=== PATIENT | female | born 1935 | race Caucasian/White ===

== ENCOUNTER 2023-01-15 10:58 | Outpatient (OUT) | payer MEDICARE, SELFPAY ==
[2023-01-15 11:15] VITALS: BP 162/79; PULSE 68; RESP 18; TEMP 36.4; O2SAT 94
--- NOTE | 2023-01-15 11:25 | PC.NURSE ---
Patient is here for Evenity injection, she had her bloodwork drawn. She denies any concerns or complaints at this time and states she has tolerated these in the past.
[2023-01-15 11:29] LABS: Calcium 8.8 mg/dL (8.5-10.1); Estimated GFR (African America 50 (>=60); Estimated GFR (Non-African Ame 41 (>=60)
[2023-01-15] MEDS: ROMOSOZUMAB-AQQG 210 MG/2.34 ML SYRINGE SQ (11:46)
== END 2023-01-15 10:59 | disposition home or self-care (01) ==
LOC: LAB 11:02
PROVIDERS: PCP Family Medicine; Visit Provider Family Medicine
DX: M81.0 Age-related osteoporosis without current pathological fracture (principal)
CPT/HCPCS: 36415; 82310; 82565; 96372; J3111

== ENCOUNTER 2023-02-15 10:35 | Outpatient (OUT) | payer MEDICARE, SELFPAY ==
[2023-02-15 10:54] VITALS: BP 154/77; PULSE 62; RESP 18; TEMP 36.6; O2SAT 94
[2023-02-15 11:02] LABS: Calcium 8.7 mg/dL (8.5-10.1); Estimated GFR (African America 40 (>=60); Estimated GFR (Non-African Ame 33 (>=60)
[2023-02-15] MEDS: ROMOSOZUMAB-AQQG 210 MG/2.34 ML SYRINGE SQ (11:28)
== END 2023-02-15 10:36 | disposition home or self-care (01) ==
LOC: INF 10:48
PROVIDERS: PCP Family Medicine; Visit Provider Family Medicine
DX: M81.0 Age-related osteoporosis without current pathological fracture (principal)
CPT/HCPCS: 36415; 82310; 82565; 96372; J3111

== ENCOUNTER 2023-03-22 10:42 | Outpatient (RCR) | payer MEDICARE, SELFPAY ==
[2023-03-22 10:42] VITALS: BP 178/76; PULSE 58; RESP 20; TEMP 36.4; O2SAT 99
--- NOTE | 2023-03-22 10:42 | PC.NURSE ---
1042: Pt. to [facility] amb. for monthly Evenity injection. Seated in recliner. VSS. Denies c/o adverse reactions with past injections. Denies needs or c/o. Awaits med. from pharmacy.
[2023-03-22 11:08] LABS: Estimated GFR (African America 52 (>=60); Estimated GFR (Non-African Ame 43 (>=60)
[2023-03-22] MEDS: ROMOSOZUMAB-AQQG 210 MG/2.34 ML SYRINGE SQ (11:11)
--- NOTE | 2023-03-22 11:15 | PC.NURSE ---
1111: Pt. medicated with Evenity 210mg SQ to left arm x's 2 injection sites. No bleeding observed. Pt. tolerated without c/o. 1115: Pt d/c'd amb to home.
== END 2023-03-22 23:59 | disposition home or self-care (01) ==
LOC: INF 10:42
PROVIDERS: PCP Family Medicine; Visit Provider Family Medicine
DX: M81.0 Age-related osteoporosis without current pathological fracture (principal)
CPT/HCPCS: 36415; 82310; 82565; 96372; J3111

== ENCOUNTER 2023-03-29 08:12 | Outpatient (OUT) | payer MEDICARE, SELFPAY ==
[2023-03-29 08:34] LABS: Basophils Absolute Auto 0.1 10^3/uL (0.0-0.1); Basophils Percent Auto 0.8 % (0.2-2.0); Eosinophils Absolute Auto 0.2 10^3/uL (0.0-0.7); Eosinophils Percent Auto 3.9 % (0.9-7.0); Hematocrit 43.3 % (36.0-48.0); Hemoglobin 14.6 g/dL (12.0-16.0); Immature Granulocytes Abs Auto 0.02 10^3/uL (0.00-0.03); Immature Granulocytes Pct Auto 0.3 % (0.0-0.5); Lymphocytes Absolute Auto 1.6 10^3/uL (1.2-3.8); Lymphocytes Percent Auto 26.6 % (20.5-60.0); Mean Corpuscular HGB Conc 33.7 g/dL (29.9-35.2); Mean Corpuscular Hemoglobin 31.9 pg (26.7-34.0); Mean Corpuscular Volume 94.7 fL (81.0-99.0); Monocytes Absolute Auto 0.6 10^3/uL (0.3-0.8); Monocytes Percent Auto 9.9 % (1.7-12.0); Neutrophils Absolute Auto 3.5 10^3/uL (1.4-6.5); Neutrophils Percent Auto 58.5 % (43.0-75.0); Platelet Count 247 10^3/uL (150-450); Red Blood Count 4.57 10^6/uL (4.20-5.40); Red Cell Distribution Width 13.7 % (11.0-15.0); White Blood Count 5.9 10^3/uL (4.0-11.0)
[2023-03-29 08:58] LABS: Alanine Aminotransferase 13 U/L (14-59); Albumin Globulin Ratio 0.9; Albumin Level 3.6 g/dL (3.4-5.0); Alkaline Phosphatase 92 U/L (46-116); Anion Gap 12.3; Aspartate Amino Transferase 16 U/L (15-37); BUN Creatinine Ratio 16.1; Bilirubin Total 0.5 mg/dL (0.2-1.0); Calcium 8.7 mg/dL (8.5-10.1); Carbon Dioxide 25.2 mmol/L (21.0-32.0); Chloride 106 mmol/L (98-107); Chol HDL Ratio 3.4; Cholesterol 142 mg/dL (<=200); Estimated GFR (African America 50 (>=60); Estimated GFR (Non-African Ame 41 (>=60); Glucose 94 mg/dL (74-106); HDL Cholesterol 42 mg/dL (40-60); LDL Cholesterol Calculated 78.4 mg/dL; Potassium 4.5 mmol/L (3.5-5.1); Sodium 139 mmol/L (136-145); Thyroid Stimulating Hormone 0.427 uIU/mL (0.358-3.740); Total Protein 7.6 g/dL (6.4-8.2); Triglycerides 108 mg/dL (<=150); VLDL CHOLESTEROL 21.6 mg/dL
[2023-03-29 08:59] LABS: Estimated Average Glucose 114 mg/dL; Glycohemoglobin A1C 5.6 % (4.5-6.2)
[2023-03-29 09:07] LABS: Free T4 1.12 ng/dL (0.76-1.46)
== END 2023-03-29 08:13 | disposition home or self-care (01) ==
LOC: LAB 08:13
PROVIDERS: PCP Family Medicine; Visit Provider Family Medicine
DX: E01.0 Iodine-deficiency related diffuse (endemic) goiter (principal); I10 Essential (primary) hypertension; E78.2 Mixed hyperlipidemia; E11.9 Type 2 diabetes mellitus without complications
CPT/HCPCS: 36415; 80053; 80061; 83036; 84439; 84443; 85025

== ENCOUNTER 2023-04-19 07:16 | Outpatient (RCR) | payer MEDICARE, SELFPAY ==
[2023-04-19 11:08] LABS: Calcium 8.9 mg/dL (8.5-10.1); Estimated GFR (African America 50 (>=60); Estimated GFR (Non-African Ame 41 (>=60)
[2023-04-19] MEDS: ROMOSOZUMAB-AQQG 210 MG/2.34 ML SYRINGE SQ (11:32)
[2023-04-19 11:33] VITALS: BP 152/78; PULSE 60; RESP 18; TEMP 36; O2SAT 98
== END 2023-04-21 23:59 | disposition home or self-care (01) ==
LOC: INF 07:16
PROVIDERS: PCP Family Medicine; Visit Provider Family Medicine
DX: M81.0 Age-related osteoporosis without current pathological fracture (principal)
CPT/HCPCS: 36415; 82310; 82565; 96372; J3111

== ENCOUNTER 2023-05-17 07:32 | Outpatient (RCR) | payer MEDICARE, SELFPAY ==
[2023-05-17 10:19] VITALS: BP 178/76; PULSE 61; RESP 16; TEMP 36.4; O2SAT 95
[2023-05-17 10:25] LABS: Calcium 9.1 mg/dL (8.5-10.1); Estimated GFR (African America 47 (>=60); Estimated GFR (Non-African Ame 39 (>=60)
[2023-05-17] MEDS: ROMOSOZUMAB-AQQG 210 MG/2.34 ML SYRINGE SQ (10:36)
--- NOTE | 2023-05-17 11:09 | PC.NURSE ---
1019: Pt. to [facility] amb. for monthly injection. Seated in recliner. VSS. Denies adverse reaction after med. given in past months. Relays c/o bone ache off and on. Instructed to drink lots of fluids and take Tylenol for pain today. Pt. relays understanding. 1036: Pt. medicated with Evenity 210mg SQ to left upper arm. No bleeding to injection sites x's 2. Pt. tolerated with min. c/o discomfort. 1040: Pt. d/c'd amb to home.
== END 2023-05-22 23:59 | disposition home or self-care (01) ==
LOC: INF 07:32
PROVIDERS: PCP Family Medicine; Visit Provider Family Medicine
DX: M81.0 Age-related osteoporosis without current pathological fracture (principal)
CPT/HCPCS: 36415; 82310; 82565; 96372; J3111

== ENCOUNTER 2023-06-18 07:21 | Outpatient (RCR) | payer MEDICARE, SELFPAY ==
[2023-05-23 00:03] VITALS: BP 178/76; PULSE 61; RESP 16; TEMP 36.4; O2SAT 95
[2023-06-18 11:04] VITALS: BP 168/75; PULSE 57; RESP 16; TEMP 36.4; O2SAT 96
[2023-06-18 11:05] LABS: Estimated GFR (African America 42 (>=60); Estimated GFR (Non-African Ame 35 (>=60)
--- NOTE | 2023-06-18 11:05 | PC.NURSE ---
1055: Pt. to [facility] amb for monthly injection. Denies c/o or needs. VSS. Awaiting med from pharmacy.
[2023-06-18] MEDS: ROMOSOZUMAB-AQQG 210 MG/2.34 ML SYRINGE SQ (11:17)
--- NOTE | 2023-06-18 11:38 | PC.NURSE ---
1117: Medicated with Evenity x's 2 injections to left upper arm. No bleeding at either injection site. Pt. tolerated without c/o. 1123: D/c'd amb. to home
== END 2023-06-21 23:59 | disposition home or self-care (01) ==
LOC: INF 07:21
PROVIDERS: PCP Family Medicine; Visit Provider Family Medicine
DX: M81.0 Age-related osteoporosis without current pathological fracture (principal)
CPT/HCPCS: 36415; 82310; 82565; 96372; J3111

== ENCOUNTER 2023-07-20 07:32 | Outpatient (OUT) | payer MEDICARE, SELFPAY ==
[2023-06-22 00:03] VITALS: BP 168/75; PULSE 57; RESP 16; TEMP 36.4; O2SAT 96
--- OUTSIDE RECORDS SUMMARY | 2023-07-20 07:36 | XMS_ITS | CCD ---
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 Phone DEVONTE ., DR ESTEVEZ Attending Unavailable HOY ., DR ESTEVEZ Admitting Unavailable HOY ., DR ESTEVEZ Primary Care Unavailable HOY ., DR ESTEVEZ Consulting Unavailable HOY ., DR ESTEVEZ Attending Unavailable HOY ., DR ESTEVEZ Admitting Unavailable HOY ., DR ESTEVEZ Primary Care Unavailable HOY ., DR ESTEVEZ Consulting Unavailable WEST, DR BOOGIE Crow Consulting Unavailable HOY ., DR ESTEVEZ Consulting Unavailable HOY ., DR ESTEVEZ Attending Unavailable HOY ., DR ESTEVEZ Admitting Unavailable HOY ., DR ESTEVEZ Primary Care Unavailable HOY ., DR ESTEVEZ Attending Unavailable HOY ., DR ESTEVEZ Admitting Unavailable HOY ., DR ESTEVEZ Primary Care Unavailable HOY ., DR ESTEVEZ Consulting Unavailable Problems Active Problems Problem Classification Problem Date Documented Da te Episodic/Chronic Disorders of lipid metabolism (1 source) Hyperlipidemia, unspecified; Translations: [HYPERLIPIDEMIA UNSPECIFIED] Onset: 11-23-2021 Chronic Menopausal disorders (1 source) Other primary ovarian failure; Translations: [OTHER PRIMARY OVARIAN FAILURE] Onset: 11-23-2021 Chronic Osteoporosis (4 sources) Age-related osteoporosis without current pathological fracture; Translations: [AGE-REL OSTEOPOR W/O CURR PATH FX] Onset: 11-13-2022 Chronic Past or Other Problems Problem Classification Problem Date Documented Da te Episodic/Chronic Deficiency and other anemia (1 source) Anemia, unspecified; Translations: [ANEMIA UNSPECIFIED] Onset: 11-23-2021 Episodic Diabetes mellitus without complication (1 source) Other abnormal glucose; Translations: [OTHER ABNORMAL GLUCOSE] Onset: 11-23-2021 Episodic Results Test Name Value Interpretation Reference Range Facil ity CALCIUMon 11-13-2022 Calcium [Mass/Vol] 8.9 mg/dL Normal 8.5-10.1 [facility] Comment on above: Performed By: #### C A, CREA #### [facility] [address] [place] [address] Dr. Sheila Chang CREATININEon 11-13-2022 Creatinine [Mass/Vol] 1.24 mg/dL Critically high 0.55-1.02 [facility] Comment on above: Performed By: #### C A, CREA #### [facility] [address] [place] [address] Dr. Sheila Chang EGFR-AF TOGOLESE 50 mL/min/1.73m2 Critically low >=60 [facility] Comment on above: Performed By: #### C A, CREA #### [facility] [address] [place] [address] Dr. Sheila Chang EGFR-NON AF TOGOLESE 41 mL/min/1.73m2 Critically low >=60 [facility] Comment on above: Performed By: #### C A, CREA #### [facility] [address] [place] [address] Dr. Sheila Chang CALCIUMon 10-11-2022 Calcium [Mass/Vol] 9.7 mg/dL Normal 8.5-10.1 [facility] Comment on above: Performed By: #### C A, CREA #### [facility] [address] [place] [address] Dr. Sheila Chang CREATININEon 10-11-2022 Creatinine [Mass/Vol] 1.16 mg/dL Critically high 0.55-1.02 [facility] Comment on above: Performed By: #### C A, CREA #### [facility] [address] [place] [address] Dr. Sheila Chang EGFR-AF TOGOLESE 54 mL/min/1.73m2 Critically low >=60 [facility] Comment on above: Performed By: #### C A, CREA #### [facility] [address] [place] [address] Dr. Sheila Chang EGFR-NON AF TOGOLESE 44 mL/min/1.73m2 Critically low >=60 [facility] Comment on above: Performed By: #### C Henrique, CREA #### [facility] [address] [place] [address] Dr. Sheila Chang XR DEXA BONE DENSITYon 04-27 XR DEXA BONE DENSITY EXAMINATION: XR DEX A BONE DENSITY, 04/27/2022 10:29 AM EDT HISTORY: Osteoporosis COMPARISON: 2016, 2006, 2004 TECHNIQUE: Dual-energy X-ray absorptiometry (DEXA) bone density study performed for the axial skeleton. FINDINGS: Bone mineral density AP spine L1-L4 measures 1.24 g/sq cm. T score 0.6. WHO classification: Normal. 11.1% increase from the prior exam Lowest bone mineral density right femoral neck measures 0.659 g/sq cm. T score -2.7. WHO classification: Osteoporosis IMPRESSION: Osteoporosis. High fracture risk Electronically authenticated by: BOOGIE HAYS Date: 2022-04-27 17:32 Normal [facility] CBC AUTO DIFFon 11-21-2021 BASO # 0.0 103/ul Normal 0.0-0.1 [facility] Comment on above: Performed By: #### C Henrique, CREA #### [facility] [address] [place] [address] Dr. Sheila Chang Basophils/100 WBC (Bld) 0.6 % Normal 0.2-2.0 [facility] Comment on above: Performed By: #### C Henrique, CREA #### [facility] [address] [place] [address] Dr. Sheila Chang EO # 0.2 103/ul Normal 0.0-0.7 [facility] Comment on above: Performed By: #### C Henrique, CREA #### [facility] [address] [place] [address] Dr. Sheila Chang Eosinophils/100 WBC (Bld) 3.3 % Normal 0.9-7.0 [facility] Comment on above: Performed By: #### C Henrique, CREA #### [facility] [address] [place] [address] Dr. Sheila Chang Erythrocyte distribution width (RBC) [Ratio] 13.8 % Normal 11.0-15.0 [facility] Comment on above: Performed By: #### C A, CREA #### [facility] [address] [place] [address] Dr. Sheila Chang Hematocrit (Bld) [Volume fraction] 41.8 % Normal 36.0-48.0 [facility] Comment on above: Performed By: #### C A, CREA #### [facility] [address] [place] [address] Dr. Sheila Chang Hemoglobin (Bld) [Mass/Vol] 13.4 g/dL Normal 12.0-16.0 [facility] Comment on above: Performed By: #### C A, CREA #### [facility] [address] [place] [address] Dr. Sheila Chang IG # 0.01 10e3/ul Normal 0.00-0.03 [facility] Comment on above: Performed By: #### C A, CREA #### [facility] [address] [place] [address] Dr. Sheila Chang IG % 0.2 % Normal 0.0-0.5 [facility] Comment on above: Performed By: #### C A, CREA #### [facility] [address] [place] [address] Dr. Sheila Chang LYMPH # 1.2 103/ul Normal 1.2-3.8 [facility] Comment on above: Performed By: #### C A, CREA #### [facility] [address] [place] [address] Dr. Sheila Chang Lymphocytes/100 WBC (Bld) 23.6 % Normal 20.5-60.0 [facility] Comment on above: Performed By: #### C A, CREA #### [facility] [address] [place] [address] Dr. Sheila Chang MANUAL DIFF REQ NO Normal [facility] Comment on above: Performed By: #### C A, CREA #### [facility] [address] [place] [address] Dr. Sheila Chang MCH (RBC) [Entitic mass] 31.2 pg Normal 26.7-34.0 [facility] Comment on above: Performed By: #### C A, CREA #### [facility] [address] [place] [address] Dr. Sheila Chang MCHC (RBC) [Mass/Vol] 32.1 g/dL Normal 29.9-35.2 [facility] Comment on above: Performed By: #### C A, CREA #### [facility] [address] [place] [address] Dr. Sheila Chang MCV (RBC) [Entitic vol] 97.2 fL Normal 81.0-99.0 [facility] Comment on above: Performed By: #### C A, CREA #### [facility] [address] [place] [address] Dr. Sheila Chang MONO # 0.5 103/ul Normal 0.3-0.8 [facility] Comment on above: Performed By: #### C A, CREA #### [facility] [address] [place] [address] Dr. Sheila Chang Monocytes/100 WBC (Bld) 9.2 % Normal 1.7-12.0 [facility] Comment on above: Performed By: #### C A, CREA #### [facility] [address] [place] [address] Dr. Sheila Chang NEUT # 3.2 103/ul Normal 1.4-6.5 [facility] Comment on above: Performed By: #### C A, CREA #### [facility] [address] [place] [address] Dr. Sheila Chang Neutrophils/100 WBC (Bld) 63.1 % Normal 43.0-75.0 [facility] Comment on above: Performed By: #### C A, CREA #### [facility] [address] [place] [address] Dr. Sheila Chang Platelet mean volume (Bld) [Entitic vol] 9.0 fL Critically low 9.5-13.5 [facility] Comment on above: Performed By: #### C A, CREA #### [facility] [address] [place] [address] Dr. Sheila Chang PLT 273 103/ul Normal 150-450 [facility] Comment on above: Performed By: #### C Henrique CREA #### [facility] [address] [place] [address] Dr. Sheila Chang RBC 4.30 106/ul Normal 4.20-5.40 [facility] Comment on above: Performed By: #### C Henrique CREA #### [facility] [address] [place] [address] Dr. Sheila Chang WBC 5.1 103/ul Normal 4.0-11.0 [facility] Comment on above: Performed By: #### C Henrique CREA #### [facility] [address] [place] [address] Dr. Sheila Chang FREE THYROXINE INDEX T7on FTI 2.95 Normal [facility] Comment on above: Performed By: #### T 7, TSH, LIPID, CMP #### [facility] [address] [place] [address] Dr. Sheila Chang T3U 36.0 % Normal 23.5-40.5 [facility] Comment on above: Performed By: #### T 7, TSH, LIPID, CMP #### [facility] [address] [place] [address] Dr. Sheila Chang T4 [Mass/Vol] 8.20 ug/dL Normal 4.80-13.90 [facility] Comment on above: Performed By: #### T 7, TSH, LIPID, CMP #### [facility] [address] [place] [address] Dr. Sheila Chang GLYCOHEMOGLOBIN A1Con 2021 ADA RECOMMENDATION SEE BELOW Normal [facility] Comment on above: Result Comment: ADA RECOMMENDED LIMIT 4.0 - 6.0 ADA THERAPEUTIC TARGET < 7.0 ACTION SUGGESTED > 7.0 Performed By: #### A 1C #### [facility] [address] [place] [address] Dr. Sheila Chang Glucose [Mass/Vol] 114 mg/dL Normal [facility] Comment on above: Performed By: #### A 1C #### [facility] [address] [address] [address] Sheila Chang HbA1c (Bld) [Mass fraction] 5.6 % Normal 4.5-6.2 [facility] Comment on above: Performed By: #### A 1C #### [facility] [address] [place] [address] Dr. Sheila Chang IRONon 11-21-2021 Iron [Mass/Vol] 102.0 ug/dL Normal 50.0-170.0 [facility] Comment on above: Performed By: #### I BRIGETTE #### [facility] [address] [place] [address] Dr. Sheila Chang LIPID PROFILEon 11-21-2021 CHOL-HDL RATIO NORM SEE BELOW Normal [facility] Comment on above: Result Comment: 3.3 - 4.4 LOW RISK 4.4 - 7.1 AVERAGE RISK 7.1 - 11.0 MODERATE RISK >11.0 HIGH RISK Performed By: #### T 7, TSH, LIPID, CMP #### [facility] [address] [place] [address] Dr. Sheila Chang Cholesterol [Mass/Vol] 142 mg/dL Normal <=200 [facility] Comment on above: Performed By: #### T 7, TSH, LIPID, CMP #### [facility] [address] [place] [address] Dr. Sheila Chang Cholesterol in HDL [Mass/Vol] 47 mg/dL Normal 40-60 [facility] Comment on above: Performed By: #### T 7, TSH, LIPID, CMP #### [facility] [address] [place] [address] Dr. Sheila Chang Cholesterol in LDL [Mass/Vol] 83.8 mg/dL Normal [facility] Comment on above: Performed By: #### T 7, TSH, LIPID, CMP #### [facility] [address] [place] [address] Dr. Sheila Chang Cholesterol.total/Cho lesterol in HDL [Mass ratio] 3.0 {ratio} Normal [facility] Comment on above: Performed By: #### T 7, TSH, LIPID, CMP #### [facility] [address] [address] [address] Sheila Chang HDL NORMAL > or = 60 mg/dl - LOW CARDIOVASCULAR RISK <40 mg/dl - HIGH CARDIOVASCULAR RISK Normal [facility] Comment on above: Performed By: #### T 7, TSH, LIPID, CMP #### [facility] [address] [address] [address] Sheila Chang LDL CALC NORMAL SEE BELOW Normal [facility] Comment on above: Result Comment: <100 mg/dl OPTIMAL 100 - 129 mg/dl NEAR OR ABOVE OPTIMAL 130 - 159 mg/dl BORDERLINE HIGH 160 - 189 mg/dl HIGH >190 mg/dl VERY HIGH Performed By: #### T 7, TSH, LIPID, CMP #### [facility] [address] [address] [address] Sheila Chang Triglyceride [Mass/Vol] 56 mg/dL Normal <=150 [facility] Comment on above: Performed By: #### T 7, TSH, LIPID, CMP #### [facility] [address] [address] [address] Sheila Chang VLDL CALC 11.2 mg/dL Normal [facility] Comment on above: Performed By: #### T 7, TSH, LIPID, CMP #### [facility] [address] [address] [address] Sheila Chang PROF 14(COMP METB)on 022 Albumin [Mass/Vol] 3.5 g/dL Normal 3.4-5.0 [facility] Comment on above: Performed By: #### T 7, TSH, LIPID, CMP #### [facility] [address] [place] [address] Dr. Sheila Chang Albumin/Globulin [Mass ratio] 0.9 {ratio} Normal [facility] Comment on above: Performed By: #### T 7, TSH, LIPID, CMP #### [facility] [address] [place] [address] Dr. Sheila Chang ALP [Catalytic activity/Vol] 60 U/L Normal 46-116 [facility] Comment on above: Performed By: #### T 7, TSH, LIPID, CMP #### [facility] [address] [address] [address] Sheila Chang ALT [Catalytic activity/Vol] 14 U/L Normal 14-59 [facility] Comment on above: Performed By: #### T 7, TSH, LIPID, CMP #### [facility] [address] [address] [address] Sheila Chang Anion gap [Moles/Vol] 14.4 mmol/L Normal [facility] Comment on above: Performed By: #### T 7, TSH, LIPID, CMP #### [facility] [address] [address] [address] Sheila Chang AST [Catalytic activity/Vol] 14 U/L Critically low 15-37 [facility] Comment on above: Performed By: #### T 7, TSH, LIPID, CMP #### [facility] [address] [address] [address] Sheila Chang Bilirubin [Mass/Vol] 0.5 mg/dL Normal 0.2-1.0 [facility] Comment on above: Performed By: #### T 7, TSH, LIPID, CMP #### [facility] [address] [address] [address] Sheila Chang Calcium [Mass/Vol] 8.5 mg/dL Normal 8.5-10.1 [facility] Comment on above: Performed By: #### T 7, TSH, LIPID, CMP #### [facility] [address] [address] [address] Sheila Chang Chloride [Moles/Vol] 106 mmol/L Normal 98-107 [facility] Comment on above: Performed By: #### T 7, TSH, LIPID, CMP #### [facility] [address] [address] [address] Sheila Chang CO2 [Moles/Vol] 25.2 mmol/L Normal 21.0-32.0 [facility] Comment on above: Performed By: #### T 7, TSH, LIPID, CMP #### [facility] [address] [address] [address] Sheila Chang Creatinine [Mass/Vol] 1.15 mg/dL Critically high 0.55-1.02 [facility] Comment on above: Performed By: #### T 7, TSH, LIPID, CMP #### [facility] [address] [place] [address] Dr. Sheila Chang EGFR-AF TOGOLESE 54 mL/min/1.73m2 Critically low >=60 [facility] Comment on above: Performed By: #### T 7, TSH, LIPID, CMP #### [facility] [address] [place] [address] Dr. Sheila Chang EGFR-NON AF TOGOLESE 45 mL/min/1.73m2 Critically low >=60 [facility] Comment on above: Performed By: #### T 7, TSH, LIPID, CMP #### [facility] [address] [place] [address] Dr. Sheila Chang Globulin (S) [Mass/Vol] 3.8 g/dL Normal [facility] Comment on above: Performed By: #### T 7, TSH, LIPID, CMP #### [facility] [address] [place] [address] Dr. Sheila Chang Glucose [Mass/Vol] 96 mg/dL Normal 74-106 [facility] Comment on above: Performed By: #### T 7, TSH, LIPID, CMP #### [facility] [address] [place] [address] Dr. Sheila Chang Potassium [Moles/Vol] 5.6 mmol/L Critically high 3.5-5.1 [facility] Comment on above: Performed By: #### T 7, TSH, LIPID, CMP #### [facility] [address] [place] [address] Dr. Sheila Chang Protein [Mass/Vol] 7.3 g/dL Normal 6.1-8.2 [facility] Comment on above: Performed By: #### T 7, TSH, LIPID, CMP #### [facility] [address] [place] [address] Dr. Sheila Chang Sodium [Moles/Vol] 140 mmol/L Normal 136-145 [facility] Comment on above: Performed By: #### T 7, TSH, LIPID, CMP #### [facility] [address] [address] [address] Sheila Chang Urea nitrogen [Mass/Vol] 25.0 mg/dL Critically high 7.0-18.0 [facility] Comment on above: Performed By: #### T 7, TSH, LIPID, CMP #### [facility] [address] [address] [address] Sheila Chang Urea nitrogen/Creatinine [Mass ratio] 21.7 mg/mg Normal [facility] Comment on above: Performed By: #### T 7, TSH, LIPID, CMP #### [facility] [address] [address] [address] Sheila Chang TSHon 11-21-2021 TSH 0.162 uIU/mL Critically low 0.470-4.680 [facility] Comment on above: Performed By: #### T 7, TSH, LIPID, CMP #### [facility] [address] [address] [address] Sheila Chang TSH RANGE SEE BELOW Normal [facility] Comment on above: Result Comment: <0.3 4 UIU/ml HYPERTHYROID 0.34-5.60 UIU/ml EUTHYROID >5.60 UIU/ml HYPOTHYROID Performed By: #### T 7, TSH, LIPID, CMP #### [facility] [address] [address] [address] Sheila Chang Encounters Encounter Date Encounter Type Care Provider Facility Start: 11-13-2022 End: 11-13-[address] ZENAIDA WHITNEY . Facility:[facility] Start: 10-11-2022 End: 10-12-[address] ZENADIA WHITNEY . Facility[facility] Start: 04-27-2022 End: 04-28-[address] ZENAIDA WHITNEY . Facility[facility] Start: 11-21-2021 End: 11-22-[address] ZENAIDA WHITNEY . Facility: Payers Date Payer Category Payer Medicare [id number] 1959 Unknown [id number] 1935 Unknown [id number] 1935 Unknown [id number] 1935 Unknown [id number] [id number] 1935 Unknown [id number] Summary Purpose Family History No Family History Records Found Advance Directives No Advanced Directives Records Found Additional Source Comments INFORMATION SOURCE (unrecogn ized section and content) DATE CREATED AUTHOR 11/13/2022 [facility] FOR RECORDS PERTAINING TO PATIENTS WHO ARE OR HAVE BEEN ENROLLED IN A CHEMICAL DEPENDENCY/SUBSTANCEABUSE PROGRAM, SOME INFORMATION MAY BE OMITTED. This clinical summary was aggregated from multiple sources. Caution should be exercised in using it in the provision of clinical care. This summary normalizes information from multiple sources, and as a consequence, information in this document may materially change the coding, format and clinical context of patient data. In addition, data may be omitted in some cases. CLINICAL DECISIONS SHOULD BE BASED ON THE PRIMARY CLINICAL RECORDS. [facility] [facility] provides no warranty or guarantee of the accuracy or completeness of information in this document.
[2023-07-20 11:40] LABS: Calcium 8.8 mg/dL (8.5-10.1); Estimated GFR (African America 48 (>=60); Estimated GFR (Non-African Ame 39 (>=60)
[2023-07-20] MEDS: ROMOSOZUMAB-AQQG 210 MG/2.34 ML SYRINGE SQ (11:55)
[2023-07-20 11:57] VITALS: BP 142/85; PULSE 80; RESP 16; TEMP 36.4; O2SAT 97
--- NOTE | 2023-07-20 11:58 | PC.NURSE ---
1130: Pt. to [facility] amb. for monthly injection. VSS. Medicated with Evenity 210mg SQ x's 2 injection sites to left arm. No bleeding to site. Pt. tolerates without c/o. 1155: Pt. d/c'd amb. to home.
== END 2023-07-20 07:33 | disposition home or self-care (01) ==
PROVIDERS: PCP Family Medicine; Visit Provider Family Medicine
DX: M81.0 Age-related osteoporosis without current pathological fracture (principal)
CPT/HCPCS: 36415; 82310; 82565; 96372; J3111

== ENCOUNTER 2023-08-20 07:12 | Outpatient (OUT) | payer MEDICARE, SELFPAY ==
--- OUTSIDE RECORDS SUMMARY | 2023-08-20 07:15 | XMS_ITS | CCD ---
Author Name Unknown Address [address] [place] [address] Organization [facility] Care Team Providers Care Book Store Associate Name Role Phone DEVONTE ., DR ESTEVEZ [...] Performed By: #### C A, CREA #### [facility] [address] [place] [address] Dr. Sheila Chang CREATININEon 11-13-2022 Creatinine [Mass/Vol] 1.24 mg/dL Critically high 0.55-1.02 [facility] Comment on above: Performed By: #### C A, CREA #### [facility] [address] [place] [address] Dr. Sheila Chang EGFR-AF SUDANESE 50 mL/min/1.73m2 Critically low >=60 [facility] Comment on above: Performed By: #### C A, CREA #### [facility] [address] [place] [address] Dr. Sheila Chang EGFR-NON AF SUDANESE 41 mL/min/1.73m2 Critically low >=60 [facility] Comment on above: Performed By: #### C A, CREA #### [facility] [address] [place] [address] Dr. Sheila Chang CALCIUMon 10-11-2022 Calcium [Mass/Vol] 9.7 mg/dL Normal 8.5-10.1 [facility] Comment on above: Performed By: #### C A, CREA #### [facility] [address] [place] [address] Dr. Sheila Chang CREATININEon 10-11-2022 Creatinine [Mass/Vol] 1.16 mg/dL Critically high 0.55-1.02 [facility] Comment on above: Performed By: #### C A, CREA #### [facility] [address] [place] [address] Dr. Sheila Chang EGFR-AF SUDANESE 54 mL/min/1.73m2 Critically low >=60 [facility] Comment on above: Performed By: #### C A, CREA #### [facility] [address] [place] [address] Dr. Sheila Chang EGFR-NON AF SUDANESE 44 mL/min/1.73m2 Critically low >=60 [facility] Comment on above: Performed By: #### C Henrique, CREA #### [facility] [address] [place] [address] Dr. Sheila Chang XR DEXA BONE DENSITYon [...] [place]IE [place] Date: 2022-04-27 17:32 Normal [facility] CBC AUTO DIFFon 11-21-2021 BASO # 0.0 103/ul Normal 0.0-0.1 [facility] Comment on above: Performed By: #### C Henrique, CREA #### [facility] [address] [place] [address] Dr. Sheila Chang Basophils/100 WBC (Bld) 0.6 % Normal 0.2-2.0 [facility] Comment on above: Performed By: #### C Henrique, CREA #### [facility] [address] [place] [address] Dr. Sheila Chang EO # 0.2 103/ul Normal 0.0-0.7 [facility] Comment on above: Performed By: #### C Henrique, CREA #### [facility] [address] [place] [address] Dr. Sheila Chang Eosinophils/100 WBC (Bld) 3.3 % Normal 0.9-7.0 [facility] Comment on above: Performed By: #### C Henrique, CREA #### [facility] [address] [place] [address] Dr. Sheila Chang Erythrocyte distribution width (RBC) [Ratio] 13.8 % Normal 11.0-15.0 [facility] Comment on above: Performed By: #### C A, CREA #### [facility] [address] [place] [address] Dr. Sheila Chang Hematocrit (Bld) [Volume fraction] 41.8 % Normal 36.0-48.0 [facility] Comment on above: Performed By: #### C A, CREA #### [facility] [address] [place] [address] Dr. Sheila Chang Hemoglobin (Bld) [Mass/Vol] 13.4 g/dL Normal 12.0-16.0 [facility] Comment on above: Performed By: #### C A, CREA #### [facility] [address] [place] [address] Dr. Sheila Chang IG # 0.01 10e3/ul Normal 0.00-0.03 [facility] Comment on above: Performed By: #### C A, CREA #### [facility] [address] [place] [address] Dr. Sheila Chang IG % 0.2 % Normal 0.0-0.5 [facility] Comment on above: Performed By: #### C A, CREA #### [facility] [address] [place] [address] Dr. Sheila Chang LYMPH # 1.2 103/ul Normal 1.2-3.8 [facility] Comment on above: Performed By: #### C A, CREA #### [facility] [address] [place] [address] Dr. Sheila Chang Lymphocytes/100 WBC (Bld) 23.6 % Normal 20.5-60.0 [facility] Comment on above: Performed By: #### C A, CREA #### [facility] [address] [place] [address] Dr. Sheila Chang MANUAL DIFF REQ NO Normal [facility] Comment on above: Performed By: #### C A, CREA #### [facility] [address] [place] [address] Dr. Sheila Chang MCH (RBC) [Entitic mass] 31.2 pg Normal 26.7-34.0 [facility] Comment on above: Performed By: #### C A, CREA #### [facility] [address] [place] [address] Dr. Sheila Chang MCHC (RBC) [Mass/Vol] 32.1 g/dL Normal 29.9-35.2 [facility] Comment on above: Performed By: #### C A, CREA #### [facility] [address] [place] [address] Dr. Sheila hCang MCV (RBC) [Entitic vol] 97.2 fL Normal 81.0-99.0 [facility] Comment on above: Performed By: #### C A, CREA #### [facility] [address] [place] [address] Dr. Sheila Chang MONO # 0.5 103/ul Normal 0.3-0.8 [facility] Comment on above: Performed By: #### C A, CREA #### [facility] [address] [place] [address] Dr. Sheila Chang Monocytes/100 WBC (Bld) 9.2 % Normal 1.7-12.0 [facility] Comment on above: Performed By: #### C A, CREA #### [facility] [address] [place] [address] Dr. Sheila Chang NEUT # 3.2 103/ul Normal 1.4-6.5 [facility] Comment on above: Performed By: #### C A, CREA #### [facility] [address] [place] [address] Dr. Sheila Chang Neutrophils/100 WBC (Bld) 63.1 % Normal 43.0-75.0 [facility] Comment on above: Performed By: #### C A, CREA #### [facility] [address] [place] [address] Dr. Sheila Chang Platelet mean volume (Bld) [Entitic vol] 9.0 fL Critically low 9.5-13.5 [facility] Comment on above: Performed By: #### C A, CREA #### [facility] [address] [place] [address] Dr. Sheila Chang PLT 273 103/ul Normal 150-450 [facility] Comment on above: Performed By: #### C Henrique CREA #### [facility] [address] [place] [address] Dr. Sheila Chang RBC 4.30 106/ul Normal 4.20-5.40 [facility] Comment on above: Performed By: #### C Henrique CREA #### [facility] [address] [place] [address] Dr. Sheila Chang WBC 5.1 103/ul Normal 4.0-11.0 [facility] Comment on above: Performed By: #### C Henrique CREA #### [facility] [address] [place] [address] Dr. Sheila Chang FREE THYROXINE INDEX T7on FTI 2.95 Normal [facility] Comment on above: Performed By: #### T 7, TSH, LIPID, CMP #### [facility] [address] [place] [address] Dr. Sheila Chang T3U 36.0 % Normal 23.5-40.5 [facility] Comment on above: Performed By: #### T 7, TSH, LIPID, CMP #### [facility] [address] [place] [address] Dr. Sheila Chang T4 [Mass/Vol] 8.20 ug/dL Normal 4.80-13.90 [facility] Comment on above: Performed By: #### T 7, TSH, LIPID, CMP #### [facility] [address] [place] [address] Dr. Sheila Chang GLYCOHEMOGLOBIN A1Con 2021 ADA RECOMMENDATION SEE BELOW Normal [facility] Comment on above: Result Comment: ADA RECOMMENDED LIMIT 4.0 - 6.0 ADA THERAPEUTIC TARGET < 7.0 ACTION SUGGESTED > 7.0 Performed By: #### A 1C #### [facility] [address] [place] [address] Dr. Sheila Chang Glucose [Mass/Vol] 114 mg/dL Normal [facility] Comment on above: Performed By: #### A 1C #### [facility] [address] [address] [address] Sheila Chang HbA1c (Bld) [Mass fraction] 5.6 % Normal 4.5-6.2 [facility] Comment on above: Performed By: #### A 1C #### [facility] [address] [place] [address] Dr. Sheila Chang IRONon 11-21-2021 Iron [Mass/Vol] 102.0 ug/dL Normal 50.0-170.0 [facility] Comment on above: Performed By: #### I BRIGETTE #### [facility] [address] [place] [address] Dr. Sheila Chang LIPID PROFILEon 11-21-2021 CHOL-HDL RATIO NORM SEE BELOW Normal [facility] Comment on above: Result Comment: 3.3 - 4.4 LOW RISK 4.4 - 7.1 AVERAGE RISK 7.1 - 11.0 MODERATE RISK >11.0 HIGH RISK Performed By: #### T 7, TSH, LIPID, CMP #### [facility] [address] [place] [address] Dr. Sheila Chang Cholesterol [Mass/Vol] 142 mg/dL Normal <=200 [facility] Comment on above: Performed By: #### T 7, TSH, LIPID, CMP #### [facility] [address] [place] [address] Dr. Sheila Chang Cholesterol in HDL [Mass/Vol] 47 mg/dL Normal 40-60 [facility] Comment on above: Performed By: #### T 7, TSH, LIPID, CMP #### [facility] [address] [place] [address] Dr. Sheila Chang Cholesterol in LDL [Mass/Vol] 83.8 mg/dL Normal [facility] Comment on above: Performed By: #### T 7, TSH, LIPID, CMP #### [facility] [address] [place] [address] Dr. Sheila Chang Cholesterol.total/Cho lesterol in HDL [Mass ratio] 3.0 {ratio} Normal [facility] Comment on above: Performed By: #### T 7, TSH, LIPID, CMP #### [facility] [address] [address] [address] Sheila Chang HDL NORMAL > or = 60 mg/dl - LOW CARDIOVASCULAR RISK <40 mg/dl - HIGH CARDIOVASCULAR RISK Normal [facility] Comment on above: Performed By: #### T 7, TSH, LIPID, CMP #### [facility] [address] [address] [address] Sheila Chang LDL CALC NORMAL SEE BELOW Normal [facility] Comment on above: Result Comment: <100 mg/dl OPTIMAL 100 - 129 mg/dl NEAR OR ABOVE OPTIMAL 130 - 159 mg/dl BORDERLINE HIGH 160 - 189 mg/dl HIGH >190 mg/dl VERY HIGH Performed By: #### T 7, TSH, LIPID, CMP #### [facility] [address] [address] [address] Sheila Chang Triglyceride [Mass/Vol] 56 mg/dL Normal <=150 [facility] Comment on above: Performed By: #### T 7, TSH, LIPID, CMP #### [facility] [address] [address] [address] Sheila Chang VLDL CALC 11.2 mg/dL Normal [facility] Comment on above: Performed By: #### T 7, TSH, LIPID, CMP #### [facility] [address] [address] [address] Sheila Chang PROF 14(COMP METB)on 022 Albumin [Mass/Vol] 3.5 g/dL Normal 3.4-5.0 [facility] Comment on above: Performed By: #### T 7, TSH, LIPID, CMP #### [facility] [address] [place] [address] Dr. Sheila Chang Albumin/Globulin [Mass ratio] 0.9 {ratio} Normal [facility] Comment on above: Performed By: #### T 7, TSH, LIPID, CMP #### [facility] [address] [place] [address] Dr. Sheila Chang ALP [Catalytic activity/Vol] 60 U/L Normal 46-116 [facility] Comment on above: Performed By: #### T 7, TSH, LIPID, CMP #### [facility] [address] [address] [address] Sheila Chang ALT [Catalytic activity/Vol] 14 U/L Normal 14-59 [facility] Comment on above: Performed By: #### T 7, TSH, LIPID, CMP #### [facility] [address] [address] [address] Sheila Chang Anion gap [Moles/Vol] 14.4 mmol/L Normal [facility] Comment on above: Performed By: #### T 7, TSH, LIPID, CMP #### [facility] [address] [address] [address] Sheila Chang AST [Catalytic activity/Vol] 14 U/L Critically low 15-37 [facility] Comment on above: Performed By: #### T 7, TSH, LIPID, CMP #### [facility] [address] [address] [address] Sheila Chang Bilirubin [Mass/Vol] 0.5 mg/dL Normal 0.2-1.0 [facility] Comment on above: Performed By: #### T 7, TSH, LIPID, CMP #### [facility] [address] [address] [address] Sheila Chang Calcium [Mass/Vol] 8.5 mg/dL Normal 8.5-10.1 [facility] Comment on above: Performed By: #### T 7, TSH, LIPID, CMP #### [facility] [address] [address] [address] Sheila Chang Chloride [Moles/Vol] 106 mmol/L Normal 98-107 [facility] Comment on above: Performed By: #### T 7, TSH, LIPID, CMP #### [facility] [address] [address] [address] Sheila Chang CO2 [Moles/Vol] 25.2 mmol/L Normal 21.0-32.0 [facility] Comment on above: Performed By: #### T 7, TSH, LIPID, CMP #### [facility] [address] [address] [address] Sheila Chang Creatinine [Mass/Vol] 1.15 mg/dL Critically high 0.55-1.02 [facility] Comment on above: Performed By: #### T 7, TSH, LIPID, CMP #### [facility] [address] [place] [address] Dr. Sheila Chang EGFR-AF SUDANESE 54 mL/min/1.73m2 Critically low >=60 [facility] Comment on above: Performed By: #### T 7, TSH, LIPID, CMP #### [facility] [address] [place] [address] Dr. Sheila Chang EGFR-NON AF SUDANESE 45 mL/min/1.73m2 Critically low >=60 [facility] Comment on above: Performed By: #### T 7, TSH, LIPID, CMP #### [facility] [address] [place] [address] Dr. Sheila Chang Globulin (S) [Mass/Vol] 3.8 g/dL Normal [facility] Comment on above: Performed By: #### T 7, TSH, LIPID, CMP #### [facility] [address] [place] [address] Dr. Sheila Chang Glucose [Mass/Vol] 96 mg/dL Normal 74-106 [facility] Comment on above: Performed By: #### T 7, TSH, LIPID, CMP #### [facility] [address] [place] [address] Dr. Sheila Chang Potassium [Moles/Vol] 5.6 mmol/L Critically high 3.5-5.1 [facility] Comment on above: Performed By: #### T 7, TSH, LIPID, CMP #### [facility] [address] [place] [address] Dr. Sehila Chang Protein [Mass/Vol] 7.3 g/dL Normal 6.1-8.2 [facility] Comment on above: Performed By: #### T 7, TSH, LIPID, CMP #### [facility] [address] [place] [address] Dr. Sheila Chang Sodium [Moles/Vol] 140 mmol/L Normal 136-145 [facility] Comment on above: Performed By: #### T 7, TSH, LIPID, CMP #### [facility] [address] [address] [address] Sheila Chang Urea nitrogen [Mass/Vol] 25.0 mg/dL Critically high 7.0-18.0 [facility] Comment on above: Performed By: #### T 7, TSH, LIPID, CMP #### [facility] [address] [address] [address] Sheila Chang Urea nitrogen/Creatinine [Mass ratio] 21.7 mg/mg Normal [facility] Comment on above: Performed By: #### T 7, TSH, LIPID, CMP #### [facility] [address] [address] [address] Sheila Chang TSHon 11-21-2021 TSH 0.162 uIU/mL Critically low 0.470-4.680 [facility] Comment on above: Performed By: #### T 7, TSH, LIPID, CMP #### [facility] [address] [address] [address] Sheila Chang TSH RANGE SEE BELOW Normal [facility] Comment on above: Result Comment: <0.3 4 UIU/ml HYPERTHYROID 0.34-5.60 UIU/ml EUTHYROID >5.60 UIU/ml HYPOTHYROID Performed By: #### T 7, TSH, LIPID, CMP #### [facility] [address] [address] [address] Sheila Chang Encounters Encounter Date Encounter Type Care Provider Facility Start: 11-13-2022 End: 11-13-[address] ZENAIDA WHITNEY . Facility:[facility] Start: 10-11-2022 End: 10-12-[address] ZENAIDA WHITNEY . Facility:[facility] Start: 04-27-2022 End: 04-28-[address] ZENAIDA WHITNEY . Facility:[facility] Start: 11-21-2021 End: 11-22-[address] ZENAIDA WHITNEY . Facility: Payers Date Payer Category Payer Medicare [id number] 1959 Unknown [id number] 1935 Unknown [id number] 1935 Unknown [id number] 1935 Unknown [id number] [id number] 1935 Unknown [id number] Summary Purpose Family History No Family History Records Found Advance Directives No Advanced Directives Records Found Additional Source Comments INFORMATION SOURCE (unrecogn ized section and content) DATE CREATED AUTHOR 11/13/2022 [facility] [place] FOR RECORDS PERTAINING TO PATIENTS WHO ARE [...] BE BASED ON THE PRIMARY CLINICAL RECORDS. [facility] [employer] [facility]. provides no warranty or guarantee of the accuracy or completeness of information in this document.
[2023-08-20 10:38] VITALS: BP 130/79; PULSE 81; RESP 18; TEMP 36.8; O2SAT 96
[2023-08-20 10:48] LABS: Calcium 8.8 mg/dL (8.5-10.1); Estimated GFR (African America 45 (>=60); Estimated GFR (Non-African Ame 37 (>=60)
[2023-08-20] MEDS: ROMOSOZUMAB-AQQG 210 MG/2.34 ML SYRINGE SQ (10:51)
--- NOTE | 2023-08-20 10:55 | PC.NURSE ---
Patient is here for Evenity injection, vitals obtained and stable, she tolerated injection well and denies any issues or concerns. Pt was discharged home ambulatory.
== END 2023-08-20 07:13 | disposition home or self-care (01) ==
LOC: INF 07:12
PROVIDERS: PCP Family Medicine; Visit Provider Family Medicine
DX: M81.0 Age-related osteoporosis without current pathological fracture (principal)
CPT/HCPCS: 36415; 82310; 82565; 96372; J3111

== ENCOUNTER 2023-09-20 07:35 | Outpatient (OUT) | payer MEDICARE, SELFPAY ==
--- OUTSIDE RECORDS SUMMARY | 2023-09-20 07:37 | XMS_ITS | CCD ---
Author Name Unknown Address [address] [place] [address] Organization [facility] Care Team Providers Care Content Producer Name Role Phone DEVONTE ., DR ESTEVEZ [...] Performed By: #### C A, CREA #### [facility] [address] [place] [address] Dr. Sheila Chang CREATININEon 11-13-2022 Creatinine [Mass/Vol] 1.24 mg/dL Critically high 0.55-1.02 [facility] Comment on above: Performed By: #### C A, CREA #### [facility] [address] [place] [address] Dr. Sheila Chang EGFR-AF MICRONESIAN 50 mL/min/1.73m2 Critically low >=60 [facility] Comment on above: Performed By: #### C A, CREA #### [facility] [address] [place] [address] Dr. Sheila Chang EGFR-NON AF MICRONESIAN 41 mL/min/1.73m2 Critically low >=60 [facility] Comment on above: Performed By: #### C A, CREA #### [facility] [address] [place] [address] Dr. Sheila Chang CALCIUMon 10-11-2022 Calcium [Mass/Vol] 9.7 mg/dL Normal 8.5-10.1 [facility] Comment on above: Performed By: #### C A, CREA #### [facility] [address] [place] [address] Dr. Sheila Chang CREATININEon 10-11-2022 Creatinine [Mass/Vol] 1.16 mg/dL Critically high 0.55-1.02 [facility] Comment on above: Performed By: #### C A, CREA #### [facility] [address] [place] [address] Dr. Sheila Chang EGFR-AF MICRONESIAN 54 mL/min/1.73m2 Critically low >=60 [facility] Comment on above: Performed By: #### C A, CREA #### [facility] [address] [place] [address] Dr. Sheila Chang EGFR-NON AF MICRONESIAN 44 mL/min/1.73m2 Critically low >=60 [facility] Comment on above: Performed By: #### C Henrique, CREA #### [facility] [address] [place] [address] Dr. Sheila Chang XR DEXA BONE DENSITYon [...] [place] Date: 2022-04-27 17:32 Normal [facility] CBC AUTO DIFFon 11-21-2021 BASO # 0.0 103/ul Normal 0.0-0.1 [facility] Comment on above: Performed By: #### C Henrique, CREA #### [facility] [address] [place] [address] Dr. Sheila Chang Basophils/100 WBC (Bld) 0.6 % Normal 0.2-2.0 [facility] Comment on above: Performed By: #### C Henrique, CREA #### [facility] [address] [place] [address] Dr. Sheila Chang EO # 0.2 103/ul Normal 0.0-0.7 [facility] Comment on above: Performed By: #### C Henrique, CREA #### [facility] [address] [place] [address] Dr. Sheila Chang Eosinophils/100 WBC (Bld) 3.3 % Normal 0.9-7.0 [facility] Comment on above: Performed By: #### C Henrique, CREA #### [facility] [address] [place] [address] Dr. Sheila Chang Erythrocyte distribution width (RBC) [Ratio] 13.8 % Normal 11.0-15.0 [facility] Comment on above: Performed By: #### C A, CREA #### [facility] [address] [place] [address] Dr. Sheila Chang Hematocrit (Bld) [Volume fraction] 41.8 % Normal 36.0-48.0 [facility] Comment on above: Performed By: #### C A, CREA #### [facility] [address] [place] [address] Dr. Sheila Chang Hemoglobin (Bld) [Mass/Vol] 13.4 g/dL Normal 12.0-16.0 [facility] Comment on above: Performed By: #### C A, CREA #### [facility] [address] [place] [address] Dr. Sheila Chang IG # 0.01 10e3/ul Normal 0.00-0.03 [facility] Comment on above: Performed By: #### C A, CREA #### [facility] [address] [place] [address] Dr. Sheila Chang IG % 0.2 % Normal 0.0-0.5 [facility] Comment on above: Performed By: #### C A, CREA #### [facility] [address] [place] [address] Dr. Sheila Chang LYMPH # 1.2 103/ul Normal 1.2-3.8 [facility] Comment on above: Performed By: #### C A, CREA #### [facility] [address] [place] [address] Dr. Sheila Chang Lymphocytes/100 WBC (Bld) 23.6 % Normal 20.5-60.0 [facility] Comment on above: Performed By: #### C A, CREA #### [facility] [address] [place] [address] Dr. Sheila Chang MANUAL DIFF REQ NO Normal [facility] Comment on above: Performed By: #### C A, CREA #### [facility] [address] [place] [address] Dr. Sheila Chang MCH (RBC) [Entitic mass] 31.2 pg Normal 26.7-34.0 [facility] Comment on above: Performed By: #### C A, CREA #### [facility] [address] [place] [address] Dr. Sheila Chang MCHC (RBC) [Mass/Vol] 32.1 g/dL Normal 29.9-35.2 [facility] Comment on above: Performed By: #### C A, CREA #### [facility] [address] [place] [address] Dr. Sheila Chang MCV (RBC) [Entitic vol] 97.2 fL Normal 81.0-99.0 [facility] Comment on above: Performed By: #### C A, CREA #### [facility] [address] [place] [address] Dr. Sheila Chang MONO # 0.5 103/ul Normal 0.3-0.8 [facility] Comment on above: Performed By: #### C A, CREA #### [facility] [address] [place] [address] Dr. Sheila Chang Monocytes/100 WBC (Bld) 9.2 % Normal 1.7-12.0 [facility] Comment on above: Performed By: #### C A, CREA #### [facility] [address] [place] [address] Dr. Sheila Chang NEUT # 3.2 103/ul Normal 1.4-6.5 [facility] Comment on above: Performed By: #### C A, CREA #### [facility] [address] [place] [address] Dr. Sheila Chang Neutrophils/100 WBC (Bld) 63.1 % Normal 43.0-75.0 [facility] Comment on above: Performed By: #### C A, CREA #### [facility] [address] [place] [address] Dr. Sheila Chang Platelet mean volume (Bld) [Entitic vol] 9.0 fL Critically low 9.5-13.5 [facility] Comment on above: Performed By: #### C A, CREA #### [facility] [address] [place] [address] Dr. Sheila Chang PLT 273 103/ul Normal 150-450 [facility] Comment on above: Performed By: #### C Henrique CREA #### [facility] [address] [place] [address] Dr. Sheila Chang RBC 4.30 106/ul Normal 4.20-5.40 [facility] Comment on above: Performed By: #### C Henrique CREA #### [facility] [address] [place] [address] Dr. Sheila Chang WBC 5.1 103/ul Normal 4.0-11.0 [facility] Comment on above: Performed By: #### C Henrique CREA #### [facility] [address] [place] [address] Dr. Sheila Chang FREE THYROXINE INDEX T7on FTI 2.95 Normal [facility] Comment on above: Performed By: #### T 7, TSH, LIPID, CMP #### [facility] [address] [place] [address] Dr. Sheila Chang T3U 36.0 % Normal 23.5-40.5 [facility] Comment on above: Performed By: #### T 7, TSH, LIPID, CMP #### [facility] [address] [place] [address] Dr. Sheila Chang T4 [Mass/Vol] 8.20 ug/dL Normal 4.80-13.90 [facility] Comment on above: Performed By: #### T 7, TSH, LIPID, CMP #### [facility] [address] [place] [address] Dr. Sheila Chang GLYCOHEMOGLOBIN A1Con 2021 ADA RECOMMENDATION SEE BELOW Normal [facility] Comment on above: Result Comment: ADA RECOMMENDED LIMIT 4.0 - 6.0 ADA THERAPEUTIC TARGET < 7.0 ACTION SUGGESTED > 7.0 Performed By: #### A 1C #### [facility] [address] [place] [address] Dr. Sheila Chang Glucose [Mass/Vol] 114 mg/dL Normal [facility] Comment on above: Performed By: #### A 1C #### [facility] [address] [address] [address] Sheila Chang HbA1c (Bld) [Mass fraction] 5.6 % Normal 4.5-6.2 [facility] Comment on above: Performed By: #### A 1C #### [facility] [address] [place] [address] Dr. Sheila Chang IRONon 11-21-2021 Iron [Mass/Vol] 102.0 ug/dL Normal 50.0-170.0 [facility] Comment on above: Performed By: #### I BRIGETTE #### [facility] [address] [place] [address] Dr. Sheila Chang LIPID PROFILEon 11-21-2021 CHOL-HDL RATIO NORM SEE BELOW Normal [facility] Comment on above: Result Comment: 3.3 - 4.4 LOW RISK 4.4 - 7.1 AVERAGE RISK 7.1 - 11.0 MODERATE RISK >11.0 HIGH RISK Performed By: #### T 7, TSH, LIPID, CMP #### [facility] [address] [place] [address] Dr. Sheila Chang Cholesterol [Mass/Vol] 142 mg/dL Normal <=200 [facility] Comment on above: Performed By: #### T 7, TSH, LIPID, CMP #### [facility] [address] [place] [address] Dr. Sheila Chang Cholesterol in HDL [Mass/Vol] 47 mg/dL Normal 40-60 [facility] Comment on above: Performed By: #### T 7, TSH, LIPID, CMP #### [facility] [address] [place] [address] Dr. Sheila Chang Cholesterol in LDL [Mass/Vol] 83.8 mg/dL Normal [facility] Comment on above: Performed By: #### T 7, TSH, LIPID, CMP #### [facility] [address] [place] [address] Dr. Sheila Chang Cholesterol.total/Cho lesterol in HDL [Mass ratio] 3.0 {ratio} Normal [facility] Comment on above: Performed By: #### T 7, TSH, LIPID, CMP #### [facility] [address] [address] [address] Sheila Chang HDL NORMAL > or = 60 mg/dl - LOW CARDIOVASCULAR RISK <40 mg/dl - HIGH CARDIOVASCULAR RISK Normal [facility] Comment on above: Performed By: #### T 7, TSH, LIPID, CMP #### [facility] [address] [address] [address] Sheila Chang LDL CALC NORMAL SEE BELOW Normal [facility] Comment on above: Result Comment: <100 mg/dl OPTIMAL 100 - 129 mg/dl NEAR OR ABOVE OPTIMAL 130 - 159 mg/dl BORDERLINE HIGH 160 - 189 mg/dl HIGH >190 mg/dl VERY HIGH Performed By: #### T 7, TSH, LIPID, CMP #### [facility] [address] [address] [address] Sheila Chang Triglyceride [Mass/Vol] 56 mg/dL Normal <=150 [facility] Comment on above: Performed By: #### T 7, TSH, LIPID, CMP #### [facility] [address] [address] [address] Sheila Chang VLDL CALC 11.2 mg/dL Normal [facility] Comment on above: Performed By: #### T 7, TSH, LIPID, CMP #### [facility] [address] [address] [address] Sheila Chang PROF 14(COMP METB)on 022 Albumin [Mass/Vol] 3.5 g/dL Normal 3.4-5.0 [facility] Comment on above: Performed By: #### T 7, TSH, LIPID, CMP #### [facility] [address] [place] [address] Dr. Sheila Chang Albumin/Globulin [Mass ratio] 0.9 {ratio} Normal [facility] Comment on above: Performed By: #### T 7, TSH, LIPID, CMP #### [facility] [address] [place] [address] Dr. Sheila Chang ALP [Catalytic activity/Vol] 60 U/L Normal 46-116 [facility] Comment on above: Performed By: #### T 7, TSH, LIPID, CMP #### [facility] [address] [address] [address] Sheila Chang ALT [Catalytic activity/Vol] 14 U/L Normal 14-59 [facility] Comment on above: Performed By: #### T 7, TSH, LIPID, CMP #### [facility] [address] [address] [address] Sheila Chang Anion gap [Moles/Vol] 14.4 mmol/L Normal [facility] Comment on above: Performed By: #### T 7, TSH, LIPID, CMP #### [facility] [address] [address] [address] Sheila Chang AST [Catalytic activity/Vol] 14 U/L Critically low 15-37 [facility] Comment on above: Performed By: #### T 7, TSH, LIPID, CMP #### [facility] [address] [address] [address] Sheila Chang Bilirubin [Mass/Vol] 0.5 mg/dL Normal 0.2-1.0 [facility] Comment on above: Performed By: #### T 7, TSH, LIPID, CMP #### [facility] [address] [address] [address] Sheila Chang Calcium [Mass/Vol] 8.5 mg/dL Normal 8.5-10.1 [facility] Comment on above: Performed By: #### T 7, TSH, LIPID, CMP #### [facility] [address] [address] [address] Sheila Chang Chloride [Moles/Vol] 106 mmol/L Normal 98-107 [facility] Comment on above: Performed By: #### T 7, TSH, LIPID, CMP #### [facility] [address] [address] [address] Sheila Chang CO2 [Moles/Vol] 25.2 mmol/L Normal 21.0-32.0 [facility] Comment on above: Performed By: #### T 7, TSH, LIPID, CMP #### [facility] [address] [address] [address] Sheila Chang Creatinine [Mass/Vol] 1.15 mg/dL Critically high 0.55-1.02 [facility] Comment on above: Performed By: #### T 7, TSH, LIPID, CMP #### [facility] [address] [place] [address] Dr. Sheila Chang EGFR-AF MICRONESIAN 54 mL/min/1.73m2 Critically low >=60 [facility] Comment on above: Performed By: #### T 7, TSH, LIPID, CMP #### [facility] [address] [place] [address] Dr. Sheila Chang EGFR-NON AF MICRONESIAN 45 mL/min/1.73m2 Critically low >=60 [facility] Comment on above: Performed By: #### T 7, TSH, LIPID, CMP #### [facility] [address] [place] [address] Dr. Sheila Chang Globulin (S) [Mass/Vol] 3.8 g/dL Normal [facility] Comment on above: Performed By: #### T 7, TSH, LIPID, CMP #### [facility] [address] [place] [address] Dr. Sheila Chang Glucose [Mass/Vol] 96 mg/dL Normal 74-106 [facility] Comment on above: Performed By: #### T 7, TSH, LIPID, CMP #### [facility] [address] [place] [address] Dr. Sheila Chang Potassium [Moles/Vol] 5.6 mmol/L Critically high 3.5-5.1 [facility] Comment on above: Performed By: #### T 7, TSH, LIPID, CMP #### [facility] [address] [place] [address] Dr. Sheila Chang Protein [Mass/Vol] 7.3 g/dL Normal 6.1-8.2 [facility] Comment on above: Performed By: #### T 7, TSH, LIPID, CMP #### [facility] [address] [place] [address] Dr. Sheila Chang Sodium [Moles/Vol] 140 mmol/L Normal 136-145 [facility] Comment on above: Performed By: #### T 7, TSH, LIPID, CMP #### [facility] [address] [address] [address] Sheila Chang Urea nitrogen [Mass/Vol] 25.0 mg/dL Critically high 7.0-18.0 [facility] Comment on above: Performed By: #### T 7, TSH, LIPID, CMP #### [facility] [address] [address] [address] Sheila Chang Urea nitrogen/Creatinine [Mass ratio] 21.7 mg/mg Normal [facility] Comment on above: Performed By: #### T 7, TSH, LIPID, CMP #### [facility] [address] [address] [address] Sheila Chang TSHon 11-21-2021 TSH 0.162 uIU/mL Critically low 0.470-4.680 [facility] Comment on above: Performed By: #### T 7, TSH, LIPID, CMP #### [facility] [address] [address] [address] Sheila Chang TSH RANGE SEE BELOW Normal [facility] Comment on above: Result Comment: <0.3 4 UIU/ml HYPERTHYROID 0.34-5.60 UIU/ml EUTHYROID >5.60 UIU/ml HYPOTHYROID Performed By: #### T 7, TSH, LIPID, CMP #### [facility] [address] [address] [address] Sheila Chang Encounters Encounter Date Encounter Type Care Provider Facility Start: 11-13-2022 End: 11-13-[address] ZENAIDA WHITNEY . Facility:[facility] Start: 10-11-2022 End: 10-12-[address] ZENAIDA WHITNEY . Facility:[facility] Start: 04-27-2022 End: 04-28-[address] ZENAIDA WHITNEY . Facility:[facility] Start: 11-21-2021 End: 11-22-[address] ZENAIDA WHITNEY . Facility: Payers Date Payer Category Payer Medicare [id number] 1959 Unknown [id number] 1935 Unknown [id number] 1935 Unknown [id number] 1935 Unknown [id number] 1935 Unknown [id number] Summary Purpose Family History No Family History Records Found Advance Directives No Advanced Directives Records Found Additional Source Comments INFORMATION SOURCE (unrecogn ized section and content) DATE CREATED AUTHOR 11/13/2022 [facility] FOR RECORDS PERTAINING TO PATIENTS WHO ARE [...] BE BASED ON THE PRIMARY CLINICAL RECORDS. [facility]. provides no warranty or guarantee of the accuracy or completeness of information in this document.
[2023-09-20 11:07] VITALS: BP 173/77; PULSE 58; RESP 16; TEMP 36.9; O2SAT 98
[2023-09-20] MEDS: ROMOSOZUMAB-AQQG 210 MG/2.34 ML SYRINGE SQ (11:10)
--- NOTE | 2023-09-20 11:13 | PC.NURSE ---
Patient is here for evenity injection, she has tolerated these well in the past. She tolerated injection well and denies any issues or concerns at this time. She was discharged home ambulatory.
[2023-09-20 11:14] LABS: Calcium 8.7 mg/dL (8.5-10.1); Estimated GFR (African America 47 (>=60); Estimated GFR (Non-African Ame 39 (>=60)
== END 2023-09-20 07:36 | disposition home or self-care (01) ==
PROVIDERS: PCP Family Medicine; Visit Provider Family Medicine
DX: M81.0 Age-related osteoporosis without current pathological fracture (principal)
CPT/HCPCS: 36415; 82310; 82565; 96372; J3111

== ENCOUNTER 2024-02-19 11:17 | Outpatient (OUT) | payer MEDICARE, SELFPAY ==
--- OUTSIDE RECORDS SUMMARY | 2024-02-19 11:22 | XMS_ITS | CCD ---
Author Organization [facility] Care Team Providers Care Organic Chemistry Professor Name Role Phone DEVONTE ., DR ESTEVEZ [...] 11-13-2022 Calcium [Mass/Vol] 8.9 mg/dL Normal 8.5-10.1 [facility] Comment on above: Performed By: #### C A, CREA #### [facility] [address] [place] [address] Dr. Sheila Chang CREATININEon 11-13-2022 Creatinine [Mass/Vol] 1.24 mg/dL Critically high 0.55-1.02 [facility] Comment on above: Performed By: #### C A, CREA #### [facility] [address] [place] [address] Dr. Sheila Chang EGFR-AF SWEDISH 50 mL/min/1.73m2 Critically low >=60 [facility] Comment on above: Performed By: #### C A, CREA #### [facility] [address] [place] [address] Dr. Sheila Chang EGFR-NON AF SWEDISH 41 mL/min/1.73m2 Critically low >=60 [facility] Comment on above: Performed By: #### C A, CREA #### [facility] [address] [place] [address] Dr. Sheila Chang CALCIUMon 10-11-2022 Calcium [Mass/Vol] 9.7 mg/dL Normal 8.5-10.1 [facility] Comment on above: Performed By: #### C A, CREA #### [facility] [address] [place] [address] Dr. Sheila Chang CREATININEon 10-11-2022 Creatinine [Mass/Vol] 1.16 mg/dL Critically high 0.55-1.02 [facility] Comment on above: Performed By: #### C A, CREA #### [facility] [address] [place] [address] Dr. Sheila Chang EGFR-AF SWEDISH 54 mL/min/1.73m2 Critically low >=60 [facility] Comment on above: Performed By: #### C A, CREA #### [facility] [address] [place] [address] Dr. Sheila Chang EGFR-NON AF SWEDISH 44 mL/min/1.73m2 Critically low >=60 [facility] Comment on above: Performed By: #### C A, CREA #### [facility] [address] [place] [address] Dr. Sheila Chang XR DEXA BONE DENSITYon [...] BOOGIE HAYS Date: 2022-04-27 17:32 Normal [facility] CBC AUTO DIFFon 11-21-2021 BASO # 0.0 103/ul Normal 0.0-0.1 [facility] Comment on above: Performed By: #### C Henrique CREA #### [facility] [address] [place] [address] Dr. Sheila Chang Basophils/100 WBC (Bld) 0.6 % Normal 0.2-2.0 [facility] Comment on above: Performed By: #### C Henrique CREA #### [facility] [address] [place] [address] Dr. Sheila Chang EO # 0.2 103/ul Normal 0.0-0.7 [facility] Comment on above: Performed By: #### C Henrique CREA #### [facility] [address] [place] [address] Dr. Sheila Chang Eosinophils/100 WBC (Bld) 3.3 % Normal 0.9-7.0 [facility] Comment on above: Performed By: #### C Henrique CREA #### [facility] [address] [place] [address] Dr. Sheila Chang Erythrocyte distribution width (RBC) [Ratio] 13.8 % Normal 11.0-15.0 [facility] Comment on above: Performed By: #### C Henrique CREA #### [facility] [address] [place] [address] Dr. Shelia Chang Hematocrit (Bld) [Volume fraction] 41.8 % Normal 36.0-48.0 [facility] Comment on above: Performed By: #### C A, CREA #### [facility] [address] [place] [address] Dr. Sheila Chang Hemoglobin (Bld) [Mass/Vol] 13.4 g/dL Normal 12.0-16.0 [facility] Comment on above: Performed By: #### C A, CREA #### [facility] [address] [place] [address] Dr. Sheila Chang IG # 0.01 10e3/ul Normal 0.00-0.03 [facility] Comment on above: Performed By: #### C A, CREA #### [facility] [address] [place] [address] Dr. Sheila Chang IG % 0.2 % Normal 0.0-0.5 [facility] Comment on above: Performed By: #### C A, CREA #### [facility] [address] [place] [address] Dr. Sheila Chang LYMPH # 1.2 103/ul Normal 1.2-3.8 [facility] Comment on above: Performed By: #### C A, CREA #### [facility] [address] [place] [address] Dr. Sheila Chang Lymphocytes/100 WBC (Bld) 23.6 % Normal 20.5-60.0 [facility] Comment on above: Performed By: #### C A, CREA #### [facility] [address] [place] [address] Dr. Sheila Chang MANUAL DIFF REQ NO Normal [facility] Comment on above: Performed By: #### C A, CREA #### [facility] [address] [place] [address] Dr. Sheila Chang MCH (RBC) [Entitic mass] 31.2 pg Normal 26.7-34.0 [facility] Comment on above: Performed By: #### C A, CREA #### [facility] [address] [place] [address] Dr. Sheila Chang MCHC (RBC) [Mass/Vol] 32.1 g/dL Normal 29.9-35.2 [facility] Comment on above: Performed By: #### C A, CREA #### [facility] [address] [place] [address] Dr. Sheila Chang MCV (RBC) [Entitic vol] 97.2 fL Normal 81.0-99.0 [facility] Comment on above: Performed By: #### C A, CREA #### [facility] [address] [place] [address] Dr. Sheila Chang MONO # 0.5 103/ul Normal 0.3-0.8 [facility] Comment on above: Performed By: #### C A, CREA #### [facility] [address] [place] [address] Dr. Sheila Chang Monocytes/100 WBC (Bld) 9.2 % Normal 1.7-12.0 [facility] Comment on above: Performed By: #### C A, CREA #### [facility] [address] [place] [address] Dr. Sheila Chang NEUT # 3.2 103/ul Normal 1.4-6.5 [facility] Comment on above: Performed By: #### C A, CREA #### [facility] [address] [place] [address] Dr. Sheila Chang Neutrophils/100 WBC (Bld) 63.1 % Normal 43.0-75.0 [facility] Comment on above: Performed By: #### C A, CREA #### [facility] [address] [place] [address] Dr. Sheila Chang Platelet mean volume (Bld) [Entitic vol] 9.0 fL Critically low 9.5-13.5 [facility] Comment on above: Performed By: #### C A, CREA #### [facility] [address] [place] [address] Dr. Sheila Chang PLT 273 103/ul Normal 150-450 [facility] Comment on above: Performed By: #### C A, CREA #### [facility] [address] [address] [address] Sheila Chang RBC 4.30 106/ul Normal 4.20-5.40 [facility] Comment on above: Performed By: #### C A, CREA #### [facility] [address] [address] [address] Sheila Chang WBC 5.1 103/ul Normal 4.0-11.0 [facility] Comment on above: Performed By: #### C A, CREA #### [facility] [address] [address] [address] Sheila Chang FREE THYROXINE INDEX T7on FTI 2.95 Normal [facility] Comment on above: Performed By: #### T 7, TSH, LIPID, CMP #### [facility] [address] [place] [address] Dr. Sheila Chang T3U 36.0 % Normal 23.5-40.5 [facility] Comment on above: Performed By: #### T 7, TSH, LIPID, CMP #### [facility] [address] [address] [address] Sheila Chang T4 [Mass/Vol] 8.20 ug/dL Normal 4.80-13.90 [facility] Comment on above: Performed By: #### T 7, TSH, LIPID, CMP #### [facility] [address] [place] [address] Dr. Sheila Chang GLYCOHEMOGLOBIN A1Con 2021 ADA RECOMMENDATION SEE BELOW Normal [facility] Comment on above: Result Comment: ADA RECOMMENDED LIMIT 4.0 - 6.0 ADA THERAPEUTIC TARGET < 7.0 ACTION SUGGESTED > 7.0 Performed By: #### A 1C #### [facility] [address] [place] [address] Dr. Sheila Chang Glucose [Mass/Vol] 114 mg/dL Normal [facility] Comment on above: Performed By: #### A 1C #### [facility] [address] [place] [address] Dr. Sheila Chang HbA1c (Bld) [Mass fraction] 5.6 % Normal 4.5-6.2 [facility] Comment on above: Performed By: #### A 1C #### [facility] [address] [address] [address] Sheila Chang IRONon 11-21-2021 Iron [Mass/Vol] 102.0 ug/dL Normal 50.0-170.0 [facility] Comment on above: Performed By: #### I BRIGETTE #### [facility] [address] [place] [address] Dr. Sheila Chang LIPID PROFILEon 11-21-2021 CHOL-HDL RATIO NORM SEE BELOW Normal [facility] Comment on above: Result Comment: 3.3 - 4.4 LOW RISK 4.4 - 7.1 AVERAGE RISK 7.1 - 11.0 MODERATE RISK >11.0 HIGH RISK Performed By: #### T 7, TSH, LIPID, CMP #### [facility] [address] [address] [address] Sheila Chang Cholesterol [Mass/Vol] 142 mg/dL Normal <=200 [facility] Comment on above: Performed By: #### T 7, TSH, LIPID, CMP #### [facility] [address] [address] [address] Sheila Chang Cholesterol in HDL [Mass/Vol] 47 mg/dL Normal 40-60 [facility] Comment on above: Performed By: #### T 7, TSH, LIPID, CMP #### [facility] [address] [address] [address] Sheila Chang Cholesterol in LDL [Mass/Vol] 83.8 mg/dL Normal [facility] Comment on above: Performed By: #### T 7, TSH, LIPID, CMP #### [facility] [address] [place] [address] Dr. Sheila Chang Cholesterol.total/Cho lesterol in HDL [Mass ratio] 3.0 {ratio} Normal [facility] Comment on above: Performed By: #### T 7, TSH, LIPID, CMP #### [facility] [address] [place] [address] Dr. Sheila Chang HDL NORMAL > or = 60 mg/dl - LOW CARDIOVASCULAR RISK <40 mg/dl - HIGH CARDIOVASCULAR RISK Normal [facility] Comment on above: Performed By: #### T 7, TSH, LIPID, CMP #### [facility] [address] [address] [address] Sheila Chang LDL CALC NORMAL SEE BELOW Normal [facility] Comment on above: Result Comment: <100 mg/dl OPTIMAL 100 - 129 mg/dl NEAR OR ABOVE OPTIMAL 130 - 159 mg/dl BORDERLINE HIGH 160 - 189 mg/dl HIGH >190 mg/dl VERY HIGH Performed By: #### T 7, TSH, LIPID, CMP #### [facility] [address] [address] [address] Sheila Chang Triglyceride [Mass/Vol] 56 mg/dL Normal <=150 [facility] Comment on above: Performed By: #### T 7, TSH, LIPID, CMP #### [facility] [address] [address] [address] Sheila Chang VLDL CALC 11.2 mg/dL Normal [facility] Comment on above: Performed By: #### T 7, TSH, LIPID, CMP #### [facility] [address] [address] [address] Sheila Chang PROF 14(COMP METB)on 022 Albumin [Mass/Vol] 3.5 g/dL Normal 3.4-5.0 [facility] Comment on above: Performed By: #### T 7, TSH, LIPID, CMP #### [facility] [address] [address] [address] Sheila Chang Albumin/Globulin [Mass ratio] 0.9 {ratio} Normal [facility] Comment on above: Performed By: #### T 7, TSH, LIPID, CMP #### [facility] [address] [address] [address] Sheila Chang ALP [Catalytic activity/Vol] 60 U/L Normal 46-116 [facility] Comment on above: Performed By: #### T 7, TSH, LIPID, CMP #### [facility] [address] [place] [address] Dr. Sehila Chang ALT [Catalytic activity/Vol] 14 U/L Normal 14-59 [facility] Comment on above: Performed By: #### T 7, TSH, LIPID, CMP #### [facility] [address] [address] [address] Sheila Chang Anion gap [Moles/Vol] 14.4 mmol/L Normal Th e [facility] Comment on above: Performed By: #### T 7, TSH, LIPID, CMP #### [facility] [address] [address] [address] Sheila Chang AST [Catalytic activity/Vol] 14 U/L Critically low 15-37 [facility] Comment on above: Performed By: #### T 7, TSH, LIPID, CMP #### [facility] [address] [place] [address] Dr. Sheila Chang Bilirubin [Mass/Vol] 0.5 mg/dL Normal 0.2-1.0 [facility] Comment on above: Performed By: #### T 7, TSH, LIPID, CMP #### [facility] [address] [place] [address] Dr. Sheila Chang Calcium [Mass/Vol] 8.5 mg/dL Normal 8.5-10.1 [facility] Comment on above: Performed By: #### T 7, TSH, LIPID, CMP #### [facility] [address] [place] [address] Dr. Sheila Chang Chloride [Moles/Vol] 106 mmol/L Normal 98-107 [facility] Comment on above: Performed By: #### T 7, TSH, LIPID, CMP #### [facility] [address] [place] [address] Dr. Sheila Chang CO2 [Moles/Vol] 25.2 mmol/L Normal 21.0-32.0 [facility] Comment on above: Performed By: #### T 7, TSH, LIPID, CMP #### [facility] [address] [place] [address] Dr. Sheila Chang Creatinine [Mass/Vol] 1.15 mg/dL Critically high 0.55-1.02 [facility] Comment on above: Performed By: #### T 7, TSH, LIPID, CMP #### [facility] [address] [address] [address] Sheila Chang EGFR-AF SWEDISH 54 mL/min/1.73m2 Critically low >=60 [facility] Comment on above: Performed By: #### T 7, TSH, LIPID, CMP #### [facility] [address] [address] [address] Sheila Chang EGFR-NON AF SWEDISH 45 mL/min/1.73m2 Critically low >=60 [facility] Comment on above: Performed By: #### T 7, TSH, LIPID, CMP #### [facility] [address] [place] [address] Dr. Sheila Chang Globulin (S) [Mass/Vol] 3.8 g/dL Normal [facility] Comment on above: Performed By: #### T 7, TSH, LIPID, CMP #### [facility] [address] [place] [address] Dr. Sheila Chang Glucose [Mass/Vol] 96 mg/dL Normal 74-106 [facility] Comment on above: Performed By: #### T 7, TSH, LIPID, CMP #### [facility] [address] [place] [address] Dr. Sheila Chang Potassium [Moles/Vol] 5.6 mmol/L Critically high 3.5-5.1 [facility] Comment on above: Performed By: #### T 7, TSH, LIPID, CMP #### [facility] [address] [place] [address] Dr. Sheila Chang Protein [Mass/Vol] 7.3 g/dL Normal 6.1-8.2 [facility] Comment on above: Performed By: #### T 7, TSH, LIPID, CMP #### [facility] [address] [place] [address] Dr. Sheila Chagn Sodium [Moles/Vol] 140 mmol/L Normal 136-145 [facility] Comment on above: Performed By: #### T 7, TSH, LIPID, CMP #### [facility] [address] [address] [address] Sheila Chang Urea nitrogen [Mass/Vol] 25.0 mg/dL Critically high 7.0-18.0 [facility] Comment on above: Performed By: #### T 7, TSH, LIPID, CMP #### [facility] [address] [address] [address] Sheila Chang Urea nitrogen/Creatinine [Mass ratio] 21.7 mg/mg Normal [facility] Comment on above: Performed By: #### T 7, TSH, LIPID, CMP #### [facility] [address] [address] [address] Sheila Cahng TSHon 11-21-2021 TSH 0.162 uIU/mL Critically low 0.470-4.680 [facility] Comment on above: Performed By: #### T 7, TSH, LIPID, CMP #### [facility] [address] [address] [address] Sheila Chang TSH RANGE SEE BELOW Normal [facility] Comment on above: Result Comment: <0.3 4 UIU/ml HYPERTHYROID 0.34-5.60 UIU/ml EUTHYROID >5.60 UIU/ml HYPOTHYROID Performed By: #### T 7, TSH, LIPID, CMP #### [facility] [address] [address] [address] Sheila Chang Encounters Encounter Date Encounter Type Care Provider Facility Start: 11-13-2022 End: 11-13-[address] ZENAIDA WHITNEY . Facility[facility] Start: 10-11-2022 End: 10-12-[address] ZENAIDA WHITNEY . Facility[facility] Start: 04-27-2022 End: 04-28-[address] ZENAIDA WHITNEY . Facility[facility] Start: 11-21-2021 End: 11-22-[address] ZENAIDA WHITNEY . Facility[facility] Payers Date Payer Category Payer Medicare [id number] 1959 Unknown [id number] 1935 Unknown [id number] 1935 Unknown [id number] 1935 Unknown [id number] 1935 Unknown [id number] [id number] Summary Purpose Family History No Family History Records Found Advance Directives No Advanced Directives Records Found Additional Source Comments INFORMATION SOURCE (unrecogn ized section and content) DATE CREATED AUTHOR 11/13/2022 [facility] FOR RECORDS PERTAINING TO PATIENTS WHO [...] BE BASED ON THE PRIMARY CLINICAL RECORDS. [email or web address] [facility]. provides no warranty or guarantee of the accuracy or completeness of information in this document.
--- NOTE | 2024-02-19 11:26 | CT_ITS ---
The [address] [address] Patient Name: BUZZ BINGHAM MRN: [id number] date: 1935 Sex: F Assigned Patient Location: [facility] Current Patient Location: [facility] Accession/Order Number: [id number] Exam Date: 02/19/2024 11:39 Report Date: 02/19/2024 12:18 At the request of: ZENADIA WHITNEY Procedure: CT facial bones wo con CT head/brain wo con, CT facial bones wo con, 02/19/2024 11:39 AM EDT INDICATION: Head And Face Pain COMPARISON: There is no appropriate prior study for comparison. TECHNIQUE: Axial CT images of the brain from skull base to vertex, including portions of the face and sinuses, were obtained without contrast . Multiplanar reformatted images were generated and reviewed as needed. Dose reduction techniques were achieved by using automated exposure control and/or adjustment of mA and/or kV according to patient size and/or use of iterative reconstruction technique. FINDINGS: The cerebral sulci as well as ventricular system are appropriate for age. There is no intracranial mass, mass effect, midline shift, intra or extra-axial fluid collection or hemorrhage. Periventricular and centrum semiovale hypodensities are most likely consistent with microvascular ischemic changes. There is mucosal thickening within the right maxillary sinus. There is total opacification of the left maxillary sinus extension to the nasal cavity suggesting of inverted papilloma or polyp. No adjacent bone lysis is noted. The visualized portions of orbits, mastoid air cells as well as remainder of paranasal sinuses are unremarkable. There is no suspicious osteolytic or osteoblastic lesion. There is mildly displaced nasal fracture the adjacent soft tissue swelling. No other fractures noted. CT/CT facial bones wo con IMPRESSION: No acute intracranial process is noted. Mildly displaced fracture of the nasal bones with adjacent soft tissue swelling. Left maxillary opacification with extension to the nasal cavity the differential diagnosis are polyp versus inverted papilloma. ENT correlation is recommended. A stat note was submitted to inform the clinician at 12:18 PM. Electronically authenticated by: JIMMY BELTRE Date: 02/19/2024 12:18
--- NOTE | 2024-02-19 11:26 | CT_ITS ---
The [address] [address] Patient Name: BUZZ BINGHAM MRN: [id number] date: 1935 Sex: F Assigned Patient Location: [facility] Current Patient Location: [facility] Accession/Order Number: [id number] Exam Date: 02/19/2024 11:39 Report Date: 02/19/2024 12:18 At the request of: ZENAIDA WHITNEY Procedure: CT head/brain wo con CT head/brain wo con, CT facial bones wo con, 02/19/2024 11:39 AM EDT INDICATION: Head And Face Pain COMPARISON: There is no appropriate prior study for comparison. TECHNIQUE: Axial CT images of the brain from skull base to vertex, including portions of the face and sinuses, were obtained without contrast . Multiplanar reformatted images were generated and reviewed as needed. Dose reduction techniques were achieved by using automated exposure control and/or adjustment of mA and/or kV according to patient size and/or use of iterative reconstruction technique. FINDINGS: The cerebral sulci as well as ventricular system are appropriate for age. There is no intracranial mass, mass effect, midline shift, intra or extra-axial fluid collection or hemorrhage. Periventricular and centrum semiovale hypodensities are most likely consistent with microvascular ischemic changes. There is mucosal thickening within the right maxillary sinus. There is total opacification of the left maxillary sinus extension to the nasal cavity suggesting of inverted papilloma or polyp. No adjacent bone lysis is noted. The visualized portions of orbits, mastoid air cells as well as remainder of paranasal sinuses are unremarkable. There is no suspicious osteolytic or osteoblastic lesion. There is mildly displaced nasal fracture the adjacent soft tissue swelling. No other fractures noted. CT/CT head/brain wo con IMPRESSION: No acute intracranial process is noted. Mildly displaced fracture of the nasal bones with adjacent soft tissue swelling. Left maxillary opacification with extension to the nasal cavity the differential diagnosis are polyp versus inverted papilloma. ENT correlation is recommended. A stat note was submitted to inform the clinician at 12:18 PM. Electronically authenticated by: JIMMY BELTRE Date: 02/19/2024 12:18
--- NOTE | 2024-02-19 11:27 | XR_ITS ---
The [address] [address] Patient Name: BUZZ BINGHAM MRN: [id number] date: 1935 Sex: F Assigned Patient Location: [facility] Current Patient Location: Accession/Order Number: [id number] Exam Date: 02/19/2024 11:45 Report Date: 02/20/2024 15:41 At the request of: ZENAIDA WHITNEY Procedure: XR hand LT min 3V PROCEDURE: XR hand LT min 3V COMPARISON: None. HISTORY: Left Hand Pain FINDINGS: BONES:No acute fracture or dislocation. Moderate to severe degenerative changes with joint space narrowing marginal osteophyte formation and bony remodeling, most significant at the first carpometacarpal joint SOFT TISSUES:Negative. No visible soft tissue swelling. EFFUSION:None visible. OTHER: Negative. XR/XR hand LT min 3V IMPRESSION: Severe osteoarthritis Electronically authenticated by: BOOGIE HAYS Date: 02/20/2024 15:41
== END 2024-02-19 11:18 | disposition home or self-care (01) ==
LOC: RAD 11:18
PROVIDERS: PCP Family Medicine; Visit Provider Family Medicine
DX: R51.9 Headache, unspecified (principal); M79.642 Pain in left hand; S02.2XXA Fracture of nasal bones, initial encounter for closed fracture
CPT/HCPCS: 70450; 70486; 73130

== ENCOUNTER 2024-06-06 05:57 | Emergency (ER) | payer MEDICARE, SELFPAY ==
[2024-06-06] VITALS (16 sets, daily range): BP systolic 130–159; BP diastolic 61–75; PULSE 42–78; TEMP 36.5; O2SAT 96–100; BMI 25.4
--- OUTSIDE RECORDS SUMMARY | 2024-06-06 06:17 | XMS_ITS | CCD ---
Author Organization [facility] Care Team Providers Care Vp Cardiovascular Name Role Phone DEVONTE ., DR ESTEVEZ [...] Unavailable HOY ., DR ESTEVEZ Consulting Unavailable ADAMA ZHENG Attending Unavailable ZENAIDA WHITNEY M Referring Unavailable Problems Active Problems Problem Classification Problem [...] Performed By: #### C A, CREA #### [facility] [address] [place] [address] Dr. Sheila Chang CREATININEon 11-13-2022 Creatinine [Mass/Vol] 1.24 mg/dL Critically high 0.55-1.02 [facility] Comment on above: Performed By: #### C A, CREA #### [facility] [address] [place] [address] Dr. Sheila Chang EGFR-AF EQUATORIAL GUINEAN 50 mL/min/1.73m2 Critically low >=60 [facility] Comment on above: Performed By: #### C A, CREA #### [facility] [address] [place] [address] Dr. Sheila Chang EGFR-NON AF EQUATORIAL GUINEAN 41 mL/min/1.73m2 Critically low >=60 [facility] Comment on above: Performed By: #### C A, CREA #### [facility] [address] [place] [address] Dr. Sheila Chang CALCIUMon 10-11-2022 Calcium [Mass/Vol] 9.7 mg/dL Normal 8.5-10.1 [facility] Comment on above: Performed By: #### C A, CREA #### [facility] [address] [place] [address] Dr. Sheila Chang CREATININEon 10-11-2022 Creatinine [Mass/Vol] 1.16 mg/dL Critically high 0.55-1.02 [facility] Comment on above: Performed By: #### C A, CREA #### [facility] [address] [place] [address] Dr. Sheila Chang EGFR-AF EQUATORIAL GUINEAN 54 mL/min/1.73m2 Critically low >=[address] [facility] Comment on above: Performed By: #### C A, CREA #### [facility] [address] [place] [address] Dr. Sheila Chang EGFR-NON AF EQUATORIAL GUINEAN 44 mL/min/1.73m2 Critically low >=[address] [facility] Comment on above: Performed By: #### C A, CREA #### [facility] [address] [place] [address] Dr. Sheila Chang XR DEXA BONE DENSITYon [...] BOOGIE HAYS Date: 2022-04-27 17:[address] [facility] CBC AUTO DIFFon 11-21-2021 BASO # 0.0 103/ul Normal 0.0-0.1 [facility] Comment on above: Performed By: #### C Henrique, CREA #### [facility] [address] [place] [address] Dr. Sheila Chang Basophils/100 WBC (Bld) 0.6 % Normal 0.2-2.0 [facility] Comment on above: Performed By: #### C Henrique, CREA #### [facility] [address] [place] [address] Dr. Sheila Chang EO # 0.2 103/ul Normal 0.0-0.7 [facility] Comment on above: Performed By: #### C Henrique, CREA #### [facility] [address] [place] [address] Dr. Sheila Chang Eosinophils/100 WBC (Bld) 3.3 % Normal 0.9-7.0 [facility] Comment on above: Performed By: #### C Henrique, CREA #### [facility] [address] [place] [address] Dr. Sheila Chang Erythrocyte distribution width (RBC) [Ratio] 13.8 % Normal 11.0-15.0 [facility] Comment on above: Performed By: #### C A, CREA #### [facility] [address] [place] [address] Dr. Sheila Chnag Hematocrit (Bld) [Volume fraction] 41.8 % Normal 36.0-48.0 [facility] Comment on above: Performed By: #### C A, CREA #### [facility] [address] [place] [address] Dr. Sheila Chang Hemoglobin (Bld) [Mass/Vol] 13.4 g/dL Normal 12.0-16.0 [facility] Comment on above: Performed By: #### C A, CREA #### [facility] [address] [place] [address] Dr. Sheila Chang IG # 0.01 10e3/ul Normal 0.00-0.03 [facility] Comment on above: Performed By: #### C A, CREA #### [facility] [address] [place] [address] Dr. Sheila Chang IG % 0.2 % Normal 0.0-0.5 [facility] Comment on above: Performed By: #### C A, CREA #### [facility] [address] [place] [address] Dr. Sheila Chang LYMPH # 1.2 103/ul Normal 1.2-3.8 [facility] Comment on above: Performed By: #### C A, CREA #### [facility] [address] [place] [address] Dr. Sheila Chang Lymphocytes/100 WBC (Bld) 23.6 % Normal 20.5-60.0 [facility] Comment on above: Performed By: #### C A, CREA #### [facility] [address] [place] [address] Dr. Sheila Chang MANUAL DIFF REQ NO Normal [facility] Comment on above: Performed By: #### C A, CREA #### [facility] [address] [place] [address] Dr. Sheila Chang MCH (RBC) [Entitic mass] 31.2 pg Normal 26.7-34.0 [facility] Comment on above: Performed By: #### C A, CREA #### [facility] [address] [place] [address] Dr. Sheila Chang MCHC (RBC) [Mass/Vol] 32.1 g/dL Normal 29.9-35.[address] [facility] Comment on above: Performed By: #### C A, CREA #### [facility] [address] [place] [address] Dr. Sheila Chang MCV (RBC) [Entitic vol] 97.2 fL Normal 81.0-99.[address] [facility] Comment on above: Performed By: #### C A, CREA #### [facility] [address] [place] [address] Dr. Sheila Chang MONO # 0.5 103/ul Normal 0.3-0.[address] [facility] Comment on above: Performed By: #### C A, CREA #### [facility] [address] [place] [address] Dr. Sheila Chang Monocytes/100 WBC (Bld) 9.2 % Normal 1.7-12.[address] [facility] Comment on above: Performed By: #### C A, CREA #### [facility] [address] [place] [address] Dr. Sheila Chang NEUT # 3.2 103/ul Normal 1.4-6.[address] [facility] Comment on above: Performed By: #### C A, CREA #### [facility] [address] [place] [address] Dr. Sheila Chang Neutrophils/100 WBC (Bld) 63.1 % Normal 43.0-75.[address] [facility] Comment on above: Performed By: #### C A, CREA #### [facility] [address] [place] [address] Dr. Sheila Chang Platelet mean volume (Bld) [Entitic vol] 9.0 fL Critically low 9.5-13.[address] [facility] Comment on above: Performed By: #### C A, CREA #### [facility] [address] [place] [address] Dr. Sheila Chang PLT 273 103/ul Normal 150-[address] [facility] Comment on above: Performed By: #### C Henrique CREA #### [facility] [address] [place] [address] Dr. Sheila Chang RBC 4.30 106/ul Normal 4.20-5.40 [facility] Comment on above: Performed By: #### C Henrique CREA #### [facility] [address] [place] [address] Dr. Sheila Chang WBC 5.1 103/ul Normal 4.0-11.0 [facility] Comment on above: Performed By: #### C Henrique CREA #### [facility] [address] [place] [address] Dr. Sheila Chang FREE THYROXINE INDEX T7on FTI 2.95 Normal [facility] Comment on above: Performed By: #### T 7, TSH, LIPID, CMP #### [facility] [address] [place] [address] Dr. Sheila Chang T3U 36.0 % Normal 23.5-40.5 [facility] Comment on above: Performed By: #### T 7, TSH, LIPID, CMP #### [facility] [address] [place] [address] Dr. Sheila Chang T4 [Mass/Vol] 8.20 ug/dL Normal 4.80-13.90 [facility] Comment on above: Performed By: #### T 7, TSH, LIPID, CMP #### [facility] [address] [place] [address] Dr. Sheila Chang GLYCOHEMOGLOBIN A1Con 2021 ADA RECOMMENDATION SEE BELOW Normal [facility] Comment on above: Result Comment: ADA RECOMMENDED LIMIT 4.0 - 6.0 ADA THERAPEUTIC TARGET < 7.0 ACTION SUGGESTED > 7.0 Performed By: #### A 1C #### [facility] [address] [place] [address] Dr. Sheila Chang Glucose [Mass/Vol] 114 mg/dL Normal [facility] Comment on above: Performed By: #### A 1C #### [facility] [address] [place] [address] Dr. Sheila Chang HbA1c (Bld) [Mass fraction] 5.6 % Normal 4.5-6.2 [facility] Comment on above: Performed By: #### A 1C #### [facility] [address] [place] [address] Dr. Sheila Chang IRONon 11-21-2021 Iron [Mass/Vol] 102.0 ug/dL Normal 50.0-170.0 [facility] Comment on above: Performed By: #### I BRIGETTE #### [facility] [address] [place] [address] Dr. Sheila Chang LIPID PROFILEon 11-21-2021 CHOL-HDL RATIO NORM SEE BELOW Normal [facility] Comment on above: Result Comment: 3.3 - 4.4 LOW RISK 4.4 - 7.1 AVERAGE RISK 7.1 - 11.0 MODERATE RISK >11.0 HIGH RISK Performed By: #### T 7, TSH, LIPID, CMP #### [facility] [address] [place] [address] Dr. Sheila Chang Cholesterol [Mass/Vol] 142 mg/dL Normal <=200 [facility] Comment on above: Performed By: #### T 7, TSH, LIPID, CMP #### [facility] [address] [place] [address] Dr. Sheila Chang Cholesterol in HDL [Mass/Vol] 47 mg/dL Normal 40-60 [facility] Comment on above: Performed By: #### T 7, TSH, LIPID, CMP #### [facility] [address] [place] [address] Dr. Sheila Chang Cholesterol in LDL [Mass/Vol] 83.8 mg/dL Normal [facility] Comment on above: Performed By: #### T 7, TSH, LIPID, CMP #### [facility] [address] [place] [address] Dr. Sheila Chang Cholesterol.total/Cho lesterol in HDL [Mass ratio] 3.0 {ratio} Normal [facility] Comment on above: Performed By: #### T 7, TSH, LIPID, CMP #### [facility] [address] [address] [address] Sheila Chang HDL NORMAL > or = 60 mg/dl - LOW CARDIOVASCULAR RISK <40 mg/dl - HIGH CARDIOVASCULAR RISK Normal [facility] Comment on above: Performed By: #### T 7, TSH, LIPID, CMP #### [facility] [address] [address] [address] Sheila Chang LDL CALC NORMAL SEE BELOW Normal [facility] Comment on above: Result Comment: <100 mg/dl OPTIMAL 100 - 129 mg/dl NEAR OR ABOVE OPTIMAL 130 - 159 mg/dl BORDERLINE HIGH 160 - 189 mg/dl HIGH >190 mg/dl VERY HIGH Performed By: #### T 7, TSH, LIPID, CMP #### [facility] [address] [address] [address] Sheila Chang Triglyceride [Mass/Vol] 56 mg/dL Normal <=150 [facility] Comment on above: Performed By: #### T 7, TSH, LIPID, CMP #### [facility] [address] [address] [address] Sheila Chang VLDL CALC 11.2 mg/dL Normal [facility] Comment on above: Performed By: #### T 7, TSH, LIPID, CMP #### [facility] [address] [address] [address] Sheila Chang PROF 14(COMP METB)on 022 Albumin [Mass/Vol] 3.5 g/dL Normal 3.4-5.0 [facility] Comment on above: Performed By: #### T 7, TSH, LIPID, CMP #### [facility] [address] [address] [address] Sheila Chang Albumin/Globulin [Mass ratio] 0.9 {ratio} Normal [facility] Comment on above: Performed By: #### T 7, TSH, LIPID, CMP #### [facility] [address] [place] [address] Dr. Sheila Chang ALP [Catalytic activity/Vol] 60 U/L Normal 46-116 [facility] Comment on above: Performed By: #### T 7, TSH, LIPID, CMP #### [facility] [address] [address] [address] Sheila Chang ALT [Catalytic activity/Vol] 14 U/L Normal 14-59 [facility] Comment on above: Performed By: #### T 7, TSH, LIPID, CMP #### [facility] [address] [address] [address] Sheila Chang Anion gap [Moles/Vol] 14.4 mmol/L Normal [facility] Comment on above: Performed By: #### T 7, TSH, LIPID, CMP #### [facility] [address] [address] [address] Sheila Chang AST [Catalytic activity/Vol] 14 U/L Critically low 15-37 [facility] Comment on above: Performed By: #### T 7, TSH, LIPID, CMP #### [facility] [address] [place] [address] Dr. Sheila Chang Bilirubin [Mass/Vol] 0.5 mg/dL Normal 0.2-1.0 [facility] Comment on above: Performed By: #### T 7, TSH, LIPID, CMP #### [facility] [address] [address] [address] Sheila Chang Calcium [Mass/Vol] 8.5 mg/dL Normal 8.5-10.1 [facility] Comment on above: Performed By: #### T 7, TSH, LIPID, CMP #### [facility] [address] [address] [address] Sheila Chang Chloride [Moles/Vol] 106 mmol/L Normal 98-107 [facility] Comment on above: Performed By: #### T 7, TSH, LIPID, CMP #### [facility] [address] [address] [address] Sheila Chang CO2 [Moles/Vol] 25.2 mmol/L Normal 21.0-32.0 [facility] Comment on above: Performed By: #### T 7, TSH, LIPID, CMP #### [facility] [address] [address] [address] Sheila Chang Creatinine [Mass/Vol] 1.15 mg/dL Critically high 0.55-1.02 [facility] Comment on above: Performed By: #### T 7, TSH, LIPID, CMP #### [facility] [address] [place] [address] Dr. Sheila Chang EGFR-AF EQUATORIAL GUINEAN 54 mL/min/1.73m2 Critically low >=60 [facility] Comment on above: Performed By: #### T 7, TSH, LIPID, CMP #### [facility] [address] [place] [address] Dr. Sheila Chang EGFR-NON AF EQUATORIAL GUINEAN 45 mL/min/1.73m2 Critically low >=60 [facility] Comment on above: Performed By: #### T 7, TSH, LIPID, CMP #### [facility] [address] [place] [address] Dr. Sheila Chang Globulin (S) [Mass/Vol] 3.8 g/dL Normal [facility] Comment on above: Performed By: #### T 7, TSH, LIPID, CMP #### [facility] [address] [place] [address] Dr. Sheila Chang Glucose [Mass/Vol] 96 mg/dL Normal 74-106 [facility] Comment on above: Performed By: #### T 7, TSH, LIPID, CMP #### [facility] [address] [place] [address] Dr. Sheila Chang Potassium [Moles/Vol] 5.6 mmol/L Critically high 3.5-5.[address] [facility] Comment on above: Performed By: #### T 7, TSH, LIPID, CMP #### [facility] [address] [place] [address] Dr. Sheila Chang Protein [Mass/Vol] 7.3 g/dL Normal 6.1-8.2 [facility] Comment on above: Performed By: #### T 7, TSH, LIPID, CMP #### [facility] [address] [place] [address] Dr. Sheila Chang Sodium [Moles/Vol] 140 mmol/L Normal 136-145 [facility] Comment on above: Performed By: #### T 7, TSH, LIPID, CMP #### [facility] [address] [address] [address] Sheila Chang Urea nitrogen [Mass/Vol] 25.0 mg/dL Critically high 7.0-18.0 [facility] Comment on above: Performed By: #### T 7, TSH, LIPID, CMP #### [facility] [address] [address] [address] Sheila Chang Urea nitrogen/Creatinine [Mass ratio] 21.7 mg/mg Normal [facility] Comment on above: Performed By: #### T 7, TSH, LIPID, CMP #### [facility] [address] [address] [address] Sheila Chang TSHon 11-21-2021 TSH 0.162 uIU/mL Critically low 0.470-4.680 [facility] Comment on above: Performed By: #### T 7, TSH, LIPID, CMP #### [facility] [address] [address] [address] Sheila Chang TSH RANGE SEE BELOW Normal [facility] Comment on above: Result Comment: <0.3 4 UIU/ml HYPERTHYROID 0.34-5.60 UIU/ml EUTHYROID >5.60 UIU/ml HYPOTHYROID Performed By: #### T 7, TSH, LIPID, CMP #### [facility] [address] [address] [address] Sheila Chang Encounters Encounter Date Encounter Type Care Provider Facility Start: 02-25-2024 End: 02-25-2024 ambulatory ADAMA Alexx NORM Not Available Start: 11-13-2022 End: 11-13-[address] ZENAIDA WHITNEY . Facility[facility] Start: 10-11-2022 End: 10-12-[address] ZENAIDA WHITNEY . Facility[facility] Start: 04-27-2022 End: 04-28-[address] ZENAIDA WHITNEY . Facility[facility] Start: 11-21-2021 End: 11-22-[address] ZENAIDA WHITNEY . Facility[facility] Payers Date Payer Category Payer Medicare [id number] 1959 Unknown [id number] 1935 Unknown [id number] 2.16.84 [id number] 1935 Unknown [id number] 2.16.84 [id number] 1935 Unknown [id number] 2.16.84 [id number] 1935 Unknown [id number] 2.16.84 [id number] 1935 Unknown [id number] 2.16.84 [id number] Summary Purpose Family History No Family History Records FoundNo Family History Records Found Advance Directives No Advanced Directives Records FoundNo Advanced Directives Records Found Additional Source Comments INFORMATION SOURCE (unrecogn ized section and content) DATE CREATED AUTHOR 11/13/2022 [facility] DATE CREATED AUTHOR 'S MIGUELIZ ATON LICENSE OF [facility] 02/26/2024 [facility] FOR RECORDS PERTAINING TO PATIENTS WHO ARE [...] BE BASED ON THE PRIMARY CLINICAL RECORDS. [facility] [employer] provides no warranty or guarantee of the accuracy or completeness of information in this document.
--- NOTE | 2024-06-06 06:20 | XR_ITS ---
The [address] [address] Patient Name: BUZZ BINGHAM MRN: [id number] date: 1935 Sex: F Assigned Patient Location: ER Current Patient Location: ER Accession/Order Number: [id number] Exam Date: 06/06/2024 06:40 Report Date: 06/06/2024 07:01 At the request of: JOHNNIE NELSON Procedure: XR chest 1V EXAMINATION: XR chest 1V HISTORY: SOB COMPARISON: No relevant comparison available. FINDINGS: LUNGS: Hyperexpanded lungs. Trace amount stranding within right lung base. Mild opacity within lingula. Defibrillator paddle overlies the left hemithorax. VASCULATURE: No increased pulmonary vasculature. PLEURA: No pneumothorax, effusion, or pleural thickening. CARDIAC: Mild cardiomegaly. MEDIASTINUM: No visible mass or adenopathy. BONES: No fracture or visible bone lesion. OTHER: Negative. XR/XR chest 1V IMPRESSION: 1. Hyperexpanded lungs suggestive COPD. 2. Trace amount of bibasilar atelectasis versus infiltrates, left greater than right. Electronically authenticated by: GONZALEZ ROMANO Date: 06/06/2024 07:01
--- NOTE | 2024-06-06 06:20 | ECG_ITS ---
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
--- NOTE | 2024-06-06 06:25 | PC.NURSE ---
To ED by EMS after waking up at 0400 with dizziness. Also c/o increased SOB for a few weeks, states just not feeling well SPO2 99% on room air, she does take gasps of air every few breaths to catch her breath A/O x4 Denies any cardiac or pulmonary history
--- NOTE | 2024-06-06 06:35 | ECG_ITS ---
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
--- NOTE | 2024-06-06 06:36 | ECG_ITS ---
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
--- NOTE | 2024-06-06 06:37 | ECG_ITS ---
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
--- NOTE | 2024-06-06 06:41 | ED.GENADUL1 ---
HPI HPI - General Adult General Chief complaint: Dizziness Stated complaint: SHORTNESS OF BREATH/ DIZZINESS Time Seen by Provider: 06/06/24 06:20 Source: patient Mode of arrival: ambulance Limitations: no limitations History of Present Illness HPI narrative: Patient is a very pleasant 88-year-old female who is presenting by EMS with chief complaint of lightheaded dizziness. Patient has no vertigo. She has no chest pain or shortness of breath. No headache or neck pain. Patient states she has mild tenderness over her left scapula. She noticed that the last couple days, she feels it is more muscle skeletal. Patient stated she woke up this morning to go to the restroom, she felt lightheaded dizzy and unsteady, sat back down, and eventually called EMS. Patient has a undifferentiated rhythm of questionable sinus bradycardia versus secondary type II block. Patient also has evidence of first-degree AV block. Patient has no abdominal pain, nausea or vomiting. Patient has no evidence of ST elevation, no other acute abnormalities. Patient has no cardiac history. Patient takes thyroid medication. Patient does not recall the last time she had a stress test, echocardiogram; it has been many, many years if at all. All systems are negative except as noted/marked. All systems reviewed and otherwise negative. Nurses note and vital signs reviewed and patient is not hypoxic. General: The patient appears well and in no apparent distress. Patient is resting comfortably on cart. Patient is not toxic, lethargic, or listless Skin: Warm, dry, no pallor noted. There is no rash noted. No petechiae, purpura. Head: Normocephalic, atraumatic; no carotid bruits bilateral. Eye: Normal conjunctiva, no drainage, EOMI. PERRL Ears, Nose, Mouth, and Throat: oral mucosa is moist. Nares patent. Mouth without vesicles. Cardiovascular: Intermittent sinus bradycardia versus irregular regular Rate and Rhythm, no murmur, gallop, rub Respiratory: Patient is in no distress, no accessory muscle use, lungs are clear to auscultation, no wheezing, rales or rhonchi Back: non-tender, no CVA tenderness bilaterally to percussion. No CT LS midline pain GI: no tenderness to palpation, no masses appreciated. No rebound, guarding, or rigidity noted. No distention. No pulsatile mass. Musculoskeletal: Patient has full range of motion of all of the extremities, no motor, sensory, or focal neurological deficits Neurological: A&O x4, normal speech Psychiatric: Cooperative Related Data Home Medications ?Medication ?Instructions ?Recorded ?Confirmed gemfibrozil 600 mg tablet 600 mg PO BID 06/06/24 06/06/24 levothyroxine 75 mcg tablet 75 mcg PO DAILY 06/06/24 06/06/24 meloxicam 7.5 mg tablet 7.5 mg PO DAILY 06/06/24 06/06/24 metformin 500 mg tablet 500 mg PO BID 06/06/24 06/06/24 Allergies Allergy/AdvReac Type Severity Reaction Status Date / Time No Known Drug Allergies Allergy Verified 06/06/24 06:05 Opioid HPI Opioid Management Most Recent Opioid Data: No Data to Display PFSH PFSH Social History Little interest or pleasure in doing things: not at all Feeling down, depressed, or hopeless: not at all Exam Constitutional Vital Signs, click to edit/add: Last Vital Signs Temp 97.7 F 06/06/24 06:01 Pulse 58 L 06/06/24 08:15 Resp 18 06/06/24 08:15 BP 130/66 06/06/24 08:15 Pulse Ox 97 06/06/24 08:15 O2 Del Method Room Air 06/06/24 06:23 Course Vital Signs Vital signs: Vital Signs Pulse Rate 42 L 06/06/24 05:59 Respiratory Rate 23 H 06/06/24 05:59 Pulse Oximetry 100 06/06/24 05:59 Temperature 97.7 F 06/06/24 06:01 Pulse Rate 58 L 06/06/24 08:15 Respiratory Rate 18 06/06/24 08:15 Blood Pressure 130/66 06/06/24 08:15 Pulse Oximetry 97 06/06/24 08:15 Oxygen Delivery Method Room Air 06/06/24 06:23 Medical Decision Making MDM Narrative Medical decision making narrative: EKG #1. Questionable sinus bradycardia versus secondary to type II. Normal axis deviation. QRS wide, 142. QTc of 443. Left bundle branch block noted as well. EKG will be repeated. EKG #2. Baseline sinus bradycardia at 54 beats a minute. TX interval greater than 200, first-degree AV block. Normal axis deviation. Wide QRS of 138, left bundle branch block, QTc of 435, possible second-degree type II block. EKG #3. Sinus bradycardia at 54 beats a minute. Questionable sinus bradycardia versus first-degree AV block with TX interval greater than 200. EKG is reading TX of 296, normal axis deviation. Left bundle branch block noted. QRS 140, QTc of 431. 3 different EKGs noted. No old EKG available at this time. Cardiology has been paged [phone]. Patient's magnesium is 1.6. I have spoken to Dr. HAYS, on-call [facility] twice. He has reviewed 3 separate EKGs and the rhythm strip EKG. Dr. Hays asked for a longer rhythm strip, we are unable to obtain this with nursing help and IT help, but after looking at the EKGs and the rhythm strip, he stated that it looks like a possible 2-1 block, agrees with Holter monitor for 7 days, and return back to the ER if near-syncope, syncope, or any other acute concerns. He agreed with discharge. Dr. Ga came to see and evaluate the patient as well. With Dr. Hays recommendation, he agrees with sending patient home with a Holter monitor and will see the patient in the office next week. Patient is happy with this plan as well. Patient chest x-ray, lab work, shows no other acute findings. From 6 AM to 7 AM, I was with this patient, reviewing EKGs, speaking to physicians, one-on-one care for 60 minutes initially. Patient was initially placed on pacer pads prophylactically secondary to uncertainty of secondary type II block versus sinus bradycardia. It did not appear the patient was in a type III block. Lab Data Lab results reviewed: Yes I reviewed the patient's lab results Labs: Lab Results 06/06/24 Range/Units 06:10 WBC 4.2 (4.0-11.0) 10^3/uL RBC 4.16 L (4.20-5.40) 10^6/uL Hgb 13.5 (12.0-16.0) g/dL Hct 40.7 (36.0-48.0) % MCV 97.8 (81.0-99.0) fL MCH 32.5 (26.7-34.0) pg MCHC 33.2 (29.9-35.2) g/dL RDW 13.6 (11.0-15.0) % Plt Count 280 (150-450) 10^3/uL MPV 9.6 (9.5-13.5) fL Neut % (Auto) 54.0 (43.0-75.0) % Lymph % (Auto) 30.4 (20.5-60.0) % [place] % (Auto) 10.1 (1.7-12.0) % Eos % (Auto) 4.6 (0.9-7.0) % Baso % (Auto) 0.7 (0.2-2.0) % Neut # (Auto) 2.2 (1.4-6.5) 10^3/uL Lymph # (Auto) 1.3 (1.2-3.8) 10^3/uL [place] # (Auto) 0.4 (0.3-0.8) 10^3/uL Eos # (Auto) 0.2 (0.0-0.7) 10^3/uL Baso # (Auto) 0.0 (0.0-0.1) 10^3/uL Abs Immat Gran (auto) 0.01 (0.00-0.03) 10^3/uL Imm/Tot Granulo (auto) 0.2 (0.0-0.5) % PT 11.3 (9.0-11.6) sec INR 1.07 APTT 29.9 (22.3-36.2) sec Sodium 144 (136-145) mmol/L Potassium 4.4 (3.5-5.1) mmol/L Chloride 109 H (98-107) mmol/L Carbon Dioxide 19.8 L (21.0-32.0) mmol/L Anion Gap 19.6 BUN 22.0 H (7.0-18.0) mg/dL Creatinine 1.31 H (0.55-1.02) mg/dL Est GFR ( Amer) 46 L (>=60 mL/min/1.73m^2) Est GFR (Non-Af Amer) 38 L (>=60 mL/min/1.73m^2) BUN/Creatinine Ratio 16.8 Glucose 98 (74-106) mg/dL Calcium 9.1 (8.5-10.1) mg/dL Magnesium 1.6 L (1.8-2.4) mg/dL Total Bilirubin 0.4 (0.2-1.0) mg/dL AST 14 L (15-37) U/L ALT 8 L (14-59) U/L Alkaline Phosphatase 63 (46-116) U/L Total Creatine Kinase 24 L (26-192) U/L Troponin I High Sens 15.9 (4.0-51.3) pg/mL NT-Pro-B Natriuret Pep 142.0 (<=1800.0) pg/mL Total Protein 6.4 (6.4-8.2) g/dL Albumin 3.0 L (3.4-5.0) g/dL Globulin 3.4 g/dL Albumin/Globulin Ratio 0.9 Free T4 1.08 (0.76-1.46) ng/dL TSH & Free T4 Interp 0.192 L (0.358-3.740) uIU/mL ECG Data Attestation: I personally reviewed and interpreted this ECG as follows: Discharge Plan Discharge Chief Complaint: Dizziness Clinical Impression: Lightheadedness, Hypomagnesemia Patient Disposition: Home, Self-Care Time of Disposition Decision: 08:43 Condition: Fair Prescriptions / Home Meds: No Action metformin 500 mg tablet 500 mg PO BID levothyroxine 75 mcg tablet 75 mcg PO DAILY meloxicam 7.5 mg tablet 7.5 mg PO DAILY gemfibrozil 600 mg tablet 600 mg PO BID Print Language: Vietnamese Instructions: Hypomagnesemia (ED), Lightheadedness (ED) Additional Instructions: You have a Holter monitor for 7 days. Follow-up with Dr. Ga in the office next week as discussed. If you are having almost passing out episodes, or you do pass out, chest pain, shortness of breath, or any other acute concerns, please return back to the ER. Referrals: Morgan Ga MD [Primary Care Provider] - 1 week
[2024-06-06 06:43] LABS: Basophils Percent Auto 0.7 % (0.2-2.0); Eosinophils Absolute Auto 0.2 10^3/uL (0.0-0.7); Eosinophils Percent Auto 4.6 % (0.9-7.0); Hematocrit 40.7 % (36.0-48.0); Hemoglobin 13.5 g/dL (12.0-16.0); Immature Granulocytes Abs Auto 0.01 10^3/uL (0.00-0.03); Immature Granulocytes Pct Auto 0.2 % (0.0-0.5); Lymphocytes Absolute Auto 1.3 10^3/uL (1.2-3.8); Lymphocytes Percent Auto 30.4 % (20.5-60.0); Mean Corpuscular HGB Conc 33.2 g/dL (29.9-35.2); Mean Corpuscular Hemoglobin 32.5 pg (26.7-34.0); Mean Corpuscular Volume 97.8 fL (81.0-99.0); Mean Platelet Volume 9.6 fL (9.5-13.5); Monocytes Absolute Auto 0.4 10^3/uL (0.3-0.8); Monocytes Percent Auto 10.1 % (1.7-12.0); Neutrophils Absolute Auto 2.2 10^3/uL (1.4-6.5); Platelet Count 280 10^3/uL (150-450); Red Blood Count 4.16 10^6/uL (4.20-5.40); Red Cell Distribution Width 13.6 % (11.0-15.0); White Blood Count 4.2 10^3/uL (4.0-11.0)
[2024-06-06] MEDS: ASPIRIN 81 MG TAB.CHEW 162 MG PO (06:48)
[2024-06-06 06:50] LABS: INR 1.07; Partial Thromboplastin Time 29.9 sec (22.3-36.2); Prothrombin Time 11.3 sec (9.0-11.6)
[2024-06-06 06:53] LABS: Alanine Aminotransferase 8 U/L (14-59); Albumin Globulin Ratio 0.9; Alkaline Phosphatase 63 U/L (46-116); Anion Gap 19.6; Aspartate Amino Transferase 14 U/L (15-37); BUN Creatinine Ratio 16.8; Bilirubin Total 0.4 mg/dL (0.2-1.0); Calcium 9.1 mg/dL (8.5-10.1); Carbon Dioxide 19.8 mmol/L (21.0-32.0); Chloride 109 mmol/L (98-107); Estimated GFR (African America 46 (>=60 mL/min/1.73m^2); Estimated GFR (Non-African Ame 38 (>=60 mL/min/1.73m^2); Globulin 3.4 g/dL; Glucose 98 mg/dL (74-106); Potassium 4.4 mmol/L (3.5-5.1); Sodium 144 mmol/L (136-145); Total Protein 6.4 g/dL (6.4-8.2)
[2024-06-06 06:59] LABS: Creatine Kinase 24 U/L (26-192); Magnesium 1.6 mg/dL (1.8-2.4); Troponin I High Sensitivity 15.9 pg/mL (4.0-51.3)
[2024-06-06 07:00] LABS: TSH W/ REFLEX FT4 0.192 uIU/mL (0.358-3.740)
[2024-06-06 07:28] LABS: Free T4 1.08 ng/dL (0.76-1.46)
--- NOTE | 2024-06-06 07:47 | PC.NURSE ---
Patient reports having a history of hyptothyroid and DM 2. Reports only surgical history is hysterectomy.
--- NOTE | 2024-06-06 08:03 | PC.NURSE ---
Dr. Ga at bedside talking with patient.
[2024-06-06] MEDS: MAGNESIUM SULFATE IN WATER 2 GM/50 ML PREMIX 3.3 GM IV (08:10)
--- NOTE | 2024-06-06 08:54 | PC.NURSE ---
Ambulates to BR and back without difficulty.
== END 2024-06-06 09:15 | disposition home or self-care (01) ==
PROVIDERS: Emergency Medicine; Emergency Provider Emergency Medicine; PCP Family Medicine
DX: R42 Dizziness and giddiness (principal); E83.42 Hypomagnesemia; M25.512 Pain in left shoulder
CPT/HCPCS: 36415; 71045; 80053; 82550; 83735; 83880; 84439; 84443; 84484; 85025; 85610; 85730; 93005; 93246; 96365; 99285; J3475

== ENCOUNTER 2024-06-10 00:51 | Inpatient (IN) | payer MEDICARE, SELFPAY ==
[2024-06-10] VITALS (19 sets, daily range): BP systolic 116–149; BP diastolic 64–82; PULSE 64–83; TEMP 36.4–36.7; O2SAT 93–98; BMI 23.0; BMI 24.9
--- NOTE | 2024-06-10 01:00 | ECG_ITS ---
The [facility] Test Date: 2024-06-10 Pat Name: BUZZ BINGHAM Department: Room: - Gender: Female [employer]: : 1935 Requested By: ZENAIDA WHITNEY Order Number: [id number] Reading MD: ZENAIDA WHITNEY Measurements Intervals [place] Rate: 62 P: 33 KS: 248 QRS: -5 QRSD: 140 T: 182 QT: 432 QTc: 437 Interpretive Statements 1100 Sinus rhythm 1102 Sinus arrhythmia 2231 First degree AV block 2550 Left bundle branch block 0102 ARTIFACT PRESENT 9150 abnormal ECG Compared to ECG 06/06/2024 06:31:32 No significant changes Electronically Signed On 06-12-2024 7:11:33 EST by ZENAIDA WHITNEY
--- NOTE | 2024-06-10 01:22 | ED_ITS ---
HPI - Dizziness General Chief Complaint: Dizziness Stated Complaint: OTHER Time Seen by Provider: 06/10/24 01:10 Source: patient Mode of arrival: ambulance Limitations: no limitations History of Present Illness HPI Narrative: patient seen here recently for dizziness. Sent home with holter monitor. Seen by Dr Ga in the office yesterday and felt she was a little dizzy but doing ok. Tonight she laid down and the room was spinning. She was concerned about needing to go to the bathroom in the middle of the night and decided to go and get her walker. She managed to do so but states she probably looked like a drunk person while walking because she was off balance. She did manage to get to her walker and turned around to go back to her bedroom and the room started spinning and she fell onto her buttocks. Denies striking her head. No chest pain . Arrives via [facility] Related Data Home Medications ?Medication ?Instructions ?Recorded ?Confirmed gemfibrozil 600 mg tablet 600 mg PO BID 06/06/24 06/10/24 levothyroxine 75 mcg tablet 75 mcg PO DAILY 06/06/24 06/10/24 metformin 500 mg tablet 500 mg PO BID 06/06/24 06/10/24 Allergies Allergy/AdvReac Type Severity Reaction Status Date / Time No Known Drug Allergies Allergy Verified 06/10/24 00:58 Review of Systems ROS Status of ROS 10 or more systems reviewed and unremark able except as noted in history and below [facility] Medical History (Updated 06/10/24 @ 05:38 by Ping Juan) Hyperlipidemia ?E78.5 - Hyperlipidemia, unspecified (ICD-10) Bradycardia ?R00.1 - Bradycardia, unspecified (ICD-10) Dizziness ?R42 - Dizziness and giddiness (ICD-10) Hypothyroid ?E03.9 - Hypothyroidism, unspecified (ICD-10) Diabetes ?E11.9 - Type 2 diabetes mellitus without complications (ICD-10) Surgical History (Updated 06/10/24 @ 05:37 by Ping Juan) H/O: hysterectomy ?Z90.710 - Acquired absence of both cervix and uterus (ICD-10) History of knee replacement ?Z96.659 - Presence of unspecified artificial knee joint (ICD-10) Family History (Updated 06/10/24 @ 05:30 by Ping Juan) Mother Family history of diabetes mellitus Social History (Updated 06/10/24 @ 05:32 by Ping Juan) Within the past year, how often did you have a drink containing alcohol: 4 or more times a week Within the past year, how many standard drinks containing alcohol did you have on a typical day: 1 or 2 Within the past year, how often did you have six or more drinks on one occasion: never Total score: 0 Score interpretation: Questions 2 and 3 are 0. It can be assumed that the patient's drinking is below the recommended limits. However, please confirm the accuracy of the patient's alcohol intake over the last few months. Smoking status: Never smoker Non-prescribed substance use: denies use Previous occupational history: retired Highest level of school completed/degree received: high school graduate Are you now , , , , never or living with a partner: In a typical week, how many times do you talk on the telephone with family, friends, or neighbors: 3 or more times per week How often do you get together with friends or relatives: 3 or more times per week How often do you attend sabianist or moravian services: never Little interest or pleasure in doing things: not at all Feeling down, depressed, or hopeless: not at all Feel stressed/tense/nervous/anxious/difficulty sleeping: not at all Life stressors: recent of family or friend Do you think of yourself as: straight/heterosexual Gender Identity: female Exam Constitutional Vital Signs, click to edit/add: Last Vital Signs Temp 97.8 F 06/10/24 05:27 Pulse 83 06/10/24 06:03 Resp 20 06/10/24 05:27 BP 137/81 06/10/24 05:27 Pulse Ox 93 L 06/10/24 05:27 O2 Del Method Room Air 06/10/24 05:28 Common normals: no apparent distress, average body habitus, oriented x3, no limitations, healthy appearing, alert and well nourished [facility] Common normals: normocephalic and head/scalp atraumatic Eye Common normals: PERRL, EOMs intact bilaterally and conjunctivae normal Respiratory Common normals: normal respiratory effort, no retractions, no use of accessory muscles and clear to auscultation bilaterally Cardio Common normals: regular rate, regular rhythm, S1 normal heart sound and S2 normal heart sound GI Common normals: Normal to inspection, nondistended, normoactive bowel sounds present, soft to palpation and non-tender Extremity Common normals: normal to inspection Other: mild tenderness left hip. no deformity Neuro Common normals: oriented x3, CN's II-XII intact bilaterally and moves all extremities Course Vital Signs Vital signs: Vital Signs Temperature 97.6 F 06/10/24 00:53 Pulse Rate 77 06/10/24 00:53 Respiratory Rate 16 06/10/24 00:53 Blood Pressure 148/78 H 06/10/24 00:53 Pulse Oximetry 98 06/10/24 00:53 Oxygen Delivery Method Room Air 06/10/24 00:53 Temperature 97.8 F 06/10/24 05:27 Pulse Rate 83 06/10/24 06:03 Respiratory Rate 20 06/10/24 05:27 Blood Pressure 137/81 06/10/24 05:27 Pulse Oximetry 93 L 06/10/24 05:27 Oxygen Delivery Method Room Air 06/10/24 05:28 MDM - Dizziness MDM Narrative Medical decision making narrative: patient was seen 06/06 for dizziness and found to have bradycardia and possible type 2 AV block. 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 Nilson experienced classic vertiginous symptoms and fell to the floor onto her buttocks. No injury. Brought to ER by [facility]. Dizziness is positional. CT brain neg for acute findings. No other neuro symptoms. left hip mildly tender. Xray left hip neg. EKG NSR with first degree AV block and LBBB. No arrhythmia during her time in the department. Given dose of Ativan and antivert and remains dizzy . Labs with decreased GFR since 06/06/24. Patient remains dizzy. Discussed with the hospitalist and patient accepted for obs admission Lab Data Labs: Lab Results 06/10/24 Range/Units 01:00 WBC 5.0 (4.0-11.0) 10^3/uL RBC 4.22 (4.20-5.40) 10^6/uL Hgb 13.9 (12.0-16.0) g/dL Hct 41.3 (36.0-48.0) % MCV 97.9 (81.0-99.0) fL MCH 32.9 (26.7-34.0) pg MCHC 33.7 (29.9-35.2) g/dL RDW 13.4 (11.0-15.0) % Plt Count 279 (150-450) 10^3/uL MPV 10.0 (9.5-13.5) fL Neut % (Auto) 66.3 (43.0-75.0) % Lymph % (Auto) 20.2 L (20.5-60.0) % [place] % (Auto) 10.1 (1.7-12.0) % Eos % (Auto) 2.8 (0.9-7.0) % Baso % (Auto) 0.4 (0.2-2.0) % Neut # (Auto) 3.3 (1.4-6.5) 10^3/uL Lymph # (Auto) 1.0 L (1.2-3.8) 10^3/uL [place] # (Auto) 0.5 (0.3-0.8) 10^3/uL Eos # (Auto) 0.1 (0.0-0.7) 10^3/uL Baso # (Auto) 0.0 (0.0-0.1) 10^3/uL Abs Immat Gran (auto) 0.01 (0.00-0.03) 10^3/uL Imm/Tot Granulo (auto) 0.2 (0.0-0.5) % Sodium 141 (136-145) mmol/L Potassium 4.5 (3.5-5.1) mmol/L Chloride 107 (98-107) mmol/L Carbon Dioxide 18.0 L (21.0-32.0) mmol/L Anion Gap 20.5 BUN 23.0 H (7.0-18.0) mg/dL Creatinine 1.72 H (0.55-1.02) mg/dL Est GFR ( Amer) 34 L (>=60 mL/min/1.73m^2) Est GFR (Non-Af Amer) 28 L (>=60 mL/min/1.73m^2) BUN/Creatinine Ratio 13.4 Glucose 153 H (74-106) mg/dL Calcium 9.4 (8.5-10.1) mg/dL Troponin I High Sens 28.0 (4.0-51.3) pg/mL Discharge Plan Discharge Chief Complaint: Dizziness Clinical Impression: Benign paroxysmal positional vertigo, Contusion of hip, left, Acute renal failure Patient Disposition: Admitted as Observation Discharge Date/Time: 06/10/24 04:55
--- NOTE | 2024-06-10 01:26 | XR_ITS ---
The [address] [address] Patient Name: BUZZ BINGHAM MRN: [id number] date: 1935 Sex: F Assigned Patient Location: ER Current Patient Location: ER Accession/Order Number: [id number] Exam Date: 06/10/2024 02:00 Report Date: 06/10/2024 04:23 At the request of: LAMINE CHAMBERS Procedure: XR hip LT 2V w/ pelvis PROCEDURE: XR hip LT 2V w/ pelvis HISTORY: fall , left hip pain COMPARISON: None. FINDINGS: BONES:Moderate degenerative changes of the hip joints, left greater than right. Degenerative changes of the lower lumbar spine. No fracture, dislocation, or bone lesion. SOFT TISSUES:No visible soft tissue swelling. EFFUSION:None visible. OTHER: Negative. XR/XR hip LT 2V w/ pelvis IMPRESSION: 1. No acute bone abnormality. 2. Degenerative changes. Electronically authenticated by: GONZALEZ ROMANO Date: 06/10/2024 04:23
--- NOTE | 2024-06-10 01:26 | CT_ITS ---
The [address] [address] Patient Name: BUZZ BINGHAM MRN: [id number] date: 1935 Sex: F Assigned Patient Location: ER Current Patient Location: Accession/Order Number: [id number] Exam Date: 06/10/2024 02:00 Report Date: 06/10/2024 03:56 At the request of: LAMINE CHAMBERS Procedure: CT head/brain wo con EXAM: CT head/brain wo con INDICATION: 88 years old; Female. Vertigo. TECHNIQUE: CT Head (ax/cor/sag reformats). Ionizing radiation dose reduced via iterative reconstruction/FBP blend and body size kV/mA adjustment. Comparison: Head CT dated 02/19/2024. FINDINGS: POSTOPERATIVE CHANGES: None. BRAIN PARENCHYMA: No intraparenchymal or extra-axial hemorrhage. No mass effect. No midline shift or herniation. Patchy low-density in the white matter without mass effect. VENTRICLES/EXTRA-AXIAL SPACES: Enlarged but within normal limits for patient's age. SINUSES/MASTOIDS: There is opacification of the visualized portion the maxillary sinus on the left. Soft tissue material projects into the nasal cavity. This would be consistent with obstruction of the ostiomeatal unit. The appearance is unchanged as compared to prior study. Remaining visualized sinuses are clear. Nasal septal deviation to the right with spur formation. Mastoids and middle ears are clear. MSK: No displaced or depressed calvarial fracture. OTHER: No hyperdense intraluminal thrombus is seen. Vascular calcifications are noted. CT/CT head/brain wo con IMPRESSION: 1. No acute intracranial abnormality. No hemorrhage or mass effect. 2. Nonspecific white matter changes. 3. Chronic appearing opacification of the visualized portion left maxillary sinus. 4. Vascular calcification. Electronically authenticated by: MILADYS SKINNER Date: 06/10/2024 03:56
[2024-06-10] MEDS: ONDANSETRON PF 4 MG/2 ML VIAL IV (01:27)
[2024-06-10 01:33] LABS: Basophils Percent Auto 0.4 % (0.2-2.0); Eosinophils Absolute Auto 0.1 10^3/uL (0.0-0.7); Eosinophils Percent Auto 2.8 % (0.9-7.0); Hematocrit 41.3 % (36.0-48.0); Hemoglobin 13.9 g/dL (12.0-16.0); Immature Granulocytes Abs Auto 0.01 10^3/uL (0.00-0.03); Immature Granulocytes Pct Auto 0.2 % (0.0-0.5); Lymphocytes Percent Auto 20.2 % (20.5-60.0); Mean Corpuscular HGB Conc 33.7 g/dL (29.9-35.2); Mean Corpuscular Hemoglobin 32.9 pg (26.7-34.0); Mean Corpuscular Volume 97.9 fL (81.0-99.0); Monocytes Absolute Auto 0.5 10^3/uL (0.3-0.8); Monocytes Percent Auto 10.1 % (1.7-12.0); Neutrophils Absolute Auto 3.3 10^3/uL (1.4-6.5); Neutrophils Percent Auto 66.3 % (43.0-75.0); Platelet Count 279 10^3/uL (150-450); Red Blood Count 4.22 10^6/uL (4.20-5.40); Red Cell Distribution Width 13.4 % (11.0-15.0)
[2024-06-10] MEDS: LORAZEPAM 2 MG/ML VIAL 0.5 MG IV (01:45)
[2024-06-10] MEDS: MECLIZINE HCL 12.5 MG TABLET 25 MG PO ×4 (01:46→21:37)
[2024-06-10 01:49] LABS: Anion Gap 20.5; BUN Creatinine Ratio 13.4; Calcium 9.4 mg/dL (8.5-10.1); Chloride 107 mmol/L (98-107); Estimated GFR (African America 34 (>=60 mL/min/1.73m^2); Estimated GFR (Non-African Ame 28 (>=60 mL/min/1.73m^2); Glucose 153 mg/dL (74-106); Potassium 4.5 mmol/L (3.5-5.1); Sodium 141 mmol/L (136-145)
--- OUTSIDE RECORDS SUMMARY | 2024-06-10 01:54 | XMS_ITS | CCD ---
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 Sheila Chang CREATININEon 11-13-2022 Creatinine [Mass/Vol] 1.24 mg/dL Critically high 0.55-1.[address] [facility] Comment on above: Performed By: #### C A, CREA #### [facility] [address] [place] [address] Dr. Sheila Chang EGFR-AF BAHAMIAN 50 mL/min/1.73m2 Critically low >=[address] [facility] Comment on above: Performed By: #### C A, CREA #### [facility] [address] [place] [address] Dr. Sheila Chang EGFR-NON AF BAHAMIAN 41 mL/min/1.73m2 Critically low >=[address] [facility] Comment on above: Performed By: #### C A, CREA #### [facility] [address] [place] [address] Dr. Sheila Chang CALCIUMon 10-11-2022 Calcium [Mass/Vol] 9.7 mg/dL Normal 8.5-10.1 [facility] Comment on above: Performed By: #### C A, CREA #### [facility] [address] [place] [address] Dr. Sheila Chang CREATININEon 10-11-2022 Creatinine [Mass/Vol] 1.16 mg/dL Critically high 0.55-1.[address] [facility] Comment on above: Performed By: #### C A, CREA #### [facility] [address] [place] [address] Dr. Sheila Chang EGFR-AF BAHAMIAN 54 mL/min/1.73m2 Critically low >=60 [facility] Comment on above: Performed By: #### C A, CREA #### [facility] [address] [place] [address] Dr. Sheila Chang EGFR-NON AF BAHAMIAN 44 mL/min/1.73m2 Critically low >=60 [facility] Comment on above: Performed By: #### C A, CREA #### [facility] [address] [place] [address] Dr. Sheila Chang XR DEXA BONE DENSITYon [...] [place] Date: 2022-04-27 17:32 Normal [facility] CBC AUTO DIFFon 11-21-2021 BASO # 0.0 103/ul Normal 0.0-0.[address] [facility] Comment on above: Performed By: #### C Henrique, CREA #### [facility] [address] [place] [address] Dr. Sheila Chang Basophils/100 WBC (Bld) 0.6 % Normal 0.2-2.[address] [facility] Comment on above: Performed By: #### C Henrique, CREA #### [facility] [address] [place] [address] Dr. Sheila Chang EO # 0.2 103/ul Normal 0.0-0.[address] [facility] Comment on above: Performed By: #### C Henrique, CREA #### [facility] [address] [place] [address] Dr. Sheila Chang Eosinophils/100 WBC (Bld) 3.3 % Normal 0.9-7.[address] [facility] Comment on above: Performed By: #### C Henrique, CREA #### [facility] [address] [place] [address] Dr. Sheila Chang Erythrocyte distribution width (RBC) [Ratio] 13.8 % Normal 11.0-15.[address] [facility] Comment on above: Performed By: #### C A, CREA #### [facility] [address] [place] [address] Dr. Sheila Chang Hematocrit (Bld) [Volume fraction] 41.8 % Normal 36.0-48.[address] [facility] Comment on above: Performed By: #### C A, CREA #### [facility] [address] [place] [address] Dr. Sheila Chang Hemoglobin (Bld) [Mass/Vol] 13.4 g/dL Normal 12.0-16.[address] [facility] Comment on above: Performed By: #### C A, CREA #### [facility] [address] [place] [address] Dr. Sheila Chang IG # 0.01 10e3/ul Normal 0.00-0.[address] [facility] Comment on above: Performed By: #### C A, CREA #### [facility] [address] [place] [address] Dr. Sheila Chang IG % 0.2 % Normal 0.0-0.[address] [facility] Comment on above: Performed By: #### C A, CREA #### [facility] [address] [place] [address] Dr. Sheila Chang LYMPH # 1.2 103/ul Normal 1.2-3.[address] [facility] Comment on above: Performed By: #### C A, CREA #### [facility] [address] [place] [address] Dr. Sheila Chang Lymphocytes/100 WBC (Bld) 23.6 % Normal 20.5-60.[address] [facility] Comment on above: Performed By: #### C A, CREA #### [facility] [address] [place] [address] Dr. Sheila Chang MANUAL DIFF REQ NO Normal [facility] Comment on above: Performed By: #### C A, CREA #### [facility] [address] [place] [address] Dr. Sheila Chang MCH (RBC) [Entitic mass] 31.2 pg Normal 26.7-34.[address] [facility] Comment on above: Performed By: #### C A, CREA #### [facility] [address] [place] [address] Dr. Sheila Chang MCHC (RBC) [Mass/Vol] 32.1 g/dL Normal 29.9-35.2 [facility] Comment on above: Performed By: #### C A, CREA #### [facility] [address] [place] [address] Dr. Sheila Chang MCV (RBC) [Entitic vol] 97.2 fL Normal 81.0-99.0 [facility] Comment on above: Performed By: #### C A, CREA #### [facility] [address] [place] [address] Dr. Sheila Chang MONO # 0.5 103/ul Normal 0.3-0.8 [facility] Comment on above: Performed By: #### C A, CREA #### [facility] [address] [place] [address] Dr. Sheila Chang Monocytes/100 WBC (Bld) 9.2 % Normal 1.7-12.0 [facility] Comment on above: Performed By: #### C A, CREA #### [facility] [address] [place] [address] Dr. Sheila Chang NEUT # 3.2 103/ul Normal 1.4-6.5 [facility] Comment on above: Performed By: #### C A, CREA #### [facility] [address] [place] [address] Dr. Sheila Chang Neutrophils/100 WBC (Bld) 63.1 % Normal 43.0-75.0 [facility] Comment on above: Performed By: #### C A, CREA #### [facility] [address] [place] [address] Dr. Sheila Chang Platelet mean volume (Bld) [Entitic vol] 9.0 fL Critically low 9.5-13.5 [facility] Comment on above: Performed By: #### C A, CREA #### [facility] [address] [place] [address] Dr. Sheila Chang PLT 273 103/ul Normal 150-450 [facility] Comment on above: Performed By: #### C Henrique CREA #### [facility] [address] [place] [address] Dr. Sheila Chang RBC 4.30 106/ul Normal 4.20-5.[address] [facility] Comment on above: Performed By: #### C Henrique CREA #### [facility] [address] [place] [address] Dr. Sheila Chang WBC 5.1 103/ul Normal 4.0-11.[address] [facility] Comment on above: Performed By: #### C Henrique CREA #### [facility] [address] [place] [address] Dr. Sheila Chang FREE THYROXINE INDEX T7on FTI 2.[address] [facility] Comment on above: Performed By: #### T 7, TSH, LIPID, CMP #### [facility] [address] [place] [address] Dr. Sheila Chang T3U 36.0 % Normal 23.5-40.[address] [facility] Comment on above: Performed By: #### T 7, TSH, LIPID, CMP #### [facility] [address] [place] [address] Dr. Sheila Chang T4 [Mass/Vol] 8.20 ug/dL Normal 4.80-13.90 [facility] Comment on above: Performed By: #### T 7, TSH, LIPID, CMP #### [facility] [address] [place] [address] Dr. Sheila Chang GLYCOHEMOGLOBIN A1Con 2021 ADA RECOMMENDATION SEE BELOW Normal [facility] Comment on above: Result Comment: ADA RECOMMENDED LIMIT 4.0 - 6.0 ADA THERAPEUTIC TARGET < 7.0 ACTION SUGGESTED > 7.0 Performed By: #### A 1C #### [facility] [address] [place] [address] Dr. Sheila Chang Glucose [Mass/Vol] 114 mg/dL Normal [facility] Comment on above: Performed By: #### A 1C #### [facility] [address] [place] [address] Dr. Sheila Chang HbA1c (Bld) [Mass fraction] 5.6 % Normal 4.5-6.[address] [facility] Comment on above: Performed By: #### A 1C #### [facility] [address] [place] [address] Dr. Sheila Chang IRONon 11-21-2021 Iron [Mass/Vol] 102.0 ug/dL Normal 50.0-170.0 [facility] Comment on above: Performed By: #### I BRIGETTE #### [facility] [address] [place] [address] Dr. Sheila Chang LIPID PROFILEon 11-21-2021 CHOL-HDL RATIO NORM SEE BELOW Normal [facility] Comment on above: Result Comment: 3.3 - 4.4 LOW RISK 4.4 - 7.1 AVERAGE RISK 7.1 - 11.0 MODERATE RISK >11.0 HIGH RISK Performed By: #### T 7, TSH, LIPID, CMP #### [facility] [address] [place] [address] Dr. Sheila Chang Cholesterol [Mass/Vol] 142 mg/dL Normal <=[address] [facility] Comment on above: Performed By: #### T 7, TSH, LIPID, CMP #### [facility] [address] [place] [address] Dr. Sheila Chang Cholesterol in HDL [Mass/Vol] 47 mg/dL Normal 40-[address] [facility] Comment on above: Performed By: #### T 7, TSH, LIPID, CMP #### [facility] [address] [place] [address] Dr. Sheila Chang Cholesterol in LDL [Mass/Vol] 83.8 mg/dL Normal [facility] Comment on above: Performed By: #### T 7, TSH, LIPID, CMP #### [facility] [address] [place] [address] Dr. Sheila Chang Cholesterol.total/Cho lesterol in HDL [Mass ratio] 3.0 {ratio} Normal [facility] Comment on above: Performed By: #### T 7, TSH, LIPID, CMP #### [facility] [address] [address] [address] Sheila Chang HDL NORMAL > or = 60 mg/dl - LOW CARDIOVASCULAR RISK <40 mg/dl - HIGH CARDIOVASCULAR RISK Normal [facility] Comment on above: Performed By: #### T 7, TSH, LIPID, CMP #### [facility] [address] [address] [address] Sheila Chang LDL CALC NORMAL SEE BELOW Normal [facility] Comment on above: Result Comment: <100 mg/dl OPTIMAL 100 - 129 mg/dl NEAR OR ABOVE OPTIMAL 130 - 159 mg/dl BORDERLINE HIGH 160 - 189 mg/dl HIGH >190 mg/dl VERY HIGH Performed By: #### T 7, TSH, LIPID, CMP #### [facility] [address] [address] [address] Sheila Chang Triglyceride [Mass/Vol] 56 mg/dL Normal <=[address] [facility] Comment on above: Performed By: #### T 7, TSH, LIPID, CMP #### [facility] [address] [address] [address] Sheila Chang VLDL CALC 11.2 mg/dL Normal [facility] Comment on above: Performed By: #### T 7, TSH, LIPID, CMP #### [facility] [address] [address] [address] Sheila Chang PROF 14(COMP METB)on 022 Albumin [Mass/Vol] 3.5 g/dL Normal 3.4-5.0 [facility] Comment on above: Performed By: #### T 7, TSH, LIPID, CMP #### [facility] [address] [address] [address] Sheila Chang Albumin/Globulin [Mass ratio] 0.9 {ratio} Normal [facility] Comment on above: Performed By: #### T 7, TSH, LIPID, CMP #### [facility] [address] [place] [address] Dr. Sheila Chang ALP [Catalytic activity/Vol] 60 U/L Normal 46-[address] [facility] Comment on above: Performed By: #### T 7, TSH, LIPID, CMP #### [facility] [address] [address] [address] Sheila Chang ALT [Catalytic activity/Vol] 14 U/L Normal 14-[address] [facility] Comment on above: Performed By: #### T 7, TSH, LIPID, CMP #### [facility] [address] [address] [address] Sheila Chang Anion gap [Moles/Vol] 14.4 mmol/L Normal [facility] Comment on above: Performed By: #### T 7, TSH, LIPID, CMP #### [facility] [address] [address] [address] Sheila Chang AST [Catalytic activity/Vol] 14 U/L Critically low 15-[address] [facility] Comment on above: Performed By: #### T 7, TSH, LIPID, CMP #### [facility] [address] [place] [address] Dr. Sheila Chang Bilirubin [Mass/Vol] 0.5 mg/dL Normal 0.2-1.[address] [facility] Comment on above: Performed By: #### T 7, TSH, LIPID, CMP #### [facility] [address] [address] [address] Sheila Chang Calcium [Mass/Vol] 8.5 mg/dL Normal 8.5-10.1 [facility] Comment on above: Performed By: #### T 7, TSH, LIPID, CMP #### [facility] [address] [address] [address] Sheila Chang Chloride [Moles/Vol] 106 mmol/L Normal 98-[address] [facility] Comment on above: Performed By: #### T 7, TSH, LIPID, CMP #### [facility] [address] [address] [address] Sheila Chang CO2 [Moles/Vol] 25.2 mmol/L Normal 21.0-32.0 [facility] Comment on above: Performed By: #### T 7, TSH, LIPID, CMP #### [facility] [address] [address] [address] Sheila Chang Creatinine [Mass/Vol] 1.15 mg/dL Critically high 0.55-1.[address] [facility] Comment on above: Performed By: #### T 7, TSH, LIPID, CMP #### [facility] [address] [place] [address] Dr. Sheila Chang EGFR-AF BAHAMIAN 54 mL/min/1.73m2 Critically low >=[address] [facility] Comment on above: Performed By: #### T 7, TSH, LIPID, CMP #### [facility] [address] [place] [address] Dr. Sheila Chang EGFR-NON AF BAHAMIAN 45 mL/min/1.73m2 Critically low >=[address] [facility] Comment on above: Performed By: #### T 7, TSH, LIPID, CMP #### [facility] [address] [place] [address] Dr. Sheila Chang Globulin (S) [Mass/Vol] 3.8 g/dL Normal [facility] Comment on above: Performed By: #### T 7, TSH, LIPID, CMP #### [facility] [address] [place] [address] Dr. Sheila Chang Glucose [Mass/Vol] 96 mg/dL Normal 74-106 [facility] Comment on above: Performed By: #### T 7, TSH, LIPID, CMP #### [facility] [address] [place] [address] Dr. Sheila Chang Potassium [Moles/Vol] 5.6 mmol/L Critically high 3.5-5.1 [facility] Comment on above: Performed By: #### T 7, TSH, LIPID, CMP #### [facility] [address] [place] [address] Dr. Sheila Chang Protein [Mass/Vol] 7.3 g/dL Normal 6.1-8.2 [facility] Comment on above: Performed By: #### T 7, TSH, LIPID, CMP #### [facility] [address] [place] [address] Dr. Sheila Chang Sodium [Moles/Vol] 140 mmol/L Normal 136-145 [facility] Comment on above: Performed By: #### T 7, TSH, LIPID, CMP #### [facility] [address] [address] [address] Sheila Chang Urea nitrogen [Mass/Vol] 25.0 mg/dL Critically high 7.0-18.[address] [facility] Comment on above: Performed By: #### T 7, TSH, LIPID, CMP #### [facility] [address] [address] [address] Sheila Chang Urea nitrogen/Creatinine [Mass ratio] 21.7 mg/mg Normal [facility] Comment on above: Performed By: #### T 7, TSH, LIPID, CMP #### [facility] [address] [address] [address] Sheila Chang TSHon 11-21-2021 TSH 0.162 uIU/mL Critically low 0.470-4.680 [facility] Comment on above: Performed By: #### T 7, TSH, LIPID, CMP #### [facility] [address] [address] [address] Sheila Chang TSH RANGE SEE BELOW Normal [facility] Comment on above: Result Comment: <0.3 4 UIU/ml HYPERTHYROID 0.34-5.60 UIU/ml EUTHYROID >5.60 UIU/ml HYPOTHYROID Performed By: #### T 7, TSH, LIPID, CMP #### [facility] [address] [address] [address] Sheila Chang Encounters Encounter Date Encounter [...] Facility:[facility] Payers Date Payer Category Payer Medicare [id number] 1959 Unknown [id number] 1935 Unknown [id number] 2.16.84 [id number] 1935 Unknown [id number] 2.16.84 [id number] 1935 Unknown [id number] 2.16.84 [id number] 1935 Unknown [id number] 2.16.84 [id number] 1935 Unknown [id number] 2.16.84 [id number] Summary Purpose Family History No Family History Records FoundNo Family History Records Found Advance Directives No Advanced Directives Records FoundNo Advanced Directives Records Found Additional Source Comments INFORMATION SOURCE (unrecogn ized section and content) DATE CREATED AUTHOR 11/13/2022 [facility] DATE [facility] [employer] [facility] FOR RECORDS PERTAINING TO PATIENTS WHO [...] BE BASED ON THE PRIMARY CLINICAL RECORDS. [facility] [employer] provides no warranty or guarantee of the accuracy or completeness of information in this document.
--- OUTSIDE RECORDS SUMMARY | 2024-06-10 04:58 | XMS_ITS | CCD ---
Author Organization [facility] Care Team Providers Care Recovery Auditor Name Role Phone DEVONTE ., DR ESTEVEZ [...] Performed By: #### C A, CREA #### [facility] [address] [place] [address] Dr. Sheila Chang CREATININEon 11-13-2022 Creatinine [Mass/Vol] 1.24 mg/dL Critically high 0.55-1.02 [facility] Comment on above: Performed By: #### C A, CREA #### [facility] [address] [place] [address] Dr. Sheila Chang EGFR-AF [place] 50 mL/min/1.73m2 Critically low >=60 [facility] Comment on above: Performed By: #### C A, CREA #### [facility] [address] [place] [address] Dr. Sheila Chang EGFR-NON AF [place] 41 mL/min/1.73m2 Critically low >=60 [facility] Comment on above: Performed By: #### C A, CREA #### [facility] [address] [place] [address] Dr. Sheila Chang CALCIUMon 10-11-2022 Calcium [Mass/Vol] 9.7 mg/dL Normal 8.5-10.1 [facility] Comment on above: Performed By: #### C A, CREA #### [facility] [address] [place] [address] Dr. Sheila Chang CREATININEon 10-11-2022 Creatinine [Mass/Vol] 1.16 mg/dL Critically high 0.55-1.02 [facility] Comment on above: Performed By: #### C A, CREA #### [facility] [address] [place] [address] Dr. Sheila Chang EGFR-AF [place] 54 mL/min/1.73m2 Critically low >=60 [facility] Comment on above: Performed By: #### C A, CREA #### [facility] [address] [place] [address] Dr. Sheila Chang EGFR-NON AF [place] 44 mL/min/1.73m2 Critically low >=60 [facility] Comment on above: Performed By: #### C A, CREA #### [facility] [address] [place] [address] Dr. Sheila Chang XR DEXA BONE DENSITYon [...] [place] Date: 2022-04-27 17:32 Normal [facility] CBC AUTO DIFFon 11-21-2021 BASO # 0.0 103/ul Normal 0.0-0.1 [facility] Comment on above: Performed By: #### C Henrique, CREA #### [facility] [address] [place] [address] Dr. Sheila Chang Basophils/100 WBC (Bld) 0.6 % Normal 0.2-2.0 [facility] Comment on above: Performed By: #### C Henrique, CREA #### [facility] [address] [place] [address] Dr. Sheila Chang EO # 0.2 103/ul Normal 0.0-0.7 [facility] Comment on above: Performed By: #### C Henrique, CREA #### [facility] [address] [place] [address] Dr. Sheila Chang Eosinophils/100 WBC (Bld) 3.3 % Normal 0.9-7.0 [facility] Comment on above: Performed By: #### C Henrique, CREA #### [facility] [address] [place] [address] Dr. Sheila Chang Erythrocyte distribution width (RBC) [Ratio] 13.8 % Normal 11.0-15.0 [facility] Comment on above: Performed By: #### C A, CREA #### [facility] [address] [place] [address] Dr. Sheila Chang Hematocrit (Bld) [Volume fraction] 41.8 % Normal 36.0-48.0 [facility] Comment on above: Performed By: #### C A, CREA #### [facility] [address] [place] [address] Dr. Sheila Chang Hemoglobin (Bld) [Mass/Vol] 13.4 g/dL Normal 12.0-16.0 [facility] Comment on above: Performed By: #### C A, CREA #### [facility] [address] [place] [address] Dr. Sheila Chang IG # 0.01 10e3/ul Normal 0.00-0.03 [facility] Comment on above: Performed By: #### C A, CREA #### [facility] [address] [place] [address] Dr. Sheila Chang IG % 0.2 % Normal 0.0-0.5 [facility] Comment on above: Performed By: #### C A, CREA #### [facility] [address] [place] [address] Dr. Sheila Chang LYMPH # 1.2 103/ul Normal 1.2-3.8 [facility] Comment on above: Performed By: #### C A, CREA #### [facility] [address] [place] [address] Dr. Sheila Chang Lymphocytes/100 WBC (Bld) 23.6 % Normal 20.5-60.0 [facility] Comment on above: Performed By: #### C A, CREA #### [facility] [address] [place] [address] Dr. Sheila Chang MANUAL DIFF REQ NO Normal [facility] Comment on above: Performed By: #### C A, CREA #### [facility] [address] [place] [address] Dr. Sheila Chang MCH (RBC) [Entitic mass] 31.2 pg Normal 26.7-34.0 [facility] Comment on above: Performed By: #### C A, CREA #### [facility] [address] [place] [address] Dr. Sheila Chang MCHC (RBC) [Mass/Vol] 32.1 g/dL Normal 29.9-35.2 [facility] Comment on above: Performed By: #### C A, CREA #### [facility] [address] [place] [address] Dr. Sheila Chang MCV (RBC) [Entitic vol] 97.2 fL Normal 81.0-99.0 [facility] Comment on above: Performed By: #### C A, CREA #### [facility] [address] [place] [address] Dr. Sheila Chang MONO # 0.5 103/ul Normal 0.3-0.8 [facility] Comment on above: Performed By: #### C A, CREA #### [facility] [address] [place] [address] Dr. Sheila Chang Monocytes/100 WBC (Bld) 9.2 % Normal 1.7-12.0 [facility] Comment on above: Performed By: #### C A, CREA #### [facility] [address] [place] [address] Dr. Sheila Chang NEUT # 3.2 103/ul Normal 1.4-6.5 [facility] Comment on above: Performed By: #### C A, CREA #### [facility] [address] [place] [address] Dr. Sheila Chang Neutrophils/100 WBC (Bld) 63.1 % Normal 43.0-75.0 [facility] Comment on above: Performed By: #### C A, CREA #### [facility] [address] [place] [address] Dr. Sheila Chang Platelet mean volume (Bld) [Entitic vol] 9.0 fL Critically low 9.5-13.5 [facility] Comment on above: Performed By: #### C A, CREA #### [facility] [address] [place] [address] Dr. Sheila Chang PLT 273 103/ul Normal 150-450 [facility] Comment on above: Performed By: #### C Henrique CREA #### [facility] [address] [place] [address] Dr. Sheila Chang RBC 4.30 106/ul Normal 4.20-5.40 [facility] Comment on above: Performed By: #### C Henrique CREA #### [facility] [address] [place] [address] Dr. Sheila Chang WBC 5.1 103/ul Normal 4.0-11.0 [facility] Comment on above: Performed By: #### C Henrique CREA #### [facility] [address] [place] [address] Dr. Sheila Chang FREE THYROXINE INDEX T7on FTI 2.95 Normal [facility] Comment on above: Performed By: #### T 7, TSH, LIPID, CMP #### [facility] [address] [place] [address] Dr. Sheila Chang T3U 36.0 % Normal 23.5-40.5 [facility] Comment on above: Performed By: #### T 7, TSH, LIPID, CMP #### [facility] [address] [place] [address] Dr. Sheila Chang T4 [Mass/Vol] 8.20 ug/dL Normal 4.80-13.90 [facility] Comment on above: Performed By: #### T 7, TSH, LIPID, CMP #### [facility] [address] [place] [address] Dr. Sheila Chang GLYCOHEMOGLOBIN A1Con 2021 ADA RECOMMENDATION SEE BELOW Normal [facility] Comment on above: Result Comment: ADA RECOMMENDED LIMIT 4.0 - 6.0 ADA THERAPEUTIC TARGET < 7.0 ACTION SUGGESTED > 7.0 Performed By: #### A 1C #### [facility] [address] [place] [address] Dr. Sheila Chang Glucose [Mass/Vol] 114 mg/dL Normal [facility] Comment on above: Performed By: #### A 1C #### [facility] [address] [place] [address] Dr. Sheila Chang HbA1c (Bld) [Mass fraction] 5.6 % Normal 4.5-6.2 [facility] Comment on above: Performed By: #### A 1C #### [facility] [address] [place] [address] Dr. Sheila Chang IRONon 11-21-2021 Iron [Mass/Vol] 102.0 ug/dL Normal 50.0-170.0 [facility] Comment on above: Performed By: #### I BRIGETTE #### [facility] [address] [place] [address] Dr. Sheila Chang LIPID PROFILEon 11-21-2021 CHOL-HDL RATIO NORM SEE BELOW Normal [facility] Comment on above: Result Comment: 3.3 - 4.4 LOW RISK 4.4 - 7.1 AVERAGE RISK 7.1 - 11.0 MODERATE RISK >11.0 HIGH RISK Performed By: #### T 7, TSH, LIPID, CMP #### [facility] [address] [place] [address] Dr. Sheila Chang Cholesterol [Mass/Vol] 142 mg/dL Normal <=200 [facility] Comment on above: Performed By: #### T 7, TSH, LIPID, CMP #### [facility] [address] [place] [address] Dr. Sheila Chang Cholesterol in HDL [Mass/Vol] 47 mg/dL Normal 40-60 [facility] Comment on above: Performed By: #### T 7, TSH, LIPID, CMP #### [facility] [address] [place] [address] Dr. Sheila Chang Cholesterol in LDL [Mass/Vol] 83.8 mg/dL Normal [facility] Comment on above: Performed By: #### T 7, TSH, LIPID, CMP #### [facility] [address] [place] [address] Dr. Sheila Chang Cholesterol.total/Cho lesterol in HDL [Mass ratio] 3.0 {ratio} Normal [facility] Comment on above: Performed By: #### T 7, TSH, LIPID, CMP #### [facility] [address] [address] [address] Sheila Chang HDL NORMAL > or = 60 mg/dl - LOW CARDIOVASCULAR RISK <40 mg/dl - HIGH CARDIOVASCULAR RISK Normal [facility] Comment on above: Performed By: #### T 7, TSH, LIPID, CMP #### [facility] [address] [address] [address] Sheila Chang LDL CALC NORMAL SEE BELOW Normal [facility] Comment on above: Result Comment: <100 mg/dl OPTIMAL 100 - 129 mg/dl NEAR OR ABOVE OPTIMAL 130 - 159 mg/dl BORDERLINE HIGH 160 - 189 mg/dl HIGH >190 mg/dl VERY HIGH Performed By: #### T 7, TSH, LIPID, CMP #### [facility] [address] [address] [address] Sheila Chang Triglyceride [Mass/Vol] 56 mg/dL Normal <=150 [facility] Comment on above: Performed By: #### T 7, TSH, LIPID, CMP #### [facility] [address] [address] [address] Sheila Chang VLDL CALC 11.2 mg/dL Normal [facility] Comment on above: Performed By: #### T 7, TSH, LIPID, CMP #### [facility] [address] [address] [address] Sheila Chang PROF 14(COMP METB)on 022 Albumin [Mass/Vol] 3.5 g/dL Normal 3.4-5.0 [facility] Comment on above: Performed By: #### T 7, TSH, LIPID, CMP #### [facility] [address] [address] [address] Sheila Chang Albumin/Globulin [Mass ratio] 0.9 {ratio} Normal [facility] Comment on above: Performed By: #### T 7, TSH, LIPID, CMP #### [facility] [address] [place] [address] Dr. Sheila Chang ALP [Catalytic activity/Vol] 60 U/L Normal 46-116 [facility] Comment on above: Performed By: #### T 7, TSH, LIPID, CMP #### [facility] [address] [address] [address] Sheila Chang ALT [Catalytic activity/Vol] 14 U/L Normal 14-59 [facility] Comment on above: Performed By: #### T 7, TSH, LIPID, CMP #### [facility] [address] [address] [address] Sheila Chang Anion gap [Moles/Vol] 14.4 mmol/L Normal [facility] Comment on above: Performed By: #### T 7, TSH, LIPID, CMP #### [facility] [address] [address] [address] Sheila Chang AST [Catalytic activity/Vol] 14 U/L Critically low 15-37 [facility] Comment on above: Performed By: #### T 7, TSH, LIPID, CMP #### [facility] [address] [place] [address] Dr. Sheila Chang Bilirubin [Mass/Vol] 0.5 mg/dL Normal 0.2-1.0 [facility] Comment on above: Performed By: #### T 7, TSH, LIPID, CMP #### [facility] [address] [address] [address] Sheila Chang Calcium [Mass/Vol] 8.5 mg/dL Normal 8.5-10.1 [facility] Comment on above: Performed By: #### T 7, TSH, LIPID, CMP #### [facility] [address] [address] [address] Sheila Chang Chloride [Moles/Vol] 106 mmol/L Normal 98-107 [facility] Comment on above: Performed By: #### T 7, TSH, LIPID, CMP #### [facility] [address] [address] [address] Sheila Chang CO2 [Moles/Vol] 25.2 mmol/L Normal 21.0-32.0 [facility] Comment on above: Performed By: #### T 7, TSH, LIPID, CMP #### [facility] [address] [address] [address] Sheila Chang Creatinine [Mass/Vol] 1.15 mg/dL Critically high 0.55-1.02 [facility] Comment on above: Performed By: #### T 7, TSH, LIPID, CMP #### [facility] [address] [place] [address] Dr. Sheila Chang EGFR-AF [place] 54 mL/min/1.73m2 Critically low >=60 [facility] Comment on above: Performed By: #### T 7, TSH, LIPID, CMP #### [facility] [address] [place] [address] Dr. Sheila Chang EGFR-NON AF [place] 45 mL/min/1.73m2 Critically low >=60 [facility] Comment on above: Performed By: #### T 7, TSH, LIPID, CMP #### [facility] [address] [place] [address] Dr. Sheila Chang Globulin (S) [Mass/Vol] 3.8 g/dL Normal [facility] Comment on above: Performed By: #### T 7, TSH, LIPID, CMP #### [facility] [address] [place] [address] Dr. Sheila Chang Glucose [Mass/Vol] 96 mg/dL Normal 74-106 [facility] Comment on above: Performed By: #### T 7, TSH, LIPID, CMP #### [facility] [address] [place] [address] Dr. Sheila Chang Potassium [Moles/Vol] 5.6 mmol/L Critically high 3.5-5.1 [facility] Comment on above: Performed By: #### T 7, TSH, LIPID, CMP #### [facility] [address] [place] [address] Dr. Sheila Chang Protein [Mass/Vol] 7.3 g/dL Normal 6.1-8.2 [facility] Comment on above: Performed By: #### T 7, TSH, LIPID, CMP #### [facility] [address] [place] [address] Dr. Sheila Chang Sodium [Moles/Vol] 140 mmol/L Normal 136-145 [facility] Comment on above: Performed By: #### T 7, TSH, LIPID, CMP #### [facility] [address] [address] [address] Sheila Chang Urea nitrogen [Mass/Vol] 25.0 mg/dL Critically high 7.0-18.0 [facility] Comment on above: Performed By: #### T 7, TSH, LIPID, CMP #### [facility] [address] [address] [address] Sheila Chang Urea nitrogen/Creatinine [Mass ratio] 21.7 mg/mg Normal [facility] Comment on above: Performed By: #### T 7, TSH, LIPID, CMP #### [facility] [address] [address] [address] Sheila Chang TSHon 11-21-2021 TSH 0.162 uIU/mL Critically low 0.470-4.680 [facility] Comment on above: Performed By: #### T 7, TSH, LIPID, CMP #### [facility] [address] [address] [address] Sheila Chang TSH RANGE SEE BELOW Normal [facility] Comment on above: Result Comment: <0.3 4 UIU/ml HYPERTHYROID 0.34-5.60 UIU/ml EUTHYROID >5.60 UIU/ml HYPOTHYROID Performed By: #### T 7, TSH, LIPID, CMP #### [facility] [address] [address] [address] Sheila Chang Encounters Encounter Date Encounter [...] Facility:[facility] Payers Date Payer Category Payer Medicare [id number] 1959 Unknown [id number] 1935 Unknown [id number] 2.16.84 [id number] 1935 Unknown [id number] 2.16.84 [id number] 1935 Unknown [id number] 2.16.84 [id number] 1935 Unknown [id number] 2.16.84 [id number] 1935 Unknown [id number] 2.16.84 [id number] Summary Purpose Family History No Family History Records FoundNo Family History Records Found Advance Directives No Advanced Directives Records FoundNo Advanced Directives Records Found Additional Source Comments INFORMATION SOURCE (unrecogn ized section and content) DATE CREATED AUTHOR 11/13/2022 [facility] DATE CREATED AUTHOR [facility] FOR RECORDS PERTAINING TO PATIENTS WHO [...] BE BASED ON THE PRIMARY CLINICAL RECORDS. [facility] [employer] provides no warranty or guarantee of the accuracy or completeness of information in this document.
[2024-06-10] MEDS: LEVOTHYROXINE SODIUM 75 MCG TABLET PO (05:49)
[2024-06-10] MEDS: MAGNESIUM SULFATE IN WATER 2 GM/50 ML PREMIX IV (05:49)
[2024-06-10 07:29] LABS: Glucometer 92 mg/dL (74-106)
--- NOTE | 2024-06-10 07:51 | P.HP_ITS ---
HPI H&P: HPI History of Present Illness Chief complaint: OTHER Narrative: Patient presented to the emergency room with vertigo symptoms. Definite spinning sensation. No near syncope, no chest pain no palpitations. No focal neurological deficits. Worse with laying down worse with head movement. She has had borderline symptoms of this recently but this was a much more severe episode. In ER unable to break symptoms and patient is admitted for workup and treatment of same I saw patient up in the medical surgical floor, she was resting company in bed, still with vertigo with any head movement. No URI symptoms, again no focal neurological deficits, no trouble with her speech or swallowing. Opioid HPI Opioid Management Most Recent Pain and Opioid Data: Last Pain Assessment 06/10/24 07:42 Last ORT Total Score 3 06/10/24 05:04 06/10/24 Last ORT Risk Category Low Risk 06/10/24 05:04 06/10/24 Review of Systems ROS Status of ROS 10 or more systems reviewed and unremark able except as noted in history and below PFSH PFS Medical History (Updated 06/10/24 @ 05:38 by Ping Juan) Hyperlipidemia ?E78.5 - Hyperlipidemia, unspecified (ICD-10) Bradycardia ?R00.1 - Bradycardia, unspecified (ICD-10) Dizziness ?R42 - Dizziness and giddiness (ICD-10) Hypothyroid ?E03.9 - Hypothyroidism, unspecified (ICD-10) Diabetes ?E11.9 - Type 2 diabetes mellitus without complications (ICD-10) Surgical History (Updated 06/10/24 @ 05:37 by Ping Juan) H/O: hysterectomy ?Z90.710 - Acquired absence of both cervix and uterus (ICD-10) History of knee replacement ?Z96.659 - Presence of unspecified artificial knee joint (ICD-10) Family History (Updated 06/10/24 @ 05:30 by Ping Juan) Mother Family history of diabetes mellitus Social History (Updated 06/10/24 @ 05:32 by Ping Juan) Within the past year, how often did you have a drink containing alcohol: 4 or more times a week Within the past year, how many standard drinks containing alcohol did you have on a typical day: 1 or 2 Within the past year, how often did you have six or more drinks on one occasion: never Total score: 0 Score interpretation: Questions 2 and 3 are 0. It can be assumed that the patient's drinking is below the recommended limits. However, please confirm the accuracy of the patient's alcohol intake over the last few months. Smoking status: Never smoker Non-prescribed substance use: denies use Previous occupational history: retired Highest level of school completed/degree received: high school graduate Are you now , , , , never or living with a partner: In a typical week, how many times do you talk on the telephone with family, friends, or neighbors: 3 or more times per week How often do you get together with friends or relatives: 3 or more times per week How often do you attend sikh or temple services: never Little interest or pleasure in doing things: not at all Feeling down, depressed, or hopeless: not at all Feel stressed/tense/nervous/anxious/difficulty sleeping: not at all Life stressors: recent of family or friend Do you think of yourself as: straight/heterosexual Gender Identity: female Meds Home Medications and Allergies Home Medications ?Medication ?Instructions ?Recorded ?Confirmed ?Type gemfibrozil 600 mg tablet 600 mg PO BID 06/06/24 06/10/24 History levothyroxine 75 mcg tablet 75 mcg PO DAILY 06/06/24 06/10/24 History metformin 500 mg tablet 500 mg PO BID 06/06/24 06/10/24 History ipratropium bromide 42 mcg (0.06 2 spray intranasal BID 06/10/24 06/10/24 History %) nasal spray Allergies Allergy/AdvReac Type Severity Reaction Status Date / Time No Known Drug Allergies Allergy Verified 06/10/24 00:58 Exam Constitutional Vital Signs, click to edit/add: Last Vital Signs Temp 97.8 F 06/10/24 07:42 Pulse 77 06/10/24 07:42 Resp 16 06/10/24 07:42 BP 129/82 06/10/24 07:42 Pulse Ox 95 06/10/24 07:42 O2 Del Method Room Air 06/10/24 07:42 Documenting provider has reviewed patient's vital signs: yes Common normals: apparent distress (Distress with head movement) Chest Common normals: inspection of chest normal Respiratory Common normals: normal respiratory effort, no retractions, no use of accessory muscles and clear to auscultation bilaterally Cardio Common normals: regular rate, regular rhythm and no murmurs GI Common normals: Normal to inspection, nondistended, normoactive bowel sounds present, soft to palpation and non-tender Neuro Common normals: oriented x3, CN's II-XII intact bilaterally, moves all extremities and no focal motor deficits Other: Nystagmus on bilateral conjugate gaze Results Labs Labs: Short CBC 06/10/24 Range/Units 01:00 WBC 5.0 (4.0-11.0) 10^3/uL Hgb 13.9 (12.0-16.0) g/dL Hct 41.3 (36.0-48.0) % Plt Count 279 (150-450) 10^3/uL BMP 06/10/24 01:00 Sodium 141 Potassium 4.5 Chloride 107 Carbon Dioxide 18.0 L BUN 23.0 H Creatinine 1.72 H Glucose 153 H Calcium 9.4 Assessment and Plan Assessment and Plan (1) Benign paroxysmal positional vertigo: (2) Bradycardia: (3) Hypothyroid: (4) Diabetes: Plan Admission findings: Borderline and significantly elevated blood pressure, mild bradycardia in the upper 40s, acute kidney injury with baseline creatinine of 1.29, admission creatinine 1.72 which would be 133.3% above baseline. This is secondary to vertigo resulting in dehydration Vertigo-try patient on [id number] meclizine, 1 dose of IV Decadron and antibiotics. Also add physical therapy to evaluate and treat. If feels much improved later today could be discharged to home, with the severity of her symptoms likely needs to stay for 1 additional day and further treatment. No other neurological deficits will be concerning for vertebrobasilar stroke. Bradycardia-EKG done previous ER visits suggested possible Mobitz 2 block. Does have some bradycardia here. Holter monitor is still in place. Place patient on telemetry. Hypothyroidism-recent levels checked were normal maintain current dosing NIDDM-will add insulin sliding scale. With Decadron likely increase in sugars. Acute kidney injury-baseline creatinine of 1.29 admission creatinine of 1.72 which is 133.3% above baseline-small fluid bolus 500 cc over 2 hours. Repeat levels in a.m. Hypomagnesemia-supplement Admission status: Patient would be placed in the observational time period, institute treatment for vertigo this morning with physical therapy and medications. Medically necessary treatment likely to span 1 midnight. If fails the observational time. Will change patient to inpatient status.
[2024-06-10 08:33] LABS: Troponin I High Sensitivity 104.9 pg/mL (4.0-51.3)
[2024-06-10] MEDS: METFORMIN HCL 500 MG TABLET PO ×2 (08:41→16:54)
[2024-06-10] MEDS: ENOXAPARIN SODIUM 30 MG/0.3 ML SYRINGE SUBQ (08:41)
[2024-06-10] MEDS: DEXAMETHASONE SOD PHOS 4 MG/ML VIAL 6 MG IV (08:41)
[2024-06-10] MEDS: MAGNESIUM OXIDE 400 MG TABLET PO ×2 (08:42→21:37)
[2024-06-10] MEDS: CEFDINIR 300 MG CAPSULE PO ×2 (08:42→09:08)
[2024-06-10] MEDS: GEMFIBROZIL 600 MG TABLET PO ×2 (08:42→21:37)
[2024-06-10] MEDS: 0.9 % SODIUM CHLORIDE 500 ML 250 ML IV (08:42)
--- NOTE | 2024-06-10 09:12 | CA_ITS ---
Patient Name: BUZZ BINGHAM MR#: [id number] : 1935 Exam Date: 06/10/2024 Ordering Doctor: DR Morgan Ga . ECHOCARDIOGRAM REPORT PROCEDURE: CA ECHO DOPPLER COMPLETE INDICATIONS: elevated trop, diabetes COMPARISON: None. DESCRIPTION: COMPLETE ECHOCARDIOGRAM Real-time transthoracic echocardiography with 2D, M-mode, spectral and color flow Doppler performed. QUALITY: Technical quality was good. LEFT VENTRICLE: Normal chamber size. Proximal septal hypertrophy (sigmoid septum). Mild concentric hypertrophy. The septum is abnormal and motion likely due to bundle branch block. Low normal systolic function. LV EF: Low normal left ventricular ejection fraction, (50%). DIASTOLIC: Grade I diastolic dysfunction. ATRIAL SEPTUM: Visually appears intact. LEFT ATRIUM: Moderate dilatation. RIGHT ATRIUM: Moderate dilatation. RIGHT VENTRICLE: Normal chamber size. Normal right ventricular systolic function. TRICUSPID VALVE: Normal mobility and thickness. No stenosis with mild to moderate regurgitation. Doppler studies reveal moderately (45-60) elevated right sided pressures. RVSP 54 mmHg MITRAL VALVE: Mildly thickened with normal mobility. No evidence of mitral valve stenosis. Mild mitral annular calcification. Mild mitral regurgitation. AORTIC VALVE: Normal trileaflet appearance. Mildly calcified aortic valve. Mildly diminished mobility. No evidence of aortic valve stenosis. Mild aortic regurgitation. AORTIC ROOT: Normal diameter and appearance. PULMONIC VALVE: Normal thickness and mobility. No stenosis. No regurgitation. PERICARDIUM: No evidence of pericardial effusion. IVC: IVC is dilated (2.4 cm) with no collapse. PLEURA: CONCLUSION: 1. Left ventricle exhibits mild concentric hypertrophy with low normal systolic function. Estimated LVEF is 50%. 2. Normal right ventricular size and systolic function. 3. Moderate biatrial dilatation. 4. Mild mitral and aortic regurgitation. 5. Mild to moderate tricuspid regurgitation. 6. Moderately elevated right-sided pressures. RVSP is 54 mmHg. Adult Echocardiography Procedure Report Left Ventricle LVEDD (3.7 - 5.6 cm): 3.82 cm LVESD (2.2 - 4.0 cm): 3.10 cm LVIVS thickness (0.6 - 1.2 cm): 1.73 cm LVPW thickness (0.5 - 1.0 cm): 1.19 cm e': 0.12 m/s E - e': 5.25 LVOT Max Gradient: 6.66 mm[Hg] LVOT Area (cm2): 1.29 m/s Peak Velocity (LVOT): 1.29 m/s Mean Velocity (LVOT): 0.86 m/s LVOT Diameter 2.03 cm Left Atrium LA Volume Index (2D A2C): 34.54 ml/m2 Left Atrium Systolic Dimension: 4.04 cm Mitral Valve MV E to A Ratio: 1.60 Mitral Valve A-Wave Peak Velocity: 0.40 m/s Mitral Valve E-Wave Peak Velocity: 0.64 m/s Right Ventricle Aorta AO Root Diam: 3.43 cm Aortic Valve AoV Area (Peak Sacha): 3.38 cm2, 3.38 cm2 AoV Area (VTI): 3.13 cm2, 3.13 cm2 Peak Velocity(Antegrade Flow): 1.24 m/s Peak Gradient(Antegrade Flow): 6.12 mm[Hg] Mean Velocity(Antegrade Flow): 0.88 m/s Mean Gradient(Antegrade Flow): 3.50 mm[Hg] Velocity Time Integral: 21.39 cm Tricuspid Valve Peak Velocity (Regurgitant Flow): 2.96 m/s, 2.86 m/s, 3.12 m/s Pulmonic Valve Peak Velocity: 0.99 m/s Peak Gradient: 3.95 mm[Hg] Right Atrium Right Atrium Systolic Pressure: 30.49 ml, 30.49 ml Dictated by: Lewis Castle M.D. on 06/10/2024 at 19:38 Approved by: Lewis Castle M.D. on 06/10/2024 at 19:43
[2024-06-10] MEDS: ASPIRIN 81 MG TABLET.DR PO (10:01)
[2024-06-10 11:13] LABS: Troponin I High Sensitivity 103.1 pg/mL (4.0-51.3)
[2024-06-10 11:39] LABS: Glucometer 104 mg/dL (74-106)
--- NOTE | 2024-06-10 13:12 | SWNOTE1 ---
SW met with pt to discuss dc needs. SNF was recommended if pt does not improve. SW spoke with pt about this. Pt does live at home alone. Her 1 month ago at [facility]. Pt is independent and does not use any devices at home. Pt does not drive, but has neighbors that take her to get groceries and to appointments. Pt is agreeable to go skilled at a nursing facility. She stated she liked the [facility] as her had been there previously. Pt did talk with SW about her dizziness and had concerns about being home alone. Pt is now inpatient status. SW to send referral to [facility].
--- NOTE | 2024-06-10 13:28 | SWNOTE1 ---
SW went back in and spoke with pt. She does want the [facility] for rehab. Referral sent to [facility]. Referral included face sheet, ED note, H&P, provider notes, case management report,nursing notes, diagnostic imaging, med list, and PT/OT notes.
--- NOTE | 2024-06-10 13:30 | SWNOTE1 ---
Important Message from [employer] reviewed and discussed with patient. Pt. verbalized understanding and signed the form. Original given to patient and copy placed in patient?s chart. SW updated nurse of plans for rehab as well.
[2024-06-10 16:18] LABS: Glucometer 251 mg/dL (74-106)
[2024-06-10] MEDS: INSULIN ASPART 300 UNIT/3 ML PEN SUBQ ×2 (16:54→21:41)
[2024-06-10 20:55] LABS: Glucometer 157 mg/dL (74-106)
[2024-06-10] MEDS: IPRATROPIUM BROMIDE 0.06% 2 SPRAY NS (21:41)
[2024-06-11] VITALS (25 sets, daily range): BP systolic 123–162; BP diastolic 65–76; PULSE 52–80; TEMP 36.5–36.8; O2SAT 92–97
[2024-06-11] MEDS: MECLIZINE HCL 12.5 MG TABLET 25 MG PO ×4 (03:18→20:39)
[2024-06-11 05:47] LABS: Basophils Percent Auto 0.1 % (0.2-2.0); Eosinophils Percent Auto 0.1 % (0.9-7.0); Hematocrit 39.9 % (36.0-48.0); Hemoglobin 13.2 g/dL (12.0-16.0); Immature Granulocytes Abs Auto 0.02 10^3/uL (0.00-0.03); Immature Granulocytes Pct Auto 0.3 % (0.0-0.5); Lymphocytes Absolute Auto 1.1 10^3/uL (1.2-3.8); Lymphocytes Percent Auto 13.1 % (20.5-60.0); Mean Corpuscular HGB Conc 33.1 g/dL (29.9-35.2); Mean Corpuscular Hemoglobin 32.8 pg (26.7-34.0); Mean Platelet Volume 9.5 fL (9.5-13.5); Monocytes Absolute Auto 0.7 10^3/uL (0.3-0.8); Monocytes Percent Auto 8.9 % (1.7-12.0); Neutrophils Absolute Auto 6.2 10^3/uL (1.4-6.5); Neutrophils Percent Auto 77.5 % (43.0-75.0); Platelet Count 301 10^3/uL (150-450); Red Blood Count 4.03 10^6/uL (4.20-5.40); Red Cell Distribution Width 13.4 % (11.0-15.0)
[2024-06-11] MEDS: LEVOTHYROXINE SODIUM 75 MCG TABLET PO (05:48)
[2024-06-11 06:25] LABS: Alanine Aminotransferase 10 U/L (14-59); Albumin Globulin Ratio 0.9; Albumin Level 2.7 g/dL (3.4-5.0); Alkaline Phosphatase 56 U/L (46-116); Anion Gap 19.3; Aspartate Amino Transferase 14 U/L (15-37); BUN Creatinine Ratio 17.4; Bilirubin Total 0.4 mg/dL (0.2-1.0); Calcium 8.4 mg/dL (8.5-10.1); Carbon Dioxide 18.9 mmol/L (21.0-32.0); Chloride 109 mmol/L (98-107); Estimated GFR (African America 40 (>=60 mL/min/1.73m^2); Estimated GFR (Non-African Ame 33 (>=60 mL/min/1.73m^2); Globulin 3.1 g/dL; Glucose 115 mg/dL (74-106); Magnesium 2.1 mg/dL (1.8-2.4); Potassium 5.2 mmol/L (3.5-5.1); Sodium 142 mmol/L (136-145); Total Protein 5.8 g/dL (6.4-8.2)
--- NOTE | 2024-06-11 07:18 | P.PN_ITS ---
Progress Note: Subjective Subjective Interval history: Patient with an episode of near syncope. Describes it not as vertigo this time, was not a spinning sensation but more of getting tunnel vision, telemetry showed Mobitz type I block. She had other episodes of this but was not standing at the time. She also has noted some ventricular escape beats at times as well. Exam Constitutional Vital Signs, click to edit/add: Last Vital Signs Temp 98.1 F 06/11/24 03:00 Pulse 54 L 06/11/24 06:00 Resp 16 06/11/24 03:00 BP 129/71 06/11/24 03:00 Pulse Ox 93 L 06/11/24 03:00 O2 Del Method Room Air 06/11/24 03:00 Documenting provider has reviewed patient's vital signs: yes Common normals: no apparent distress (No further distress with movement of her head) Chest Common normals: inspection of chest normal Respiratory Common normals: normal respiratory effort, no retractions, no use of accessory muscles and clear to auscultation bilaterally Cardio Common normals: regular rate, regular rhythm and no murmurs GI Common normals: Normal to inspection, nondistended, normoactive bowel sounds present, soft to palpation and non-tender Neuro Common normals: oriented x3, CN's II-XII intact bilaterally, moves all extremities and no focal motor deficits Other: No further nystagmus on bilateral conjugate gaze Progress Note: Objective Labs Labs: Short CBC 06/11/24 Range/Units 05:31 WBC 8.0 (4.0-11.0) 10^3/uL Hgb 13.2 (12.0-16.0) g/dL Hct 39.9 (36.0-48.0) % Plt Count 301 (150-450) 10^3/uL BMP 06/11/24 05:31 Sodium 142 Potassium 5.2 H Chloride 109 H Carbon Dioxide 18.9 L BUN 26.0 H Creatinine 1.49 H Glucose 115 H Calcium 8.4 L Liver Function 06/11/24 Range/Units 05:31 Total Bilirubin 0.4 (0.2-1.0) mg/dL AST 14 L (15-37) U/L ALT 10 L (14-59) U/L Alkaline Phosphatase 56 (46-116) U/L Albumin 2.7 L (3.4-5.0) g/dL Progress Note: A&P Assessment and Plan (1) Benign paroxysmal positional vertigo: (2) Bradycardia: (3) Hypothyroid: (4) Diabetes: Plan Admission findings: Borderline and significantly elevated blood pressure, mild bradycardia in the upper 40s, acute kidney injury with baseline creatinine of 1.29, admission creatinine 1.72 which would be 133.3% above baseline. This is secondary to vertigo resulting in dehydration Vertigo-try patient on [id number] meclizine, 1 dose of IV Decadron and antibiotics. Vertiginous symptoms have resolved. She has no further nystagmus on bilateral conjugate gaze and she has no further dizziness with head movement. Near syncope-this is appears to be on telemetry related to the Mobitz type I block-consult to cardiology Bradycardia-EKG done previous ER visits suggested possible Mobitz 1 block. Does have some bradycardia here. Holter monitor is still in place. Place patient on telemetry. Hypothyroidism-recent levels checked were normal maintain current dosing NIDDM-will add insulin sliding scale. With Decadron likely increase in sugars. Acute kidney injury-baseline creatinine of 1.29 admission creatinine of 1.72 which is 133.3% above baseline-small fluid bolus 500 cc over 2 hours. Repeat levels in a.m. Hypomagnesemia-supplement Hyperkalemia-repeat lab later today Moderate protein calorie malnutrition-diet management Admission status: Patient was initially placed in observation, failing the observation time. With Mobitz type I symptomatic and possible third-degree heart block, patient was admitted to inpatient status with elevated high- sensitivity troponin consistent with a possible acute NSTEMI ?
[2024-06-11 07:41] LABS: Glucometer 95 mg/dL (74-106)
[2024-06-11 08:17] LABS: Troponin I High Sensitivity 38.8 pg/mL (4.0-51.3)
[2024-06-11] MEDS: MAGNESIUM OXIDE 400 MG TABLET PO ×2 (08:19→20:42)
[2024-06-11] MEDS: ENSURE CLEAR 237 ML LIQUID PO ×2 (08:19→20:39)
[2024-06-11] MEDS: ASPIRIN 81 MG TABLET.DR PO (08:19)
[2024-06-11] MEDS: METFORMIN HCL 500 MG TABLET PO ×2 (08:19→16:25)
[2024-06-11] MEDS: ENOXAPARIN SODIUM 30 MG/0.3 ML SYRINGE SUBQ (08:20)
[2024-06-11] MEDS: GEMFIBROZIL 600 MG TABLET PO ×2 (08:20→20:42)
[2024-06-11] MEDS: CEFDINIR 300 MG CAPSULE PO (08:20)
--- NOTE | 2024-06-11 08:41 | PC.NURSE ---
pt EKG print offs taken to Dr Castle's office at [facility] Cardiology [facility] per their request and office is aware of consult for pt per Dr Ga's order.
--- NOTE | 2024-06-11 09:30 | P.CACN_ITS ---
<Statement entered by JEY CASTLE - 06/15/24 07:59> This documentation has been reviewed and approved. History of Present Illness History of Present Illness Consult date: 06/10/24 Requesting physician: Morgan Ga Chief complaint: Dizziness, elevated troponin Narrative: Patient is a 88 y/o F with no significant past cardiac history who presented to [facility] with c/o dizziness and fall. She reports she was walking back from the bathroom and became so dizzy that she had a fall. Did not hit her head. She denies any sx's of chest pain, dypsnea, orthopnea, PND, LE edema, palpitations, syncope. Cardiology was consulted for her mildly elevated hsTroponin. Review of Systems ROS Status of ROS 10 or more systems reviewed and unremark able except as noted in history and below Neurological Reports: dizziness and vertigo [facility] Medical History (Updated 06/10/24 @ 05:38 by Ping Juan) Hyperlipidemia ?E78.5 - Hyperlipidemia, unspecified (ICD-10) Bradycardia ?R00.1 - Bradycardia, unspecified (ICD-10) Dizziness ?R42 - Dizziness and giddiness (ICD-10) Hypothyroid ?E03.9 - Hypothyroidism, unspecified (ICD-10) Diabetes ?E11.9 - Type 2 diabetes mellitus without complications (ICD-10) Surgical History (Updated 06/10/24 @ 05:37 by Ping Juan) H/O: hysterectomy ?Z90.710 - Acquired absence of both cervix and uterus (ICD-10) History of knee replacement ?Z96.659 - Presence of unspecified artificial knee joint (ICD-10) Family History (Updated 06/10/24 @ 05:30 by Ping Juan) Mother Family history of diabetes mellitus Social History (Updated 06/10/24 @ 05:32 by Ping Juan) Within the past year, how often did you have a drink containing alcohol: 4 or more times a week Within the past year, how many standard drinks containing alcohol did you have on a typical day: 1 or 2 Within the past year, how often did you have six or more drinks on one occasion: never Total score: 0 Score interpretation: Questions 2 and 3 are 0. It can be assumed that the patient's drinking is below the recommended limits. However, please confirm the accuracy of the patient's alcohol intake over the last few months. Smoking status: Never smoker Non-prescribed substance use: denies use Previous occupational history: retired Highest level of school completed/degree received: high school graduate Are you now , , , , never or living with a partner: In a typical week, how many times do you talk on the telephone with family, f riends, or neighbors: 3 or more times per week How often do you get together with friends or relatives: 3 or more times per week How often do you attend synagogue or jewish services: never Little interest or pleasure in doing things: not at all Feeling down, depressed, or hopeless: not at all Feel stressed/tense/nervous/anxious/difficulty sleeping: not at all Life stressors: recent of family or friend Do you think of yourself as: straight/heterosexual Gender Identity: female Meds Home Medications and Allergies Home Medications ?Medication ?Instructions ?Recorded ?Confirmed ?Type gemfibrozil 600 mg tablet 600 mg PO BID 06/06/24 06/10/24 History levothyroxine 75 mcg tablet 75 mcg PO DAILY 06/06/24 06/10/24 History metformin 500 mg tablet 500 mg PO BID 06/06/24 06/10/24 History ipratropium bromide 42 mcg (0.06 2 spray intranasal BID 06/10/24 06/10/24 History %) nasal spray Allergies Allergy/AdvReac Type Severity Reaction Status Date / Time No Known Drug Allergies Allergy Verified 06/10/24 00:58 Exam Constitutional Vital Signs, click to edit/add: Last Vital Signs Temp 98.1 F 06/11/24 07:00 Pulse 52 L 06/11/24 08:05 Resp 16 06/11/24 07:52 BP 143/71 H 06/11/24 07:42 Pulse Ox 92 L 06/11/24 07:00 O2 Del Method Room Air 06/11/24 07:00 Common normals: no apparent distress, average body habitus, oriented x3 and no limitations HENMT Common normals: normocephalic Eye Common normals: PERRL and EOMs intact bilaterally Neck & C-Spine Common normals: full ROM, supple and no JVD Respiratory Common normals: normal respiratory effort, no use of accessory muscles and clear to auscultation bilaterally Cardio Common normals: no JVD, regular rate, regular rhythm, S1 normal heart sound and S2 normal heart sound GI Common normals: Normal to inspection, nondistended, normoactive bowel sounds present and soft to palpation Extremity Common normals: full ROM and no clubbing, cyanosis or edema Neuro Common normals: oriented x3 and moves all extremities Psych Common normals: thought process normal and affect normal Results Labs and Meds Lab results: Cardiac Enzymes 06/11/24 Range/Units 05:31 AST 14 L (15-37) U/L CBC 06/11/24 Range/Units 05:31 WBC 8.0 (4.0-11.0) 10^3/uL RBC 4.03 L (4.20-5.40) 10^6/uL Hgb 13.2 (12.0-16.0) g/dL Hct 39.9 (36.0-48.0) % Plt Count 301 (150-450) 10^3/uL Neut # (Auto) 6.2 (1.4-6.5) 10^3/uL Lymph # (Auto) 1.1 L (1.2-3.8) 10^3/uL Hand # (Auto) 0.7 (0.3-0.8) 10^3/uL Eos # (Auto) 0.0 (0.0-0.7) 10^3/uL Baso # (Auto) 0.0 (0.0-0.1) 10^3/uL Comprehensive Metabolic Panel 06/11/24 Range/Units 05:31 Sodium 142 (136-145) mmol/L Potassium 5.2 H (3.5-5.1) mmol/L Chloride 109 H (98-107) mmol/L Carbon Dioxide 18.9 L (21.0-32.0) mmol/L BUN 26.0 H (7.0-18.0) mg/dL Creatinine 1.49 H (0.55-1.02) mg/dL Glucose 115 H (74-106) mg/dL Calcium 8.4 L (8.5-10.1) mg/dL AST 14 L (15-37) U/L ALT 10 L (14-59) U/L Alkaline Phosphatase 56 (46-116) U/L Total Protein 5.8 L (6.4-8.2) g/dL Albumin 2.7 L (3.4-5.0) g/dL Intake and Output 06/10/24 06/11/24 06/11/24 23:59 07:59 15:59 Other: # Voids 1 Assessment and Plan Assessment and Plan (1) Benign paroxysmal positional vertigo: (2) Bradycardia: (3) Hypothyroid: (4) Diabetes: Plan #Elevated troponin -Mildly elevated. Pt denies any sx's. -Likely type II secondary to fall. -Awaiting ECHO results, if ECHO unremarkable, no further cardaic testing. #Dizziness -EKG reviewed, she has first degree AV block, sinus rhythm. -She c/o dizziness when she turns her head side to side/rolling in bed. This is likely vertigo. -She has some dizziness as well when standing up but this is much better than when she came in. -Asked nursing to obtain orthostatic blood pressures qshift. Can start midodrine if positive. -Encourage activity and hydration. Mira Jolley APRN-[facility] Cardiovascular Medicine ADDENDUM 06/11/24: -Reviewed telemetry strips with Dr. Castle. She has some occasional episodes of mobitz type I, nonsignificant pauses of 1-2 seconds and occasional PVCs. No indication for pacemaker at this time. Recommend 30 day event monitor if holter monitor unremarkable. -Reviewed ECHO results with DR. Castle. EF low normal at 50%. Given low normal EF and elevated troponin, recommend proceeding with lexiscan stress test. Above plan discussed with Dr. Castle. Please let us know if any further questions or concerns. Mira Jolley APRN-[facility]
[2024-06-11 09:50] LABS: Anion Gap 18.9; BUN Creatinine Ratio 15.4; Calcium 8.5 mg/dL (8.5-10.1); Carbon Dioxide 20.8 mmol/L (21.0-32.0); Chloride 108 mmol/L (98-107); Estimated GFR (African America 38 (>=60 mL/min/1.73m^2); Estimated GFR (Non-African Ame 31 (>=60 mL/min/1.73m^2); Glucose 190 mg/dL (74-106); Potassium 4.7 mmol/L (3.5-5.1); Sodium 143 mmol/L (136-145)
--- NOTE | 2024-06-11 10:41 | REH.PTDLY ---
Physical Therapy Daily Note PT Daily Note/Assess Start: 06/11/24 10:36 Freq: Status: Active Protocol: Document 06/11/24 10:36 LAINEY (Rec: 06/11/24 10:41 LAINEY [id number]) Physical Therapy Daily Note/Assessment Time In 09:30 Time Out 09:46 Subjective Pt reports feeling nervous, was told she needs a pacemaker and is going to be transferred to [facility] at some point later today. Nursing states pt is fine to complete therapy. Therapeutic Activity Minutes (minutes) 14 Therapeutic Activity Units 1 Therapeutic Activity Comments Pt performs bed mobility SBA and all transfers CGA. Pt denies dizziness initially upon standing. Gait training with RW 20 feet into restroom SBA. SBA with toilet transfers , verbal cues to use grab bar on wall. Pt able to don and doff pants Ind. Pt able to stand at sink with no UE support for 4 mins. Gait training another 65 feet with RW SBA with fatigue noted and mild increase in dizziness per pt report. Pt sits up in chair post rx. Total Therapy Minutes 14 Total Physical Therapy Units 1 Daily Note Summary Pt only complains of mild increase in dizziness this morning after she has been up and moving. Able to progress pt today with gait and standing tolerance with no instances of LOB when using RW . Pt is to be transferred to another hospital for cardio reasons.
[2024-06-11 11:07] LABS: Glucometer 138 mg/dL (74-106)
[2024-06-11 16:10] LABS: Glucometer 77 mg/dL (74-106)
--- NOTE | 2024-06-11 16:26 | SWNOTE1 ---
SW sent updated PT/OT, physician notes, cardiology consult, and nursing notes to [facility].
[2024-06-11 20:14] LABS: Glucometer 103 mg/dL (74-106)
[2024-06-12] VITALS (25 sets, daily range): BP systolic 121–177; BP diastolic 70–98; PULSE 55–87; TEMP 36.5–37; O2SAT 91–96
[2024-06-12] MEDS: MECLIZINE HCL 12.5 MG TABLET 25 MG PO ×4 (04:24→22:01)
[2024-06-12] MEDS: LEVOTHYROXINE SODIUM 75 MCG TABLET PO (05:53)
[2024-06-12 07:19] LABS: Glucometer 74 mg/dL (74-106)
--- NOTE | 2024-06-12 07:38 | P.PN_ITS ---
Progress Note: Subjective Subjective Interval history: Patient with no new complaints overnight, vertigo still resolved, no syncopal episodes Exam Constitutional Vital Signs, click to edit/add: Last Vital Signs Temp 98 F 06/12/24 04:10 Pulse 56 L 06/12/24 06:00 Resp 16 06/12/24 04:10 BP 169/93 H 06/12/24 04:15 Pulse Ox 93 L 06/12/24 04:15 O2 Del Method Room Air 06/12/24 04:15 Documenting provider has reviewed patient's vital signs: yes Common normals: no apparent distress (No further distress with movement of her head) Chest Common normals: inspection of chest normal Respiratory Common normals: normal respiratory effort, no retractions, no use of accessory muscles and clear to auscultation bilaterally Cardio Common normals: regular rate, regular rhythm and no murmurs GI Common normals: Normal to inspection, nondistended, normoactive bowel sounds present, soft to palpation and non-tender Neuro Common normals: oriented x3, CN's II-XII intact bilaterally, moves all extremities and no focal motor deficits Other: No further nystagmus on bilateral conjugate gaze Progress Note: Objective Labs Labs: [facility] 06/11/24 09:12 Sodium 143 Potassium 4.7 Chloride 108 H Carbon Dioxide 20.8 L BUN 24.0 H Creatinine 1.56 H Glucose 190 H Calcium 8.5 Progress Note: A&P Assessment and Plan (1) Benign paroxysmal positional vertigo: (2) Bradycardia: (3) Hypothyroid: (4) Diabetes: Plan Admission findings: Borderline and significantly elevated blood pressure, bradycardia in the upper 40s, acute kidney injury with baseline creatinine of 1.29, admission creatinine 1.72 which would be 133.3% above baseline. This is secondary to vertigo resulting in dehydration Vertigo-try patient on grmqyw-yiy-lvpof meclizine, 1 dose of IV Decadron and antibiotics. Vertiginous symptoms have resolved. She has no further nystagmus on bilateral conjugate gaze and she has no further dizziness with head movement. Near syncope-the previous day. No episodes recently. Patient not been up this morning though. Still with significant bradycardia Bradycardia-EKG done previous ER visits suggested possible Mobitz 1 block. Does have some bradycardia here. Holter monitor can be removed and shipped out today Hypothyroidism-recent levels checked were normal maintain current dosing NIDDM-will add insulin sliding scale. With Decadron likely increase in sugars. Acute kidney injury-baseline creatinine of 1.29 admission creatinine of 1.72 which is 133.3% above baseline-will repeat fluid bolus today Hypomagnesemia-supplement Hyperkalemia-repeat lab later today Moderate protein calorie malnutrition-diet management Admission status: Patient was initially placed in observation, failing the observation time. With Mobitz type I symptomatic and possible third-degree heart block, patient was admitted to inpatient status with elevated high- sensitivity troponin consistent with a possible acute NSTEMI, discussed with cardiology at this point with the troponin trending back down to normal, will set patient up for outpatient stress test maintain aspirin today, added Imdur ?
[2024-06-12] MEDS: ENSURE CLEAR 237 ML LIQUID PO ×2 (08:09→22:01)
[2024-06-12] MEDS: ENOXAPARIN SODIUM 30 MG/0.3 ML SYRINGE SUBQ (08:10)
[2024-06-12] MEDS: 0.9 % SODIUM CHLORIDE 500 ML 250 ML IV (08:10)
[2024-06-12] MEDS: ASPIRIN 81 MG TABLET.DR PO (08:11)
[2024-06-12] MEDS: CEFDINIR 300 MG CAPSULE PO (08:11)
[2024-06-12] MEDS: METFORMIN HCL 500 MG TABLET PO ×2 (08:11→16:40)
[2024-06-12] MEDS: GEMFIBROZIL 600 MG TABLET PO ×2 (08:11→22:01)
[2024-06-12] MEDS: MAGNESIUM OXIDE 400 MG TABLET PO ×2 (08:12→22:00)
--- NOTE | 2024-06-12 09:50 | REH.PTDLY ---
Physical Therapy Daily Note PT Daily Note/Assess Start: 06/11/24 10:36 Freq: Status: Active Protocol: Document 06/12/24 09:40 LAINEY (Rec: 06/12/24 09:50 [id number] Physical Therapy Daily Note/Assessment Time In 09:06 Time Out 09:30 Subjective Pt agreeable to therapy. No longer being transferred out as pt states they do not think it has to do with her hear and is not in need of a pacemaker at this time. Will have a stress test done and is planning on going to the [facility]. Pt states she fell and hit her face months ago and was looked at by ENT. Eyes have gotten worse and needs glasses and magnifying glass to read things. Pt feels like her dizziness is caused by her ears, but when asked if she has pain, ringing, fullness, or issues hearing she states no. Just that she can hear a little better out of one ear compared to the other. Therapeutic Exercise Minutes (minutes) 13 Therapeutic Exercise Units 1 Therapeutic Exercise Treatment Instructed in seated AP, LAQ, marching, hip add, and hip ER/ IR 15x ea with Silas LEs. Standing exs with UE support 10x ea with HR, mini squats, marching, hip flex, and HS curls. Mild discomfort in L knee with marching. Therapeutic Activity Minutes (minutes) 10 Therapeutic Activity Units 1 Therapeutic Activity Comments Ind with supine to sit transfers. Cues for pt to don slippers, pt is able to but needs assistance getting back of slippers up over heel. Sit to stand transfers SBA. Gait training with RW CGA 85 feet with pt stopping 1x due to dizziness and then continues on. Pt reports is is not room spinning dizziness, just feels off balance. Pt ambulates to chair to sit down post rx, performing sit to stand transfers from chair 3x. Total Therapy Minutes 23 Total Physical Therapy Units 2 Daily Note Summary Progressed pt today with standing exs and increasing reps with seated exs. Also progressed gait distance with RW with fatigue. Pt does have 1 instance of dizziness with gait, but able to stop for 45 seconds and then continue on without other complaints.
[2024-06-12] MEDS: IPRATROPIUM BROMIDE 0.06% 2 SPRAY NS (10:00)
--- NOTE | 2024-06-12 10:31 | PC.NURSE ---
Roof Bolter Operator had removed event monitor and planned to return. Roof Bolter Operator found that the paperwork in the box states to remove monitor 06/13 after 08. Roof Bolter Operator replaced monitor and will pass on to remove monitor tomorrow.
[2024-06-12 11:00] LABS: Glucometer 152 mg/dL (74-106)
[2024-06-12] MEDS: INSULIN ASPART 300 UNIT/3 ML PEN SUBQ (11:03)
--- NOTE | 2024-06-12 11:48 | SWNOTE1 ---
PETER spoke to pt and her plan is to still go to the [facility] for rehab, hopeful for discharge tomorrow. PETER sent updated PT note, labs, vitals, and physician notes to [facility].
[2024-06-12 16:34] LABS: Glucometer 101 mg/dL (74-106)
[2024-06-12 19:53] LABS: Glucometer 125 mg/dL (74-106)
[2024-06-12] MEDS: ISOSORBIDE MONONITRATE 30 MG TAB.ER.24H PO (22:04)
[2024-06-13] VITALS (9 sets, daily range): BP systolic 110–117; BP diastolic 68–75; PULSE 57–80; TEMP 36.4; O2SAT 93–95
[2024-06-13] MEDS: ACETAMINOPHEN 500 MG TABLET 1000 MG PO (05:39)
[2024-06-13] MEDS: LEVOTHYROXINE SODIUM 75 MCG TABLET PO (05:39)
[2024-06-13] MEDS: MECLIZINE HCL 12.5 MG TABLET 25 MG PO ×2 (05:39→09:47)
--- NOTE | 2024-06-13 07:58 | P.DS_ITS ---
DS: Providers Provider Date of admission: 06/10/24 13:37 Primary care physician: Morgan Ga MD Consults: 06/10/24 07:43 Occupational Therapy Eval and Treat Routine Reason for consultation: Only if needed for Rehab Has provider been notified: No Physical Therapy Eval and Treat Routine Reason for consultation: Eval and Treat for vertigo - work your magic Has provider been notified: No 06/10/24 09:13 Consult to Cardiology Routine Reason for consultation: elevated trop DS: Diagnosis Discharge Diagnosis (1) Benign paroxysmal positional vertigo: (2) Bradycardia: (3) Hypothyroid: (4) Diabetes: Plan Admission findings: Borderline and significantly elevated blood pressure, bradyc ardia in the upper 40s, acute kidney injury with baseline creatinine of 1.29, admission creatinine 1.72 which would be 133.3% above baseline. This is secondary to vertigo resulting in dehydration Vertigo-try patient on jknfwa-ihi-mwovj meclizine, 1 dose of IV Decadron and antibiotics. Vertiginous symptoms have resolved. She has no further nystagmus on bilateral conjugate gaze and she has no further dizziness with head movement. Near syncope-the previous day. No episodes recently. Patient not been up this morning though. Still with significant bradycardia Bradycardia-EKG done previous ER visits suggested possible Mobitz 1 block. Does have some bradycardia here. Holter monitor can be removed and shipped out today Hypothyroidism-recent levels checked were normal maintain current dosing NIDDM-will add insulin sliding scale. With Decadron likely increase in sugars. Acute kidney injury-baseline creatinine of 1.29 admission creatinine of 1.72 which is 133.3% above baseline-will repeat fluid bolus today Hypomagnesemia-supplement Hyperkalemia-repeat lab later today Moderate protein calorie malnutrition-diet management Admission status: Patient was initially placed in observation, failing the observation time. With Mobitz type I symptomatic and possible third-degree heart block, patient was admitted to inpatient status with elevated high- sensitivity troponin consistent with a possible acute NSTEMI, discussed with cardiology at this point with the troponin trending back down to normal, will set patient up for outpatient stress test maintain aspirin today, added Imdur ? ? DS: Summary Hospital Course Hospital Course: Patient seen and evaluated in the emergency room about 3 or 4 days prior to admission with lightheaded spells. Found to have significant bradycardia, case was discussed with cardiology and set up for outpatient Holter, patient presented to emergency room this time with more of a spinning type dizziness, when I saw patient up on the medical surgical floor definitely have vertigo, nystagmus on bilateral conjugate gaze, she was treated with steroids, antibiotics, meclizine. After a day that had resolved but still with signi ficant near syncopal episodes especially with ambulation. Found of significant bradycardia into the 40s. Likely Mobitz type I. Intermittent type II. Did not see any complete heart block. Also on with acute onset of her worsening bradycardia checked troponins and she indeed was positive, so likely NSTEMI, likely inferior wall with the bradycardia. Case discussed with cardiology recommended outpatient stress testing since her troponin improved quickly. Still had some lightheaded spells yesterday but today he does feel improved. With the improvement she is stable for discharge to rehab. Medications see this. I will follow patient at rehab. Status at Discharge Overall status at discharge: patient is not back to baseline Time Spent with Patient Time attestation: Total time spent providing and/or coordinating discharge services: Time spent: greater than 30 minutes Exam Constitutional Vital Signs, click to edit/add: Last Vital Signs Temp 97.5 F L 06/13/24 03:48 Pulse 63 06/13/24 06:00 Resp 18 06/13/24 03:48 BP 117/75 06/13/24 03:48 Pulse Ox 93 L 06/13/24 03:48 O2 Del Method Room Air 06/13/24 03:48 Documenting provider has reviewed patient's vital signs: yes Common normals: no apparent distress (No further distress with movement of her head) Chest Common normals: inspection of chest normal Respiratory Common normals: normal respiratory effort, no retractions, no use of accessory muscles and clear to auscultation bilaterally Cardio Common normals: regular rate, regular rhythm and no murmurs GI Common normals: Normal to inspection, nondistended, normoactive bowel sounds present, soft to palpation and non-tender Neuro Common normals: oriented x3, CN's II-XII intact bilaterally, moves all extremities and no focal motor deficits Other: No further nystagmus on bilateral conjugate gaze DS: Data Data Completed and Pending Labs on day of discharge: Labs from last 24 hours 06/12/24 06/12/24 06/12/24 19:44 16:30 10:57 POC Glucose 125 H 101 152 H Discharge Plan Discharge Disposition: Xfer SNF Discharge Medications: New isosorbide mononitrate 30 mg Tablet Extended Release 24 Hr 30 mg PO Q24H Qty: 30 11RF aspirin 81 mg Tablet,Delayed Release (Dr/Ec) 81 mg PO QD Qty: 30 11RF Continued metformin 500 mg tablet 500 mg PO BID levothyroxine 75 mcg tablet 75 mcg PO DAILY gemfibrozil 600 mg tablet 600 mg PO BID ipratropium bromide 42 mcg (0.06 %) spray,non-aerosol 2 spray INTRANASAL BID Print Language: Hungarian Forms: Portal Instructions
[2024-06-13 08:00] LABS: Glucometer 92 mg/dL (74-106)
[2024-06-13] MEDS: ENOXAPARIN SODIUM 30 MG/0.3 ML SYRINGE SUBQ (09:39)
[2024-06-13] MEDS: CEFDINIR 300 MG CAPSULE PO (09:40)
[2024-06-13] MEDS: GEMFIBROZIL 600 MG TABLET PO (09:40)
[2024-06-13] MEDS: ENSURE CLEAR 237 ML LIQUID PO (09:40)
[2024-06-13] MEDS: METFORMIN HCL 500 MG TABLET PO (09:40)
[2024-06-13] MEDS: MAGNESIUM OXIDE 400 MG TABLET PO (09:41)
[2024-06-13] MEDS: ASPIRIN 81 MG TABLET.DR PO (09:41)
--- NOTE | 2024-06-13 09:44 | SWNOTE1 ---
Pt is medically stable for discharge. PETER sent dc med rec and dc summary to [facility]. PETER called Vasyl at [facility] to see if they have transport, she will check and call PETER back.
[2024-06-13] MEDS: IPRATROPIUM BROMIDE 0.06% 2 SPRAY NS (09:46)
[2024-06-13] MEDS: KETOROLAC TROMETHAMINE 30 MG/ML VIAL 15 MG IVP (09:48)
--- NOTE | 2024-06-13 10:03 | SWNOTE1 ---
[facility] is able to transport and they will be here at 2:00pm. PETER notified nurse and patient. SW completed HENS online. SW added updates to packet and took to med/surge floor. Physical therapy did mention that pt had concerns about her glasses. SW to check with pt. Pt is going to [facility] skilled.
[2024-06-13 11:12] LABS: Glucometer 112 mg/dL (74-106)
--- NOTE | 2024-06-13 11:16 | SWNOTE1 ---
PETER spoke with pt about her eyes. Pt would like PETER to make an eye appointment for her with female eye doctor on [facility]. PETER googled and found [facility]. She voiced she thinks that is the place. PETER set an appointment for 07/07/24 @2:30. PETER notified pt of time, address, and phone number of eye doctor. PETER put information on her dc paperwork and let nurse know as well.
--- NOTE | 2024-06-13 11:26 | PT.DAILY ---
Physical Therapy Daily Note PT Daily Note/Assess Start: 06/11/24 10:36 Freq: Status: Active Protocol: Document 06/13/24 11:23 EMMAMISASHAYNA (Rec: 06/13/24 11:26 JILLIAN [id number]) Physical Therapy Daily Note/Assessment Time In/Time Out Time In 09:30 Time Out 09:49 Pain In Pain N/A Pain Out Pain N/A Subjective Subjective Pt supine upon arrival. Agrees to PT but does need to use restroom prior. Therapeutic Exercise Time Therapeutic Exercise Minutes (minutes) 5 Therapeutic Exercise Units 0 Therapeutic Exercise Treatment Therapeutic Exercise Treatment Bilat LE strengthening ex complete while sitting in BS chair 10x ea. Therapeutic Activity Time Therapeutic Activity Minutes (minutes) 10 Therapeutic Activity Units 1 Therapeutic Activity Treatment Bed Mobility Ability Standby Assistance Chair Transfer Ability Contact Guard Assist Therapeutic Activity Comments Supine >sit SBA with increased time needed. Sit>stand CGA initially. Pt then amb 15' with RW, SBA to restroom. Able to perform toilet transfer and doff/peggy pants without assistance. Pt is offered warm washcloth to wash her face - requires set up for that. Pt is able to perform pericare without any outside assistance . Sit>stand SBA. Pt amb 5' to sink with RW. Washes hands without LOB. Pt then amb in [place] 100'x2 with 1x standing rest break. pt returned to room in BS chair to complete seated ex. Remains in BS chair with call light in reach, chair alarm activated and needs met. Total Physical Therapy Time Total Therapy Minutes 15 Total Physical Therapy Units 1 Summary Daily Note Summary Increased gait endurance on this date.
--- NOTE | 2024-06-13 12:37 | SWNOTE1 ---
2nd notice of Important notice from Medicare reviewed and discussed with pt. No qusetions/concerns at this time.
== END 2024-06-13 14:06 | DRG 281 ==
LOC: ER 04:34 → MS 04:56
PROVIDERS: Registered Nurse; Admitting Provider Family Medicine; Emergency Provider Internal Medicine; PCP Family Medicine; Visit Provider Family Medicine
DX: I21.A1 Myocardial infarction type 2 (principal); E44.0 Moderate protein-calorie malnutrition; N17.9 Acute kidney failure, unspecified; I44.1 Atrioventricular block, second degree; H81.10 Benign paroxysmal vertigo, unspecified ear; I10 Essential (primary) hypertension; E03.9 Hypothyroidism, unspecified; E11.9 Type 2 diabetes mellitus without complications; R00.1 Bradycardia, unspecified; E83.42 Hypomagnesemia; E78.5 Hyperlipidemia, unspecified; Z90.710 Acquired absence of both cervix and uterus; Z96.659 Presence of unspecified artificial knee joint; Z79.84 Long term (current) use of oral hypoglycemic drugs; Z79.890 Hormone replacement therapy; Z79.899 Other long term (current) drug therapy; E86.0 Dehydration; E87.5 Hyperkalemia; Z68.24 Body mass index [BMI] 24.0-24.9, adult
CPT/HCPCS: 36415; 70450; 73502; 80048; 80053; 82948; 83735; 83880; 84484; 85025; 93005; 93306; 94761; 96374; 96375; 97110; 97161; 97165; 97530; 97535; 99285; J1100; J1650; J1885; J2060; J2405; J3475

== ENCOUNTER 2024-09-06 19:02 | Observation (INO) | payer MEDICARE, SELFPAY ==
[2024-09-06] VITALS (21 sets, daily range): BP systolic 153–171; BP diastolic 68–80; PULSE 48–72; TEMP 36.4; O2SAT 94–99; BMI 25.4
--- NOTE | 2024-09-06 19:08 | ECG_ITS ---
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
--- NOTE | 2024-09-06 19:08 | CT_ITS ---
The [address] [address] Patient Name: BUZZ BINGHAM MRN: [id number] date: 1935 Sex: F Assigned Patient Location: ER Current Patient Location: ED.MAIN Accession/Order Number: [id number] Exam Date: 09/06/2024 19:15 Report Date: 09/06/2024 20:23 At the request of: MIS MEREDITH Procedure: CT head/brain wo con CT HEAD WITHOUT CONTRAST. CLINICAL HISTORY: Dizziness COMPARISON: 06/10/2024 TECHNIQUE: Axial CT head images from the skull base to the vertex without IV contrast were acquired. Coronal and sagittal reformats were also obtained. FINDINGS: EXTRA-AXIAL SPACE: Age-appropriate ventricles. No acute extra-axial collection. No extra-axial mass. No midline shift. CEREBRUM: There are areas of periventricular and deep white matter low-attenuation, which is nonspecific but likely reflective of chronic microvascular ischemic disease.. No CT evidence of acute large territorial cortical infarct, hemorrhage or mass effect. CEREBELLUM: No focal abnormality. No CT evidence of acute infarct, hemorrhage or mass effect. BRAINSTEM: No focal abnormality. No CT evidence of acute infarct, hemorrhage or mass effect. EXTRACRANIAL STRUCTURES. There is a left maxillary sinus mucous retention cyst. Mastoid air cells are clear. Orbits are unremarkable. No discrete pituitary mass. Intact calvarium. CT/CT head/brain wo con IMPRESSION: No acute intracranial abnormality. Electronically authenticated by: SAVAGE CHAIDEZ Date: 09/06/2024 20:23
--- NOTE | 2024-09-06 19:08 | XR_ITS ---
The [address] [address] Patient Name: BUZZ BINGHAM MRN: [id number] date: 1935 Sex: F Assigned Patient Location: ER Current Patient Location: ED.MAIN Accession/Order Number: [id number] Exam Date: 09/06/2024 19:15 Report Date: 09/06/2024 20:57 At the request of: MIS MEREDITH Procedure: XR chest 1V PORTABLE CHEST X-RAY. CLINICAL HISTORY: Dizziness COMPARISON: 06/06/2024 TECHNIQUE: Single AP portable chest radiograph. FINDINGS: TUBES AND LINES: None. LUNGS: Lungs are clear. PLEURA: No effusions or pneumothorax. HEART AND MEDIASTINUM: Within normal limits for portable technique. OSSEOUS STRUCTURES: No acute abnormality. XR/XR chest 1V IMPRESSION: No acute findings. Electronically authenticated by: SAVGAE CHAIDEZ Date: 09/06/2024 20:57
--- NOTE | 2024-09-06 19:10 | ED_ITS ---
Documented by User: Morris Brown MD 09/06/24 19:30 HPI HPI - General Adult General Chief complaint: Dizziness Stated complaint: DIZZINESS Time Seen by Provider: 09/06/24 19:07 Source: patient Mode of arrival: ambulance Limitations: no limitations History of Present Illness HPI narrative: 88-year-old female presents to the emergency department for dizziness. She does not feel like she is spinning but rather feels lightheaded. This came on tonight while she was working with an occupational therapist. There was no injury and she does not have a headache or any localized weakness. She has not had a fever or vomiting. Related Data Home Medications ?Medication ?Instructions ?Recorded ?Confirmed levothyroxine 75 mcg tablet 75 mcg PO DAILY 06/06/24 09/06/24 metformin 500 mg tablet 500 mg PO BID 06/06/24 09/06/24 Previous Rx's ?Medication ?Instructions ?Recorded aspirin 81 mg tablet,delayed 81 mg PO QD #30 tabs 06/13/24 release isosorbide mononitrate 30 mg 30 mg PO Q24H #30 tabs 06/13/24 tablet,extended release 24 hr Allergies Allergy/AdvReac Type Severity Reaction Status Date / Time No Known Drug Allergies Allergy Verified 09/06/24 19:10 Opioid HPI Opioid Management Most Recent Opioid Data: Last Pain Scale 4 06/13/24 13:00 06/13/24 Last ORT Total Score 3 06/10/24 05:04 06/10/24 Last ORT Risk Category Low Risk 06/10/24 05:04 06/10/24 Review of Systems ROS Narrative A ten point review of systems is negative except as noted above. PFSH PFSH Medical History (Updated 09/06/24 @ 19:29 by Morris Brown MD) Acute renal failure ?N17.9 - Acute kidney failure, unspecified (ICD-10) Contusion of hip, left ?S70.02XA - Contusion of left hip, initial encounter (ICD-10) Benign paroxysmal positional vertigo ?H81.10 - Benign paroxysmal vertigo, unspecified ear (ICD-10) Hyperlipidemia ?E78.5 - Hyperlipidemia, unspecified (ICD-10) Bradycardia ?R00.1 - Bradycardia, unspecified (ICD-10) Dizziness ?R42 - Dizziness and giddiness (ICD-10) Hypothyroid ?E03.9 - Hypothyroidism, unspecified (ICD-10) Diabetes ?E11.9 - Type 2 diabetes mellitus without complications (ICD-10) Surgical History (Updated 06/10/24 @ 05:37 by Ping Juan) H/O: hysterectomy ?Z90.710 - Acquired absence of both cervix and uterus (ICD-10) History of knee replacement ?Z96.659 - Presence of unspecified artificial knee joint (ICD-10) Family History (Updated 06/10/24 @ 05:30 by Ping Juan) Mother Family history of diabetes mellitus Social History (Updated 06/10/24 @ 05:32 by Ping Juan) Within the past year, how often did you have a drink containing alcohol: 4 or more times a week Within the past year, how many standard drinks containing alcohol did you have on a typical day: 1 or 2 Within the past year, how often did you have six or more drinks on one occasion: never Total score: 0 Score interpretation: Questions 2 and 3 are 0. It can be assumed that the patient's drinking is below the recommended limits. However, please confirm the accuracy of the patient's alcohol intake over the last few months. Smoking status: Never smoker Non-prescribed substance use: denies use Previous occupational history: retired Highest level of school completed/degree received: high school graduate Are you now , , , , never or living with a partner: In a typical week, how many times do you talk on the telephone with family, friends, or neighbors: 3 or more times per week How often do you get together with friends or relatives: 3 or more times per week How often do you attend pentecostalism or caodaism services: never Little interest or pleasure in doing things: not at all Feeling down, depressed, or hopeless: not at all Feel stressed/tense/nervous/anxious/difficulty sleeping: not at all Life stressors: recent of family or friend Do you think of yourself as: straight/heterosexual Gender Identity: female Exam Narrative Exam Narrative: Nurses note and vital signs reviewed and patient is not hypoxic. General: The patient appears well and in no apparent distress. Patient is resting comfortably on cart. Skin: Warm, dry, no pallor noted. There is no rash noted. Head: Normocephalic, atraumatic Eye: Normal conjunctiva, no drainage Ears, Nose, Mouth, and Throat: oral mucosa is moist. Nares patent. Cardiovascular: Regular Rate and Rhythm Respiratory: Patient is in no distress, no accessory muscle use, lungs are clear to auscultation, no wheezing, rales or rhonchi Back: non-tender GI: Normal bowel sounds, no tenderness to palpation, no masses appreciated. No rebound, guarding, or rigidity noted. Musculoskeletal: The patient has no evidence of calf tenderness, symmetrical pulses noted bilaterally Neurological: A&O, normal speech; upper and lower extremity strength is symmetric and intact. Psychiatric: Cooperative Constitutional Vital Signs, click to edit/add: Last Vital Signs Temp 97.6 F 09/06/24 19:04 Pulse 50 L 09/06/24 20:20 Resp 15 09/06/24 19:20 BP 160/69 H 09/06/24 20:00 Pulse Ox 94 L 09/06/24 20:20 Course Vital Signs Vital signs: Vital Signs Temperature 97.6 F 09/06/24 19:04 Pulse Rate 58 L 09/06/24 19:04 Respiratory Rate 14 09/06/24 19:04 Blood Pressure 171/78 H 09/06/24 19:04 Pulse Oximetry 99 09/06/24 19:04 Temperature 97.6 F 09/06/24 19:04 Pulse Rate 50 L 09/06/24 20:20 Respiratory Rate 15 09/06/24 19:20 Blood Pressure 160/69 H 09/06/24 20:00 Pulse Oximetry 94 L 09/06/24 20:20 Medical Decision Making MDM Narrative Medical decision making narrative: Tests are ordered and the patient is signed out to Dr. Crocker at change of shift. Differential Diagnosis Differential Diagnosis: Vertigo, anemia, acute kidney injury, intracranial hemorrhage Lab Data Labs: Lab Results 09/06/24 Range/Units 19:17 WBC 5.2 (4.0-11.0) 10^3/uL RBC 4.47 (4.20-5.40) 10^6/uL Hgb 14.1 (12.0-16.0) g/dL Hct 43.2 (36.0-48.0) % MCV 96.6 (81.0-99.0) fL MCH 31.5 (26.7-34.0) pg MCHC 32.6 (29.9-35.2) g/dL RDW 13.2 (11.0-15.0) % Plt Count 258 (150-450) 10^3/uL MPV 9.3 L (9.5-13.5) fL Neut % (Auto) 62.5 (43.0-75.0) % Lymph % (Auto) 25.6 (20.5-60.0) % [place] % (Auto) 7.1 (1.7-12.0) % Eos % (Auto) 3.8 (0.9-7.0) % Baso % (Auto) 0.6 (0.2-2.0) % Neut # (Auto) 3.3 (1.4-6.5) 10^3/uL Lymph # (Auto) 1.3 (1.2-3.8) 10^3/uL [place] # (Auto) 0.4 (0.3-0.8) 10^3/uL Eos # (Auto) 0.2 (0.0-0.7) 10^3/uL Baso # (Auto) 0.0 (0.0-0.1) 10^3/uL Abs Immat Gran (auto) 0.02 (0.00-0.03) 10^3/uL Imm/Tot Granulo (auto) 0.4 (0.0-0.5) % Sodium 140 (136-145) mmol/L Potassium 4.6 (3.5-5.1) mmol/L Chloride 104 (98-107) mmol/L Carbon Dioxide 23.3 (21.0-32.0) mmol/L Anion Gap 17.3 BUN 30.0 H (7.0-18.0) mg/dL Creatinine 1.40 H (0.55-1.02) mg/dL Est GFR ( Amer) 43 L (>=60 mL/min/1.73m^2) Est GFR (Non-Af Amer) 35 L (>=60 mL/min/1.73m^2) BUN/Creatinine Ratio 21.4 Glucose 99 (74-106) mg/dL Calcium 9.1 (8.5-10.1) mg/dL Troponin I High Sens 11.9 (4.0-51.3) pg/mL Imaging Data CT scan - head: Radiologist's impression: ITS Impressions Chest X-Ray 09/06/24 19:08 IMPRESSION: No acute findings. Electronically authenticated by: SAVAGE CHAIDEZ Date: 09/06/2024 20:[address] 09/06/24 19:08 IMPRESSION: No acute intracranial abnormality. Electronically authenticated by: SAVAGE CHAIDEZ Date: 09/06/2024 20:23 ECG Data Attestation: I personally reviewed and interpreted this ECG as follows: (EKG on my interpretation shows sinus rhythm with a rate of 55 and a first-degree AV block and left bundle branch block) Discharge Plan Discharge Chief Complaint: Dizziness Clinical Impression: Dizziness Patient Disposition: Still a Patient Time of Disposition Decision: 22:10 Documented by User: Jean-Pierre Crocker MD 09/06/24 22:11 HPI HPI - General Adult General Chief complaint: Dizziness Stated complaint: DIZZINESS Time Seen by Provider: 09/06/24 19:07 Related Data Home Medications ?Medication ?Instructions ?Recorded ?Confirmed levothyroxine 75 mcg tablet 75 mcg PO DAILY 06/06/24 09/06/24 metformin 500 mg tablet 500 mg PO BID 06/06/24 09/06/24 Previous Rx's ?Medication ?Instructions ?Recorded aspirin 81 mg tablet,delayed 81 mg PO QD #30 tabs 06/13/24 release isosorbide mononitrate 30 mg 30 mg PO Q24H #30 tabs 06/13/24 tablet,extended release 24 hr Allergies Allergy/AdvReac Type Severity Reaction Status Date / Time No Known Drug Allergies Allergy Verified 09/06/24 19:10 Opioid HPI Opioid Management Most Recent Opioid Data: Last Pain Scale 4 06/13/24 13:00 06/13/24 Last ORT Total Score 3 06/10/24 05:04 06/10/24 Last ORT Risk Category Low Risk 06/10/24 05:04 06/10/24 PFS PFS Medical History (Updated 09/06/24 @ 19:29 by Morris Brown MD) Acute renal failure ?N17.9 - Acute kidney failure, unspecified (ICD-10) Contusion of hip, left ?S70.02XA - Contusion of left hip, initial encounter (ICD-10) Benign paroxysmal positional vertigo ?H81.10 - Benign paroxysmal vertigo, unspecified ear (ICD-10) Hyperlipidemia ?E78.5 - Hyperlipidemia, unspecified (ICD-10) Bradycardia ?R00.1 - Bradycardia, unspecified (ICD-10) Dizziness ?R42 - Dizziness and giddiness (ICD-10) Hypothyroid ?E03.9 - Hypothyroidism, unspecified (ICD-10) Diabetes ?E11.9 - Type 2 diabetes mellitus without complications (ICD-10) Surgical History (Updated 06/10/24 @ 05:37 by Ping Juan) H/O: hysterectomy ?Z90.710 - Acquired absence of both cervix and uterus (ICD-10) History of knee replacement ?Z96.659 - Presence of unspecified artificial knee joint (ICD-10) Family History (Updated 06/10/24 @ 05:30 by Ping Juan) Mother Family history of diabetes mellitus Social History (Updated 06/10/24 @ 05:32 by Ping Juan) Within the past year, how often did you have a drink containing alcohol: 4 or more times a week Within the past year, how many standard drinks containing alcohol did you have on a typical day: 1 or 2 Within the past year, how often did you have six or more drinks on one occasion: never Total score: 0 Score interpretation: Questions 2 and 3 are 0. It can be assumed that the patient's drinking is below the recommended limits. However, please confirm the accuracy of the patient's alcohol intake over the last few months. Smoking status: Never smoker Non-prescribed substance use: denies use Previous occupational history: retired Highest level of school completed/degree received: high school graduate Are you now , , , , never or living with a partner: In a typical week, how many times do you talk on the telephone with family, friends, or neighbors: 3 or more times per week How often do you get together with friends or relatives: 3 or more times per week How often do you attend pentecostalism or caodaism services: never Little interest or pleasure in doing things: not at all Feeling down, depressed, or hopeless: not at all Feel stressed/tense/nervous/anxious/difficulty sleeping: not at all Life stressors: recent of family or friend Do you think of yourself as: straight/heterosexual Gender Identity: female Exam Constitutional Vital Signs, click to edit/add: Last Vital Signs Temp 97.6 F 09/06/24 19:04 Pulse 50 L 09/06/24 20:20 Resp 15 09/06/24 19:20 BP 160/69 H 09/06/24 20:00 Pulse Ox 94 L 09/06/24 20:20 Course Vital Signs Vital signs: Vital Signs Temperature 97.6 F 09/06/24 19:04 Pulse Rate 58 L 09/06/24 19:04 Respiratory Rate 14 09/06/24 19:04 Blood Pressure 171/78 H 09/06/24 19:04 Pulse Oximetry 99 09/06/24 19:04 Temperature 97.6 F 09/06/24 19:04 Pulse Rate 50 L 09/06/24 20:20 Respiratory Rate 15 09/06/24 19:20 Blood Pressure 160/69 H 09/06/24 20:00 Pulse Oximetry 94 L 09/06/24 20:20 Medical Decision Making MDM Narrative Medical decision making narrative: Tests are ordered and the patient is signed out to Dr. Crocker at change of shift. Signout note: Lab work reviewed and noted. No major abnormalities. CT imaging of the head without acute findings. EKG sinus bradycardia. Patient seen and evaluated the bedside. Her neurologic examination is nonfocal. Her vitals are stable. Unremarkable ED stay. Patient was able to ambulate with a walker. She lives alone. She is scared that she will not do well if she is discharged home tonight. She would like to stay overnight. Case discussed with hospitalist who agrees admit the patient for further observation/treatment of her vertigo. Jean-Pierre Crocker, DO, FAAEM Medical Records Medical records reviewed: Yes I reviewed the patient's medical records Lab Data Lab results reviewed: Yes I reviewed the patient's lab results Labs: Lab Results 09/06/24 Range/Units 19:17 WBC 5.2 (4.0-11.0) 10^3/uL RBC 4.47 (4.20-5.40) 10^6/uL Hgb 14.1 (12.0-16.0) g/dL Hct 43.2 (36.0-48.0) % MCV 96.6 (81.0-99.0) fL MCH 31.5 (26.7-34.0) pg MCHC 32.6 (29.9-35.2) g/dL RDW 13.2 (11.0-15.0) % Plt Count 258 (150-450) 10^3/uL MPV 9.3 L (9.5-13.5) fL Neut % (Auto) 62.5 (43.0-75.0) % Lymph % (Auto) 25.6 (20.5-60.0) % [place] % (Auto) 7.1 (1.7-12.0) % Eos % (Auto) 3.8 (0.9-7.0) % Baso % (Auto) 0.6 (0.2-2.0) % Neut # (Auto) 3.3 (1.4-6.5) 10^3/uL Lymph # (Auto) 1.3 (1.2-3.8) 10^3/uL [place] # (Auto) 0.4 (0.3-0.8) 10^3/uL Eos # (Auto) 0.2 (0.0-0.7) 10^3/uL Baso # (Auto) 0.0 (0.0-0.1) 10^3/uL Abs Immat Gran (auto) 0.02 (0.00-0.03) 10^3/uL Imm/Tot Granulo (auto) 0.4 (0.0-0.5) % Sodium 140 (136-145) mmol/L Potassium 4.6 (3.5-5.1) mmol/L Chloride 104 (98-107) mmol/L Carbon Dioxide 23.3 (21.0-32.0) mmol/L Anion Gap 17.3 BUN 30.0 H (7.0-18.0) mg/dL Creatinine 1.40 H (0.55-1.02) mg/dL Est GFR ( Amer) 43 L (>=60 mL/min/1.73m^2) Est GFR (Non-Af Amer) 35 L (>=60 mL/min/1.73m^2) BUN/Creatinine Ratio 21.4 Glucose 99 (74-106) mg/dL Calcium 9.1 (8.5-10.1) mg/dL Troponin I High Sens 11.9 (4.0-51.3) pg/mL Imaging Data CT scan - head: Radiologist's impression: ITS Impressions Chest X-Ray 09/06/24 19:08 IMPRESSION: No acute findings. Electronically authenticated by: SAVAGE CHAIDEZ Date: 09/06/2024 20:[address] 09/06/24 19:08 IMPRESSION: No acute intracranial abnormality. Electronically authenticated by: SAVAGE CHAIDEZ Date: 09/06/2024 20:23 Discharge Plan Discharge Chief Complaint: Dizziness Clinical Impression: Dizziness Patient Disposition: Still a Patient Time of Disposition Decision: 22:10
--- NOTE | 2024-09-06 19:26 | PC.NURSE ---
Patient states got up quickly which caused her dizziness but it is now resolved.
[2024-09-06 19:27] LABS: Basophils Percent Auto 0.6 % (0.2-2.0); Eosinophils Absolute Auto 0.2 10^3/uL (0.0-0.7); Eosinophils Percent Auto 3.8 % (0.9-7.0); Hematocrit 43.2 % (36.0-48.0); Hemoglobin 14.1 g/dL (12.0-16.0); Immature Granulocytes Abs Auto 0.02 10^3/uL (0.00-0.03); Immature Granulocytes Pct Auto 0.4 % (0.0-0.5); Lymphocytes Absolute Auto 1.3 10^3/uL (1.2-3.8); Lymphocytes Percent Auto 25.6 % (20.5-60.0); Mean Corpuscular HGB Conc 32.6 g/dL (29.9-35.2); Mean Corpuscular Hemoglobin 31.5 pg (26.7-34.0); Mean Corpuscular Volume 96.6 fL (81.0-99.0); Mean Platelet Volume 9.3 fL (9.5-13.5); Monocytes Absolute Auto 0.4 10^3/uL (0.3-0.8); Monocytes Percent Auto 7.1 % (1.7-12.0); Neutrophils Absolute Auto 3.3 10^3/uL (1.4-6.5); Neutrophils Percent Auto 62.5 % (43.0-75.0); Platelet Count 258 10^3/uL (150-450); Red Blood Count 4.47 10^6/uL (4.20-5.40); Red Cell Distribution Width 13.2 % (11.0-15.0); White Blood Count 5.2 10^3/uL (4.0-11.0)
[2024-09-06] MEDS: MECLIZINE HCL 12.5 MG TABLET 25 MG PO (19:31)
[2024-09-06 19:42] LABS: Anion Gap 17.3; BUN Creatinine Ratio 21.4; Calcium 9.1 mg/dL (8.5-10.1); Carbon Dioxide 23.3 mmol/L (21.0-32.0); Chloride 104 mmol/L (98-107); Estimated GFR (African America 43 (>=60 mL/min/1.73m^2); Estimated GFR (Non-African Ame 35 (>=60 mL/min/1.73m^2); Glucose 99 mg/dL (74-106); Potassium 4.6 mmol/L (3.5-5.1); Sodium 140 mmol/L (136-145); Troponin I High Sensitivity 11.9 pg/mL (4.0-51.3)
--- OUTSIDE RECORDS SUMMARY | 2024-09-06 19:47 | XMS_ITS | CCD ---
Author Organization [facility] Care Team Providers Care Supervisor [employer] Name Role Phone DEVONTE ., DR ESTEVEZ Attending Unavailable HOY ., DR ESTEVEZ Admitting Unavailable HOY ., DR ESTEVEZ Primary Care Unavailable HOY ., DR ESTEVEZ Consulting Unavailable HOY ., DR ESTEVEZ Attending Unavailable HOY ., DR ESTEVEZ Admitting Unavailable HOY ., DR ESTEVEZ Primary Care Unavailable HOY ., DR ESTEVEZ Consulting Unavailable GRANNIS, DR BOOGIE Crow Consulting Unavailable HOY ., DR ESTEVEZ Consulting Unavailable HOY ., DR ESTEVEZ Attending Unavailable HOY ., DR ESTEVEZ Admitting Unavailable HOY ., DR ESTEVEZ Primary Care Unavailable HOY ., DR ESTEVEZ Attending Unavailable HOY ., DR ESTEVEZ Admitting Unavailable HOY ., DR ESTEVEZ Primary Care Unavailable HOY ., DR ESTEVEZ Consulting Unavailable LEWIS CUNNINGHAM Attending Unavailable Morgan Ga MD Primary Care Provider [phone] NELLY FLORES Attending Unavailable BRENDA MALIK Referring Unavailable ADAMA ZHENG Attending MORGAN Claros Referring Unavailable Medications Current Medications Medication Drug Class(es) Dates Sig (Normalized) Sig (Original) gemfibrozil 600 mg oral tablet (2 sources) Peroxisome Proliferator Receptor alpha Agonist take 1 tablet by mouth in the morning gemfibrozil (Lopid) 600 MG tablet Take 600 mg by mouth in the morning and 600 mg in the evening. Take before meals. Active ipratropium bromide 0.042 mg/actuat metered dose nasal spray (2 sources) Anticholinergic Start: 02-25-2024 End: 02-24-2025 take 2 spray(s) nasal route in the morning, then take 2 spray(s) nasal route in the evening, then take 2 spray(s) nasal route at bedtime ipratropium (Atrovent) 0.06 % nasal spray Indications: Vasomotor rhinitis Administer 2 sprays into each nostril in the morning and 2 sprays in the evening and 2 sprays before bedtime. 45 mL 3 02/25/2024 02/24/2025 Active 24 hr isosorbide mononitrate 30 mg extended release oral tablet (1 source) Nitrate Vasodilator take 1 tablet by mouth once daily in the morning isosorbide mononitrate ER (Imdur) 30 MG 24 hr tablet TAKE 1 TABLET BY MOUTH EVERY DAY IN THE MORNING FOR 30 DAYS Active levothyroxine sodium 0.075 mg oral tablet (2 sources) l-Thyroxine take 1 tablet by mouth before mealtime levothyroxine (Synthroid, Levoxyl) 75 MCG tablet Take 75 mcg by mouth in the morning. Take before meals. Active lisinopril 10 mg oral tablet (2 sources) Angiotensin Converting Enzyme Inhibitor take 1 tablet by mouth once daily lisinopril 10 MG tablet Take 10 mg by mouth Daily Active meclizine hydrochloride 25 mg oral tablet (1 source) Antiemetic Start: 07-19-2024 take 1 tablet by mouth every four hours as needed meclizine (Antivert) 25 MG tablet TAKE 1 TABLET BY MOUTH EVERY 4 HOURS NEEDED FOR VERTIGO 07/19/2024 Active metFORMIN hydrochloride 500 mg oral tablet (2 sources) Biguanide take 1 tablet by mouth in the morning metFORMIN (Glucophage) 500 MG tablet Take 500 mg by mouth in the morning and 500 mg in the evening. Take with meals. 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; Translations: [Type 2 diabetes mellitus with moderate nonproliferative diabetic retinopathy with macular edema, bilateral] Onset: 09-02-2024 09-02-2024 Chronic Diabetes mellitus without complication (2 sources) Type 2 diabetes mellitus without complication; Translations: [Type 2 diabetes mellitus without complications] Onset: 02-22-2024 02-22-2024 Chronic Disorders of lipid metabolism (3 sources) Hyperlipidemia, unspecified; Translations: [Mixed hyperlipidemia] Onset: 11-23-2021 02-22-2024 Chronic Essential hypertension (2 sources) Hypertensive disorder; Translations: [Essential (primary) hypertension] Onset: 02-22-2024 02-22-2024 Chronic Menopausal disorders (1 source) Other primary ovarian failure; Translations: [OTHER PRIMARY OVARIAN FAILURE] Onset: 11-23-2021 Chronic Osteoporosis (6 sources) Age-related osteoporosis without current pathological fracture; Translations: [Osteoporosis] Onset: 11-13-2022 Chronic Other upper respiratory disease (2 sources) Vasomotor rhinitis; Translations: [Vasomotor rhinitis] Onset: 02-25-2024 02-25-2024 Chronic Thyroid disorders (2 sources) Endemic goiter; 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, unspecified] Onset: 02-22-2024 02-22-2024 Chronic Past or Other Problems Problem Classification Problem Date Documented Da te Episodic/Chronic Deficiency and other anemia (1 source) Anemia, unspecified; Translations: [ANEMIA UNSPECIFIED] Onset: 11-23-2021 Episodic Diabetes mellitus without complication (1 source) Other abnormal glucose; Translations: [OTHER ABNORMAL GLUCOSE] Onset: 11-23-2021 Episodic Malaise and fatigue (2 sources) Fatigue; Translations: [Other fatigue] Onset: 02-22-2024 02-22-2024 Episodic Other non-traumatic joint disorders (2 sources) Joint pain; Translations: [Pain in unspecified joint] Onset: 02-22-2024 02-22-2024 Episodic Skull and face fractures (2 sources) Open fracture of nasal bones; Translations: [Fracture of nasal bones, initial encounter for open fracture] Onset: 02-25-2024 02-25-2024 Episodic Results Test Name Value Interpretation Reference Range Facility Optical coherence tomography study reporton 09-03-2024 [facility] Optical coherence tomography study reporton 09-02-2024 Radiology Study observation (narrative) [facility] Healthcare Office Visiton 07-08-2024 Follow-up visit [id number] Anay Mendoza 1935 F Date Provider Department Center 07/08/2024 [facility] Family History Problem Relation Age of Onset No Known Problems Mother No Known Problems Father Family Status - Relation Status Age at Mother Father Level of Service:25996 [place] OFFICE/OUTPATIENT NEW MODERATE MDM 45 MINUTES Normal [facility] CALCIUMon 11-13-2022 Calcium [Mass/Vol] 8.9 mg/dL Normal 8.5-10.1 [facility] Comment on above: Performed By: #### C A, CREA #### [facility] [address] [place] [address] Dr. Sheila Chang CREATININEon 11-13-2022 Creatinine [Mass/Vol] 1.24 mg/dL Critically high 0.55-1.02 [facility] Comment on above: Performed By: #### C A, CREA #### [facility] [address] [place] [address] Dr. Sheila Chang EGFR-AF GUYANESE 50 mL/min/1.73m2 Critically low >=60 [facility] Comment on above: Performed By: #### C A, CREA #### [facility] [address] [place] [address] Dr. Sheila Chang EGFR-NON AF GUYANESE 41 mL/min/1.73m2 Critically low >=60 [facility] Comment on above: Performed By: #### C A, CREA #### [facility] [address] [place] [address] Dr. Sheila Chang CALCIUMon 10-11-2022 Calcium [Mass/Vol] 9.7 mg/dL Normal 8.5-10.1 [facility] Comment on above: Performed By: #### C A, CREA #### [facility] [address] [place] [address] Dr. Sheila Chang CREATININEon 10-11-2022 Creatinine [Mass/Vol] 1.16 mg/dL Critically high 0.55-1.02 [facility] Comment on above: Performed By: #### C A, CREA #### [facility] [address] [place] [address] Dr. Sheila Chang EGFR-AF GUYANESE 54 mL/min/1.73m2 Critically low >=60 [facility] Comment on above: Performed By: #### C A, CREA #### [facility] [address] [place] [address] Dr. Sheila Chang EGFR-NON AF GUYANESE 44 mL/min/1.73m2 Critically low >=60 [facility] Comment on above: Performed By: #### C Henrique, CREA #### [facility] [address] [place] [address] Dr. Sheila Chang XR DEXA BONE DENSITYon 04-27 XR DEXA BONE DENSITY EXAMINATION: XR DEXA BONE DENSITY, 04/27/2022 10:29 AM EDT HISTORY: [...] BOOGIE HAYS Date: 2022-04-27 17:32 Normal [facility] CBC AUTO DIFFon 11-21-2021 BASO # 0.0 103/ul Normal 0.0-0.1 [facility] Comment on above: Performed By: #### C A, CREA #### [facility] [address] [address] [address] Sheila Chang Basophils/100 WBC (Bld) 0.6 % Normal 0.2-2.0 [facility] Comment on above: Performed By: #### C Henrique, CREA #### [facility] [address] [place] [address] Dr. Sheila Chang EO # 0.2 103/ul Normal 0.0-0.7 [facility] Comment on above: Performed By: #### C Henrique, CREA #### [facility] [address] [address] [address] Sheila Chang Eosinophils/100 WBC (Bld) 3.3 % Normal 0.9-7.0 [facility] Comment on above: Performed By: #### C Henrique, CREA #### [facility] [address] [place] [address] Dr. Sheila Chang Erythrocyte distribution width (RBC) [Ratio] 13.8 % Normal 11.0-15.0 [facility] Comment on above: Performed By: #### C A, CREA #### [facility] [address] [place] [address] Dr. Sheila Chang Hematocrit (Bld) [Volume fraction] 41.8 % Normal 36.0-48.0 [facility] Comment on above: Performed By: #### C A, CREA #### [facility] [address] [place] [address] Dr. Sheila Chang Hemoglobin (Bld) [Mass/Vol] 13.4 g/dL Normal 12.0-16.0 [facility] Comment on above: Performed By: #### C Henrique, CREA #### [facility] [address] [place] [address] Dr. Sheila Chang IG # 0.01 10e3/ul Normal 0.00-0.03 [facility] Comment on above: Performed By: #### C Henrique, CREA #### [facility] [address] [place] [address] Dr. Sheila Chang IG % 0.2 % Normal 0.0-0.5 [facility] Comment on above: Performed By: #### C Henrique, CREA #### [facility] [address] [place] [address] Dr. Sheila Chang LYMPH # 1.2 103/ul Normal 1.2-3.8 [facility] Comment on above: Performed By: #### C Henrique, CREA #### [facility] [address] [place] [address] Dr. Sheila Chang Lymphocytes/100 WBC (Bld) 23.6 % Normal 20.5-60.0 [facility] Comment on above: Performed By: #### C A, CREA #### [facility] [address] [place] [address] Dr. Sheila Chang MANUAL DIFF REQ NO Normal [facility] Comment on above: Performed By: #### C A, CREA #### [facility] [address] [place] [address] Dr. Sheila Chang MCH (RBC) [Entitic mass] 31.2 pg Normal 26.7-34.0 [facility] Comment on above: Performed By: #### C A, CREA #### [facility] [address] [place] [address] Dr. Sheila Chang MCHC (RBC) [Mass/Vol] 32.1 g/dL Normal 29.9-35.2 [facility] Comment on above: Performed By: #### C A, CREA #### [facility] [address] [place] [address] Dr. Sheila Chang MCV (RBC) [Entitic vol] 97.2 fL Normal 81.0-99.0 [facility] Comment on above: Performed By: #### C A, CREA #### [facility] [address] [place] [address] Dr. Sheila Chang MONO # 0.5 103/ul Normal 0.3-0.8 [facility] Comment on above: Performed By: #### C A, CREA #### [facility] [address] [place] [address] Dr. Sheila Chang Monocytes/100 WBC (Bld) 9.2 % Normal 1.7-12.0 [facility] Comment on above: Performed By: #### C A, CREA #### [facility] [address] [place] [address] Dr. Sheila Chang NEUT # 3.2 103/ul Normal 1.4-6.5 [facility] Comment on above: Performed By: #### C A, CREA #### [facility] [address] [place] [address] Dr. Sheila Chang Neutrophils/100 WBC (Bld) 63.1 % Normal 43.0-75.0 [facility] Comment on above: Performed By: #### C A, CREA #### [facility] [address] [place] [address] Dr. Sheila Chang Platelet mean volume (Bld) [Entitic vol] 9.0 fL Critically low 9.5-13.5 [facility] Comment on above: Performed By: #### C A, CREA #### [facility] [address] [address] [address] Sheila Chang PLT 273 103/ul Normal 150-450 [facility] Comment on above: Performed By: #### C A, CREA #### [facility] [address] [address] [address] Sheila Chang RBC 4.30 106/ul Normal 4.20-5.40 [facility] Comment on above: Performed By: #### C A, CREA #### [facility] [address] [address] [address] Sheila Chang WBC 5.1 103/ul Normal 4.0-11.0 [facility] Comment on above: Performed By: #### C A, CREA #### [facility] [address] [place] [address] Dr. Sheila Chang FREE THYROXINE INDEX T7on FTI 2.95 Normal [facility] Comment on above: Performed By: #### T 7, TSH, LIPID, CMP #### [facility] [address] [address] [address] Sheila Chang T3U 36.0 % Normal 23.5-40.5 [facility] Comment on above: Performed By: #### T 7, TSH, LIPID, CMP #### [facility] [address] [place] [address] Dr. Sheila Chang T4 [Mass/Vol] 8.20 ug/dL Normal 4.80-13.90 [facility] Comment on above: Performed By: #### T 7, TSH, LIPID, CMP #### [facility] [address] [place] [address] Dr. Sheila Chang GLYCOHEMOGLOBIN A1Con 2021 ADA RECOMMENDATION SEE BELOW Normal [facility] Comment on above: Result Comment: ADA RECOMMENDED LIMIT 4.0 - 6.0 ADA THERAPEUTIC TARGET < 7.0 ACTION SUGGESTED > 7.0 Performed By: #### A 1C #### [facility] [address] [place] [address] Dr. Sheila Chang Glucose [Mass/Vol] 114 mg/dL Normal [facility] Comment on above: Performed By: #### A 1C #### [facility] [address] [address] [address] Sheila Chang HbA1c (Bld) [Mass fraction] 5.6 % Normal 4.5-6.2 [facility] Comment on above: Performed By: #### A 1C #### [facility] [address] [address] [address] Sheila Chang IRONon 11-21-2021 Iron [Mass/Vol] 102.0 ug/dL Normal 50.0-170.0 [facility] Comment on above: Performed By: #### I BRIGETTE #### [facility] [address] [place] [address] Dr. Sheila Chang LIPID PROFILEon 11-21-2021 CHOL-HDL RATIO NORM SEE BELOW Normal [facility] Comment on above: Result Comment: 3.3 - 4.4 LOW RISK 4.4 - 7.1 AVERAGE RISK 7.1 - 11.0 MODERATE RISK >11.0 HIGH RISK Performed By: #### T 7, TSH, LIPID, CMP #### [facility] [address] [place] [address] Dr. Sheila Chang Cholesterol [Mass/Vol] 142 mg/dL Normal <=200 [facility] Comment on above: Performed By: #### T 7, TSH, LIPID, CMP #### [facility] [address] [address] [address] Sheila Chang Cholesterol in HDL [Mass/Vol] 47 mg/dL Normal 40-60 [facility] Comment on above: Performed By: #### T 7, TSH, LIPID, CMP #### [facility] [address] [address] [address] Sheila Chang Cholesterol in LDL [Mass/Vol] 83.8 mg/dL Normal [facility] Comment on above: Performed By: #### T 7, TSH, LIPID, CMP #### [facility] [address] [place] [address] Dr. Sheila Chang Cholesterol.total/Cho lesterol in HDL [Mass ratio] 3.0 {ratio} Normal [facility] Comment on above: Performed By: #### T 7, TSH, LIPID, CMP #### [facility] [address] [address] [address] Sheila Chang HDL NORMAL > or = 60 mg/dl - LOW CARDIOVASCULAR RISK <40 mg/dl - HIGH CARDIOVASCULAR RISK Normal [facility] Comment on above: Performed By: #### T 7, TSH, LIPID, CMP #### [facility] [address] [address] [address] Sheila Chang LDL CALC NORMAL SEE BELOW Normal [facility] Comment on above: Result Comment: <100 mg/dl OPTIMAL 100 - 129 mg/dl NEAR OR ABOVE OPTIMAL 130 - 159 mg/dl BORDERLINE HIGH 160 - 189 mg/dl HIGH >190 mg/dl VERY HIGH Performed By: #### T 7, TSH, LIPID, CMP #### [facility] [address] [address] [address] Sheila Chang Triglyceride [Mass/Vol] 56 mg/dL Normal <=150 [facility] Comment on above: Performed By: #### T 7, TSH, LIPID, CMP #### [facility] [address] [address] [address] Sheila Chang VLDL CALC 11.2 mg/dL Normal [facility] Comment on above: Performed By: #### T 7, TSH, LIPID, CMP #### [facility] [address] [address] [address] Sheila Chang PROF 14(COMP METB)on 022 Albumin [Mass/Vol] 3.5 g/dL Normal 3.4-5.0 [facility] Comment on above: Performed By: #### T 7, TSH, LIPID, CMP #### [facility] [address] [address] [address] Sheila Chang Albumin/Globulin [Mass ratio] 0.9 {ratio} Normal [facility] Comment on above: Performed By: #### T 7, TSH, LIPID, CMP #### [facility] [address] [address] [address] Sheila Chang ALP [Catalytic activity/Vol] 60 U/L Normal 46-116 [facility] Comment on above: Performed By: #### T 7, TSH, LIPID, CMP #### [facility] [address] [address] [address] Sheila Chang ALT [Catalytic activity/Vol] 14 U/L Normal 14-59 [facility] Comment on above: Performed By: #### T 7, TSH, LIPID, CMP #### [facility] [address] [address] [address] Sheila Chang Anion gap [Moles/Vol] 14.4 mmol/L Normal [facility] Comment on above: Performed By: #### T 7, TSH, LIPID, CMP #### [facility] [address] [place] [address] Dr. Sheila Chang AST [Catalytic activity/Vol] 14 U/L Critically low 15-37 [facility] Comment on above: Performed By: #### T 7, TSH, LIPID, CMP #### [facility] [address] [place] [address] Dr. Sheila Chang Bilirubin [Mass/Vol] 0.5 mg/dL Normal 0.2-1.0 [facility] Comment on above: Performed By: #### T 7, TSH, LIPID, CMP #### [facility] [address] [place] [address] Dr. Sheila Chang Calcium [Mass/Vol] 8.5 mg/dL Normal 8.5-10.1 [facility] Comment on above: Performed By: #### T 7, TSH, LIPID, CMP #### [facility] [address] [place] [address] Dr. Sheila Chang Chloride [Moles/Vol] 106 mmol/L Normal 98-107 [facility] Comment on above: Performed By: #### T 7, TSH, LIPID, CMP #### [facility] [address] [place] [address] Dr. Sheila Chang CO2 [Moles/Vol] 25.2 mmol/L Normal 21.0-32.0 [facility] Comment on above: Performed By: #### T 7, TSH, LIPID, CMP #### [facility] [address] [address] [address] Sheila Chang Creatinine [Mass/Vol] 1.15 mg/dL Critically high 0.55-1.02 [facility] Comment on above: Performed By: #### T 7, TSH, LIPID, CMP #### [facility] [address] [address] [address] Sheila Chang EGFR-AF GUYANESE 54 mL/min/1.73m2 Critically low >=60 [facility] Comment on above: Performed By: #### T 7, TSH, LIPID, CMP #### [facility] [address] [address] [address] Sheila Chang EGFR-NON AF GUYANESE 45 mL/min/1.73m2 Critically low >=60 [facility] Comment on above: Performed By: #### T 7, TSH, LIPID, CMP #### [facility] [address] [place] [address] Dr. Sheila Chang Globulin (S) [Mass/Vol] 3.8 g/dL Normal [facility] Comment on above: Performed By: #### T 7, TSH, LIPID, CMP #### [facility] [address] [address] [address] Sheila Chang Glucose [Mass/Vol] 96 mg/dL Normal 74-106 [facility] Comment on above: Performed By: #### T 7, TSH, LIPID, CMP #### [facility] [address] [place] [address] Dr. Sheila Chang Potassium [Moles/Vol] 5.6 mmol/L Critically high 3.5-5.1 [facility] Comment on above: Performed By: #### T 7, TSH, LIPID, CMP #### [facility] [address] [place] [address] Dr. Sheila Chang Protein [Mass/Vol] 7.3 g/dL Normal 6.1-8.2 [facility] Comment on above: Performed By: #### T 7, TSH, LIPID, CMP #### [facility] [address] [address] [address] Sheila Chang Sodium [Moles/Vol] 140 mmol/L Normal 136-145 [facility] Comment on above: Performed By: #### T 7, TSH, LIPID, CMP #### [facility] [address] [address] [address] Sheila Chang Urea nitrogen [Mass/Vol] 25.0 mg/dL Critically high 7.0-18.0 [facility] Comment on above: Performed By: #### T 7, TSH, LIPID, CMP #### [facility] [address] [address] [address] Sheila Chang Urea nitrogen/Creatinine [Mass ratio] 21.7 mg/mg Normal [facility] Comment on above: Performed By: #### T 7, TSH, LIPID, CMP #### [facility] [address] [place] [address] Dr. Sheila Chang TSHon 11-21-2021 TSH 0.162 uIU/mL Critically low 0.470-4.680 [facility] Comment on above: Performed By: #### T 7, TSH, LIPID, CMP #### [facility] [address] [place] [address] Dr. Sheila Chang TSH RANGE SEE BELOW Normal [facility] Comment on above: Result Comment: <0.3 4 UIU/ml HYPERTHYROID 0.34-5.60 UIU/ml EUTHYROID >5.60 UIU/ml HYPOTHYROID Performed By: #### T 7, TSH, LIPID, CMP #### [facility] [address] [place] [address] Dr. Sheila Chang Encounters Encounter Date Encounter Type Care Provider Facility Start: 09-02-2024 End: 09-02-2024 ambulatory NELLY FLORES Not Available Start: 09-02-2024 End: 09-02-2024 Bamboo flowsheet Nelly Flores DO Work Phone: [facility] Start: 09-02-2024 End: 09-02-2024 Bamboo flowsjerrell Flores DO Work Phone: [facility] Start: 07-08-2024 End: 07-08-2024 ambulatory [facility] Start: 02-25-2024 End: 02-25-2024 ambulatory ADAMA ZHENG Not Available Start: 11-13-2022 End: 11-13-[address] MORGAN GA . Facility: Start: 10-11-2022 End: 10-12-[address] MORGAN GA . Facility:[facility] Start: 04-27-2022 End: 04-28-[address] MORGAN GA . Facility:[facility] Start: 11-21-2021 End: 11-22-[address] MORGAN GA . Facility: Procedures Date Procedure Procedure Detail Performing Clinician Start: 09-02-2024 Computerized ophthal marcus imaging retina Nelly Flores DO Work Phone: Start: 09-02-2024 End: 09-02-2024 Oph medical xm&eval compre new pt 1/> vst Age-related nuclear cataract of both eyes Nelly Flores DO Work Phone: Comment on above: Age-related nuclear cataract of both eyes (Primary Dx); Moderate nonproliferative diabetic retinopathy of both eyes with macular edema associated with type 2 diabetes mellitus ([facility] Plan of Treatment Date Care Activity Detail Author Start: 09-09-2024 End: 09-09-2024 Patient encounter procedure 09/09/2024 1:00 PM EST Office Visit [facility] [address] [place] [address] Nelly Flores DO [address] [place] [address] [facility] Start: 09-02-2024 End: 09-02-2024 Patient encounter procedure 09/02/2024 2:45 PM EST Office Visit [facility] [address] [place] [address] Nelly Flores DO [address] [place] [address] Arrived [facility] Comment on above: Arrived Start: 03-23-2024 Influenza vaccination Influenza Vacc ine (#1) [facility] Start: 04-26-2018 Pneumococcal Vaccine : 65+ Years (2 of 2 - PPSV23 or PCV20) Pneumococcal Vaccine: 65+ Years (2 of 2 - PPSV23 or PCV20) [facility] Immunizations Immunization Date Immunization Notes Care Provider Fa cility 05-15-2022 influenza virus vacc ine, unspecified formulation Nelly Flores DO Work Phone: [facility] Payers Date Payer Category Payer Private Health Insurance [employer] [place] [id number] 2002 Medicare MEDICARE [id number] 1959 Medicare [id number] 1959 Unknown [id number] 1935 Unknown [id number] 1935 Unknown [id number] 1935 Unknown [id number] 1935 Unknown [id number] 1935 Unknown [id number] 1935 Unknown [id number] Social History Date Type Detail Facility Start: 02-22-2024 Tobacco smoking stat [facility] Never smoked tobacco [facility] Start: 02-22-2024 Tobacco use and exposure Smoke less tobacco non-user [facility] Start: 02-25-2024 End: 09-02-2024 Alcoholic beverage intake Current drinker of alcohol (finding) [facility] Start: 02-25-2024 End: 09-02-2024 History of Social function [facility] Start: 02-25-2024 End: 09-02-2024 Tobacco use panel [facility] Start: 02-25-2024 Alcohol Comment glass of wine a day [facility] Start: 1935 Sex assigned at Not on file [facility] Optical coherence tomography study report 09-03-2024 Note Date & Type Note Facility 09-03-2024 Note Right Eye Quality was borderline. Scan locations included subfoveal. Progression has worsened. Findings include abnormal foveal contour, intraretinal fluid, subretinal scarring. Left Eye Quality was borderline. Scan locations included subfoveal. Progression has worsened. Findings include abnormal foveal contour, intraretinal fluid, subretinal scarring. [facility] History of Present illness Narrative 09-02-2024 Nelly Flores, DO - 09/02/2024 2:45 PM EST Note Date & Type Note Facility 09-02-2024 History of Presen t illness Narrative Images from the original note were not included. Subjective Patient ID: Anay Mendoza is a 88 y.o. female. Chief Complaint Cataract HPI Cataract In both eyes. Associated symptoms include blurred vision and a need for brighter lights. Severity is moderate. Onset was gradual. Frequency is constant. Context: distance vision, mid-range vision and near vision. Since onset it is gradually worsening. Affected activities include night driving, watching TV and daily activities. Treatments tried include eye drops and glasses. Response to treatment was no improvement. Comments Pt presents for cataract evaluation referred by Dr. Malik. Pt has type 2 diabetes without complications. Pt states she has been going through vertigo recently. Pt states she likes to do puzzles and has not been able to see to do them for a while. She has been seeing a floral pattern that is red, green and yellow started these past few weeks. While doing visual acuity (VA) in both eyes (OU) patient stated she is seeing a floral like pattern that is like red,yellow and green. Last A1C: does not know, Blood sugar 92 ( 08/31/2024 ) Sees Dr. Ga for diabetic care. No Flomax No latex allergies No Pacemakers or Defib Last edited by Nelly Flores DO on 09/02/2024 3:59 PM. No current outpatient medications on file. (Ophthalmic Agents) No current facility-administered medications for this visit. (Ophthalmic Agents) Current Outpatient Medications (Other) Medication Sig Dispense Refill meclizine (Antivert) 25 MG tablet TAKE 1 TABLET BY MOUTH EVERY 4 HOURS NEEDED FOR VERTIGO gemfibrozil (Lopid) 600 MG tablet Take 600 mg by mouth in the morning and 600 mg in the evening. Take before meals. ipratropium (Atrovent) 0.06 % nasal spray Administer 2 sprays into each nostril in the morning and 2 sprays in the evening and 2 sprays before bedtime. 45 mL 3 isosorbide mononitrate ER (Imdur) 30 MG 24 hr tablet TAKE 1 TABLET BY MOUTH EVERY DAY IN THE MORNING FOR 30 DAYS levothyroxine (Synthroid, Levoxyl) 75 MCG tablet Take 75 mcg by mouth in the morning. Take before meals. lisinopril 10 MG tablet Take 10 mg by mouth Daily metFORMIN (Glucophage) 500 MG tablet Take 500 mg by mouth in the morning and 500 mg in the evening. Take with meals. No current facility-administered medications for this visit. (Other) Past Medical History: Diagnosis Date Diabetes mellitus (CMS/HCC) HTN (hypertension) (CMS/HCC) Hypothyroid (CMS/HCC) No Known Allergies Review of Systems Constitutional: Negative. HENT: Negative. Eyes: Negative. Respiratory: Negative. Cardiovascular: Negative. Gastrointestinal: Negative. Genitourinary: Negative. Musculoskeletal: Negative. Skin: Negative. Neurological: Negative. Psychiatric/Behavioral: Negative. Hematological: Negative. Endocrine: Negative. Allergic/Immunologic: Negative. Objective Base Eye Exam Visual Acuity (Snellen - Linear) Right Left Dist cc 20/400 20/200 Correction: Glasses Tonometry (Applanation, 4:02 PM) Right Left Pressure 16 16 Pupils Pupils Right PERRL Left PERRL Visual Leyva Left Right Full Full Extraocular Movement Right Left Full, Ortho Full, Ortho Neuro/Psych Oriented x3: Yes Dilation Both eyes: 1.0% Mydriacyl @ 3:11 PM Additional Tests Keratometry K1 Minden K2 Minden Right 45.00 90 46.75 180 Left 44.75 73 46.75 163 Slit Lamp and Fundus Exam External Exam Right Left External Brow ptosis Brow ptosis Slit Lamp Exam Right Left Lids/Lashes Blepharitis, Dermatochalasis - upper lid, Ptosis Blepharitis, Dermatochalasis - upper lid, Ptosis Conjunctiva/Sclera White and quiet White and quiet Cornea Decreased tear film Decreased tear film Anterior Chamber Deep and quiet Deep and quiet Iris Round and reactive Round and reactive Lens 3+ Nuclear sclerosis, 2+ Cortical cataract, Vacuoles 3+ Nuclear sclerosis, 2+ Cortical cataract, Vacuoles Anterior Vitreous Asteroid Hyalosis Normal Fundus Exam Right Left Disc Normal Normal Macula Intraretinal hemorrhage, Exudates, Mild clinically significant macular edema Intraretinal hemorrhage, Exudates, Severe clinically significant macular edema Vessels Normal Normal Periphery Normal Normal Refraction Wearing Rx Sphere Cylinder Minden Add Right +3.25 -1.75 088 +2.00 Left +2.25 -2.00 087 +2.00 Age: 5yrs Type: progresive Manifest Refraction Sphere Cylinder Minden Right +4.25 -2.50 087 Left +4.75 -4.00 071 Final Rx Sphere Cylinder Minden Dist VA Right +3.75 -1.75 088 20/200 Left +3.25 -2.00 087 20/100 Type: progresive Expiration Date: 09/02/2025 Assessment/Plan Age-related nuclear cataract of both eyes - Visually Significant Cataract, OU: I discussed the risks, benefits, alternatives, and expectations of cataract surgery. A complete ophthalmic exam was performed and it was determined that the cataracts were a primary source of vision decline, affecting activities of daily living, necessitating removal. Limited vision post-surgery may occur with pre-existing conditions affecting other areas of the eye or the brain was explained and the patient displayed an understanding. The overall objective is to improve ADLs, not eliminate glasses or restore vision to 20/20. Tests were reviewed - the different lens options were explained including the [id number] fees for any upgrades. Intraocular lens (IOL) selection may be altered either prior to or during the procedure based on the doctor's discretion including reverting to a traditional intraocular lens (IOL). They understood that there will exist the potential of glasses prescription need post surgery for near, distance or possibly both. The patient stated a full understanding and a desire to proceed with the procedure. The patient received cataract measurements and had any additional questions answered. - A complete exam was performed including a physical exam: General: AAOx3 and NAD, Lungs: Clear, Heart: RRR, Abdomen: S/NT/ND, Extremities: no pitting edema. - Coordination of care will be shared with Dr. Malik. Cataract Surgery for OU will take place in the near future. At this time, we will work on resolving her macular edema through antiVEGF treatment. 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 Stressed the importance of strong glucose control. Advised of importance of at least yearly dilated examinations, but to contact us immediately for any problems or concerns. Continue aggressive control of the blood sugar, blood pressure and cholesterol. - Although Ms. Mendoza was sent for cataract evaluation, she displays macular edema likely secondary to diabetic retinopathy (DR). The view is poor due to the cataracts that will need addressing sooner due to this fact. There is some subretinal scarring on OCT that may be 2/2 a macular degenerative process as well. Will commence antiVEGF treatment both eyes (OU). R/B/A/E provided for Avastin OU documented in this encounter [facility] Progress note 07-08-2024 Note Date & Type Note Facility 07-08-2024 Note [place] Elect[facility]iology Consult Note [place] [facility] Reason for visit: bradycardia HPI: Anay Mendoza is a 88 y.o. year old with past medical history of bradycardia, BPPV, hypothyroid, diabetes, here for new patient visit to establish care. Referral from Dr. Ga for bradycardia. Patient was recently discharged from [facility] with lightheaded spells and was found to have significant bradycardia. She was discharged home on Holter monitor that showed bradycardia and Second degree AV block type I, with some PVCs. Becky Jolley CNP saw her as inpatient consult. Denies chest pain, SOB, and palpitations. Says she gets dizzy spells but denies syncope. She has fallen twice in the past 3 months due to falls. Patient states she has not had her eyes look at in years, and has an eye appointment the day after [place]. She associates much of her dizziness with her eyesight PMH: No past medical history on file. PSH: Past Surgical History: Procedure Laterality Date HYSTERECTOMY SH: Social Determinants of Health Tobacco Use: Low Risk (07/08/2024) Patient History Smoking Tobacco Use: Never Smokeless Tobacco Use: Never Passive Exposure: Not on file Alcohol Use: Not on file Financial Resource Strain: Not on file Food Insecurity: Not on file Transportation Needs: Not on file Physical Activity: Not on file Stress: Not on file Social Connections: Not on file Intimate Partner Violence: Unknown (09/13/2023) [place] Safety & Environment Fear of Current or Ex-Partner: Not on file Emotionally Abused: Not on file Physically Abused: Not on file Sexually Abused: Not on file Physically or Sexually Abused: Not on file Depression: Not on file Housing Stability: Not on file Utilities: Not on file Health Literacy: Not on file Allergies: No Known Allergies Weight: 62.1kg Visit Vitals BP 144/72 (BP Location: Left arm, Patient Position: Sitting) Pulse 65 Ht 1.524 m (5') Wt 62.1 kg (137 lb) SpO2 95% BMI 26.76 kg/m??? Smoking Status Never BSA 1.62 m??? Meds: Current Outpatient Medications on File Prior to Visit Medication Sig Dispense Refill aspirin 81 mg EC tablet Take 81 mg by mouth in the morning. gemfibrozil (Lopid) 600 mg tablet Take 600 mg by mouth two times daily. ipratropium (Atrovent) 42 mcg (0.06 %) nasal spray 2 sprays 3 times a day. isosorbide mononitrate ER (Imdur) 30 mg 24 hr tablet Take 30 mg by mouth in the morning. Do not crush or chew. levothyroxine (Synthroid, Levoxyl) 75 mcg tablet Take 75 mcg by mouth in the morning. metFORMIN (Glucophage) 500 mg tablet Take 500 mg by mouth in the morning and at bedtime. No current facility-administered medications on file prior to visit. ROS: Review of Systems Musculoskeletal: Positive for muscle weakness. Neurological: Positive for focal weakness, light-headedness and weakness. All other systems reviewed and are negative. Physical Exam: Constitutional General Appearance: well-nourished, well-developed, appears stated age Level of Distress: comfortable Psychiatric Mental Status: alert, normal affect Orientation: oriented to time, place, and person Insight: good judgement Eyes Lids and Conjunctivae: non-injected, no xanthelasma ENMT Ears: no lesions on external ear Nose: no lesions on external nose Oropharynx: no cyanosis, no pallor Neck Neck: supple, trachea midline Carotid Arteries: bilateral normal upstroke, no bruits Jugular Veins: normal jugular venous pressure Thyroid: not enlarged Lungs Respiratory Effort: unlabored Chest Exam: normal curvature, no thoracic deformity Auscultation: clear, no wheezing, no rales, no rhonchi Cardiovascular Rate And Rhythm: regular Heart Sounds: normal S1, normal s2, no gallop Systolic Murmur: not heard Diastolic Murmur: not heard Extremities: no cyanosis, no edema, no peripheral signs of emboli Peripheral Pulses Radial Pulse: normal Abdomen Inspection and Palpation: soft, non distended, no bruit, non tender Musculoskeletal Inspection: no joint swelling Neurologic Gait: normal gait Skin Inspection and Palpation: warm and dry Nails: no clubbing Labs: 06/11/24 Sodium 143, potassium 4.7, creatinine 1.56, mag 2.1, AST 14, ALT 10 EK06/10/24 Echo: 06/10/24 Stress test: Coronary angiogram: @CATH@ Diagnostic Imaging: Holter Monitor 06/27/24 Assessment and Plan: #Bradycardia/Mobitz type I -Patient is asymptomatic. She has complaints of lightheadedness and dizziness. Was found to have significant bradycardia at ED. -Holter monitor showed bradycardia ad mobitz type 1. -Recommended loop monitor for ongoing monitoring of symptoms. Patient agreeable. 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 type 2 diabetes mellitus (CMS/HCC) documented in this encounter [facility] Summary Purpose Family History No Family History Records FoundNo Family History Records FoundNo Family History Records Found Advance Directives No Advanced Directives Records FoundNo Advanced Directives Records FoundNo Advanced Directives Records Found Additional Source Comments INFORMATION SOURCE (unrecogn ized section and content) DATE CREATED AUTHOR 11/13/2022 [facility] DATE CREATED AUTHOR AUTHOR'S ORGANIZ ATION 07/11/2024 [facility] DATE CREATED AUTHOR AUTHOR'S ORGANIZ ATION 09/04/2024 [facility] Care Teams (unrecognized sec tion and content) [employer] Relationship Specialty Start Date End Date Morgan Ga MD [address] [place] [address] PCP - General Family Medicine 02/20/24 [employer] Relationship Specialty Start Date End Date Morgan Ga MD [address] [place] [address] PCP - General Family Medicine 02/20/24 Reason for Visit (unrecogniz ed section and content) Reason Comments Cataract FOR RECORDS PERTAINING TO PATIENTS WHO ARE [...] BE BASED ON THE PRIMARY CLINICAL RECORDS. [employer] provides no warranty or guarantee of the accuracy or completeness of information in this document.
--- OUTSIDE RECORDS SUMMARY | 2024-09-06 23:42 | XMS_ITS | CCD ---
Author Organization [facility] Care Team Providers Care Radio Board Operator Name Role Phone DEVONTE ., DR ESTEVEZ Attending Unavailable HOY ., DR ESTEVEZ Admitting Unavailable HOY ., DR ESTEVEZ Primary Care Unavailable HOY ., DR ESTEVEZ Consulting Unavailable HOY ., DR ESTEVEZ Attending Unavailable HOY ., DR ESTEVEZ Admitting Unavailable HOY ., DR ESTEVEZ Primary Care Unavailable HOY ., DR ETSEVEZ Consulting Unavailable [place], DR BOOGIE Crow Consulting Unavailable HOY ., [...] Unavailable Morgan Ga MD Primary Care Provider [phone] NELLY FLORES Attending Unavailable BRENDA MALIK Referring [...] study reporton 09-02-2024 Radiology Study observation (narrative) [facility] Healthcare Office Visiton 07-08-2024 Follow-up visit [id number] Anay Mendoza 1935 F Date Provider Department Center 07/08/2024 [facility] Family History Problem Relation Age of Onset No Known Problems Mother No Known Problems Father Family Status - Relation Status Age at Mother Father Level of Service:31683 [place] OFFICE/OUTPATIENT NEW MODERATE MDM 45 MINUTES Normal [facility] CALCIUMon 11-13-2022 Calcium [Mass/Vol] 8.9 mg/dL Normal 8.5-10.1 [facility] Comment on above: Performed By: #### C A, CREA #### [facility] [address] [place] [address] Dr. Sheila Chang CREATININEon 11-13-2022 Creatinine [Mass/Vol] 1.24 mg/dL Critically high 0.55-1.02 [facility] Comment on above: Performed By: #### C A, CREA #### [facility] [address] [place] [address] Dr. Sheila Chang EGFR-AF GHANAIAN 50 mL/min/1.73m2 Critically low >=60 [facility] Comment on above: Performed By: #### C A, CREA #### [facility] [address] [place] [address] Dr. hSeila Chang EGFR-NON AF GHANAIAN 41 mL/min/1.73m2 Critically low >=60 [facility] Comment on above: Performed By: #### C A, CREA #### [facility] [address] [place] [address] Dr. Sheila Chang CALCIUMon 10-11-2022 Calcium [Mass/Vol] 9.7 mg/dL Normal 8.5-10.1 [facility] Comment on above: Performed By: #### C A, CREA #### [facility] [address] [place] [address] Dr. Sheila Chang CREATININEon 10-11-2022 Creatinine [Mass/Vol] 1.16 mg/dL Critically high 0.55-1.02 [facility] Comment on above: Performed By: #### C A, CREA #### [facility] [address] [place] [address] Dr. Sheila Chang EGFR-AF GHANAIAN 54 mL/min/1.73m2 Critically low >=60 [facility] Comment on above: Performed By: #### C A, CREA #### [facility] [address] [place] [address] Dr. Sheila Chang EGFR-NON AF GHANAIAN 44 mL/min/1.73m2 Critically low >=60 [facility] Comment on above: Performed By: #### C Henrique, CREA #### [facility] [address] [place] [address] Dr. Sheila Chang XR DEXA BONE DENSITYon [...] BOOGIE HAYS Date: 2022-04-27 17:32 Normal [facility] CBC AUTO DIFFon 11-21-2021 BASO # 0.0 103/ul Normal 0.0-0.1 [facility] Comment on above: Performed By: #### C A, CREA #### [facility] [address] [address] [address] Sheila Chang Basophils/100 WBC (Bld) 0.6 % Normal 0.2-2.0 [facility] Comment on above: Performed By: #### C Henrique, CREA #### [facility] [address] [place] [address] Dr. Sheila Chang EO # 0.2 103/ul Normal 0.0-0.7 [facility] Comment on above: Performed By: #### C Henrique, CREA #### [facility] [address] [address] [address] Sheila Chang Eosinophils/100 WBC (Bld) 3.3 % Normal 0.9-7.0 [facility] Comment on above: Performed By: #### C Henrique, CREA #### [facility] [address] [place] [address] Dr. Sheila Chang Erythrocyte distribution width (RBC) [Ratio] 13.8 % Normal 11.0-15.0 [facility] Comment on above: Performed By: #### C A, CREA #### [facility] [address] [place] [address] Dr. Sheila Chang Hematocrit (Bld) [Volume fraction] 41.8 % Normal 36.0-48.0 [facility] Comment on above: Performed By: #### C A, CREA #### [facility] [address] [place] [address] Dr. Sheila Chang Hemoglobin (Bld) [Mass/Vol] 13.4 g/dL Normal 12.0-16.0 [facility] Comment on above: Performed By: #### C Henrique, CREA #### [facility] [address] [place] [address] Dr. Sheila Chang IG # 0.01 10e3/ul Normal 0.00-0.03 [facility] Comment on above: Performed By: #### C Henrique, CREA #### [facility] [address] [place] [address] Dr. Sheila Chang IG % 0.2 % Normal 0.0-0.5 [facility] Comment on above: Performed By: #### C Henrique, CREA #### [facility] [address] [place] [address] Dr. Sheila Chang LYMPH # 1.2 103/ul Normal 1.2-3.8 [facility] Comment on above: Performed By: #### C Henrique, CREA #### [facility] [address] [place] [address] Dr. Sheila Chang Lymphocytes/100 WBC (Bld) 23.6 % Normal 20.5-60.0 [facility] Comment on above: Performed By: #### C A, CREA #### [facility] [address] [place] [address] Dr. Sheila Chang MANUAL DIFF REQ NO Normal [facility] Comment on above: Performed By: #### C A, CREA #### [facility] [address] [place] [address] Dr. Sheila Chang MCH (RBC) [Entitic mass] 31.2 pg Normal 26.7-34.0 [facility] Comment on above: Performed By: #### C A, CREA #### [facility] [address] [place] [address] Dr. Sheila Chang MCHC (RBC) [Mass/Vol] 32.1 g/dL Normal 29.9-35.2 [facility] Comment on above: Performed By: #### C A, CREA #### [facility] [address] [place] [address] Dr. Sheila hCang MCV (RBC) [Entitic vol] 97.2 fL Normal 81.0-99.0 [facility] Comment on above: Performed By: #### C A, CREA #### [facility] [address] [place] [address] Dr. Sheila Chang MONO # 0.5 103/ul Normal 0.3-0.8 [facility] Comment on above: Performed By: #### C A, CREA #### [facility] [address] [place] [address] Dr. Sheila Chang Monocytes/100 WBC (Bld) 9.2 % Normal 1.7-12.0 [facility] Comment on above: Performed By: #### C A, CREA #### [facility] [address] [place] [address] Dr. Sheila Chang NEUT # 3.2 103/ul Normal 1.4-6.5 [facility] Comment on above: Performed By: #### C A, CREA #### [facility] [address] [place] [address] Dr. Sheila Chang Neutrophils/100 WBC (Bld) 63.1 % Normal 43.0-75.0 [facility] Comment on above: Performed By: #### C A, CREA #### [facility] [address] [place] [address] Dr. Sheila Chang Platelet mean volume (Bld) [Entitic vol] 9.0 fL Critically low 9.5-13.5 [facility] Comment on above: Performed By: #### C A, CREA #### [facility] [address] [address] [address] Sheila Chang PLT 273 103/ul Normal 150-450 [facility] Comment on above: Performed By: #### C A, CREA #### [facility] [address] [address] [address] Sheila Chang RBC 4.30 106/ul Normal 4.20-5.40 [facility] Comment on above: Performed By: #### C A, CREA #### [facility] [address] [address] [address] Sheila Chang WBC 5.1 103/ul Normal 4.0-11.0 [facility] Comment on above: Performed By: #### C A, CREA #### [facility] [address] [place] [address] Dr. Sheila Chang FREE THYROXINE INDEX T7on FTI 2.95 Normal [facility] Comment on above: Performed By: #### T 7, TSH, LIPID, CMP #### [facility] [address] [address] [address] Sheila Chang T3U 36.0 % Normal 23.5-40.5 [facility] Comment on above: Performed By: #### T 7, TSH, LIPID, CMP #### [facility] [address] [place] [address] Dr. Sheila Chang T4 [Mass/Vol] 8.20 ug/dL Normal 4.80-13.90 [facility] Comment on above: Performed By: #### T 7, TSH, LIPID, CMP #### [facility] [address] [place] [address] Dr. Sheila Chang GLYCOHEMOGLOBIN A1Con 2021 ADA RECOMMENDATION SEE BELOW Normal [facility] Comment on above: Result Comment: ADA RECOMMENDED LIMIT 4.0 - 6.0 ADA THERAPEUTIC TARGET < 7.0 ACTION SUGGESTED > 7.0 Performed By: #### A 1C #### [facility] [address] [place] [address] Dr. Sheila Chang Glucose [Mass/Vol] 114 mg/dL Normal [facility] Comment on above: Performed By: #### A 1C #### [facility] [address] [address] [address] Sheila Chang HbA1c (Bld) [Mass fraction] 5.6 % Normal 4.5-6.2 [facility] Comment on above: Performed By: #### A 1C #### [facility] [address] [address] [address] Sheila Chang IRONon 11-21-2021 Iron [Mass/Vol] 102.0 ug/dL Normal 50.0-170.0 [facility] Comment on above: Performed By: #### I BRIGETTE #### [facility] [address] [place] [address] Dr. Sheila Chang LIPID PROFILEon 11-21-2021 CHOL-HDL RATIO NORM SEE BELOW Normal [facility] Comment on above: Result Comment: 3.3 - 4.4 LOW RISK 4.4 - 7.1 AVERAGE RISK 7.1 - 11.0 MODERATE RISK >11.0 HIGH RISK Performed By: #### T 7, TSH, LIPID, CMP #### [facility] [address] [place] [address] Dr. Sheila Chang Cholesterol [Mass/Vol] 142 mg/dL Normal <=200 [facility] Comment on above: Performed By: #### T 7, TSH, LIPID, CMP #### [facility] [address] [address] [address] Sheila Chang Cholesterol in HDL [Mass/Vol] 47 mg/dL Normal 40-60 [facility] Comment on above: Performed By: #### T 7, TSH, LIPID, CMP #### [facility] [address] [address] [address] Sheila Chang Cholesterol in LDL [Mass/Vol] 83.8 mg/dL Normal [facility] Comment on above: Performed By: #### T 7, TSH, LIPID, CMP #### [facility] [address] [place] [address] Dr. Sheila Chang Cholesterol.total/Cho lesterol in HDL [Mass ratio] 3.0 {ratio} Normal [facility] Comment on above: Performed By: #### T 7, TSH, LIPID, CMP #### [facility] [address] [address] [address] Sheila Chang HDL NORMAL > or = 60 mg/dl - LOW CARDIOVASCULAR RISK <40 mg/dl - HIGH CARDIOVASCULAR RISK Normal [facility] Comment on above: Performed By: #### T 7, TSH, LIPID, CMP #### [facility] [address] [address] [address] Sheila Chang LDL CALC NORMAL SEE BELOW Normal [facility] Comment on above: Result Comment: <100 mg/dl OPTIMAL 100 - 129 mg/dl NEAR OR ABOVE OPTIMAL 130 - 159 mg/dl BORDERLINE HIGH 160 - 189 mg/dl HIGH >190 mg/dl VERY HIGH Performed By: #### T 7, TSH, LIPID, CMP #### [facility] [address] [address] [address] Sheila Chang Triglyceride [Mass/Vol] 56 mg/dL Normal <=150 [facility] Comment on above: Performed By: #### T 7, TSH, LIPID, CMP #### [facility] [address] [address] [address] Sheila Chang VLDL CALC 11.2 mg/dL Normal [facility] Comment on above: Performed By: #### T 7, TSH, LIPID, CMP #### [facility] [address] [address] [address] Sheila Chang PROF 14(COMP METB)on 022 Albumin [Mass/Vol] 3.5 g/dL Normal 3.4-5.0 [facility] Comment on above: Performed By: #### T 7, TSH, LIPID, CMP #### [facility] [address] [address] [address] Sheila Chang Albumin/Globulin [Mass ratio] 0.9 {ratio} Normal [facility] Comment on above: Performed By: #### T 7, TSH, LIPID, CMP #### [facility] [address] [address] [address] Sheila Chang ALP [Catalytic activity/Vol] 60 U/L Normal 46-116 [facility] Comment on above: Performed By: #### T 7, TSH, LIPID, CMP #### [facility] [address] [address] [address] Sheila Chang ALT [Catalytic activity/Vol] 14 U/L Normal 14-59 [facility] Comment on above: Performed By: #### T 7, TSH, LIPID, CMP #### [facility] [address] [address] [address] Sheila Chang Anion gap [Moles/Vol] 14.4 mmol/L Normal [facility] Comment on above: Performed By: #### T 7, TSH, LIPID, CMP #### [facility] [address] [place] [address] Dr. Sheila Chang AST [Catalytic activity/Vol] 14 U/L Critically low 15-37 [facility] Comment on above: Performed By: #### T 7, TSH, LIPID, CMP #### [facility] [address] [place] [address] Dr. Sheila Chang Bilirubin [Mass/Vol] 0.5 mg/dL Normal 0.2-1.0 [facility] Comment on above: Performed By: #### T 7, TSH, LIPID, CMP #### [facility] [address] [place] [address] Dr. Sheial Chang Calcium [Mass/Vol] 8.5 mg/dL Normal 8.5-10.1 [facility] Comment on above: Performed By: #### T 7, TSH, LIPID, CMP #### [facility] [address] [place] [address] Dr. Sheila Chang Chloride [Moles/Vol] 106 mmol/L Normal 98-107 [facility] Comment on above: Performed By: #### T 7, TSH, LIPID, CMP #### [facility] [address] [place] [address] Dr. hSeila Chang CO2 [Moles/Vol] 25.2 mmol/L Normal 21.0-32.0 [facility] Comment on above: Performed By: #### T 7, TSH, LIPID, CMP #### [facility] [address] [address] [address] Sheila Chang Creatinine [Mass/Vol] 1.15 mg/dL Critically high 0.55-1.02 [facility] Comment on above: Performed By: #### T 7, TSH, LIPID, CMP #### [facility] [address] [address] [address] Sheila Chang EGFR-AF GHANAIAN 54 mL/min/1.73m2 Critically low >=60 [facility] Comment on above: Performed By: #### T 7, TSH, LIPID, CMP #### [facility] [address] [address] [address] Sheila Chang EGFR-NON AF GHANAIAN 45 mL/min/1.73m2 Critically low >=60 [facility] Comment on above: Performed By: #### T 7, TSH, LIPID, CMP #### [facility] [address] [place] [address] Dr. Sheila Chang Globulin (S) [Mass/Vol] 3.8 g/dL Normal [facility] Comment on above: Performed By: #### T 7, TSH, LIPID, CMP #### [facility] [address] [address] [address] Sheila Chang Glucose [Mass/Vol] 96 mg/dL Normal 74-106 [facility] Comment on above: Performed By: #### T 7, TSH, LIPID, CMP #### [facility] [address] [place] [address] Dr. Sheila Chang Potassium [Moles/Vol] 5.6 mmol/L Critically high 3.5-5.1 [facility] Comment on above: Performed By: #### T 7, TSH, LIPID, CMP #### [facility] [address] [place] [address] Dr. Sheila Chang Protein [Mass/Vol] 7.3 g/dL Normal 6.1-8.2 [facility] Comment on above: Performed By: #### T 7, TSH, LIPID, CMP #### [facility] [address] [address] [address] Sheila Chang Sodium [Moles/Vol] 140 mmol/L Normal 136-145 [facility] Comment on above: Performed By: #### T 7, TSH, LIPID, CMP #### [facility] [address] [address] [address] Sheila Chang Urea nitrogen [Mass/Vol] 25.0 mg/dL Critically high 7.0-18.0 [facility] Comment on above: Performed By: #### T 7, TSH, LIPID, CMP #### [facility] [address] [address] [address] Sheila Chang Urea nitrogen/Creatinine [Mass ratio] 21.7 mg/mg Normal [facility] Comment on above: Performed By: #### T 7, TSH, LIPID, CMP #### [facility] [address] [place] [address] Dr. Sheila Chang TSHon 11-21-2021 TSH 0.162 uIU/mL Critically low 0.470-4.680 [place] Comment on above: Performed By: #### T 7, TSH, LIPID, CMP #### [facility] [address] [place] [address] Dr. Sheila Chang TSH RANGE SEE BELOW Normal [facility] Comment on above: Result Comment: <0.3 4 UIU/ml HYPERTHYROID 0.34-5.60 UIU/ml EUTHYROID >5.60 UIU/ml HYPOTHYROID Performed By: #### T 7, TSH, LIPID, CMP #### [facility] [address] [place] [address] Dr. Sheila Chang Encounters Encounter Date Encounter Type Care Provider Facility Start: 09-02-2024 End: 09-02-2024 ambulatory NELLY FLORES Not Available Start: 09-02-2024 End: 09-02-2024 Bamboo flowsheet Nelly Flores DO Work Phone: [facility] Start: 09-02-2024 End: 09-02-2024 Bamboo flowsjerrell Flores DO Work Phone: [facility] Start: 07-08-2024 End: 07-08-2024 ambulatory [facility] Start: 02-25-2024 End: 02-25-2024 ambulatory ADAMA [...] edema associated with type 2 diabetes mellitus ([facility]) Plan of Treatment Date Care Activity Detail Author Start: 09-09-2024 End: 09-09-2024 Patient encounter procedure 09/09/2024 1:00 PM EST Office Visit [facility] [address] [place] [address] Nelly Flores DO [address] [place] [address] [facility] Start: 09-02-2024 End: 09-02-2024 Patient encounter procedure 09/02/2024 2:45 PM EST Office Visit [facility] [address] [place] [address] Nelly Flores DO [address] [place] [address] Arrived [facility] Comment on above: [...] Payer Category Payer Private Health Insurance [employer] [place] mber [id number] 2002 Medicare MEDICARE [id number] 1959 Medicare [id number] 1959 Unknown [id number] 1935 Unknown [id number] 1935 Unknown [id number] 1935 Unknown [id number] 1935 Unknown [id number] 1935 Unknown [id number] 1935 Unknown [id number] Social History Date Type Detail Facility Start: 02-22-2024 Tobacco smoking stat [facility] Never smoked tobacco [facility] Start: 02-22-2024 Tobacco use and exposure Smoke less tobacco non-user [facility] Start: 02-25-2024 End: 09-02-2024 Alcoholic beverage intake Current drinker of alcohol (finding) [facility] Start: 02-25-2024 End: 09-02-2024 History of Social function [facility] Start: 02-25-2024 End: 09-02-2024 Tobacco use panel [facility] Start: 02-25-2024 Alcohol Comment glass of wine a day [facility] Start: 1935 Sex assigned at Not on file [facility] Optical coherence tomography study report 09-03-2024 Note Date & Type Note Facility 09-03-2024 Note Right Eye Quality was borderline. Scan locations included subfoveal. Progression has worsened. Findings include abnormal foveal contour, intraretinal fluid, subretinal scarring. Left Eye Quality was borderline. Scan locations included subfoveal. Progression has worsened. Findings include abnormal foveal contour, intraretinal fluid, subretinal scarring. [facility] History of Present illness Narrative 09-02-2024 Nelly [...] @ 3:11 PM Additional Tests Keratometry K1 Lee K2 Lee Right 45.00 90 46.75 180 Left 44.75 [...] Normal Normal Refraction Wearing Rx Sphere Cylinder Lee Add Right +3.25 -1.75 088 +2.00 Left +2.25 -2.00 087 +2.00 Age: 5yrs Type: progresive Manifest Refraction Sphere Cylinder Lee Right +4.25 -2.50 087 Left +4.75 -4.00 071 Final Rx Sphere Cylinder Lee Dist [facility] Right +3.75 -1.75 088 20/200 [...] different lens options were explained including the [id number] fees for any upgrades. Intraocular lens (IOL) [...] edema associated with type 2 diabetes mellitus ([facility]) - Diabetes Mellitus with signs of diabetic [...] for Avastin OU documented in this encounter [facility] Progress note 07-08-2024 Note Date & Type Note Facility 07-08-2024 Note [place] Electrophysiology Consult Note [place] Cardiology [facility] Reason for visit: bradycardia HPI: Anay Mendoza is a 88 y.o. year old with past medical history of bradycardia, BPPV, hypothyroid, diabetes, here for new patient visit to establish care. Referral from Dr. Ga for bradycardia. Patient was recently discharged from [facility] with lightheaded spells and was found to [...] has an eye appointment the day after [place]. She associates much of her dizziness with [...] on file Intimate Partner Violence: Unknown (09/13/2023) [place] Safety & Environment Fear of Current or [...] Patient agreeable. Lewis Cunningham MD Cardiac Electrophysiology [facility] Evaluation note Note Date & Type Note [...] and content) DATE CREATED AUTHOR 11/13/2022 [facility] DATE CREATED AUTHOR AUTHOR'S ORGANIZ ATION 07/11/2024 [facility] DATE CREATED AUTHOR AUTHOR'S ORGANIZ ATION 09/04/2024 [facility] Care Teams (unrecognized sec tion and content) Radio Board Operator Relationship Specialty Start Date End Date Morgan Ga MD [address] [place] [address] PCP - General Family Medicine 02/20/24 Radio Board Operator Relationship Specialty Start Date End Date Morgan Ga MD [address] [place] [address] PCP - General Family Medicine 02/20/24 Reason [...] BE BASED ON THE PRIMARY CLINICAL RECORDS. [employer] provides no warranty or guarantee of the accuracy or completeness of information in this document.
[2024-09-07] VITALS (74 sets, daily range): BP systolic 155–165; BP diastolic 68–87; PULSE 42–143; TEMP 36.5–36.9; O2SAT 93–98; BMI 25.4
[2024-09-07] MEDS: 0.9 % SODIUM CHLORIDE 1,000 ML 75 ML IV (01:41)
[2024-09-07] MEDS: ASPIRIN 81 MG TABLET.DR PO ×2 (01:42→08:20)
[2024-09-07 03:05] LABS: Bilirubin Urine NEGATIVE (NEGATIVE); Blood Urine NEGATIVE (NEGATIVE); Clarity Urine CLEAR (CLEAR); Color Urine LT. YELLOW (YELLOW); Glucose Urine UA NEGATIVE (NEGATIVE); Ketones Urine NEGATIVE (NEGATIVE); Leukocyte Esterase Urine SMALL (NEGATIVE); Nitrite Urine NEGATIVE (NEGATIVE); Protein Urine NEGATIVE (NEG/TRACE); Urobilinogen Urine 0.2 EU/dL (0.2-1.0)
[2024-09-07 03:14] LABS: Influenza Virus A Antigen Negative; Influenza Virus B Antigen Negative; Internal Control Within Normal Limits
[2024-09-07 03:21] LABS: Urine Microscopic Indicated YES
[2024-09-07 03:25] LABS: Bacteria Urine TRACE #/HPF (NONE SEEN); Cast Seen? NONE SEEN #/LPF (NONE SEEN); Crystals Seen? None Seen #/HPF (None Seen); Mucus Urine NONE SEEN (NONE SEEN); RBC Urine 0-2 #/HPF (0-2); Squamous Epithelial Cell Urine FEW #/LPF (NONE/RARE)
[2024-09-07 06:14] LABS: Basophils Percent Auto 0.7 % (0.2-2.0); Eosinophils Absolute Auto 0.2 10^3/uL (0.0-0.7); Eosinophils Percent Auto 5.1 % (0.9-7.0); Hematocrit 38.5 % (36.0-48.0); Hemoglobin 12.8 g/dL (12.0-16.0); Immature Granulocytes Abs Auto 0.01 10^3/uL (0.00-0.03); Immature Granulocytes Pct Auto 0.2 % (0.0-0.5); Lymphocytes Absolute Auto 1.3 10^3/uL (1.2-3.8); Lymphocytes Percent Auto 29.4 % (20.5-60.0); Mean Corpuscular HGB Conc 33.2 g/dL (29.9-35.2); Mean Corpuscular Hemoglobin 31.9 pg (26.7-34.0); Mean Platelet Volume 9.3 fL (9.5-13.5); Monocytes Absolute Auto 0.5 10^3/uL (0.3-0.8); Monocytes Percent Auto 10.9 % (1.7-12.0); Neutrophils Absolute Auto 2.4 10^3/uL (1.4-6.5); Neutrophils Percent Auto 53.7 % (43.0-75.0); Platelet Count 231 10^3/uL (150-450); Red Blood Count 4.01 10^6/uL (4.20-5.40); Red Cell Distribution Width 13.2 % (11.0-15.0); White Blood Count 4.5 10^3/uL (4.0-11.0)
[2024-09-07 06:24] LABS: Internal Control Within Normal Limits; SARS-CoV-2 Ag NEGATIVE (NEGATIVE)
[2024-09-07 06:26] LABS: Anion Gap 14.3; BUN Creatinine Ratio 21.3; Calcium 8.4 mg/dL (8.5-10.1); Carbon Dioxide 22.1 mmol/L (21.0-32.0); Chloride 108 mmol/L (98-107); Estimated GFR (African America 50 (>=60 mL/min/1.73m^2); Estimated GFR (Non-African Ame 42 (>=60 mL/min/1.73m^2); Glucose 89 mg/dL (74-106); Magnesium 1.8 mg/dL (1.8-2.4); Potassium 4.4 mmol/L (3.5-5.1); Sodium 140 mmol/L (136-145)
[2024-09-07] MEDS: METFORMIN HCL 500 MG TABLET PO (08:20)
[2024-09-07] MEDS: LEVOTHYROXINE SODIUM 75 MCG TABLET PO (08:20)
--- NOTE | 2024-09-07 13:50 | PC.NURSE ---
discharge instructions explained to pt, pt verbalized understanding. iv and tele dc'd, assisted pt with getting dressed. up to bathroom with steady gait. pt called for ride.
--- NOTE | 2024-09-07 13:53 | PC.NURSE ---
taken to exit with belongings, discharged to private vehicle.
--- NOTE | 2024-09-07 14:36 | P.HP_ITS ---
HPI H&P: HPI History of Present Illness Chief complaint: VERTIGO Narrative: 89 y/o female to ER with c/o dizziness. Sudden onset of symptoms when stood up to walk. No motion or spinning but very lightheaded and feels like will pass out. No nausea or emesis. To ER and WBC normal. Chest x-ray and CT chest normal. UA negative. EKG showed 1st degree block. Follows with cardiology and scheduled to have loop recorder placed 09/16. Admitted for monitoring. Stable overnight. Telemetry showed bradycardia and pulse often in upper 30s to 40s. Feels better this am and no symptoms at rest. Up around room and mild symptoms. Opioid HPI Opioid Management Most Recent Pain and Opioid Data: Last Pain Scale 4 06/13/24 13:00 06/13/24 Last Pain Assessment 09/07/24 13:00 Last ORT Total Score 3 06/10/24 05:04 06/10/24 Last ORT Risk Category Low Risk 06/10/24 05:04 06/10/24 Review of Systems ROS Constitutional Denies: fever, chills or fatigue Cardiovascular Reports: lightheadedness; Denies: chest pain or palpitations Respiratory Denies: shortness of breath, cough or wheezing Gastrointestinal Denies: abdominal pain, nausea, vomiting or diarrhea Genitourinary Denies: painful urination [facility] Medical History (Updated 09/07/24 @ 10:14 by Finesse Saavedra MD) Dizziness ?R42 - Dizziness and giddiness (ICD-10) Hypomagnesemia ?E83.42 - Hypomagnesemia (ICD-10) Acute renal failure ?N17.9 - Acute kidney failure, unspecified (ICD-10) Contusion of hip, left ?S70.02XA - Contusion of left hip, initial encounter (ICD-10) Benign paroxysmal positional vertigo ?H81.10 - Benign paroxysmal vertigo, unspecified ear (ICD-10) Hyperlipidemia ?E78.5 - Hyperlipidemia, unspecified (ICD-10) Dizziness ?R42 - Dizziness and giddiness (ICD-10) Hypothyroid ?E03.9 - Hypothyroidism, unspecified (ICD-10) Diabetes ?E11.9 - Type 2 diabetes mellitus without complications (ICD-10) Surgical History H/O: hysterectomy ?Z90.710 - Acquired absence of both cervix and uterus (ICD-10) History of knee replacement ?Z96.659 - Presence of unspecified artificial knee joint (ICD-10) Family History Mother Family history of diabetes mellitus Social History Within the past year, how often did you have a drink containing alcohol: 4 or more times a week Within the past year, how many standard drinks containing alcohol did you have on a typical day: 1 or 2 Within the past year, how often did you have six or more drinks on one occasion: never Total score: 0 Score interpretation: Questions 2 and 3 are 0. It can be assumed that the patient's drinking is below the recommended limits. However, please confirm the accuracy of the patient's alcohol intake over the last few months. Smoking status: Never smoker Non-prescribed substance use: denies use Previous occupational history: retired Highest level of school completed/degree received: high school graduate Are you now , , , , never or living with a partner: In a typical week, how many times do you talk on the telephone with family, friends, or neighbors: 3 or more times per week How often do you get together with friends or relatives: 3 or more times per week How often do you attend hinduism or episcopal services: never Little interest or pleasure in doing things: not at all Feeling down, depressed, or hopeless: not at all Feel stressed/tense/nervous/anxious/difficulty sleeping: not at all Life stressors: recent of family or friend Do you think of yourself as: straight/heterosexual Gender Identity: female Meds Home Medications and Allergies Home Medications ?Medication ?Instructions ?Recorded ?Confirmed ?Type levothyroxine 75 mcg tablet 75 mcg PO DAILY 06/06/24 09/07/24 History metformin 500 mg tablet 500 mg PO BID 06/06/24 09/06/24 History aspirin 81 mg tablet,delayed 81 mg PO QD #30 tabs 06/13/24 09/07/24 Rx release isosorbide mononitrate 30 mg 30 mg PO Q24H #30 tabs 06/13/24 09/07/24 Rx tablet,extended release 24 hr ascorbic acid (vitamin C) 500 mg 500 mg PO DAILY 09/07/24 09/07/24 History tablet (C-500) gemfibrozil 600 mg tablet 600 mg PO BID 09/07/24 History Allergies Allergy/AdvReac Type Severity Reaction Status Date / Time No Known Drug Allergies Allergy Verified 09/06/24 19:10 Exam Constitutional Vital Signs, click to edit/add: Last Vital Signs Temp 97.8 F 09/07/24 12:05 Pulse 64 09/07/24 12:00 Resp 12 09/07/24 12:00 BP 162/87 H 09/07/24 07:47 Pulse Ox 93 L 09/07/24 11:37 O2 Del Method Room Air 09/07/24 11:37 Documenting provider has reviewed patient's vital signs: yes Common normals: no apparent distress, oriented x3 and alert HENMT Common normals: normocephalic Eye Common normals: PERRL and EOMs intact bilaterally Respiratory Common normals: normal respiratory effort and clear to auscultation bilaterally Cardio Common normals: regular rate, regular rhythm, no gallops, no murmurs and no rub GI Common normals: Normal to inspection, nondistended, normoactive bowel sounds present and non-tender Extremity Common normals: no pedal edema Results Labs Labs: Short CBC 09/06/24 09/07/24 Range/Units 19:17 06:01 WBC 5.2 4.5 (4.0-11.0) 10^3/uL Hgb 14.1 12.8 (12.0-16.0) g/dL Hct 43.2 38.5 (36.0-48.0) % Plt Count 258 231 (150-450) 10^3/uL BMP 09/06/24 09/07/24 19:17 06:01 Sodium 140 140 Potassium 4.6 4.4 Chloride 104 108 H Carbon Dioxide 23.3 22.1 BUN 30.0 H 26.0 H Creatinine 1.40 H 1.22 H Glucose 99 89 Calcium 9.1 8.4 L Urine 09/07/24 Range/Units 02:05 Urine Color Lt. yellow (YELLOW) Urine Clarity Clear (CLEAR) Urine pH 6.0 (5.0-9.0) Ur Specific [place] 1.010 (1.005-1.025) Urine Protein Negative (NEG/TRACE) mg/dL Urine Glucose (UA) Negative (NEGATIVE) mg/dL Assessment and Plan Assessment and Plan (1) Lightheadedness: (2) Bradycardia: (3) 1st degree AV block: (4) Chronic heart failure with preserved ejection fraction (HFpEF): Plan Presented with lightheadedness and known history of 1st degree block and bradycardia. Follows with cardiology. Feels well this am and discharge home. Resume home medication without change. Follow up with cardiology as scheduled.
--- NOTE | 2024-09-09 15:14 | CM.DCFOLLOWU ---
Person spoke with: Anay How are you feeling? Still having dizzy spells. I see casing flusher next week for loop recorder How is your pain? No pain Did you understand your discharge instructions? Yes Do you have any questions about your discharge instructions? No Were you given any prescriptions at discharge? No Were you able to get your prescriptions filled? N/A Do you understand how to take your medications as ordered? Yes Do you have any questions about your follow up appointment and do you plan to keep your follow up appointment? No questions it is scheduled and plan on going Is there anything else that you would like to discuss? No Questions/Comments/Concerns/Other:
== END 2024-09-07 13:54 | disposition home or self-care (01) ==
LOC: ER 22:16 → ICU 23:39
PROVIDERS: Emergency Medicine; Registered Nurse; Admitting Provider Family Medicine; Emergency Provider Student in an Organized Health Care Education/Training Program; PCP Family Medicine; Visit Provider Family Medicine
DX: R42 Dizziness and giddiness (principal); R00.1 Bradycardia, unspecified; I44.0 Atrioventricular block, first degree; I50.32 Chronic diastolic (congestive) heart failure; Z90.710 Acquired absence of both cervix and uterus; Z63.4 Disappearance and death of family member
CPT/HCPCS: 36415; 70450; 71045; 80048; 81001; 83735; 84484; 85025; 87804; 87811; 93005; 94761; 99285; G0378

== ENCOUNTER 2024-09-16 08:27 | Day surgery (SDC) | payer MEDICARE, SELFPAY ==
--- OUTSIDE RECORDS SUMMARY | 2024-09-16 08:38 | XMS_ITS | CCD ---
Author Organization [facility] Care Team Providers Care Supervisor Coating Name Role Phone DEVONTE ., DR ESTEVEZ Attending Unavailable HOY ., DR ESTEVEZ Admitting Unavailable HOY ., DR ESTEVEZ Primary Care Unavailable HOY ., DR ESTEVEZ Consulting Unavailable HOY ., DR ESTEVEZ Attending Unavailable HOY ., DR ESTEVEZ Admitting Unavailable HOY ., DR ESTEVEZ Primary Care Unavailable HOY ., DR ESTEVEZ Consulting Unavailable [place], DR BOOGIE Crow Consulting Unavailable HOY ., [...] Unavailable Morgan Ga MD Primary Care Provider [phone] NELLY FLORES Attending Unavailable BRENDA MALIK Referring Unavailable ADAMA ZHENG Attending MORGAN Claros Referring Unavailable Medications Current Medications Medication Drug Class(es) Dates Sig (Normalized) Sig (Original) gemfibrozil 600 mg oral tablet (4 sources) Peroxisome Proliferator Receptor alpha Agonist take 1 tablet by mouth in the morning gemfibrozil (Lopid) 600 MG tablet Take 600 mg by mouth in the morning and 600 mg in the evening. Take before meals. Active ipratropium bromide 0.042 mg/actuat metered dose nasal spray (4 sources) Anticholinergic Start: 02-25-2024 End: 02-24-2025 take [...] mononitrate 30 mg extended release oral tablet (3 sources) Nitrate Vasodilator take 1 tablet by mouth once daily in the morning isosorbide mononitrate ER (Imdur) 30 MG 24 hr tablet TAKE 1 TABLET BY MOUTH EVERY DAY IN THE MORNING FOR 30 DAYS Active levothyroxine sodium 0.075 mg oral tablet (4 sources) l-Thyroxine take 1 tablet by mouth before mealtime levothyroxine (Synthroid, Levoxyl) 75 MCG tablet Take 75 mcg by mouth in the morning. Take before meals. Active lisinopril 10 mg oral tablet (4 sources) Angiotensin Converting Enzyme Inhibitor take 1 tablet by mouth once daily lisinopril 10 MG tablet Take 10 mg by mouth Daily Active meclizine hydrochloride 25 mg oral tablet (3 sources) Antiemetic Start: 07-19-2024 take 1 tablet by mouth every four hours as needed meclizine (Antivert) 25 MG tablet TAKE 1 TABLET BY MOUTH EVERY 4 HOURS NEEDED FOR VERTIGO 07/19/2024 Active metFORMIN hydrochloride 500 mg oral tablet (4 sources) Biguanide take 1 tablet by mouth in the morning metFORMIN (Glucophage) 500 MG tablet Take 500 mg by mouth in the morning and 500 mg in the evening. Take with meals. Active Completed/Discontinued Medications Medication Drug Class(es) Dates Sig (Normalized) Sig (Original) Bevacizumab solution prefilled syringe 1.25 mg (2 sources) Start: 09-15-2024 End: 09-15-2024 Bevacizumab solution prefilled syringe 1.25 mg Start: 09-15-2024 End: 09-15-2024 1.25 mg, Intravitreal, Once PRN Procedure, Starting on Sun09/15/24 at 1340, For 1 dose Problems Active Problems Problem Classification Problem Date Documented Date Episodic/Chronic Cataract (4 sources) Bilateral age-related nuclear cataracts; Translations: [Age-related nuclear cataract, bilateral] Onset: 09-02-2024 09-02-2024 Chronic Diabetes mellitus with complications (6 sources) 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; Translations: [Type 2 diabetes mellitus with moderate nonproliferative diabetic retinopathy with macular edema, bilateral] Onset: 09-02-2024 09-02-2024 Chronic Diabetes mellitus without complication (4 sources) Type 2 diabetes mellitus without complication; Translations: [Type 2 diabetes mellitus without complications] Onset: 02-22-2024 02-22-2024 Chronic Disorders of lipid metabolism (5 sources) Hyperlipidemia, unspecified; Translations: [Mixed hyperlipidemia] Onset: 11-23-2021 02-22-2024 Chronic Essential hypertension (4 sources) Hypertensive disorder; Translations: [Essential (primary) hypertension] Onset: 02-22-2024 02-22-2024 Chronic Menopausal disorders (1 source) Other primary ovarian failure; Translations: [OTHER PRIMARY OVARIAN FAILURE] Onset: 11-23-2021 Chronic Osteoporosis (8 sources) Age-related osteoporosis without current pathological fracture; Translations: [Osteoporosis] Onset: 11-13-2022 Chronic Other upper respiratory disease (4 sources) Vasomotor rhinitis; Translations: [Vasomotor rhinitis] Onset: 02-25-2024 02-25-2024 Chronic Thyroid disorders (4 sources) Endemic goiter; 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, unspecified] Onset: 02-22-2024 02-22-2024 Chronic Past or Other Problems Problem Classification Problem Date Documented Da te Episodic/Chronic Deficiency and other anemia (1 source) Anemia, unspecified; Translations: [ANEMIA UNSPECIFIED] Onset: 11-23-2021 Episodic Diabetes mellitus without complication (1 source) Other abnormal glucose; Translations: [OTHER ABNORMAL GLUCOSE] Onset: 11-23-2021 Episodic Malaise and fatigue (4 sources) Fatigue; Translations: [Other fatigue] Onset: 02-22-2024 02-22-2024 Episodic Other non-traumatic joint disorders (4 sources) Joint pain; Translations: [Pain in unspecified joint] Onset: 02-22-2024 02-22-2024 Episodic Skull and face fractures (4 sources) Open fracture of nasal bones; Translations: [Fracture of nasal bones, initial encounter for open fracture] Onset: 02-25-2024 02-25-2024 Episodic Results Test Name Value Interpretation Reference Range Facility Intravitreal Injection, Phar macologic Agent - OD - Right Eyeon 09-15-2024 [facility] Radiology Study observation (narrative) [facility] Optical coherence tomography study reporton 09-03-2024 [facility] Optical coherence tomography study reporton 09-02-2024 Radiology Study observation (narrative) [facility] Office Visiton 07-08-2024 Follow-up visit [id number] Anay Mendoza 1935 F Date Provider Department Center 07/08/2024 [facility] Family History Problem Relation Age of Onset No Known Problems Mother No Known Problems Father Family Status - Relation Status Age at Mother Father Level of Service:225[address] [place] OFFICE/OUTPATIENT NEW MODERATE MDM 45 MINUTES Normal [facility] CALCIUMon 11-13-2022 Calcium [Mass/Vol] 8.9 mg/dL Normal 8.5-10.1 [facility] Comment on above: Performed By: #### C A, CREA #### [facility] [address] [place] [address] Dr. Sheila Chang CREATININEon 11-13-2022 Creatinine [Mass/Vol] 1.24 mg/dL Critically high 0.55-1.02 [facility] Comment on above: Performed By: #### C A, CREA #### [facility] [address] [address] [address] Sheila Chang EGFR-AF BAHRAINI 50 mL/min/1.73m2 Critically low >=60 [facility] Comment on above: Performed By: #### C A, CREA #### [facility] [address] [address] [address] Sheila Chang EGFR-NON AF BAHRAINI 41 mL/min/1.73m2 Critically low >=60 [facility] Comment on above: Performed By: #### C A, CREA #### [facility] [address] [address] [address] Sheila Chang CALCIUMon 10-11-2022 Calcium [Mass/Vol] 9.7 mg/dL Normal 8.5-10.1 [facility] Comment on above: Performed By: #### C A, CREA #### [facility] [address] [address] [address] Sheila Chang CREATININEon 10-11-2022 Creatinine [Mass/Vol] 1.16 mg/dL Critically high 0.55-1.02 [facility] Comment on above: Performed By: #### C A, CREA #### [facility] [address] [place] [address] Dr. Sheila Chang EGFR-AF BAHRAINI 54 mL/min/1.73m2 Critically low >=60 [facility] Comment on above: Performed By: #### C A, CREA #### [facility] [address] [place] [address] Dr. Sheila Chang EGFR-NON AF BAHRAINI 44 mL/min/1.73m2 Critically low >=60 [facility] Comment on above: Performed By: #### C A, CREA #### [facility] [address] [place] [address] Dr. Sheila Chang XR DEXA BONE DENSITYon [...] BOOGIE HAYS Date: 2022-04-27 17:32 Normal [facility] CBC AUTO DIFFon 11-21-2021 BASO # 0.0 103/ul Normal 0.0-0.1 [facility] Comment on above: Performed By: #### C A, CREA #### [facility] [address] [place] [address] Dr. Sheila Chang Basophils/100 WBC (Bld) 0.6 % Normal 0.2-2.0 [facility] Comment on above: Performed By: #### C A, CREA #### [facility] [address] [place] [address] Dr. Sheila Chang EO # 0.2 103/ul Normal 0.0-0.7 [facility] Comment on above: Performed By: #### C A, CREA #### [facility] [address] [place] [address] Dr. Sheila Chang Eosinophils/100 WBC (Bld) 3.3 % Normal 0.9-7.0 [facility] Comment on above: Performed By: #### C Henrique, CREA #### [facility] [address] [place] [address] Dr. Sheila Chang Erythrocyte distribution width (RBC) [Ratio] 13.8 % Normal 11.0-15.0 [facility] Comment on above: Performed By: #### C Henrique, CREA #### [facility] [address] [place] [address] Dr. Sheila Chang Hematocrit (Bld) [Volume fraction] 41.8 % Normal 36.0-48.0 [facility] Comment on above: Performed By: #### C Henrique, CREA #### [facility] [address] [place] [address] Dr. Sheila Chang Hemoglobin (Bld) [Mass/Vol] 13.4 g/dL Normal 12.0-16.0 [facility] Comment on above: Performed By: #### C Henrique, CREA #### [facility] [address] [place] [address] Dr. Sheila Chang IG # 0.01 10e3/ul Normal 0.00-0.03 [facility] Comment on above: Performed By: #### C Henrique, CREA #### [facility] [address] [place] [address] Dr. Sheila Chang IG % 0.2 % Normal 0.0-0.5 [facility] Comment on above: Performed By: #### C Henrique, CREA #### [facility] [address] [place] [address] Dr. Sheila Chang LYMPH # 1.2 103/ul Normal 1.2-3.8 [facility] Comment on above: Performed By: #### C Henrique, CREA #### [facility] [address] [place] [address] Dr. Sheila Chang Lymphocytes/100 WBC (Bld) 23.6 % Normal 20.5-60.0 [facility] Comment on above: Performed By: #### C A, CREA #### [facility] [address] [place] [address] Dr. Sheila Chang MANUAL DIFF REQ NO Normal [facility] Comment on above: Performed By: #### C A, CREA #### [facility] [address] [place] [address] Dr. Sheila Chang MCH (RBC) [Entitic mass] 31.2 pg Normal 26.7-34.0 [facility] Comment on above: Performed By: #### C A, CREA #### [facility] [address] [place] [address] Dr. Sheila Chang MCHC (RBC) [Mass/Vol] 32.1 g/dL Normal 29.9-35.2 [facility] Comment on above: Performed By: #### C A, CREA #### [facility] [address] [place] [address] Dr. Sheila Chang MCV (RBC) [Entitic vol] 97.2 fL Normal 81.0-99.0 [facility] Comment on above: Performed By: #### C A, CREA #### [facility] [address] [place] [address] Dr. Sheila Chang MONO # 0.5 103/ul Normal 0.3-0.8 [facility] Comment on above: Performed By: #### C A, CREA #### [facility] [address] [place] [address] Dr. Sheila Chang Monocytes/100 WBC (Bld) 9.2 % Normal 1.7-12.0 [facility] Comment on above: Performed By: #### C A, CREA #### [facility] [address] [place] [address] Dr. Sheila Chang NEUT # 3.2 103/ul Normal 1.4-6.5 [facility] Comment on above: Performed By: #### C A, CREA #### [facility] [address] [address] [address] Sheila Chang Neutrophils/100 WBC (Bld) 63.1 % Normal 43.0-75.0 [facility] Comment on above: Performed By: #### C A, CREA #### [facility] [address] [address] [address] Sheila Chang Platelet mean volume (Bld) [Entitic vol] 9.0 fL Critically low 9.5-13.5 [facility] Comment on above: Performed By: #### C A, CREA #### [facility] [address] [place] [address] Dr. Sheila Chang PLT 273 103/ul Normal 150-450 [facility] Comment on above: Performed By: #### C A, CREA #### [facility] [address] [place] [address] Dr. Sheila Chang RBC 4.30 106/ul Normal 4.20-5.40 [facility] Comment on above: Performed By: #### C A, CREA #### [facility] [address] [place] [address] Dr. Sheila Chang WBC 5.1 103/ul Normal 4.0-11.0 [facility] Comment on above: Performed By: #### C A, CREA #### [facility] [address] [place] [address] Dr. Sheila Chang FREE THYROXINE INDEX T7on FTI 2.95 Normal [facility] Comment on above: Performed By: #### T 7, TSH, LIPID, CMP #### [facility] [address] [place] [address] Dr. Sheila Chang T3U 36.0 % Normal 23.5-40.5 [facility] Comment on above: Performed By: #### T 7, TSH, LIPID, CMP #### [facility] [address] [place] [address] Dr. Sheila Chang T4 [Mass/Vol] 8.20 ug/dL Normal 4.80-13.90 [facility] Comment on above: Performed By: #### T 7, TSH, LIPID, CMP #### [facility] [address] [address] [address] Sheila Chang GLYCOHEMOGLOBIN A1Con 2021 ADA RECOMMENDATION SEE BELOW Normal [facility] Comment on above: Result Comment: ADA RECOMMENDED LIMIT 4.0 - 6.0 ADA THERAPEUTIC TARGET < 7.0 ACTION SUGGESTED > 7.0 Performed By: #### A 1C #### [facility] [address] [address] [address] Sehila Chang Glucose [Mass/Vol] 114 mg/dL Normal [facility] Comment on above: Performed By: #### A 1C #### [facility] [address] [place] [address] Dr. Sheila Chang HbA1c (Bld) [Mass fraction] 5.6 % Normal 4.5-6.2 [facility] Comment on above: Performed By: #### A 1C #### [facility] [address] [place] [address] Dr. Sheila Chang IRONon 11-21-2021 Iron [Mass/Vol] 102.0 ug/dL Normal 50.0-170.0 [facility] Comment on above: Performed By: #### I BRIGETTE #### [facility] [address] [place] [address] Dr. Sheila Chang LIPID PROFILEon 11-21-2021 CHOL-HDL RATIO NORM SEE BELOW Normal [facility] Comment on above: Result Comment: 3.3 - 4.4 LOW RISK 4.4 - 7.1 AVERAGE RISK 7.1 - 11.0 MODERATE RISK >11.0 HIGH RISK Performed By: #### T 7, TSH, LIPID, CMP #### [facility] [address] [place] [address] Dr. Sheila Chang Cholesterol [Mass/Vol] 142 mg/dL Normal <=200 [facility] Comment on above: Performed By: #### T 7, TSH, LIPID, CMP #### [facility] [address] [place] [address] Dr. Sheila Chang Cholesterol in HDL [Mass/Vol] 47 mg/dL Normal 40-60 [facility] Comment on above: Performed By: #### T 7, TSH, LIPID, CMP #### [facility] [address] [address] [address] Sheila Chang Cholesterol in LDL [Mass/Vol] 83.8 mg/dL Normal [facility] Comment on above: Performed By: #### T 7, TSH, LIPID, CMP #### [facility] [address] [address] [address] Sheila Chang Cholesterol.total/Cho lesterol in HDL [Mass ratio] 3.0 {ratio} Normal [facility] Comment on above: Performed By: #### T 7, TSH, LIPID, CMP #### [facility] [address] [address] [address] Sheila Chang HDL NORMAL > or = 60 mg/dl - LOW CARDIOVASCULAR RISK <40 mg/dl - HIGH CARDIOVASCULAR RISK Normal [facility] Comment on above: Performed By: #### T 7, TSH, LIPID, CMP #### [facility] [address] [address] [address] Sheila Chang LDL CALC NORMAL SEE BELOW Normal [facility] Comment on above: Result Comment: <100 mg/dl OPTIMAL 100 - 129 mg/dl NEAR OR ABOVE OPTIMAL 130 - 159 mg/dl BORDERLINE HIGH 160 - 189 mg/dl HIGH >190 mg/dl VERY HIGH Performed By: #### T 7, TSH, LIPID, CMP #### [facility] [address] [address] [address] Sheila Chang Triglyceride [Mass/Vol] 56 mg/dL Normal <=150 [facility] Comment on above: Performed By: #### T 7, TSH, LIPID, CMP #### [facility] [address] [address] [address] Sheila Chang VLDL CALC 11.2 mg/dL Normal [facility] Comment on above: Performed By: #### T 7, TSH, LIPID, CMP #### [facility] [address] [address] [address] Sheila Chang PROF 14(COMP METB)on 022 Albumin [Mass/Vol] 3.5 g/dL Normal 3.4-5.0 [facility] Comment on above: Performed By: #### T 7, TSH, LIPID, CMP #### [facility] [address] [place] [address] Dr. Sheila Chang Albumin/Globulin [Mass ratio] 0.9 {ratio} Normal [facility] Comment on above: Performed By: #### T 7, TSH, LIPID, CMP #### [facility] [address] [place] [address] Dr. Sheila Chang ALP [Catalytic activity/Vol] 60 U/L Normal 46-116 [facility] Comment on above: Performed By: #### T 7, TSH, LIPID, CMP #### [facility] [address] [place] [address] Dr. Sheila Chang ALT [Catalytic activity/Vol] 14 U/L Normal 14-59 [facility] Comment on above: Performed By: #### T 7, TSH, LIPID, CMP #### [facility] [address] [place] [address] Dr. Sheila Chang Anion gap [Moles/Vol] 14.4 mmol/L Normal [facility] Comment on above: Performed By: #### T 7, TSH, LIPID, CMP #### [facility] [address] [place] [address] Dr. Sheila Chang AST [Catalytic activity/Vol] 14 U/L Critically low 15-37 [facility] Comment on above: Performed By: #### T 7, TSH, LIPID, CMP #### [facility] [address] [place] [address] Dr. Sheila Chang Bilirubin [Mass/Vol] 0.5 mg/dL Normal 0.2-1.0 [facility] Comment on above: Performed By: #### T 7, TSH, LIPID, CMP #### [facility] [address] [place] [address] Dr. Sheila Chang Calcium [Mass/Vol] 8.5 mg/dL Normal 8.5-10.1 [facility] Comment on above: Performed By: #### T 7, TSH, LIPID, CMP #### [facility] [address] [address] [address] Sheila Chang Chloride [Moles/Vol] 106 mmol/L Normal 98-107 [facility] Comment on above: Performed By: #### T 7, TSH, LIPID, CMP #### [facility] [address] [place] [address] Dr. Sheila Chang CO2 [Moles/Vol] 25.2 mmol/L Normal 21.0-32.0 [facility] Comment on above: Performed By: #### T 7, TSH, LIPID, CMP #### [facility] [address] [address] [address] Sheila Chang Creatinine [Mass/Vol] 1.15 mg/dL Critically high 0.55-1.02 [facility] Comment on above: Performed By: #### T 7, TSH, LIPID, CMP #### [facility] [address] [place] [address] Dr. Sheila Chang EGFR-AF BAHRAINI 54 mL/min/1.73m2 Critically low >=60 [facility] Comment on above: Performed By: #### T 7, TSH, LIPID, CMP #### [facility] [address] [place] [address] Dr. Sheila Chang EGFR-NON AF BAHRAINI 45 mL/min/1.73m2 Critically low >=60 [facility] Comment on above: Performed By: #### T 7, TSH, LIPID, CMP #### [facility] [address] [address] [address] Sheila Chang Globulin (S) [Mass/Vol] 3.8 g/dL Normal [facility] Comment on above: Performed By: #### T 7, TSH, LIPID, CMP #### [facility] [address] [address] [address] Sheila Chang Glucose [Mass/Vol] 96 mg/dL Normal 74-106 [facility] Comment on above: Performed By: #### T 7, TSH, LIPID, CMP #### [facility] [address] [address] [address] Sheila Chang Potassium [Moles/Vol] 5.6 mmol/L Critically high 3.5-5.1 [facility] Comment on above: Performed By: #### T 7, TSH, LIPID, CMP #### [facility] [address] [address] [address] Sheila Chang Protein [Mass/Vol] 7.3 g/dL Normal 6.1-8.2 [facility] Comment on above: Performed By: #### T 7, TSH, LIPID, CMP #### [facility] [address] [place] [address] Dr. Sheila Chang Sodium [Moles/Vol] 140 mmol/L Normal 136-145 [facility] Comment on above: Performed By: #### T 7, TSH, LIPID, CMP #### [facility] [address] [place] [address] Dr. Sheila Chang Urea nitrogen [Mass/Vol] 25.0 mg/dL Critically high 7.0-18.0 [facility] Comment on above: Performed By: #### T 7, TSH, LIPID, CMP #### [facility] [address] [place] [address] Dr. Sheila Chang Urea nitrogen/Creatinine [Mass ratio] 21.7 mg/mg Normal [facility] Comment on above: Performed By: #### T 7, TSH, LIPID, CMP #### [facility] [address] [place] [address] Dr. Sheila Chang TSHon 11-21-2021 TSH 0.162 uIU/mL Critically low 0.470-4.[address] [facility] Comment on above: Performed By: #### T 7, TSH, LIPID, CMP #### [facility] [address] [place] [address] Dr. Sheila Chang TSH RANGE SEE BELOW Normal [facility] Comment on above: Result Comment: <0.3 4 UIU/ml HYPERTHYROID 0.34-5.60 UIU/ml EUTHYROID >5.60 UIU/ml HYPOTHYROID Performed By: #### T 7, TSH, LIPID, CMP #### [facility] [address] [place] [address] Dr. Sheila Chang Encounters Encounter Date Encounter Type Care Provider Facility Start: 09-15-2024 End: 09-15-2024 Bamboo flowsheet Nelly Flores DO Work Phone: [facility] Start: 09-15-2024 End: 09-15-2024 Bamboo flowsheet Nelly Flores DO Work Phone: [facility] Start: 09-15-2024 End: 09-15-2024 Patient encounter procedure Nelly Flores DO Work Phone: [facility] Comment on above: Moderate nonprolifer ative diabetic retinopathy of right eye with macular edema associated with type 2 diabetes mellitus (CMS/HCC) (Primary Dx) Start: 09-02-2024 End: 09-02-2024 ambulatory NELLY FLORES Not Available Start: 09-02-2024 End: 09-02-2024 Bamboo flowsheet Nelly Flores DO Work Phone: [facility] Start: 09-02-2024 End: 09-02-2024 Bamboo flowsheet Nelly Flores DO Work Phone: [facility] Start: 07-08-2024 End: 07-08-2024 ambulatory [facility] Start: 02-25-2024 End: 02-25-2024 ambulatory ADAMA ZHENG Not Available Start: 11-13-2022 End: 11-13-[address] MORGAN GA . Facility:[facility] Start: 10-11-2022 End: 10-12-[address] MORGAN GA . Facility:[facility] Start: 04-27-2022 End: 04-28-[address] MORGAN GA . Facility:[facility] Start: 11-21-2021 End: 11-22-2021 ambulatory DR MORGAN GA . Facility: Procedures Date Procedure Procedure Detail Performing Clinician Start: 09-15-2024 Intravitreal njx pharmacologic agt spx Nelly Flores DO Work Phone: Start: 09-02-2024 Computerized ophthal marcus imaging retina Nelly Flores DO Work Phone: Start: 09-02-2024 End: 09-02-2024 Ophth medical xm&eval compre new pt 1/> vst Age-related nuclear cataract of both eyes Nelly lFores DO Work Phone: Comment on above: Age-related nuclear cataract of both eyes (Primary Dx); Moderate nonproliferative diabetic retinopathy of both eyes with macular edema associated with type 2 diabetes mellitus ([facility]) Plan of Treatment Date Care Activity Detail Author Start: 09-15-2024 End: 09-15-2024 Patient encounter procedure 09/15/2024 1:30 PM EST Office Visit [facility] [address] [place] [address] Nelly Flores DO [address] [place], [place] [id number] Arrived [facility] Comment on above: Arrived Start: 09-09-2024 End: 09-09-2024 Patient encounter procedure 09/09/2024 1:00 PM EST [facility] [address] [place] [id number] Nelly Flores DO [address] [place] [address] [facility] Start: 09-02-2024 End: 09-02-2024 Patient encounter procedure 09/02/2024 2:45 PM EST Office Visit [facility] [address] [place] [address] Nelly Flores DO [address] [place] [address] Arrived [facility] Comment on above: Arrived Start: 03-23-2024 Influenza vaccination Influenza Vacc ine (#1) [facility] Start: 04-26-2018 Pneumococcal Vaccine : 65+ Years (2 of 2 - PPSV23 or PCV20) Pneumococcal Vaccine: 65+ Years (2 of 2 - PPSV23 or PCV20) [facility] Immunizations Immunization Date Immunization Notes Care Provider Mary cole 05-15-2022 influenza virus vacc ine, unspecified formulation Nelly Flores DO Work Phone: [facility] Payers Date Payer Category Payer Private Health Insurance [employer] [place] [id number] 2002 Medicare MEDICARE [id number] 1959 Medicare [id number] 1959 Unknown [id number] 1935 Unknown [id number] 1935 Unknown [id number] 1935 Unknown [id number] 1935 Unknown [id number] 1935 Unknown [id number] 1935 Unknown [id number] Social History Date Type Detail Facility Start: 02-22-2024 Tobacco smoking stat [facility] Never smoked tobacco [facility] Start: 02-22-2024 Tobacco use and exposure Smoke less tobacco non-user [facility] Start: 02-25-2024 End: 09-15-2024 Alcoholic beverage intake Current drinker of alcohol (finding) [facility] Start: 02-25-2024 End: 09-02-2024 History of Social function [facility] Start: 02-25-2024 End: 09-02-2024 Tobacco use panel [facility] Start: 02-25-2024 Alcohol Comment glass of wine a day [facility] Start: 1935 Sex assigned at Not on file N [facility] Clinical Note 09-15-2024 Note Date & Type Note Facility 09-15-2024 Note Time Out 09/15/2024. 1:40 PM. Confirmed correct patient, procedure, site, and patient consented. Anesthesia Topical anesthesia was used. Anesthetic medications included Lidocaine 2%, Proparacaine 0.5%. Procedure Preparation included 5% betadine to ocular surface, eyelid speculum. A 30 gauge needle was used. Injection: 1.25 mg Bevacizumab 1.25 MG/0.05ML Route: Intravitreal, Site: Right Eye [facility]: [address]-9, Lot: [id number], Expiration date: 10/02/2024 Post-op Post injection exam found visual acuity of at least counting fingers, no retinal detachment, perfused optic nerve. The patient tolerated the procedure well. There were no complications. The patient received written and verbal post procedure care education. Post injection medications were not given. Notes Intravitreal antiVEGF Treatment: Risks, benefits and alternatives were discussed for Intravitreal injection with the prescribed antiVEGF agent. With intraocular surgery, there is potential for direct retinal damage through retinal or RPE tear, or infection, with subsequent vision loss. Informative Intravitreal pamphlet provided as well as an OMIC consent. Of course, the treatment may fail to accomplish the overall therapeutic objectives, which is to stall or decrease the amount of retinal edema / bleeding, and therefore stall or improve vision loss. Intravitreal Anti-VEGF: Consent was obtained and questions answered. Operative eye was identified, receiving topical proparacaine, 5% betadine, and 2% xylocaine jelly. A lid speculum was placed and the inferotemp. injection site received additional anesthetic with a proparacaine soaked cotton swab. Using calipers (set at 3.5mm for pseudo and 4mm for phakic), the inferotemp. limbus was measured, sclera marked and 2 additional drops of betadine placed. Avoiding any talking to avoid contamination, intravitreal injection was carried out without difficulty. Any residual amount of medication was discarded appropriately. The patient tolerated the procedure well and instructed to call with increased pain, redness, decreased vision or concerns. [facility] History of Present illness Narrative 09-15-2024 Nelly Flores DO - 09/15/2024 1:30 PM EST Note Date & Type Note Facility 09-15-2024 History of Presen t illness Narrative Images from the original note were not included. 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 1:40 PM. Confirmed correct patient, procedure, site, and patient consented. Anesthesia Topical anesthesia was used. Anesthetic medications included Lidocaine 2%, Proparacaine 0.5%. Procedure Preparation included 5% betadine to ocular surface, eyelid speculum. A 30 gauge needle was used. Injection: 1.25 mg Bevacizumab 1.25 MG/0.05ML Route: Intravitreal, Site: Right Eye [facility]: [address]-7, Lot: [id number], Expiration date: 10/02/2024 Post-op Post injection exam found visual acuity of at least counting fingers, no retinal detachment, perfused optic nerve. The patient tolerated the procedure well. There were no complications. The patient received written and verbal post procedure care education. Post injection medications were not given. Notes Intravitreal antiVEGF Treatment: Risks, benefits and alternatives were discussed for Intravitreal injection with the prescribed antiVEGF agent. With intraocular surgery, there is potential for direct retinal damage through retinal or RPE tear, or infection, with subsequent vision loss. Informative Intravitreal pamphlet provided as well as an OMIC consent. Of course, the treatment may fail to accomplish the overall therapeutic objectives, which is to stall or decrease the amount of retinal edema / bleeding, and therefore stall or improve vision loss. Intravitreal Anti-VEGF: Consent was obtained and questions answered. Operative eye was identified, receiving topical proparacaine, 5% betadine, and 2% xylocaine jelly. A lid speculum was placed and the inferotemp. injection site received additional anesthetic with a proparacaine soaked cotton swab. Using calipers (set at 3.5mm for pseudo and 4mm for phakic), the inferotemp. limbus was measured, sclera marked and 2 additional drops of betadine placed. Avoiding any talking to avoid contamination, intravitreal injection was carried out without difficulty. Any residual amount of medication was discarded appropriately. The patient tolerated the procedure well and instructed to call with increased pain, redness, decreased vision or concerns. documented in this encounter [facility] Optical coherence tomography study report 09-03-2024 Note Date & Type Note Facility 09-03-2024 Note Right Eye Quality was borderline. Scan locations included subfoveal. Progression has worsened. Findings include abnormal foveal contour, intraretinal fluid, subretinal scarring. Left Eye Quality was borderline. Scan locations included subfoveal. Progression has worsened. Findings include abnormal foveal contour, intraretinal fluid, subretinal scarring. [facility] History of Present illness Narrative 09-02-2024 Nelly Flores DO - 09/02/2024 2:45 PM EST Note [...] @ 3:11 PM Additional Tests Keratometry K1 [place] K2 [place] Right 45.00 90 46.75 180 Left 44.75 [...] Normal Normal Refraction Wearing Rx Sphere Cylinder [place] Add Right +3.25 -1.75 088 +2.00 Left +2.25 -2.00 087 +2.00 Age: 5yrs Type: progresive Manifest Refraction Sphere Cylinder [place] Right +4.25 -2.50 087 Left +4.75 -4.00 071 Final Rx Sphere Cylinder [place] Dist [place] Right +3.75 -1.75 088 20/200 [...] different lens options were explained including the [id number] fees for any upgrades. Intraocular lens (IOL) [...] edema associated with type 2 diabetes mellitus ([facility]) - Diabetes Mellitus with signs of diabetic [...] Avastin OU documented in this encounter [facility] Progress note 07-08-2024 Note Date & Type Note Facility 07-08-2024 Note [place] Electrophysiology Consult Note [place] [facility] - [facility] Reason for visit: bradycardia HPI: Anay Mendoza is a 88 y.o. year old with past medical history of bradycardia, BPPV, hypothyroid, diabetes, here for new patient visit to establish care. Referral from Dr. Ga for bradycardia. Patient was recently discharged from [facility] with lightheaded spells and was found [...] has an eye appointment the day after [place]. She associates much of her dizziness with [...] on file Intimate Partner Violence: Unknown (09/13/2023) [place] Safety & Environment Fear of Current or [...] Patient agreeable. 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 (CMS/HCC)- Primary documented in this encounter [facility] Summary Purpose Family History No Family History Records FoundNo Family History Records FoundNo Family History Records Found Advance Directives No Advanced Directives Records FoundNo Advanced Directives Records FoundNo Advanced Directives Records Found Additional Source Comments INFORMATION SOURCE (unrecogn ized section and content) DATE CREATED AUTHOR 11/13/2022 [facility] DATE CREATED AUTHOR AUTHOR'S ORGANIZ ATION 07/11/2024 [facility] DATE CREATED AUTHOR AUTHOR'S ORGANIZ ATION 09/04/2024 [facility] Care Teams (unrecognized sec tion and content) Supervisor Coating Relationship Specialty Start Date End Date Morgan Ga MD [facility] [place] [address] PCP - General Family Medicine 02/20/24 Supervisor Coating Relationship Specialty Start Date End Date Morgan Ga MD [address] [place] [address] PCP - General Family Medicine 02/20/24 Supervisor Coating Relationship Specialty [place] [address] [place] [phone] PCP - General Family Medicine 02/20/24 Supervisor Coating Relationship Specialty Start Date End Date Morgan Ga MD [address] [place] [phone] PCP - General Family Medicine 02/20/24 Reason for Visit (unrecogniz ed section and content) Reason Comments Cataract Reason Comments Follow-up FOR RECORDS PERTAINING TO PATIENTS WHO ARE [...] BE BASED ON THE PRIMARY CLINICAL RECORDS. [facility]. provides no warranty or guarantee of the accuracy or completeness of information in this document.
[2024-09-16] MEDS: AMOXICILLIN 500 MG CAPSULE 1000 MG PO (08:59)
[2024-09-16 09:07] VITALS: BP 159/76; PULSE 69; TEMP 36.1; O2SAT 98
--- NOTE | 2024-09-16 09:14 | W.PM.PROCNOT ---
Date of procedure: 09/16/24 Pre-op diagnosis: palpitations Procedure: LOOP IMPLANT PROCEDURE NOTE DATE OF PROCEDURE: 09/16/2024 PERFORMING PHYSICIAN: Dr. Arnulfo Cunningham CONSENT: Patient NAME OF THE PROCEDURE: Implantable loop recorder placement. DESCRIPTION OF PROCEDURE: The patient was brought to the room and continuous electrocardiographic monitoring was instituted.After a procedural pause identifying the patient, the procedure and site of implant we decided to proceed following administration of antibiotics. Sterile prep and drape and anesthesia with 1% lidocaine was followed by a small incision was made in the 3rd intercostal space near the sternum on the left using the [employer] tool. The loop recorder was then injected subcutaneously. Interrogation of the device noted good sensing parameters. Technical details of the device as noted below. The skin was then closed with 3-0 Vicryl and glue was applied. Wound was closed with dressing. The patient appeared to tolerate the procedure well and was returned to his room in stable condition. No complications were immediately observed. DEVICE INFO: [employer] LUX-DX Model# M 301 Serial# [id number] IMPRESSION: Successful placement of LOOP implant with excellent sensing parameters. RECOMMENDATIONS: 1. Occlusive dressing to be changed after 5 days. 2. Do not wet the incision. Arnulfo Cunningham MD Cardiac Electrophysiology Anesthesia: Local Surgeon: Arnulfo Cunningham Estimated blood loss (mL): 2 Pathology: none sent Condition: stable Disposition: same day
[2024-09-16] MEDS: LIDOCAINE HCL 1% 100 MG/10 ML MDV 6 ML INJ (09:19)
[2024-09-16 09:36] VITALS: BP 142/67; BP 152/75; PULSE 55; PULSE 60; O2SAT 97; O2SAT 99
== END 2024-09-16 10:10 | disposition home or self-care (01) ==
LOC: SURGOUT 08:29
PROVIDERS: PCP Family Medicine; Visit Provider Internal Medicine Cardiovascular Disease
PROC: (CPT 33285; principal; 2024-09-16 09:00)
DX: R00.2 Palpitations (principal)
CPT/HCPCS: 33285; C1764

== ENCOUNTER 2024-10-16 09:12 | Outpatient (OUT) | payer MEDICARE, SELFPAY ==
--- OUTSIDE RECORDS SUMMARY | 2024-10-16 09:32 | XMS_ITS | CCD ---
Author Organization [facility] Care Team Providers Care Senior Linux Systems Administrator Name Role Phone DEVONTE ., DR ESTEVEZ Attending Unavailable HOY ., DR ESTEVEZ Admitting Unavailable HOY ., DR ESTEVEZ Primary Care Unavailable HOY ., DR ESTEVEZ Consulting Unavailable HOY ., DR ESTEVEZ Attending Unavailable HOY ., DR ESTEVEZ Admitting Unavailable HOY ., DR ESTEVEZ Primary Care Unavailable HOY ., DR ESTEVEZ Consulting Unavailable MANTECA, DR BOOGIE Crow Consulting Unavailable HOY ., DR ESTEVEZ Consulting Unavailable HOY ., DR ESTEVEZ Attending Unavailable HOY ., DR ESTEVEZ Admitting Unavailable HOY ., DR ESTEVEZ Primary Care Unavailable HOY ., DR ESTEVEZ Attending Unavailable HOY ., DR ESTEVEZ Admitting Unavailable HOY ., DR ESTEVEZ Primary Care Unavailable HOY ., DR ESTEVEZ Consulting Unavailable ARNULFO QUILES Attending Unavailable Zenaida Whitney MD Primary Care Provider [phone] NELLY ALMODOVAR Attending Unavailable BRENDA ARNETT Referring Unavailable NELLY ALMODOVAR Attending Unavailable NELLY ALMODOVAR Attending Unavailable ADAMA ZHENG Attending Unavailable ZENAIDA WHITNEY Referring Unavailable Medications Current Medications Medication Drug Class(es) Dates Sig (Normalized) Sig (Original) gemfibrozil 600 mg oral tablet (6 sources) Peroxisome Proliferator Receptor alpha Agonist take 1 tablet by mouth in the morning gemfibrozil (Lopid) 600 MG tablet Take 600 mg by mouth in the morning and 600 mg in the evening. Take before meals. Active ipratropium bromide 0.042 mg/actuat metered dose nasal spray (6 sources) Anticholinergic Start: 02-25-2024 End: 02-24-2025 take [...] mononitrate 30 mg extended release oral tablet (5 sources) Nitrate Vasodilator take 1 tablet by mouth once daily in the morning isosorbide mononitrate ER (Imdur) 30 MG 24 hr tablet TAKE 1 TABLET BY MOUTH EVERY DAY IN THE MORNING FOR 30 DAYS Active levothyroxine sodium 0.075 mg oral tablet (6 sources) l-Thyroxine take 1 tablet by mouth before mealtime levothyroxine (Synthroid, Levoxyl) 75 MCG tablet Take 75 mcg by mouth in the morning. Take before meals. Active lisinopril 10 mg oral tablet (6 sources) Angiotensin Converting Enzyme Inhibitor take 1 tablet by mouth once daily lisinopril 10 MG tablet Take 10 mg by mouth Daily Active meclizine hydrochloride 25 mg oral tablet (5 sources) Antiemetic Start: 07-19-2024 take 1 tablet by mouth every four hours as needed meclizine (Antivert) 25 MG tablet TAKE 1 TABLET BY MOUTH EVERY 4 HOURS NEEDED FOR VERTIGO 07/19/2024 Active metFORMIN hydrochloride 500 mg oral tablet (6 sources) Biguanide take 1 tablet by mouth in the morning metFORMIN (Glucophage) 500 MG tablet Take 500 mg by mouth in the morning and 500 mg in the evening. Take with meals. Active Completed/Discontinued Medications Medication Drug Class(es) Dates Sig (Normalized) Sig (Original) Bevacizumab solution prefilled syringe 1.25 mg (4 sources) Start: 09-19-2024 End: 09-19-2024 Bevacizumab solution prefilled syringe 1.25 mg Start: 09-19-2024 End: 09-19-2024 1.25 mg, Intravitreal, Once PRN Procedure, Starting on Sun09/19/24 at 1125, For 1 dose Start: 09-15-2024 End: 09-15-2024 Bevacizumab solution prefill ed syringe 1.25 mg Start: 09-15-2024 End: 09-15-2024 1.25 mg, Intravitreal, Once PRN Procedure, Starting on Sun09/15/24 at 1340, For 1 dose Problems Active Problems Problem Classification Problem Date Documented Date Episodic/Chronic Cataract (6 sources) Bilateral age-related nuclear cataracts; Translations: [Age-related nuclear cataract, bilateral] Onset: 09-02-2024 09-02-2024 Chronic Diabetes mellitus with complications (12 sources) 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; Translations: [Type 2 diabetes mellitus with moderate nonproliferative diabetic retinopathy with macular edema, bilateral] Onset: 09-02-2024 09-02-2024 Chronic Diabetes mellitus without complication (6 sources) Type 2 diabetes mellitus without complication; Translations: [Type 2 diabetes mellitus without complications] Onset: 02-22-2024 02-22-2024 Chronic Disorders of lipid metabolism (7 sources) Hyperlipidemia, unspecified; Translations: [Mixed hyperlipidemia] Onset: 11-23-2021 02-22-2024 Chronic Essential hypertension (6 sources) Hypertensive disorder; Translations: [Essential (primary) hypertension] Onset: 02-22-2024 02-22-2024 Chronic Menopausal disorders (1 source) Other primary ovarian failure; Translations: [OTHER PRIMARY OVARIAN FAILURE] Onset: 11-23-2021 Chronic Osteoporosis (10 sources) Age-related osteoporosis without current pathological fracture; Translations: [Osteoporosis] Onset: 11-13-2022 Chronic Other upper respiratory disease (6 sources) Vasomotor rhinitis; Translations: [Vasomotor rhinitis] Onset: 02-25-2024 02-25-2024 Chronic Thyroid disorders (6 sources) Endemic goiter; 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, unspecified] Onset: 02-22-2024 02-22-2024 Chronic Past or Other Problems Problem Classification Problem Date Documented Da te Episodic/Chronic Deficiency and other anemia (1 source) Anemia, unspecified; Translations: [ANEMIA UNSPECIFIED] Onset: 11-23-2021 Episodic Diabetes mellitus without complication (1 source) Other abnormal glucose; Translations: [OTHER ABNORMAL GLUCOSE] Onset: 11-23-2021 Episodic Malaise and fatigue (6 sources) Fatigue; Translations: [Other fatigue] Onset: 02-22-2024 02-22-2024 Episodic Other non-traumatic joint disorders (6 sources) Joint pain; Translations: [Pain in unspecified joint] Onset: 02-22-2024 02-22-2024 Episodic Skull and face fractures (6 sources) Open fracture of nasal bones; Translations: [Fracture of nasal bones, initial encounter for open fracture] Onset: 02-25-2024 02-25-2024 Episodic Results Test Name Value Interpretation Reference Range Facility Left eye Ophthalmologic asia tmenton 09-19-2024 [facility] Study observation (narrative) [facility] Intravitreal Injection, Phar macologic Agent - OD - Right Eyeon 09-15-2024 [facility] Study observation (narrative) [facility] Optical coherence tomography study reporton 09-03-2024 [facility] Optical coherence tomography study reporton 09-02-2024 Radiology Study observation (narrative) [facility] Office Visiton 07-08-2024 Follow-up visit [id number] Anay Mendoza 1935 F Date Provider Department Center 07/08/2024 ARNULFO CARRILLO [facility] Family History Problem Relation Age of Onset No Known Problems Mother No Known Problems Father Family Status - Relation Status Age at Mother Father Level of Service:79211 ID OFFICE/OUTPATIENT NEW MODERATE MDM 45 MINUTES Normal [facility] CALCIUMon 11-13-2022 Calcium [Mass/Vol] 8.9 mg/dL Normal 8.5-10.1 [facility] Comment on above: Performed By: #### C A, CREA #### [facility] [address] [address] [address] Sheila Chang CREATININEon 11-13-2022 Creatinine [Mass/Vol] 1.24 mg/dL Critically high 0.55-1.02 [facility] Comment on above: Performed By: #### C A, CREA #### [facility] [address] [address] [address] Sheila Chang EGFR-AF SINGAPOREAN 50 mL/min/1.73m2 Critically low >=60 [facility] Comment on above: Performed By: #### C A, CREA #### [facility] [address] [address] [address] Sheila Chang EGFR-NON AF SINGAPOREAN 41 mL/min/1.73m2 Critically low >=60 [facility] Comment on above: Performed By: #### C A, CREA #### [facility] [address] [place] [address] Dr. Sheila Chang CALCIUMon 10-11-2022 Calcium [Mass/Vol] 9.7 mg/dL Normal 8.5-10.1 [facility] Comment on above: Performed By: #### C A, CREA #### [facility] [address] [place] [address] Dr. Sheila Chang CREATININEon 10-11-2022 Creatinine [Mass/Vol] 1.16 mg/dL Critically high 0.55-1.02 [facility] Comment on above: Performed By: #### C A, CREA #### [facility] [address] [place] [address] Dr. Sheila Chang EGFR-AF SINGAPOREAN 54 mL/min/1.73m2 Critically low >=60 [facility] Comment on above: Performed By: #### C A, CREA #### [facility] [address] [place] [address] Dr. Sheila Chang EGFR-NON AF SINGAPOREAN 44 mL/min/1.73m2 Critically low >=60 [facility] Comment on above: Performed By: #### C A, CREA #### [facility] [address] [place] [address] Dr. Sheila Chang XR DEXA BONE DENSITYon [...] BOOGIE HAYS Date: 2022-04-27 17:32 Normal [facility] CBC AUTO DIFFon 11-21-2021 BASO # 0.0 103/ul Normal 0.0-0.1 [facility] Comment on above: Performed By: #### C A, CREA #### [facility] [address] [place] [address] Dr. Sheila Chang Basophils/100 WBC (Bld) 0.6 % Normal 0.2-2.0 [facility] Comment on above: Performed By: #### C A, CREA #### [facility] [address] [place] [address] Dr. Sheila Chang EO # 0.2 103/ul Normal 0.0-0.7 [facility] Comment on above: Performed By: #### C A, CREA #### [facility] [address] [place] [address] Dr. Sheila Chang Eosinophils/100 WBC (Bld) 3.3 % Normal 0.9-7.0 [facility] Comment on above: Performed By: #### C A, CREA #### [facility] [address] [place] [address] Dr. Sheila Chang Erythrocyte distribution width (RBC) [Ratio] 13.8 % Normal 11.0-15.0 [facility] Comment on above: Performed By: #### C A, CREA #### [facility] [address] [place] [address] Dr. Sheila Chang Hematocrit (Bld) [Volume fraction] 41.8 % Normal 36.0-48.0 [facility] Comment on above: Performed By: #### C A, CREA #### [facility] [address] [place] [address] Dr. Sheila Chang Hemoglobin (Bld) [Mass/Vol] 13.4 g/dL Normal 12.0-16.0 [facility] Comment on above: Performed By: #### C A, CREA #### [facility] [address] [place] [address] Dr. Sheila Chang IG # 0.01 10e3/ul Normal 0.00-0.03 [facility] Comment on above: Performed By: #### C A, CREA #### [facility] [address] [place] [address] Dr. Sheila Chang IG % 0.2 % Normal 0.0-0.5 [facility] Comment on above: Performed By: #### C A, CREA #### [facility] [address] [place] [address] Dr. Sheila Chang LYMPH # 1.2 103/ul Normal 1.2-3.8 [facility] Comment on above: Performed By: #### C A, CREA #### [facility] [address] [place] [address] Dr. Sheila Chang Lymphocytes/100 WBC (Bld) 23.6 % Normal 20.5-60.0 [facility] Comment on above: Performed By: #### C A, CREA #### [facility] [address] [place] [address] Dr. Sheila Chang MANUAL DIFF REQ NO Normal [facility] Comment on above: Performed By: #### C A, CREA #### [facility] [address] [place] [address] Dr. Sheila Chang MCH (RBC) [Entitic mass] 31.2 pg Normal 26.7-34.0 [facility] Comment on above: Performed By: #### C A, CREA #### [facility] [address] [place] [address] Dr. Sheila Chang MCHC (RBC) [Mass/Vol] 32.1 g/dL Normal 29.9-35.2 [facility] Comment on above: Performed By: #### C A, CREA #### [facility] [address] [place] [address] Dr. Sheila Chang MCV (RBC) [Entitic vol] 97.2 fL Normal 81.0-99.0 [facility] Comment on above: Performed By: #### C A, CREA #### [facility] [address] [place] [address] Dr. Sheila Chang MONO # 0.5 103/ul Normal 0.3-0.8 [facility] Comment on above: Performed By: #### C Henrique, CREA #### [facility] [address] [place] [address] Dr. Sheila Chang Monocytes/100 WBC (Bld) 9.2 % Normal 1.7-12.0 [facility] Comment on above: Performed By: #### C A, CREA #### [facility] [address] [place] [address] Dr. Sheila Chang NEUT # 3.2 103/ul Normal 1.4-6.5 [facility] Comment on above: Performed By: #### C A, CREA #### [facility] [address] [place] [address] Dr. Sheila Chang Neutrophils/100 WBC (Bld) 63.1 % Normal 43.0-75.0 [facility] Comment on above: Performed By: #### C A, CREA #### [facility] [address] [place] [address] Dr. Sheila Chang Platelet mean volume (Bld) [Entitic vol] 9.0 fL Critically low 9.5-13.5 [facility] Comment on above: Performed By: #### C A, CREA #### [facility] [address] [place] [address] Dr. Sheila Chang PLT 273 103/ul Normal 150-450 [facility] Comment on above: Performed By: #### C A, CREA #### [facility] [address] [place] [address] Dr. Sheila Chang RBC 4.30 106/ul Normal 4.20-5.40 [facility] Comment on above: Performed By: #### C A, CREA #### [facility] [address] [place] [address] Dr. Sheila Chang WBC 5.1 103/ul Normal 4.0-11.0 [facility] Comment on above: Performed By: #### C A, CREA #### [facility] [address] [place] [address] Dr. Sheila Chang FREE THYROXINE INDEX T7on FTI 2.95 Normal [facility] Comment on above: Performed By: #### T 7, TSH, LIPID, CMP #### [facility] [address] [address] [address] Sheila Chang T3U 36.0 % Normal 23.5-40.5 [facility] Comment on above: Performed By: #### T 7, TSH, LIPID, CMP #### [facility] [address] [address] [address] Sheila Chang T4 [Mass/Vol] 8.20 ug/dL Normal 4.80-13.90 [facility] Comment on above: Performed By: #### T 7, TSH, LIPID, CMP #### [facility] [address] [place] [address] Dr. Sheila Chang GLYCOHEMOGLOBIN A1Con 2021 ADA RECOMMENDATION SEE BELOW Normal [facility] Comment on above: Result Comment: ADA RECOMMENDED LIMIT 4.0 - 6.0 ADA THERAPEUTIC TARGET < 7.0 ACTION SUGGESTED > 7.0 Performed By: #### A 1C #### [facility] [address] [place] [address] Dr. Sheila Chang Glucose [Mass/Vol] 114 mg/dL Normal [facility] Comment on above: Performed By: #### A 1C #### [facility] [address] [place] [address] Dr. Sheila Chang HbA1c (Bld) [Mass fraction] 5.6 % Normal 4.5-6.2 [facility] Comment on above: Performed By: #### A 1C #### [facility] [address] [place] [address] Dr. Sheila Chang IRONon 11-21-2021 Iron [Mass/Vol] 102.0 ug/dL Normal 50.0-170.0 [facility] Comment on above: Performed By: #### I BRIGETTE #### [facility] [address] [place] [address] Dr. Sheila Chang LIPID PROFILEon 11-21-2021 CHOL-HDL RATIO NORM SEE BELOW Normal [facility] Comment on above: Result Comment: 3.3 - 4.4 LOW RISK 4.4 - 7.1 AVERAGE RISK 7.1 - 11.0 MODERATE RISK >11.0 HIGH RISK Performed By: #### T 7, TSH, LIPID, CMP #### [facility] [address] [address] [address] Sheila Chang Cholesterol [Mass/Vol] 142 mg/dL Normal <=200 [facility] Comment on above: Performed By: #### T 7, TSH, LIPID, CMP #### [facility] [address] [address] [address] Sheila Chang Cholesterol in HDL [Mass/Vol] 47 mg/dL Normal 40-60 [facility] Comment on above: Performed By: #### T 7, TSH, LIPID, CMP #### [facility] [address] [address] [address] Sheila Chang Cholesterol in LDL [Mass/Vol] 83.8 mg/dL Normal [facility] Comment on above: Performed By: #### T 7, TSH, LIPID, CMP #### [facility] [address] [address] [address] Sheila Chang Cholesterol.total/Cho lesterol in HDL [Mass ratio] 3.0 {ratio} Normal [facility] Comment on above: Performed By: #### T 7, TSH, LIPID, CMP #### [facility] [address] [address] [address] Sheila Chang HDL NORMAL > or = 60 mg/dl - LOW CARDIOVASCULAR RISK <40 mg/dl - HIGH CARDIOVASCULAR RISK Normal [facility] Comment on above: Performed By: #### T 7, TSH, LIPID, CMP #### [facility] [address] [address] [address] Sheila Chang LDL CALC NORMAL SEE BELOW Normal [facility] Comment on above: Result Comment: <100 mg/dl OPTIMAL 100 - 129 mg/dl NEAR OR ABOVE OPTIMAL 130 - 159 mg/dl BORDERLINE HIGH 160 - 189 mg/dl HIGH >190 mg/dl VERY HIGH Performed By: #### T 7, TSH, LIPID, CMP #### [facility] [address] [address] [address] Sheila Chang Triglyceride [Mass/Vol] 56 mg/dL Normal <=150 [facility] Comment on above: Performed By: #### T 7, TSH, LIPID, CMP #### [facility] [address] [address] [address] Sheila Chang VLDL CALC 11.2 mg/dL Normal [facility] Comment on above: Performed By: #### T 7, TSH, LIPID, CMP #### [facility] [address] [address] [address] Sheila Chang PROF 14(COMP METB)on 022 Albumin [Mass/Vol] 3.5 g/dL Normal 3.4-5.0 [facility] Comment on above: Performed By: #### T 7, TSH, LIPID, CMP #### [facility] [address] [address] [address] Sheila Chang Albumin/Globulin [Mass ratio] 0.9 {ratio} Normal [facility] Comment on above: Performed By: #### T 7, TSH, LIPID, CMP #### [facility] [address] [place] [address] Dr. Sheila Chang ALP [Catalytic activity/Vol] 60 U/L Normal 46-116 [facility] Comment on above: Performed By: #### T 7, TSH, LIPID, CMP #### [facility] [address] [place] [address] Dr. Sheila Chang ALT [Catalytic activity/Vol] 14 U/L Normal 14-59 [facility] Comment on above: Performed By: #### T 7, TSH, LIPID, CMP #### [facility] [address] [address] [address] Sheila Chang Anion gap [Moles/Vol] 14.4 mmol/L Normal [facility] Comment on above: Performed By: #### T 7, TSH, LIPID, CMP #### [facility] [address] [address] [address] Sheila Chang AST [Catalytic activity/Vol] 14 U/L Critically low 15-37 [facility] Comment on above: Performed By: #### T 7, TSH, LIPID, CMP #### [facility] [address] [address] [address] Sheila Chang Bilirubin [Mass/Vol] 0.5 mg/dL Normal 0.2-1.0 [facility] Comment on above: Performed By: #### T 7, TSH, LIPID, CMP #### [facility] [address] [address] [address] Sheila Chang Calcium [Mass/Vol] 8.5 mg/dL Normal 8.5-10.1 [facility] Comment on above: Performed By: #### T 7, TSH, LIPID, CMP #### [facility] [address] [address] [address] Sheila Chang Chloride [Moles/Vol] 106 mmol/L Normal 98-107 [facility] Comment on above: Performed By: #### T 7, TSH, LIPID, CMP #### [facility] [address] [place] [address] Dr. Sheila Chang CO2 [Moles/Vol] 25.2 mmol/L Normal 21.0-32.0 [facility] Comment on above: Performed By: #### T 7, TSH, LIPID, CMP #### [facility] [address] [place] [address] Dr. Sheila Chang Creatinine [Mass/Vol] 1.15 mg/dL Critically high 0.55-1.02 [facility] Comment on above: Performed By: #### T 7, TSH, LIPID, CMP #### [facility] [address] [place] [address] Dr. Sheila Chang EGFR-AF SINGAPOREAN 54 mL/min/1.73m2 Critically low >=60 [facility] Comment on above: Performed By: #### T 7, TSH, LIPID, CMP #### [facility] [address] [place] [address] Dr. Sheila Chang EGFR-NON AF SINGAPOREAN 45 mL/min/1.73m2 Critically low >=60 [facility] Comment on above: Performed By: #### T 7, TSH, LIPID, CMP #### [facility] [address] [place] [address] Dr. Sheila Chang Globulin (S) [Mass/Vol] 3.8 g/dL Normal [facility] Comment on above: Performed By: #### T 7, TSH, LIPID, CMP #### [facility] [address] [address] [address] Sheila Chang Glucose [Mass/Vol] 96 mg/dL Normal 74-106 [facility] Comment on above: Performed By: #### T 7, TSH, LIPID, CMP #### [facility] [address] [place] [address] Dr. Sheila Chang Potassium [Moles/Vol] 5.6 mmol/L Critically high 3.5-5.1 [facility] Comment on above: Performed By: #### T 7, TSH, LIPID, CMP #### [facility] [address] [place] [address] Dr. Sheila Chang Protein [Mass/Vol] 7.3 g/dL Normal 6.1-8.2 [facility] Comment on above: Performed By: #### T 7, TSH, LIPID, CMP #### [facility] [address] [place] [address] Dr. Sheila Chang Sodium [Moles/Vol] 140 mmol/L Normal 136-145 [facility] Comment on above: Performed By: #### T 7, TSH, LIPID, CMP #### [facility] [address] [place] [address] Dr. Sheila Chang Urea nitrogen [Mass/Vol] 25.0 mg/dL Critically high 7.0-18.0 [facility] Comment on above: Performed By: #### T 7, TSH, LIPID, CMP #### [facility] [address] [place] [address] Dr. Sheila Chang Urea nitrogen/Creatinine [Mass ratio] 21.7 mg/mg [facility] Comment on above: Performed By: #### T 7, TSH, LIPID, CMP #### [facility] [address] [place] [address] Dr. Sheila Chang TSHon 11-21-2021 TSH 0.162 uIU/mL Critically low 0.470-4.680 [facility] Comment on above: Performed By: #### T 7, TSH, LIPID, CMP #### [facility] [address] [address] [address] Sheila Chang TSH RANGE SEE BELOW Normal [facility] Comment on above: Result Comment: <0.3 4 UIU/ml HYPERTHYROID 0.34-5.60 UIU/ml EUTHYROID >5.60 UIU/ml HYPOTHYROID Performed By: #### T 7, TSH, LIPID, CMP #### [facility] [id number] Sheila Chang Encounters Encounter Date Encounter Type Care Provider Facility Start: 09-19-2024 End: 09-19-2024 Bamboo flowsheet Nelly Almodovar DO Work Phone: [facility] Start: 09-19-2024 End: 09-19-2024 Bamboo flowsheet Nelly Almodovar DO Work Phone: [facility] Start: 09-19-2024 End: 09-19-2024 Follow-up encounter Nelly Almodovar DO Work Phone: [facility] Comment on above: Follow-up Start: 09-19-2024 End: 09-19-2024 ambulatory NELLY ALMODOVAR Not Available Start: 09-15-2024 End: 09-15-2024 Bamboo flowsheet Nelly Almodovar DO Work Phone: [facility] Start: 09-15-2024 End: 09-15-2024 Bamboo flowsheet Nelly Almodovar DO Work Phone: [facility] Start: 09-15-2024 End: 09-15-2024 Patient encounter procedure Nelly Almodovar DO Work Phone: [facility] Comment on above: Moderate nonprolifer 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 Facility:[facility] Start: 10-11-2022 End: 10-12-[address] ZENAIDA WHITNEY . Facility: Start: 04-27-2022 End: 04-28-[address] ZENAIDA WHITNEY . Facility:[facility] Start: 11-21-2021 End: 11-22-[address] ZENAIDA WHITNEY . Facility: Procedures Date Procedure Procedure Detail Performing Clinician Start: 09-19-2024 Intravitreal njx pharmacologic agt spx Nelly Almodovar DO Work Phone: Start: 09-15-2024 Intravitreal njx pharmacologic agt spx Nelly Almodovar DO Work Phone: Start: 09-02-2024 Computerized ophthal marcus imaging retina Nelly Almodovar DO Work Phone: Start: 09-02-2024 End: 09-02-2024 Oph medical xm&eval compre new pt 1/> vst Age-related nuclear cataract of both eyes Nelly Almodovar DO Work Phone: Comment on above: Age-related nuclear cataract of both eyes (Primary Dx); Moderate nonproliferative diabetic retinopathy of both eyes with macular edema associated with type 2 diabetes mellitus ([facility] Plan of Treatment Date Care Activity Detail Author Start: 09-19-2024 End: 09-19-2024 Clinical Support 09/19/2024 11:15 AM EST Clinical Support [facility] [address] [place] [phone] Nelly Almodovar DO [address] [place] [address] Arrived [facility] Comment on above: Arrived Start: 09-15-2024 End: 09-15-2024 Patient encounter procedure 09/15/2024 1:30 PM EST Office Visit [facility] [address] [place] [phone] Nelly Almodovar DO [address] [place] [address] Arrived [facility] Comment on above: Arrived Start: 09-09-2024 End: 09-09-2024 Patient encounter procedure 09/09/2024 1:00 PM EST Office Visit [facility] [address] [place] [phone] Nelly Almodovar DO [address] [place] [id number] [facility] Start: 09-02-2024 End: 09-02-2024 Patient encounter procedure 09/02/2024 2:45 PM EST Office Visit [facility] [address] [place] [phone] Nelly Almodovar DO [address] [place] [address] Arrived [facility] Comment on above: Arrived Start: 03-23-2024 Influenza vaccination Influenza Vacc ine (#1) [facility] Start: 04-26-2018 Pneumococcal Vaccine : 65+ Years (2 of 2 - PPSV23 or PCV20) Pneumococcal Vaccine: 65+ Years (2 of 2 - PPSV23 or PCV20) [facility] Immunizations Immunization Date Immunization Notes Care Provider [facility] 05-15-2022 influenza virus vacc ine, unspecified formulation Nelly Almodovar DO Work Phone: [facility] Payers Date Payer Category Payer Private Health Insurance [employer] [id number] 2002 Medicare MEDICARE [id number] 1959 Medicare [id number] 1959 Unknown [id number] 1935 Unknown [id number] 1935 Unknown [id number] .[id number] .[id number] 1935 Unknown [id number] .593 1935 Unknown [id number] .593 1935 Unknown [id number] .[id number] 1935 Unknown [id number] .[id number] 1935 Unknown [id number] .[id number] 1935 Unknown [id number] .[id number] Social History Date Type Detail Facility Start: 02-22-2024 Tobacco smoking stat [facility] Never smoked tobacco [facility] Start: 02-22-2024 Tobacco use and exposure Smoke less tobacco non-user [facility] Start: 02-25-2024 End: 09-19-2024 Alcoholic beverage intake Current drinker of alcohol (finding) [facility] Start: 02-25-2024 End: 09-15-2024 History of Social function [facility] Start: 02-25-2024 End: 09-15-2024 Tobacco use panel [facility] Start: 02-25-2024 Alcohol Comment glass of wine a day [facility] Start: 1935 Sex assigned at Not on file N [facility] Left eye Ophthalmologic treatment 09-19-2024 Note Date & Type Note Facility 09-19-2024 Note Time Out 09/19/2024. 11:24 AM. Confirmed correct patient, procedure, site, and patient consented. Anesthesia Topical anesthesia was used. Anesthetic medications included Lidocaine 2%, Proparacaine 0.5%. Procedure Preparation included 5% betadine to ocular surface, eyelid speculum. Injection: 1.25 mg Bevacizumab 1.25 MG/0.05ML Route: Intravitreal, Site: Left Eye [facility]: [address]-3, Lot: [id number], Expiration date: 06/09/2025 Post-op Post injection exam found visual acuity [...] increased pain, redness, decreased vision or concerns. [facility] History of Present illness Narrative 09-19-2024 Nelly Almodovar DO - 09/19/2024 11:15 AM EST Note Date & Type Note Facility 09-19-2024 History of Presen t illness Narrative Images from the original note were not included. 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 11:24 AM. Confirmed correct patient, procedure, site, and patient consented. Anesthesia Topical anesthesia was used. Anesthetic medications included Lidocaine 2%, Proparacaine 0.5%. Procedure Preparation included 5% betadine to ocular surface, eyelid speculum. Injection: 1.25 mg Bevacizumab 1.25 MG/0.05ML Route: Intravitreal, Site: Left Eye [facility]: [address]-1, Lot: [id number], Expiration date: 06/09/2025 Post-op Post injection exam found visual acuity [...] vision or concerns. documented in this encounter [facility] Clinical Note 09-15-2024 Note Date & Type Note Facility 09-15-2024 Note Time Out 09/15/2024. 1:40 PM. Confirmed correct patient, procedure, site, and patient consented. Anesthesia Topical anesthesia was used. Anesthetic medications included Lidocaine 2%, Proparacaine 0.5%. Procedure Preparation included 5% betadine to ocular surface, eyelid speculum. A 30 gauge needle was used. Injection: 1.25 mg Bevacizumab 1.25 MG/0.05ML Route: Intravitreal, Site: Right Eye [facility]: [address]-8, Lot: [id number], Expiration date: 10/02/2024 Post-op Post injection exam [...] increased pain, redness, decreased vision or concerns. [facility] History of Present illness Narrative 09-15-2024 Nelly Almodovar DO - 09/15/2024 1:30 PM EST Note Date & Type Note Facility 09-15-2024 History of Presen t illness Narrative Images from the original note were not included. Assessment/Plan Diagnoses and all orders for this visit: 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 ([facility]) - Intravitreal Injection, Pharmacologic Agent - OD [...] 1.25 MG/0.05ML Route: Intravitreal, Site: Right Eye [facility]: [address]-6, Lot: [id number], Expiration date: 10/02/2024 Post-op Post injection exam [...] vision or concerns. documented in this encounter [facility] Optical coherence tomography study report 09-03-2024 Note Date & Type Note Facility 09-03-2024 Note Right Eye Quality was borderline. Scan locations included subfoveal. Progression has worsened. Findings include abnormal foveal contour, intraretinal fluid, subretinal scarring. Left Eye Quality was borderline. Scan locations included subfoveal. Progression has worsened. Findings include abnormal foveal contour, intraretinal fluid, subretinal scarring. [facility] History of Present illness Narrative 09-02-2024 Nelly Almodovar DO - 09/02/2024 2:45 PM EST Note [...] presents for cataract evaluation referred by Dr. Arnett. Pt has type 2 diabetes without complications. [...] sugar 92 ( 08/31/2024 ) Sees Dr. Whitney for diabetic care. No Flomax No latex allergies No Pacemakers or Defib Last edited by Nelly Almodovar DO on 09/02/2024 3:59 PM. No current [...] @ 3:11 PM Additional Tests Keratometry K1 [place] K2 [place] Right 45.00 90 46.75 180 Left 44.75 [...] Normal Normal Refraction Wearing Rx Sphere Cylinder [place] Add Right +3.25 -1.75 088 +2.00 Left +2.25 -2.00 087 +2.00 Age: 5yrs Type: progresive Manifest Refraction Sphere Cylinder [place] Right +4.25 -2.50 087 Left +4.75 -4.00 071 Final Rx Sphere Cylinder [place] Dist [place] Right +3.75 -1.75 088 20/200 [...] different lens options were explained including the [id number] fees for any upgrades. Intraocular lens (IOL) [...] of care will be shared with Dr. Arnett. Cataract Surgery for OU will take place in the near future. At this time, we will work on resolving her macular edema through antiVEGF treatment. Moderate nonproliferative diabetic retinopathy of both eyes with macular edema associated with type 2 diabetes mellitus (CMS/HCC) - Diabetes Mellitus with signs of diabetic [...] for Avastin OU documented in this encounter [facility] Progress note 07-08-2024 Note Date & Type Note Facility 07-08-2024 Note [place] Electrophysiology Consult Note [facility] Cardiology [facility] Reason for visit: bradycardia HPI: Anay Mendoza is a 88 y.o. year old with past medical history of bradycardia, BPPV, hypothyroid, diabetes, here for new patient visit to establish care. Referral from Dr. Whitney for bradycardia. Patient was recently discharged from [facility] with lightheaded spells and was found to [...] has an eye appointment the day after [place]. She associates much of her dizziness with [...] on file Intimate Partner Violence: Unknown (09/13/2023) [place] Safety & Environment Fear of Current or [...] for ongoing monitoring of symptoms. Patient agreeable. Arnulfo Quiles MD Cardiac Electrophysiology [facility] Evaluation note Note Date & Type Note Facility Evaluation note Diagnosis Age-related nuclear cataract of both eyes- Primary Moderate nonproliferative diabetic retinopathy of both eyes with macular edema associated with type 2 diabetes mellitus (CMS/HCC) documented in this encounter [facility] Evaluation note Note Date & Type Note Facility Evaluation note Diagnosis 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 (CMS/HCC)- Primary documented in this encounter [facility] Evaluation note Note Date & Type Note Facility Evaluation note Diagnosis 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 (CMS/HCC)- Primary documented in this encounter [facility] Summary Purpose Family History No Family History Records FoundNo Family History Records FoundNo Family History Records Found Advance Directives No Advanced Directives Records FoundNo Advanced Directives Records FoundNo Advanced Directives Records Found Additional Source Comments INFORMATION SOURCE (unrecogn ized section and content) DATE CREATED AUTHOR 11/13/2022 [facility] DATE CREATED AUTHOR AUTHOR'S ORGANIZ ATION 07/11/2024 [facility] DATE CREATED AUTHOR AUTHOR'S ORGANIZ ATION 09/21/2024 [facility] EPIC Care Teams (unrecognized sec tion and content) Senior Linux Systems Administrator Relationship Specialty Start Date End Date Zenaida Whitney MD [address] [place] [address] PCP - General Family Medicine 02/20/24 Senior [employer] Systems Administrator Relationship Specialty Start Date End Date Zenaida Whitney MD [address] [place] [address] PCP - General Family Medicine 02/20/24 Senior [employer] Systems Administrator Relationship Specialty Start Date End Date Zenaida Whitney MD [address] [facility] [place] [address] PCP - General Family Medicine 02/20/24 Senior Linux Systems Administrator Relationship Specialty Start Date End Date Zenaida Whitney MD [address] [facility] [place] [address] PCP - General Family Medicine 02/20/24 Senior [employer] Systems Administrator Relationship Specialty Start Date End Date Zenaida Whitney MD [address] [facility] [place] [address] PCP - General Family Medicine 02/20/24 Senior [employer] Systems Administrator Relationship Specialty Start Date End Date Zenaida Whitney MD [address] [facility] [place] [address] PCP - General Family Medicine 02/20/24 Reason [...] BE BASED ON THE PRIMARY CLINICAL RECORDS. [facility] [employer] [facility]. provides no warranty or guarantee of the accuracy or completeness of information in this document.
[2024-10-16 09:51] LABS: Basophils Percent Auto 0.8 % (0.2-2.0); Eosinophils Absolute Auto 0.2 10^3/uL (0.0-0.7); Hematocrit 41.9 % (36.0-48.0); Hemoglobin 14.3 g/dL (12.0-16.0); Immature Granulocytes Abs Auto 0.02 10^3/uL (0.00-0.03); Immature Granulocytes Pct Auto 0.4 % (0.0-0.5); Lymphocytes Absolute Auto 1.5 10^3/uL (1.2-3.8); Lymphocytes Percent Auto 28.2 % (20.5-60.0); Mean Corpuscular HGB Conc 34.1 g/dL (29.9-35.2); Mean Corpuscular Hemoglobin 32.1 pg (26.7-34.0); Mean Corpuscular Volume 94.2 fL (81.0-99.0); Mean Platelet Volume 9.6 fL (9.5-13.5); Monocytes Absolute Auto 0.5 10^3/uL (0.3-0.8); Monocytes Percent Auto 9.5 % (1.7-12.0); Neutrophils Percent Auto 57.1 % (43.0-75.0); Platelet Count 269 10^3/uL (150-450); Red Blood Count 4.45 10^6/uL (4.20-5.40); Red Cell Distribution Width 13.3 % (11.0-15.0); White Blood Count 5.3 10^3/uL (4.0-11.0)
[2024-10-16 11:19] LABS: Alanine Aminotransferase 11 U/L (14-59); Albumin Level 3.7 g/dL (3.4-5.0); Alkaline Phosphatase 92 U/L (46-116); Anion Gap 18.5; Aspartate Amino Transferase 18 U/L (15-37); BUN Creatinine Ratio 20.3; Bilirubin Total 0.4 mg/dL (0.2-1.0); Calcium 9.3 mg/dL (8.5-10.1); Carbon Dioxide 23.3 mmol/L (21.0-32.0); Chloride 106 mmol/L (98-107); Chol HDL Ratio 3.1; Cholesterol 145 mg/dL (<=200); Estimated GFR (African America 44 (>=60 mL/min/1.73m^2); Estimated GFR (Non-African Ame 36 (>=60 mL/min/1.73m^2); Free T3 1.37 pg/mL (2.18-3.98); Globulin 3.8 g/dL; Glucose 89 mg/dL (74-106); HDL Cholesterol 47 mg/dL (40-60); LDL Cholesterol Calculated 84.8 mg/dL; Potassium 4.8 mmol/L (3.5-5.1); Sodium 143 mmol/L (136-145); Thyroid Stimulating Hormone 0.227 uIU/mL (0.358-3.740); Total Protein 7.5 g/dL (6.4-8.2); Triglycerides 66 mg/dL (<=150); VLDL CHOLESTEROL 13.2 mg/dL
[2024-10-16 11:50] LABS: Estimated Average Glucose 111 mg/dL; Glycohemoglobin A1C 5.5 % (4.5-6.2)
== END 2024-10-16 09:13 | disposition home or self-care (01) ==
LOC: LAB 09:12
PROVIDERS: PCP Family Medicine; Visit Provider Family Medicine
DX: E78.2 Mixed hyperlipidemia (principal); E11.9 Type 2 diabetes mellitus without complications; I10 Essential (primary) hypertension; R53.83 Other fatigue; E83.42 Hypomagnesemia; E03.9 Hypothyroidism, unspecified; M81.0 Age-related osteoporosis without current pathological fracture
CPT/HCPCS: 36415; 77080; 80053; 80061; 82306; 83036; 83540; 84436; 84443; 84481; 85025

== ENCOUNTER 2024-12-29 07:32 | Outpatient (OUT) | payer MEDICARE, SELFPAY ==
--- OUTSIDE RECORDS SUMMARY | 2024-12-29 07:46 | XMS_ITS | CCD ---
Author Organization [facility] CliniSyvt Care Team Providers Care Insecticide Supervisor Name Role Phone DEVONTE ., DR ESTEVEZ Attending Unavailable HOY ., DR ESTEVEZ Admitting Unavailable HOY ., DR ESTEVEZ Primary Care Unavailable HOY ., DR ESTEVEZ Consulting Unavailable HOY ., DR ESTEVEZ Attending Unavailable HOY ., DR ESTEVEZ Admitting Unavailable HOY ., DR ESTEVEZ Primary Care Unavailable HOY ., DR ESTEVEZ Consulting Unavailable [place], DR BOOGIE Crow Consulting Unavailable HOY ., DR ESTEVEZ Consulting Unavailable HOY ., DR ESTEVEZ Attending Unavailable HOY ., DR ESTEVEZ Admitting Unavailable HOY ., DR ESTEVEZ Primary Care Unavailable HOY ., DR ESTEVEZ Attending Unavailable HOY ., DR ESTEVEZ Admitting Unavailable HOY ., DR ESTEVEZ Primary Care Unavailable HOY ., DR ESTEVEZ Consulting Unavailable Zenaida Ga MD Primary Care Provider [id number] Zenaida Ga MD Primary Care Provider [id number] Zenaida Ga MD Primary Care Provider [phone] NELLY FLORES Attending Unavailable BRENDA MALIK Referring Unavailable NELLY FLORES Attending Unavailable NELLY FLORES Attending Unavailable NELLY FLORES Attending Unavailable NELLY FLORES Attending Unavailable NELLY FLORES Attending Unavailable ADAMA ZHENG Attending Unavailable ZENAIDA GA Referring Unavailable NELLY FLORES Attending Unavailable NELLY FLORES Attending Unavailable NELLY FLORES Attending Unavailable ARNULFO CUNNINGHAM Referring Unavailable ARNULFO CUNNINGHAM Attending Unavailable PATRICK JOLLEY Attending Unavailable ARNULFO CUNNINGHAM Referring Unavailable ARNULFO CUNNINGHAM Referring Unavailable Medications Current Medications Medication Drug Class(es) Dates Sig (Normalized) Sig (Original) gemfibrozil 600 mg oral tablet (18 sources) Peroxisome Proliferator Receptor alpha Agonist take 1 tablet by mouth in the morning gemfibrozil (Lopid) 600 MG tablet Take 600 mg by mouth in the morning and 600 mg in the evening. Take before meals. Active ipratropium bromide 0.042 mg/actuat metered dose nasal spray (18 sources) Anticholinergic Start: 02-25-2024 End: 02-24-2025 take [...] mononitrate 30 mg extended release oral tablet (17 sources) Nitrate Vasodilator take 1 tablet by mouth once daily in the morning isosorbide mononitrate ER (Imdur) 30 MG 24 hr tablet TAKE 1 TABLET BY MOUTH EVERY DAY IN THE MORNING FOR 30 DAYS Active levothyroxine sodium 0.075 mg oral tablet (18 sources) l-Thyroxine take 1 tablet by mouth before mealtime levothyroxine (Synthroid, Levoxyl) 75 MCG tablet Take 75 mcg by mouth in the morning. Take before meals. Active liothyronine sodium 0.005 mg oral tablet (9 sources) l-Triiodothyronine Start: 10-17-2024 Cytomel 5 MCG tablet 1 (one) time each day at the same time 10/17/2024 Active lisinopril 10 mg oral tablet (18 sources) Angiotensin Converting Enzyme Inhibitor take 1 tablet by mouth once daily lisinopril 10 MG tablet Take 10 mg by mouth Daily Active meclizine hydrochloride 25 mg oral tablet (17 sources) Antiemetic Start: 07-19-2024 take 1 tablet by mouth every four hours as needed meclizine (Antivert) 25 MG tablet TAKE 1 TABLET BY MOUTH EVERY 4 HOURS NEEDED FOR VERTIGO 07/19/2024 Active metFORMIN hydrochloride 500 mg oral tablet (18 sources) Biguanide take 1 tablet by mouth in the morning metFORMIN (Glucophage) 500 MG tablet Take 500 mg by mouth in the morning and 500 mg in the evening. Take with meals. Active ondansetron 4 mg disintegrating oral tablet (9 sources) Serotonin-3 Receptor Antagonist Start: 07-24-2024 take 1 tablet by mouth four times daily as needed ondansetron ODT (Zofran-ODT) 4 MG disintegrating tablet 1 tablet on the tongue and allow to dissolve Orally QID PRN 07/24/2024 Active Prednisolon-Moxiflo x-Bromfenac 1-0.5-0.075 % solution (9 sources) Start: 10-27-2024 Prednisolon-Moxiflo x-Bromfenac 1-0.5-0.075 % solution Indications: Age-related nuclear cataract of both eyes Administer 1 drop into affected eye(s) in the morning and 1 drop at noon and 1 drop in the evening and 1 drop before bedtime. 10 mL 1 10/27/2024 Active Completed/Discontinued Medications Medication Drug Class(es) Dates Sig (Normalized) Sig (Original) Bevacizumab solution prefilled syringe 1.25 mg (8 sources) Start: 10-27-2024 End: 10-27-2024 Bevacizumab solution prefilled syringe 1.25 mg Start: 10-27-2024 End: 10-27-2024 1.25 mg, Intravitreal, Once PRN Procedure, Starting on Sun10/27/24 at 1603, For 1 dose Start: 10-20-2024 End: 10-20-2024 Bevacizumab solution prefill ed syringe 1.25 mg Start: 10-20-2024 End: 10-20-2024 1.25 mg, Intravitreal, Once PRN Procedure, Starting on Sun10/20/24 at 1553, For 1 dose Start: 09-19-2024 End: 09-19-2024 Bevacizumab solution prefill ed syringe 1.25 mg Start: 09-19-2024 End: 09-19-2024 1.25 mg, Intravitreal, Once PRN Procedure, Starting on Sun09/19/24 at 1125, For 1 dose Start: 09-15-2024 End: 09-15-2024 Bevacizumab solution prefill ed syringe 1.25 mg Start: 09-15-2024 End: 09-15-2024 1.25 mg, Intravitreal, Once PRN Procedure, Starting on Sun09/15/24 at 1340, For 1 dose Problems Active Problems Problem Classification Problem Date Documented Date Episodic/Chronic Cardiac dysrhythmias (2 sources) Palpitations; Translations: [Palpitations] Onset: 12-26-2024 Episodic Cataract (20 sources) Bilateral age-related nuclear cataracts; Translations: [Age-related nuclear cataract, bilateral] Onset: 09-02-2024 Resolved: 11-25-2024 09-02-2024 Chronic Diabetes mellitus with complications (20 sources) 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; Translations: [Type 2 diabetes mellitus with moderate nonproliferative diabetic retinopathy with macular edema, bilateral] Onset: 09-02-2024 Resolved: 12-02-2024 09-02-2024 Chronic Diabetes mellitus without complication (18 sources) Type 2 diabetes mellitus without complication; Translations: [Type 2 diabetes mellitus without complications] Onset: 02-22-2024 Resolved: 12-02-2024 02-22-2024 Chronic Disorders of lipid metabolism (19 sources) Hyperlipidemia, unspecified; Translations: [Mixed hyperlipidemia] Onset: 11-23-2021 02-22-2024 Chronic Essential hypertension (18 sources) Hypertensive disorder; Translations: [Essential (primary) hypertension] Onset: 02-22-2024 02-22-2024 Chronic Menopausal disorders (1 source) Other primary ovarian failure; Translations: [OTHER PRIMARY OVARIAN FAILURE] Onset: 11-23-2021 Chronic Osteoporosis (20 sources) Age-related osteoporosis without current pathological fracture; Translations: [Osteoporosis] Onset: 11-13-2022 Chronic Other upper respiratory disease (18 sources) Vasomotor rhinitis; Translations: [Vasomotor rhinitis] Onset: 02-25-2024 02-25-2024 Chronic Retinal detachments; defects; vascular occlusion; and retinopathy (2 sources) Nonexudative age-related macular degeneration; Translations: [Nonexudative age-related macular degeneration, bilateral, advanced atrophic with subfoveal involvement] Onset: 12-02-2024 12-02-2024 Chronic Thyroid disorders (18 sources) Endemic goiter; 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, unspecified] Onset: 02-22-2024 02-22-2024 Chronic Past or Other Problems Problem Classification Problem Date Documented Da te Episodic/Chronic Deficiency and other anemia (1 source) Anemia, unspecified; Translations: [ANEMIA UNSPECIFIED] Onset: 11-23-2021 Episodic Diabetes mellitus without complication (1 source) Other abnormal glucose; Translations: [OTHER ABNORMAL GLUCOSE] Onset: 11-23-2021 Episodic Malaise and fatigue (18 sources) Fatigue; Translations: [Other fatigue] Onset: 02-22-2024 02-22-2024 Episodic Other non-traumatic joint disorders (18 sources) Joint pain; Translations: [Pain in unspecified joint] Onset: 02-22-2024 02-22-2024 Episodic Skull and face fractures (18 sources) Open fracture of nasal bones; Translations: [Fracture of nasal bones, initial encounter for open fracture] Onset: 02-25-2024 02-25-2024 Episodic Results Test Name Value Interpretation Reference Range Facility Orders Onlyon 12-18-2024 Orders Only [id number] Anay Bingham 1935 F Date Provider Department Center 12/18/2024 ARNULFO CARRILLO [facility] CARD [facility] Family History Problem Relation Age of Onset No Known Problems Mother No Known Problems Father Family Status - Relation Status Age at Mother Father Normal [facility] Optical coherence tomography study reporton 12-02-2024 [facility] Healthcar e [facility] Radiology Study observation (narrative) [facility] Left eye Ophthalmologic asia tmenton 10-27-2024 [facility] Healthcar e Radiology Study observation (narrative) [facility] US Eye+Orbit - bilateralon 0 10-27-2024 Diagnosis: Cataract both eyes (OU) Testing Indication: Performed for preop measurements in the determination of an intraocular lens (IOL) for both eyes (OU) Test Reliability: Good quality both eyes (OU) Interpretation: Good measurements for intraocular lens (IOL) calculation purposes. Calculation made for both eyes (OU). [facility] (narrative[facility] Intravitreal Injection, Phar macologic Agent - OD - Right Eyeon 10-20-2024 [facility] Rad[facility] Study observation (narrative) [facility] Optical coherence tomography study reporton 10-20-2024 [facility]car e [facility] Radiology Study observation (narrative) [facility] Left eye Ophthalmologic asia tmenton 09-19-2024 [facility] Healthcar e Radiology Study observation (narrative) [facility] Intravitreal Injection, Phar macologic Agent - OD - Right Eyeon 09-15-2024 [facility] Radiology Study observation (narrative) [facility] Healthcare Optical coherence tomography study reporton 09-03-2024 [facility] Optical coherence tomography study reporton 09-02-2024 Radiology Study observation (narrative) [facility] Healthcare Office Visiton 07-08-2024 Follow-up visit [id number] Anay Bingham J 1935 F Date Provider Department Center 07/08/2024 ARNULFO CARRILLO [facility] Family History Problem Relation Age of Onset No Known Problems Mother No Known Problems Father Family Status - Relation Status Age at Mother Father Level of Service:53256 MD OFFICE/OUTPATIENT NEW MODERATE MDM 45 MINUTES Normal [facility] CALCIUMon 11-13-2022 Calcium [Mass/Vol] 8.9 mg/dL Normal 8.5-10.1 [facility] Comment on above: Performed By: #### C A, CREA #### [facility] [address] [address] [address] Sheila Chang CREATININEon 11-13-2022 Creatinine [Mass/Vol] 1.24 mg/dL Critically high 0.55-1.02 [facility] Comment on above: Performed By: #### C A, CREA #### [facility] [address] [address] [address] Sheila Chang EGFR-AF FIJIAN 50 mL/min/1.73m2 Critically low >=[address] [facility] Comment on above: Performed By: #### C A, CREA #### [facility] [address] [address] [address] Sheila Chang EGFR-NON AF FIJIAN 41 mL/min/1.73m2 Critically low >=60 [facility] Comment on above: Performed By: #### C A, CREA #### [facility] [address] [place] [address] Dr. Sheila Chang CALCIUMon 10-11-2022 Calcium [Mass/Vol] 9.7 mg/dL Normal 8.5-10.1 [facility] Comment on above: Performed By: #### C A, CREA #### [facility] [address] [place] [address] Dr. Sheila Chang CREATININEon 10-11-2022 Creatinine [Mass/Vol] 1.16 mg/dL Critically high 0.55-1.02 [facility] Comment on above: Performed By: #### C A, CREA #### [facility] [address] [place] [address] Dr. Sheila Chang EGFR-AF FIJIAN 54 mL/min/1.73m2 Critically low >=60 [facility] Comment on above: Performed By: #### C A, CREA #### [facility] [address] [place] [address] Dr. Sheila Chang EGFR-NON AF FIJIAN 44 mL/min/1.73m2 Critically low >=60 [facility] Comment on above: Performed By: #### C A, CREA #### [facility] [address] [place] [address] Dr. Sheila Chang XR DEXA BONE DENSITYon [...] BOOGIE HAYS Date: 2022-04-27 17:[address] [facility] CBC AUTO DIFFon 11-21-2021 BASO # 0.0 103/ul Normal 0.0-0.1 [facility] Comment on above: Performed By: #### C A, CREA #### [facility] [address] [place] [address] Dr. Sheila Chang Basophils/100 WBC (Bld) 0.6 % Normal 0.2-2.[address] [facility] Comment on above: Performed By: #### C A, CREA #### [facility] [address] [place] [address] Dr. Sheila Chang EO # 0.2 103/ul Normal 0.0-0.7 [facility] Comment on above: Performed By: #### C A, CREA #### [facility] [address] [place] [address] Dr. Sheila Chang Eosinophils/100 WBC (Bld) 3.3 % Normal 0.9-7.0 [facility] Comment on above: Performed By: #### C A, CREA #### [facility] [address] [place] [address] Dr. Sheila Chang Erythrocyte distribution width (RBC) [Ratio] 13.8 % Normal 11.0-15.0 [facility] Comment on above: Performed By: #### C Henrique, CREA #### [facility] [address] [place] [address] Dr. Sheila Chang Hematocrit (Bld) [Volume fraction] 41.8 % Normal 36.0-48.0 [facility] Comment on above: Performed By: #### C Henrique, CREA #### [facility] [address] [place] [address] Dr. Sheila Chang Hemoglobin (Bld) [Mass/Vol] 13.4 g/dL Normal 12.0-16.[address] [facility] Comment on above: Performed By: #### C Henrique, CREA #### [facility] [address] [place] [address] Dr. Sheila Chang IG # 0.01 10e3/ul Normal 0.00-0.[address] [facility] Comment on above: Performed By: #### C Henrique, CREA #### [facility] [address] [place] [address] Dr. Sheila Chang IG % 0.2 % Normal 0.0-0.[address] [facility] Comment on above: Performed By: #### C A, CREA #### [facility] [address] [place] [address] Dr. Sheila Chang LYMPH # 1.2 103/ul Normal 1.2-3.[address] [facility] Comment on above: Performed By: #### C A, CREA #### [facility] [address] [place] [address] Dr. Sheila Chang Lymphocytes/100 WBC (Bld) 23.6 % Normal 20.5-60.[address] [facility] Comment on above: Performed By: #### C A, CREA #### [facility] [address] [place] [address] Dr. Sheila Chagn MANUAL DIFF REQ NO Normal [facility] Comment on above: Performed By: #### C A, CREA #### [facility] [address] [place] [address] Dr. Sheila Chang MCH (RBC) [Entitic mass] 31.2 pg Normal 26.7-34.[address] [facility] Comment on above: Performed By: #### C A, CREA #### [facility] [address] [place] [address] Dr. Sheila Chang MCHC (RBC) [Mass/Vol] 32.1 g/dL Normal 29.9-35.[address] [facility] Comment on above: Performed By: #### C A, CREA #### [facility] [address] [place] [address] Dr. Sheila Chang MCV (RBC) [Entitic vol] 97.2 fL Normal 81.0-99.[address] [facility] Comment on above: Performed By: #### C A, CREA #### [facility] [address] [place] [address] Dr. Sheila Chang MONO # 0.5 103/ul Normal 0.3-0.[address] [facility] Comment on above: Performed By: #### C A, CREA #### [facility] [address] [place] [address] Dr. Sheila Cahng Monocytes/100 WBC (Bld) 9.2 % Normal 1.7-12.[address] [facility] Comment on above: Performed By: #### C A, CREA #### [facility] [address] [place] [address] Dr. Sheila Chang NEUT # 3.2 103/ul Normal 1.4-6.[address] [facility] Comment on above: Performed By: #### C A, CREA #### [facility] [address] [place] [address] Dr. Sheila Chang Neutrophils/100 WBC (Bld) 63.1 % Normal 43.0-75.[address] [facility] Comment on above: Performed By: #### C A, CREA #### [facility] [address] [place] [address] Dr. Sheila Chang Platelet mean volume (Bld) [Entitic vol] 9.0 fL Critically low 9.5-13.[address] [facility] Comment on above: Performed By: #### C A, CREA #### [facility] [address] [place] [address] Dr. Sheila Chang PLT 273 103/ul Normal 150-[address] [facility] Comment on above: Performed By: #### C A, CREA #### [facility] [address] [place] [address] Dr. Sheila Chang RBC 4.30 106/ul Normal 4.20-5.[address] [facility] Comment on above: Performed By: #### C A, CREA #### [facility] [address] [place] [address] Dr. Sheila Chang WBC 5.1 103/ul Normal 4.0-11.[address] [facility] Comment on above: Performed By: #### C A, CREA #### [facility] [address] [place] [address] Dr. Sheila Chang FREE THYROXINE INDEX T7on FTI 2.[address] [facility] Comment on above: Performed By: #### T 7, TSH, LIPID, CMP #### [facility] [address] [place] [address] Dr. Sheila Chang T3U 36.0 % Normal 23.5-40.[address] [facility] Comment on above: Performed By: #### T 7, TSH, LIPID, CMP #### [facility] [address] [address] [address] Sheila Chang T4 [Mass/Vol] 8.20 ug/dL Normal 4.80-13.90 [facility] Comment on above: Performed By: #### T 7, TSH, LIPID, CMP #### [facility] [address] [address] [address] Sheila Chang GLYCOHEMOGLOBIN A1Con 2021 ADA RECOMMENDATION SEE BELOW Normal [facility] Comment on above: Result Comment: ADA RECOMMENDED LIMIT 4.0 - 6.0 ADA THERAPEUTIC TARGET < 7.0 ACTION SUGGESTED > 7.0 Performed By: #### A 1C #### [facility] [address] [address] [address] Sheila Chang Glucose [Mass/Vol] 114 mg/dL Normal [facility] Comment on above: Performed By: #### A 1C #### [facility] [address] [place] [address] Dr. Sheila Chang HbA1c (Bld) [Mass fraction] 5.6 % Normal 4.5-6.2 [facility] Comment on above: Performed By: #### A 1C #### [facility] [address] [address] [address] Sheila Chang IRONon 11-21-2021 Iron [Mass/Vol] 102.0 ug/dL Normal 50.0-170.0 [facility] Comment on above: Performed By: #### I BRIGETTE #### [facility] [address] [place] [address] Dr. Sheila Chang LIPID PROFILEon 11-21-2021 CHOL-HDL RATIO NORM SEE BELOW Normal [facility] Comment on above: Result Comment: 3.3 - 4.4 LOW RISK 4.4 - 7.1 AVERAGE RISK 7.1 - 11.0 MODERATE RISK >11.0 HIGH RISK Performed By: #### T 7, TSH, LIPID, CMP #### [facility] [address] [place] [address] Dr. Sheila Chang Cholesterol [Mass/Vol] 142 mg/dL Normal <=200 [facility] Comment on above: Performed By: #### T 7, TSH, LIPID, CMP #### [facility] [address] [address] [address] Sheila Chang Cholesterol in HDL [Mass/Vol] 47 mg/dL Normal 40-60 [facility] Comment on above: Performed By: #### T 7, TSH, LIPID, CMP #### [facility] [address] [address] [address] Sheila Chang Cholesterol in LDL [Mass/Vol] 83.8 mg/dL Normal [facility] Comment on above: Performed By: #### T 7, TSH, LIPID, CMP #### [facility] [address] [address] [address] Sheila Chang Cholesterol.total/Cho lesterol in HDL [Mass ratio] 3.0 {ratio} Normal [facility] Comment on above: Performed By: #### T 7, TSH, LIPID, CMP #### [facility] [address] [address] [address] Sheila Chang HDL NORMAL > or = 60 mg/dl - LOW CARDIOVASCULAR RISK <40 mg/dl - HIGH CARDIOVASCULAR RISK Normal [facility] Comment on above: Performed By: #### T 7, TSH, LIPID, CMP #### [facility] [address] [address] [address] Sheila Chang LDL CALC NORMAL SEE BELOW Normal [facility] Comment on above: Result Comment: <100 mg/dl OPTIMAL 100 - 129 mg/dl NEAR OR ABOVE OPTIMAL 130 - 159 mg/dl BORDERLINE HIGH 160 - 189 mg/dl HIGH >190 mg/dl VERY HIGH Performed By: #### T 7, TSH, LIPID, CMP #### [facility] [address] [address] [address] Sheila Chang Triglyceride [Mass/Vol] 56 mg/dL Normal <=[address] [facility] Comment on above: Performed By: #### T 7, TSH, LIPID, CMP #### [facility] [address] [address] [address] Sheila Chang VLDL CALC 11.2 mg/dL Normal [facility] Comment on above: Performed By: #### T 7, TSH, LIPID, CMP #### [facility] [address] [address] [address] Sheila Chang PROF 14(COMP METB)on 022 Albumin [Mass/Vol] 3.5 g/dL Normal 3.4-5.0 [facility] Comment on above: Performed By: #### T 7, TSH, LIPID, CMP #### [facility] [address] [address] [address] Sheila Chang Albumin/Globulin [Mass ratio] 0.9 {ratio} Normal [facility] Comment on above: Performed By: #### T 7, TSH, LIPID, CMP #### [facility] [address] [address] [address] Sheila Chang ALP [Catalytic activity/Vol] 60 U/L Normal 46-116 [facility] Comment on above: Performed By: #### T 7, TSH, LIPID, CMP #### [facility] [address] [place] [address] Dr. Sheila Chang ALT [Catalytic activity/Vol] 14 U/L Normal 14-59 [facility] Comment on above: Performed By: #### T 7, TSH, LIPID, CMP #### [facility] [address] [address] [address] Sheila Chang Anion gap [Moles/Vol] 14.4 mmol/L Normal [facility] Comment on above: Performed By: #### T 7, TSH, LIPID, CMP #### [facility] [address] [address] [address] Sheila Chang AST [Catalytic activity/Vol] 14 U/L Critically low 15-37 [facility] Comment on above: Performed By: #### T 7, TSH, LIPID, CMP #### [facility] [address] [place] [address] Dr. Sheila Chang Bilirubin [Mass/Vol] 0.5 mg/dL Normal 0.2-1.0 [facility] Comment on above: Performed By: #### T 7, TSH, LIPID, CMP #### [facility] [address] [place] [address] Dr. Sheila Chang Calcium [Mass/Vol] 8.5 mg/dL Normal 8.5-10.1 [facility] Comment on above: Performed By: #### T 7, TSH, LIPID, CMP #### [facility] [address] [address] [address] Sheila Chang Chloride [Moles/Vol] 106 mmol/L Normal 98-[address] [facility] Comment on above: Performed By: #### T 7, TSH, LIPID, CMP #### [facility] [address] [address] [address] Sheila Chang CO2 [Moles/Vol] 25.2 mmol/L Normal 21.0-32.0 [facility] Comment on above: Performed By: #### T 7, TSH, LIPID, CMP #### [facility] [address] [place] [address] Dr. Sheila Chang Creatinine [Mass/Vol] 1.15 mg/dL Critically high 0.55-1.02 [facility] Comment on above: Performed By: #### T 7, TSH, LIPID, CMP #### [facility] [address] [place] [address] Dr. Sheila Chang EGFR-AF FIJIAN 54 mL/min/1.73m2 Critically low >=[address] [facility] Comment on above: Performed By: #### T 7, TSH, LIPID, CMP #### [facility] [address] [place] [address] Dr. Sheila Chang EGFR-NON AF FIJIAN 45 mL/min/1.73m2 Critically low >=[address] [facility] Comment on above: Performed By: #### T 7, TSH, LIPID, CMP #### [facility] [address] [place] [address] Dr. Sheila Chang Globulin (S) [Mass/Vol] 3.8 g/dL Normal [facility] Comment on above: Performed By: #### T 7, TSH, LIPID, CMP #### [facility] Laboratory [address] [place] [address] Dr. Sheila Chang Glucose [Mass/Vol] 96 mg/dL Normal 74-106 [facility] Comment on above: Performed By: #### T 7, TSH, LIPID, CMP #### [facility] [address] [place] [address] Dr. Sheila Chang Potassium [Moles/Vol] 5.6 mmol/L Critically high 3.5-5.1 [facility] Comment on above: Performed By: #### T 7, TSH, LIPID, CMP #### [facility] [address] [place] [address] Dr. Sheila Chang Protein [Mass/Vol] 7.3 g/dL Normal 6.1-8.2 [facility] Comment on above: Performed By: #### T 7, TSH, LIPID, CMP #### [facility] [address] [place] [address] Dr. Sheila Chang Sodium [Moles/Vol] 140 mmol/L Normal 136-145 [facility] Comment on above: Performed By: #### T 7, TSH, LIPID, CMP #### [facility] [address] [place] [address] Dr. Sheila Chang Urea nitrogen [Mass/Vol] 25.0 mg/dL Critically high 7.0-18.0 [facility] Comment on above: Performed By: #### T 7, TSH, LIPID, CMP #### [facility] [address] [place] [address] Dr. Sheila Chang Urea nitrogen/Creatinine [Mass ratio] 21.7 mg/mg Normal [facility] Comment on above: Performed By: #### T 7, TSH, LIPID, CMP #### [facility] [address] [place] [address] Dr. Sheila Chang TSHon 11-21-2021 TSH 0.162 uIU/mL Critically low 0.470-4.680 [facility] Comment on above: Performed By: #### T 7, TSH, LIPID, CMP #### [facility] [address] [place] [address] Dr. Sheila Chang TSH RANGE SEE BELOW Normal [facility] Comment on above: Result Comment: <0.3 4 UIU/ml HYPERTHYROID 0.34-5.60 UIU/ml EUTHYROID >5.60 UIU/ml HYPOTHYROID Performed By: #### T 7, TSH, LIPID, CMP #### [facility] [address] [place] [address] Dr. Sheila Chang Encounters Encounter Date Encounter Type Care Provider Facility Start: 12-26-2024 ambulatory [facility] Start: 12-25-2024 End: 12-25-2024 ambulatory [facility] Start: 12-02-2024 End: 12-02-2024 Bamboo flowsheet Nelly Flores DO Work Phone: [facility] Start: 12-02-2024 End: 12-02-2024 Bamboo flowsheet Nelly Stevenser DO Work Phone: [facility] Start: 12-02-2024 End: 12-02-2024 Postop follow up visit related to original px Nelly Flores DO Work Phone: [facility] Comment on above: Post-op Follow-up; F ollow-up Start: 12-02-2024 End: 12-02-2024 ambulatory NELLY FLORES Not Available Start: 12-01-2024 ambulatory [facility] Start: 11-25-2024 End: 11-25-2024 Bamboo flowsheet Nelly Stevenser DO Work Phone: [facility] Start: 11-25-2024 End: 11-25-2024 Bamboo flowsheet Nelly Arceohler DO Work Phone: [facility] Start: 11-25-2024 End: 11-25-2024 Postop follow up visit related to original px Nelly Stevenser DO Work Phone: [facility] Comment on above: Pseudophakia (Primar y Dx) Start: 11-25-2024 End: 11-25-2024 ambulatory NELLY FLORES Not Available Start: 11-18-2024 End: 11-18-2024 Postop follow up visit related to original px Nelly Longoria Zahler DO Work Phone: [facility] Comment on above: Pseudophakia (Primar y Dx); Age-related nuclear cataract of right eye Start: 11-18-2024 End: 11-18-2024 Bamboo flowsheet Nelly Longoria Zahler DO Work Phone: [facility] Start: 11-18-2024 End: 11-18-2024 Bamboo flowsheet Nelly Swati Zahler DO Work Phone: [facility] Start: 11-18-2024 End: 11-18-2024 ambulatory NELLY FLORES Not Available Start: 11-11-2024 End: 11-11-2024 Bamboo flowsheet Nelly Arceohler DO Work Phone: [facility] Start: 11-11-2024 End: 11-11-2024 Bamboo flowsheet Nelly Swati Zahler DO Work Phone: [facility] Start: 11-11-2024 End: 11-11-2024 Postop follow up visit related to original px Nelly Longoria Zahler DO Work Phone: [facility] Comment on above: Pseudophakia (Primar y Dx) Start: 11-11-2024 End: 11-11-2024 ambulatory NELLY FLORES Not Available Start: 10-27-2024 End: 10-27-2024 Office outpatient visit 25 minutes Nelly Arceohler DO Work Phone: [facility] Comment on above: Age-related nuclear cataract of both eyes (Primary Dx); 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 ([facility]/HCC) Start: 10-27-2024 End: 10-27-2024 ambulatory NELLY FLORES Not Available Start: 10-27-2024 End: 10-27-2024 Bamboo flowsheet Nelly Arceohler DO Work Phone: [facility] Start: 10-27-2024 End: 10-27-2024 Bamboo flowsheet Nelly Flores DO Work Phone: [facility] Start: 10-23-2024 ambulatory [facility] Start: 10-20-2024 End: 10-20-2024 Patient encounter procedure Nelly Floers DO Work Phone: [facility] Comment on above: Moderate nonprolifer ative diabetic retinopathy of right eye with macular edema associated with type 2 diabetes mellitus (CMS/HCC) (Primary Dx); 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 (CMS/HCC) Start: 10-20-2024 End: 10-20-2024 ambulatory NELLY FLORES Not Available Start: 10-20-2024 End: 10-20-2024 Bamboo flowsheet Nelly Flores DO Work Phone: [facility] Start: 10-20-2024 End: 10-20-2024 Bamboo flowsheet Nelly Flores DO Work Phone: [facility] Start: 09-19-2024 End: 09-19-2024 Bamboo flowsheet Nelly Flores DO Work Phone: [facility] Start: 09-19-2024 End: 09-19-2024 Bamboo flowsheet Nelly Flores DO Work Phone: [facility] Start: 09-19-2024 End: 09-19-2024 Follow-up encounter Nelly Flores DO Work Phone: [facility] Comment on above: Follow-up Start: 09-19-2024 End: 09-19-2024 ambulatory NELLY FLORES Not Available Start: 09-15-2024 End: 09-15-2024 Bamboo [...] edema associated with type 2 diabetes mellitus ([facility]) (Primary Dx) Start: 09-15-2024 End: 09-15-2024 ambulatory NELLY FLORES Not Available Start: 09-02-2024 End: 09-02-2024 ambulatory NELLY FLORES Not Available Start: 09-02-2024 End: 09-02-2024 Bamboo flowsheet Nelly Flores DO Work Phone: [facility] Start: 09-02-2024 End: 09-02-2024 Bamboo flowsheet Nelly Flores DO Work Phone: [facility] Start: 07-08-2024 End: 07-08-2024 ambulatory [facility] Start: 02-25-2024 End: 02-25-2024 ambulatory ADAMA ZHENG Not Available Start: 11-13-2022 End: 11-13-[address] ZENAIDA GA . Facility:[facility] Start: 10-11-2022 End: 10-12-[address] ZENAIDA GA . Facility:[facility] Start: 04-27-2022 End: 04-28-[address] ZENAIDA GA . Facility:[facility] Start: 11-21-2021 End: 11-22-[address] ZENAIDA GA . Facility: Procedures Date Procedure Procedure Detail Performing Clinician Start: 12-02-2024 Computerized ophthal marcus imaging retina Nelly Flores DO Work Phone: Start: 10-27-2024 Intravitreal njx pharmacologic agt spx Nelly Flores DO Work Phone: Start: 10-27-2024 Oph bmtry prtl coher intrfrmtry io lens pwr david Nelly Flores DO Work Phone: Start: 10-20-2024 Intravitreal njx pharmacologic agt spx Nelly Flores DO Work Phone: Start: 10-20-2024 Computerized ophthal marcus imaging retina Nelly Flores DO Work Phone: Start: 09-19-2024 Intravitreal njx pharmacologic agt spx Nelly Flores DO Work Phone: Start: 09-15-2024 Intravitreal njx pharmacologic agt spx Nelly Flores DO Work Phone: Start: 09-02-2024 Computerized ophthal marcus imaging retina Nelly Flores DO Work Phone: Start: 09-02-2024 End: 09-02-2024 [facility] xm&eval compre new pt 1/> vst Age-related nuclear cataract of both eyes Nelly Flores DO Work Phone: Comment on above: Age-related nuclear cataract of both eyes (Primary Dx); Moderate nonproliferative diabetic retinopathy of both eyes with macular edema associated with type 2 diabetes mellitus ([facility]) Plan of Treatment Date Care Activity Detail Author Start: 03-23-2025 Influenza vaccination Influenz a Vaccine (Season Ended) [facility] Start: 12-02-2024 End: 12-02-2024 Clinical Support 12/02/2024 11:00 AM EDT Clinical Support [facility] [address] [place] [address] Nelly Flores DO [address] [place] [address] Arrived [facility] Comment on above: Arrived Start: 11-25-2024 End: 11-25-2024 Patient encounter procedure [facility] Comment on above: Arrived Start: 11-18-2024 End: 11-18-2024 Patient encounter procedure 11/18/2024 2:30 PM EDT Office Visit [facility] [address] [place] [phone] Nelly Flores, DO [address] [place] [address] Arrived [facility] Comment on above: Arrived Start: 11-11-2024 End: 11-11-2024 Patient encounter procedure [facility] Comment on above: Arrived Start: 10-27-2024 End: 10-27-2024 Patient encounter procedure 10/27/2024 3:15 PM EDT Office Visit [facility] [address] [place] [phone] Nelly Flores, DO [address] [place] [address] Arrived [facility] Comment on above: Arrived Start: 10-20-2024 End: 10-20-2024 Patient encounter procedure 10/20/2024 3:00 PM EDT Office Visit [facility] [address] [place] [id number] Nelly Flores, DO [address] [place] [address] Arrived [facility] Comment on above: Arrived Start: 09-19-2024 End: 09-19-2024 Clinical Support 09/19/2024 11:15 AM EST Clinical Support [facility] [address] [place] [phone] Nelly Flores, DO [address] [place] [address] Arrived [facility] Comment on above: Arrived Start: 09-15-2024 End: 09-15-2024 Patient encounter procedure 09/15/2024 1:30 PM EST Office Visit [facility] [address] [place] [address] Nelly Flores, DO [address] [place], [place] [id number] Arrived [facility] Comment on above: Arrived Start: 09-09-2024 End: 09-09-2024 Patient encounter procedure 09/09/2024 1:00 PM EST Office Visit [facility] [address] [place] [address] Nelly Flores, DO [address] [place] [address] [facility] Start: 09-02-2024 End: 09-02-2024 Patient encounter procedure 09/02/2024 2:45 PM EST Office Visit [facility] [address] [place] [address] Nelly Flores, DO [address] [place] [address] Arrived [facility] Comment on above: Arrived Start: 03-23-2024 Influenza vaccination Influenza Vacc ine (#1) [facility] Start: 04-26-2018 Pneumococcal Vaccine : 65+ Years (2 of 2 - PPSV23 or PCV20) Pneumococcal Vaccine: 65+ Years (2 of 2 - PPSV23 or PCV20) [facility] Start: 04-26-2018 Pneumococcal Vaccine : 65+ Years (2 of 2 - PPSV23) Pneumococcal Vaccine: 65+ Years (2 of 2 - PPSV23) [facility] Immunizations Immunization Date Immunization Notes Care Provider Fa cility 05-15-2022 influenza virus vacc ine, unspecified formulation Nelly Flores DO Work Phone: [facility] Payers Date Payer Category Payer Private Health Insurance [employer] [id number] 2002 Medicare MEDICARE [id number] 1959 Medicare [id number] 1959 Unknown [id number] 1935 Unknown [id number] [id number] .593 1935 Unknown [id number] 2.16.840.1.418297.3.579.2 .593 1935 Unknown [id number] 2.16.840.1.538085.3.579.2 .593 1935 Unknown [id number] 2.16.840.1.001430.3.579.2 .593 1935 Unknown [id number] 2.16.840.1.609819.3.579.2 .1259 1935 Unknown [id number] 2.16.840.1.984782.3.579.2 .1259 1935 Unknown [id number] 2.16.840.1.143332.3.579.2 .9 1935 Unknown [id number] 2.16.840.1.209383.3.579.2 .9 1935 Unknown [id number] 2.16.840.1.918307.3.579.2 .1258 1935 Unknown [id number] 2.16.840.1.934277.3.579.2 .1258 1935 Unknown [id number] 2.16.840.1.729197.3.579.2 .1258 1935 Unknown [id number] 2.16.840.1.293227.3.579.2 .9 1935 Unknown [id number] 2.16.840.1.704790.3.579.2 .1258 1935 Unknown [id number] 2.16.840.1.737930.3.579.2 .1259 Social History Date Type Detail Facility Start: 02-22-2024 Tobacco smoking stat [facility] Never smoked tobacco [facility] Start: 02-22-2024 Tobacco use and exposure Smoke less tobacco non-user [facility] Start: 02-25-2024 End: 12-02-2024 Alcoholic beverage intake Current drinker of alcohol (finding) [facility] Start: 02-25-2024 End: 11-25-2024 [facility] of Social function [facility] Start: 02-25-2024 End: 11-25-2024 Tobacco use panel [facility] Start: 02-25-2024 Alcohol Comment glass of wine a day [facility] Start: 1935 Sex assigned at Not on file [facility] Clinical Notes 07-08-2024 to 12-02-2024 Nelly Flores, - 12/02/2024 11:00 AM Reinaldo Flores, - 11/25/2024 11:00 AM Reinaldo Flores, - 11/18/2024 2:30 PM EDTNelly Flores DO - 11/11/2024 11:00 AM EDT Note Date & Type Note Facility 12-02-2024 Note Right Eye Quality was borderline. Scan locations included subfoveal. Progression has been stable. Findings include abnormal foveal contour, subretinal scarring. Left Eye Quality was good. Scan locations included subfoveal. Progression has been stable. Findings include abnormal foveal contour, subretinal scarring. [facility] 12-02-2024 History of Present illness Narrative Images from the original note were not included. 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 Importance of smoking cessation, blood pressure control, and healthy diet were emphasized. Patient was advised to consider ultraviolet-B blocking sunglasses. In accordance with the AREDS study, appropriate antioxidant and mineral supplements were prescribed. Patient was instructed to self monitor their monocular vision (reading/Amsler Grid) at least weekly. Patient should immediately report any new onset of decreased vision or metamorphopsia. Status post (s/p) cataract extraction (CE) right eye (OD). Looks good. - s/p CE OD (POD #7): Patient provided with post-op form. Instructed to continue drops. Discontinue eye shield. Instructed to call immediately with increased pain, redness, decreased vision, questions or concerns. documented in this encounter [facility] 11-25-2024 History of Present illness Narrative Images from the original note were not included. Assessment/Plan Diagnoses and all orders for this visit: Pseudophakia - s/p CE OD (POD #1): Patient provided with post-op form. Instructed to continue drops as well as shield. Instructed to call immediately with increased pain, redness, decreased vision, questions or concerns. documented in this encounter [facility] 11-18-2024 History of Present illness Narrative Images from the original note were not included. Assessment/Plan Diagnoses and all orders for this visit: Pseudophakia - s/p CE OS (POD #7): Patient provided with post-op form. Instructed to continue drops. Discontinue eye shield. Instructed to call immediately with increased pain, redness, decreased vision, questions or concerns. Age-related nuclear cataract of right eye - Visually Significant Cataract, OD: I discussed the risks, benefits, alternatives, and [...] different lens options were explained including the [id number] fees for any upgrades. Intraocular lens (IOL) [...] RRR, Abdomen: S/NT/ND, Extremities: no pitting edema. documented in this encounter [facility] 11-11-2024 History of Present illness Narrative Images from the original note were not included. Assessment/Plan Diagnoses and all orders for this visit: Pseudophakia - s/p CE OS (POD #1): Patient provided with post-op form. Instructed to continue drops as well as shield. Instructed to call immediately with increased pain, redness, decreased vision, questions or concerns. documented in this encounter [facility] 10-27-2024 Note Time Out 10/27/2024. 4:03 PM. Confirmed correct patient, procedure, site, and patient consented. Anesthesia Topical anesthesia was used. Anesthetic medications included Lidocaine 2%, Proparacaine 0.5%. Procedure Preparation included 5% betadine to ocular surface, eyelid speculum. Injection: 1.25 mg Bevacizumab 1.25 MG/0.05ML Route: Intravitreal, Site: Left Eye [facility]: [id number], Lot: [id number], Expiration date: 12/23/2024 Post-op Post injection exam found visual acuity [...] increased pain, redness, decreased vision or concerns. [facility] 10-27-2024 History of Present illness Narrative Images from the original note were not included. Subjective Patient ID: Anya Bingham is a 89 y.o. female. Chief Complaint Cataract HPI Cataract In both eyes. Associated symptoms include blurred vision and glare. Severity is severe. Onset was gradual. Frequency is constant. Context: reading, watching TV and computer work. Since onset it is rapidly worsening. Affected activities include driving, watching TV and daily activities. Treatments tried include artificial tears and glasses. Response to treatment was no improvement. 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 No pain, dryness, excess watering, vision has improved left eye (OS)>right eye (OD) since last seen, seeing occasional floaters both eyes (both eyes (OU)), seeing glare and halos, no drops (gtts). -latex -pm/df but pt does have a loop -flomax Last edited by Nelly Flores DO on 10/28/2024 1:15 PM. Current Outpatient Medications (Ophthalmic Agents) Medication Sig Dispense Refill Zgwvkrezcfu-Bnmrenns-Irxxdiyqw 1-0.5-0.075 % solution Administer 1 drop into affected eye(s) in the morning and 1 drop at noon and 1 drop in the evening and 1 drop before bedtime. 10 mL 1 No current facility-administered medications for this visit. (Ophthalmic Agents) Current Outpatient Medications (Other) Medication Sig Dispense Refill Cytomel 5 MCG tablet 1 (one) time each day at the same time ondansetron ODT (Zofran-ODT) 4 MG disintegrating tablet 1 tablet on the tongue and allow to dissolve Orally QID PRN gemfibrozil (Lopid) 600 MG tablet Take 600 [...] tablet Take 10 mg by mouth Daily meclizine (Antivert) 25 MG tablet TAKE 1 TABLET BY MOUTH EVERY 4 HOURS NEEDED FOR VERTIGO metFORMIN (Glucophage) 500 MG tablet Take 500 mg by mouth in the morning and 500 mg in the evening. Take with meals. No current facility-administered medications for this visit. (Other) Past Medical History: Diagnosis Date Diabetes mellitus ([facility]) Dry eyes HTN (hypertension) ([facility]) Hypothyroid ([facility]) No Known Allergies Review of Systems Constitutional: Negative. HENT: Negative. Eyes: Negative. Respiratory: Negative. Cardiovascular: Negative. Gastrointestinal: Negative. Genitourinary: Negative. Musculoskeletal: Negative. Skin: Negative. Neurological: Negative. Psychiatric/Behavioral: Negative. Hematological: Negative. Endocrine: Negative. Allergic/Immunologic: Negative. Objective Base Eye Exam Visual Acuity (Snellen - Linear) Right Left Dist cc 20/200 20/80 -2 Pupils Pupils Right PERRL Left PERRL Visual Leyva Left Right Full Full Extraocular Movement Right Left Full Full Neuro/Psych Oriented x3: Yes Additional Tests Keratometry K1 [place] K2 [place] Right 45.00 092 47.00 002 Left 44.50 076 46.75 166 Glare Testing High Right Left 20/400 Slit Lamp and Fundus Exam External Exam [...] Intraretinal hemorrhage, Exudates, Mild clinically significant macular edema, geographic atrophy Intraretinal hemorrhage, Exudates, Severe clinically significant macular edema, geographic atrophy Vessels Normal Normal Periphery Normal Normal Refraction Wearing Rx Sphere Cylinder [place] Add Right +3.25 -1.75 091 +2.50 Left +2.25 -2.00 087 +2.50 Manifest Refraction (Auto) Sphere Cylinder [place] Right +4.00 -2.25 088 Left +4.25 -3.25 071 Assessment/Plan Diagnoses and all orders for this visit: Age-related nuclear cataract of both eyes - [...] different lens options were explained including the [id number]-hwycea fees for any upgrades. Intraocular lens (IOL) [...] RRR, Abdomen: S/NT/ND, Extremities: no pitting edema. 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 Calculation made for both eyes (OU). Intravitreal Injection, Pharmacologic Agent - OS - Left Eye Time Out 10/27/2024. 4:03 PM. Confirmed correct patient, procedure, site, and patient consented. Anesthesia Topical anesthesia was used. Anesthetic medications included Lidocaine 2%, Proparacaine 0.5%. Procedure Preparation included 5% betadine to ocular surface, eyelid speculum. Injection: 1.25 mg Bevacizumab 1.25 MG/0.05ML Route: Intravitreal, Site: Left Eye [facility]: [address]-8, Lot: [id number], Expiration date: 12/23/2024 Post-op Post injection exam found visual acuity [...] vision or concerns. documented in this encounter [facility] 10-20-2024 Note Time Out 10/20/2024. 3:53 PM. Confirmed correct patient, procedure, site, and patient consented. Anesthesia Topical anesthesia was used. Anesthetic medications included Lidocaine 2%, Proparacaine 0.5%. Procedure Preparation included 5% betadine to ocular surface, eyelid speculum. A 30 gauge needle was used. Injection: 1.25 mg Bevacizumab 1.25 MG/0.05ML Route: Intravitreal, Site: Right Eye [facility]: [address]-8, Lot: [id number], Expiration date: 12/23/2024 Post-op Post injection exam found visual acuity [...] increased pain, redness, decreased vision or concerns. [facility] 10-20-2024 Note Right Eye Quality was good. Scan locations included subfoveal. Progression has been stable. Findings include abnormal foveal contour. Left Eye Quality was good. Scan locations included subfoveal. Progression has been stable. Findings include abnormal foveal contour. [facility] 10-20-2024 History of Present illness Narrative Images from the original note were not included. Assessment/Plan Diagnoses and all orders for this visit: 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 ([facility]/HCC) - Intravitreal Injection, Pharmacologic Agent - OD - Right Eye - Bevacizumab solution prefilled syringe 1.25 mg OCT, Retina - OU - Both Eyes Right Eye Quality was good. Scan locations included subfoveal. Progression has been stable. Findings include abnormal foveal contour. Left Eye Quality was good. Scan locations included subfoveal. Progression has been stable. Findings include abnormal foveal contour. Linked Images Intravitreal Injection, Pharmacologic Agent - OD - Right Eye Time Out 10/20/2024. 3:53 PM. Confirmed correct patient, procedure, site, and patient consented. Anesthesia Topical anesthesia was used. Anesthetic medications included Lidocaine 2%, Proparacaine 0.5%. Procedure Preparation included 5% betadine to ocular surface, eyelid speculum. A 30 gauge needle was used. Injection: 1.25 mg Bevacizumab 1.25 MG/0.05ML Route: Intravitreal, Site: Right Eye [facility]: [id number], Lot: [id number], Expiration date: 12/23/2024 Post-op Post injection exam found visual acuity [...] vision or concerns. documented in this encounter [facility] 09-19-2024 Note Time Out 09/19/2024. 11:24 AM. Confirmed correct patient, procedure, site, and patient consented. Anesthesia Topical anesthesia was used. Anesthetic medications included Lidocaine 2%, Proparacaine 0.5%. Procedure Preparation included 5% betadine to ocular surface, eyelid speculum. Injection: 1.25 mg Bevacizumab 1.25 MG/0.05ML Route: Intravitreal, Site: Left Eye [facility]: [address]-7, Lot: [id number], Expiration date: 06/09/2025 Post-op Post injection exam [...] increased pain, redness, decreased vision or concerns. [facility] 09-19-2024 History of Present illness Narrative Images from the original note were not included. 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: [address]-2, Lot: [id number], Expiration date: 06/09/2025 Post-op Post injection exam [...] vision or concerns. documented in this encounter [facility] 09-15-2024 Note Time Out 09/15/2024. 1:40 PM. Confirmed correct patient, procedure, site, and patient consented. Anesthesia Topical anesthesia was used. Anesthetic medications included Lidocaine 2%, Proparacaine 0.5%. Procedure Preparation included 5% betadine to ocular surface, eyelid speculum. A 30 gauge needle was used. Injection: 1.25 mg Bevacizumab 1.25 MG/0.05ML Route: Intravitreal, Site: Right Eye [facility]: [address]-5, Lot: [id number], Expiration date: 10/02/2024 Post-op Post injection exam [...] increased pain, redness, decreased vision or concerns. [facility] 09-15-2024 History of Present illness Narrative Images from the original note were not included. Assessment/Plan Diagnoses and all orders for this visit: 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 (CMS/HCC) - Intravitreal Injection, Pharmacologic Agent - OD [...] 1.25 MG/0.05ML Route: Intravitreal, Site: Right Eye [facility]: [address]-6, Lot: [id number], Expiration date: 10/02/2024 Post-op Post injection exam [...] vision or concerns. documented in this encounter [facility] 09-03-2024 Note Right Eye Quality was borderline. Scan locations included subfoveal. Progression has worsened. Findings include abnormal foveal contour, intraretinal fluid, subretinal scarring. Left Eye Quality was borderline. Scan locations included subfoveal. Progression has worsened. Findings include abnormal foveal contour, intraretinal fluid, subretinal scarring. [facility] 09-02-2024 History of Present illness Narrative Images from the original note were not included. Subjective Patient ID: Anay Bingham is a 88 y.o. female. Chief Complaint [...] Past Medical History: Diagnosis Date Diabetes mellitus ([facility]/HCC) HTN (hypertension) ([facility]/HCC) Hypothyroid ([facility]) No Known Allergies Review of Systems Constitutional: [...] @ 3:11 PM Additional Tests Keratometry K1 [place] K2 [place] Right 45.00 90 46.75 180 Left 44.75 [...] Normal Normal Refraction Wearing Rx Sphere Cylinder [place] Add Right +3.25 -1.75 088 +2.00 Left +2.25 -2.00 087 +2.00 Age: 5yrs Type: progresive Manifest Refraction Sphere Cylinder [place] Right +4.25 -2.50 087 Left +4.75 -4.00 071 Final Rx Sphere Cylinder [place] Dist [place] Right +3.75 -1.75 088 20/200 [...] different lens options were explained including the [id number] fees for any upgrades. Intraocular lens (IOL) [...] edema associated with type 2 diabetes mellitus ([facility]) - Diabetes Mellitus with signs of diabetic [...] blood pressure and cholesterol. - Although Ms. Bingham was sent for cataract evaluation, she displays [...] for Avastin OU documented in this encounter [facility] 07-08-2024 Note [place] Electrophysiology Consult Note [place] Cardiology [facility] Reason for visit: bradycardia HPI: Anay Bingham is a 88 y.o. year old with past medical history of bradycardia, BPPV, hypothyroid, diabetes, here for new patient visit to establish care. Referral from Dr. Ga for bradycardia. Patient was recently discharged from [facility] with lightheaded spells and was found to [...] has an eye appointment the day after [place]. She associates much of her dizziness with [...] on file Intimate Partner Violence: Unknown (09/13/2023) [place] Safety & Environment Fear of Current or [...] ongoing monitoring of symptoms. Patient agreeable. 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 (CMS/HCC)- Primary documented in this encounter [facility] Healthcare[facility] note* Diagnosis 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 (CMS/HCC)- Primary documented in this encounter [facility] HealthcareEvaluation note* Diagnosis 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 (CMS/HCC)- Primary 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 (CMS/HCC) documented in this encounter [facility] HealthcareEvaluation note* Diagnosis Age-related nuclear cataract of both eyes- Primary 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 (CMS/HCC) documented in this encounter [facility] HealthcareEvaluation note* Diagnosis Pseudophakia- Primary Lens replaced by other means documented in this encounter [facility]* Diagnosis Pseudophakia- Primary Lens replaced by other means Age-related nuclear cataract of right eye documented in this encounter [facility] note* Diagnosis 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 (CMS/HCC)- Primary 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 documented in this encounter [facility] Summary Purpose Family History No Family History Records FoundNo Family History Records FoundNo Family History Records Found Advance Directives No Advanced Directives Records FoundNo Advanced Directives Records FoundNo Advanced Directives Records Found Additional Source Comments INFORMATION SOURCE (unrecogn ized section and content) DATE CREATED AUTHOR 11/13/2022 [facility] DATE CREATED AUTHOR AUTHOR'S ORGANIZ ATION 12/03/2024 [facility] EPIC DATE CREATED AUTHOR AUTHOR'S ORGANIZ ATION 12/29/2024 [facility] Care Teams (unrecognized sec tion and content) Insecticide Supervisor Relationship Specialty Start Date End Date Zenaida Ga MD [address] [place] [address] PCP - General Family Medicine 02/20/24 Insecticide Supervisor Relationship Specialty Start Date End Date Zenaida Ga MD [address] [place] [facility] [place] [address] PCP - General Family Medicine 02/20/24 Insecticide Supervisor Relationship Specialty Start Date End Date Zenaida Ga MD [address] [place] [facility] [place] [address] PCP - General Family Medicine 02/20/24 Insecticide Supervisor Relationship Specialty Start Date End Date Zenaida Ga MD [address] [place] [facility] [place] [address] PCP - General Family Medicine 02/20/24 Insecticide Supervisor Relationship Specialty Start Date End Date Zenaida Ga MD [address] [place] [facility] [place] [address] PCP - General Family Medicine 02/20/24 Insecticide Supervisor Relationship Specialty Start Date End Date Zenaida Ga MD [address] [place] [facility] [place] [address] PCP - General Family Medicine 02/20/24 Insecticide Supervisor Relationship Specialty Start Date End Date Zenaida Ga MD [address] [place] [facility] [place] [address] PCP - General Family Medicine 02/20/24 Insecticide Supervisor Relationship Specialty Start Date End Date Zenaida Ga MD [address] [place] [facility] [place] [address] PCP - General Family Medicine 02/20/24 Insecticide Supervisor Relationship Specialty Start Date End Date Zenaida Ga MD [address] [place] [facility] [place] [address] PCP - General Family Medicine 02/20/24 Insecticide Supervisor Relationship Specialty Start Date End Date Zenaida Ga MD [address] [facility], [facility] PCP - General Family Medicine 02/20/24 Insecticide Supervisor Relationship Specialty Start Date End Date Zenaida Ga MD [address] [place] [facility] [place] [address] PCP - General Family Medicine 02/20/24 Insecticide Supervisor Relationship Specialty Start Date End Date Zenaida Ga MD [address] [place] [address] PCP - General Family Medicine 02/20/24 Insecticide Supervisor Relationship Specialty Start Date End Date Zenaida Ga MD [address] [place] [facility] [place] [address] PCP - General Family Medicine 02/20/24 Insecticide Supervisor Relationship Specialty Start Date End Date Zenaida Ga MD PCP - General Family Medicine 02/20/24 Insecticide Supervisor Relationship Specialty Start Date End Date Zenaida Ga MD PCP - General Family Medicine 02/20/24 Reason for Visit (unrecogniz ed section and content) Reason Comments Cataract Reason Comments Follow-up Reason Comments Retinal Injection Follow-up Reason Comments Post-op Reason Comments Post-op Cataract Reason Comments Post-op Follow-up Reason Comments Post-op Follow-up Follow-up FOR RECORDS PERTAINING TO PATIENTS WHO [...] BE BASED ON THE PRIMARY CLINICAL RECORDS. [employer] [facility]. provides no warranty or guarantee of the accuracy or completeness of information in this document.
[2024-12-29 08:07] LABS: Basophils Percent Auto 0.8 % (0.2-2.0); Eosinophils Absolute Auto 0.2 10^3/uL (0.0-0.7); Eosinophils Percent Auto 4.8 % (0.9-7.0); Hematocrit 39.5 % (36.0-48.0); Hemoglobin 13.3 g/dL (12.0-16.0); Lymphocytes Absolute Auto 1.4 10^3/uL (1.2-3.8); Lymphocytes Percent Auto 29.4 % (20.5-60.0); Mean Corpuscular HGB Conc 33.7 g/dL (29.9-35.2); Mean Corpuscular Volume 95.2 fL (81.0-99.0); Mean Platelet Volume 9.5 fL (9.5-13.5); Monocytes Absolute Auto 0.5 10^3/uL (0.3-0.8); Monocytes Percent Auto 11.1 % (1.7-12.0); Neutrophils Absolute Auto 2.6 10^3/uL (1.4-6.5); Neutrophils Percent Auto 53.9 % (43.0-75.0); Platelet Count 251 10^3/uL (150-450); Red Blood Count 4.15 10^6/uL (4.20-5.40); Red Cell Distribution Width 13.3 % (11.0-15.0); White Blood Count 4.8 10^3/uL (4.0-11.0)
[2024-12-29 11:42] LABS: Alanine Aminotransferase 12 U/L (14-59); Albumin Globulin Ratio 0.9; Albumin Level 3.4 g/dL (3.4-5.0); Alkaline Phosphatase 90 U/L (46-116); Aspartate Amino Transferase 15 U/L (15-37); BUN Creatinine Ratio 18.6; Bilirubin Total 0.4 mg/dL (0.2-1.0); Calcium 9.4 mg/dL (8.5-10.1); Carbon Dioxide 24.8 mmol/L (21.0-32.0); Chloride 108 mmol/L (98-107); Estimated GFR (African America 47 (>=60 mL/min/1.73m^2); Estimated GFR (Non-African Ame 39 (>=60 mL/min/1.73m^2); Free T3 1.58 pg/mL (2.18-3.98); Globulin 3.6 g/dL; Glucose 85 mg/dL (74-106); Potassium 4.8 mmol/L (3.5-5.1); Sodium 142 mmol/L (136-145); Thyroid Stimulating Hormone 0.041 uIU/mL (0.358-3.740)
== END 2024-12-29 07:33 | disposition home or self-care (01) ==
LOC: LAB 07:33
PROVIDERS: PCP Family Medicine; Visit Provider Family Medicine
DX: E03.9 Hypothyroidism, unspecified (principal); E11.9 Type 2 diabetes mellitus without complications; I10 Essential (primary) hypertension; R53.83 Other fatigue
CPT/HCPCS: 36415; 80053; 84436; 84443; 84481; 85025

== ENCOUNTER 2025-01-28 11:20 | Outpatient (OUT) | payer MEDICARE, SELFPAY ==
--- OUTSIDE RECORDS SUMMARY | 2024-12-25 09:00 | XMS_ITS ---
Author Organization [facility] in [place] Address [address] [place] [address] Care Team Providers Care Inspector Boiler Name Role Phone Juan Ga Primary Care Provider Allergies No Known Allergies REASON FOR VISIT 3 month f/u, Liothyronine- patient has only been taking 1 tablet daily- she also has not gotten repeat labs done since being on that, Has Psoriasis on her neck and into her hair, wants to know if itsok for her to get a Perm, RSV- wants to know if she should get it, FBS this AM was 91 Medications Medication SIG (Take, Route, Frequency, Duration) Notes Start Date End Date Status Vitamin D Active Tylenol Extra Strength 500 MG 1 tablet as needed Orally every 6 hrs 07/24/2024 Active Vitamin C Active metFORMIN HCl 500 MG 1 tablet with a meal Orally twice daily for 90 days Active Ondansetron 4 MG 1 tablet on the tongue and allow to dissolve Orally QID PRN 07/24/2024 Active Isosorbide Mononitrate ER 30 MG 1 tablet Orally Once a day for 90 days PLEASE PUT EASY OPEN LID ON CONTAINERS 07/24/2024 Active Levothyroxine Sodium 75 MCG TAKE 1 TABLET BY MOUTH EVERY DAY for 90 Active Gemfibrozil 600 MG TAKE 1 TABLET BY MOUTH TWICE A DAY 30 MINUTES BEFORE MORNING AND EVENING MEALS for 90 Active Ipratropium Ganado 0.06 % 2 sprays in each nostril Nasally twice daily 07/24/2024 Active Meclizine HCl 25 MG TAKE 1 TABLET BY MOUTH EVERY 4 HOURS NEEDED FOR VERTIGO for 15 Active Cytomel 5 MCG 1 tablet on an empty stomach Orally Once a day for 30 days 10/17/2024 Active Social History Tobacco Use: Social History Observation Description Date Details (start date - stop date) Never Smoker NA - NA Tobacco Use/Smoking Question Answer Notes Patient is a nonsmoker Problems Problem Type SNOMED Code ICD Code Onset Dates Problem Status W/U Status Risk Notes Problem GERD (gastroesopha geal reflux disease) (K21.9) Active confirmed Vital Signs Weight 131.2 lbs 12/25/2024 Height 60 in 12/25/2024 Blood pressure systolic 148 mm Hg 12/26/19 25 Blood pressure diastolic 80 mm Hg 025 BMI 25.62 kg/m2 12/25/2024 Encounters Encounter Location Date Provider Diagnosis [facility] [address] [place] [address] 12/25/2024 Juan Ga Essential (primary) hypertension I10 ; Type 2 diabetes mellitus without complication E11.9 ; 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 and GERD (gastroesophageal reflux disease) K21.9 Assessments Encounter Date Diagnosis (ICD Code) Assessment Notes Treatment Notes Treatment Clinical Notes Section Notes 12/25/2024 Essential (primary) hypertension (ICD-10 - I10) stabel here 12/25/2024 Type 2 diabetes mellitus without complication (ICD-10 - E11.9) sugar 12/25/2024 Iodine-deficiency related diffuse (endemic) goiter (ICD-10 - 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.0) checking labs today 12/25/2024 GERD (gastroesophageal reflux disease) (ICD-10 - K21.9) on meds Plan Of Treatment Treatment Notes Assessment Notes Essential (primary) hypertension stabel here Type 2 diabetes mellitus without complic ation sugar Iodine-deficiency related diffuse (endem ic) goiter checking labs today GERD (gastroesophageal reflux disease) o n meds Next Appt Details Provider Name:Juan Ga, 11:00:00 AM, [address] [place], [address], Progress Notes * ZACHERY Anay MorelosDOB:1935 (89 yo F)Acc No.[id number]:12/25/2024 Progress Note Patient: Anay FONTENOT Provider: Swati Ga ([facility])MD :1935 A ge:89 Y S ex:Female Date:12/25/2024 Address:[address] , [place], [place]-[id number] Check In:01:03 PM ESTCheck O ut:01:42 PM EST Subjective: * Chief Complaints: * 3 month f/uLiothyronine- patient has only been taking 1 tablet daily- she also has not gotten repeat labs done since being on thatHas Psoriasis on her neck and into her hair, wants to know if its ok for her to get a PermRSV- wants to know if she should get itFBS this AM was 91 * HPI: G eneral: Thyroid - needs labs DM - sugars well controlled some vertigo - not frequent GRD - stable Psoriasis - Stable. * ROS: E ENT: hearing changes d enies. v isual changes d enies.?non-healing mouth sores d enies. s wollen glands or neck lumps d enies. h oarseness d enies. s ore throat d enies. d ifficulty swallowing d enies. n ose bleeds d enies. n yolette congestion d enies. e ar ache d enies. e ar discharge?denies. r inging in ears d enies. l ight sensitivity d enies. e ye pain d enies. b lurring d enies. e ye irritation d enies. d ouble vision d enies.?vision loss d enies. G eneral/Constitutional: Sweats: D enies. F atigue d enies. S leep problems d enies. A norexia d enies. M alaise d enies. W eight loss d enies.?Fatigue or Weakness d enies. F ever or Chills d enies. C ardiovascular: Shortness of Breath w/lying flat d enies. L ightheadedness/dizziness d enies. C hest tightness/ heavy pressure d enies. S welling of legs, ankles, or feet d enies. W aking up with shortness of breath d enies. C hest pain denies. P alpitations d enies. W eight gain d enies. R espiratory: Chronic or frequent cough d enies. C oughing up blood?denies. D ifficulty breathing d enies. P roductive cough d enies. S noring?denies. S hortness of breath that awakens from sleep (PND) d enies. C hest pain d enies. S putum production d enies. W heezing d enies. M usculoskeletal: Joint pain d enies. J oint Fluid d enies. B ack pain d enies. K nee pain d enies. N aki pain d enies. J oint Stiffness d enies. M uscle cramps d enies. W eakness of muscles d enies. A rthritis d enies. M uscle aches d enies. P ain in shoulder(s) d enies. S wollen joints d enies. 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 Modified On:04/11/2023U Status:confirmed E11.9 Type 2 diabetes bebe itus without complication Modified On:10/31/2023 Status:confirmed I10 Essential (primary) hypertension Modified On:10/31/2023 Status:confirmed E78.2 Mixed hyperlipidemia Modified On:04/11/2023U Status:confirmed R53.83 Other fatigue Modified On:04/11/2023U Status:confirmed M81.0 Osteoporosis Modified On:10/01/2023U Status:confirmed M25.50 Arthralgia Modified On:10/31/2023U Status:confirmed R51.9 Head and face pain Modified On:02/19/2024U Status:confirmed M79.642 Left hand pain Modified On:02/19/2024U Status:confirmed R00.1 Bradycardia Modified On:06/09/2024U Status:confirmed E03.9 Acquired hypothyroid ism Modified On:06/24/2024U Status:confirmed E11.9 Diabetes mellitus Modified On:06/24/2024U Status:confirmed E83.42 Hypomagnesemia Modified On:12/03/2024W/U Status:confirmed E11.9 DM (diabetes mellitu s) Modified On:08/18/2024 Status:confirmed E03.9 Hypothyroid Modified On:08/18/2024 Status:confirmed I10 HTN (hypertension) Modified On:08/18/2024 Status:confirmed K21.9 GERD (gastroesophage al reflux disease) Modified On:12/25/2024 Status:confirmed * Medical History: * Surgical History: P artial Hysterectomy Knee Replacement- Bilateral implantable loop recorder placement * Hospitalization/Major Diagno stic Procedure: H [place], Vertigo, KYLIE 05/2024 * Family History: F ather: 64 yrs, alcoholism. M other: 72 yrs. D aughter(s): alive.?2 daughter(s) . . * Social History: T obacco Use: T obacco Use/Smoking P atient is a n onsmoker * Medications: T akingCytomel(Liothyronine Sodium) 5 MCG Tablet 1 tablet on an empty stomach Orally Once a day Gemfibrozil 600 MG Tablet TAKE 1 TABLET BY MOUTH TWICE A DAY 30 MINUTES BEFORE MORNING AND EVENING MEALS Ipratropium Ganado 0.06 % Solution 2 sprays in each nostril Nasally twice daily Isosorbide Mononitrate ER 30 MG Tablet Extended Release 24 Hour 1 tablet Orally Once a day , Notes to Pharmacist: PLEASE PUT EASY OPEN LID ON CONTAINERSLevothyroxine Sodium 75 MCG Tablet TAKE 1 TABLET BY MOUTH EVERY DAY Meclizine HCl 25 MG Tablet TAKE 1 TABLET BY MOUTH EVERY 4 HOURS NEEDED FOR VERTIGO metFORMIN HCl 500 MG Tablet 1 tablet with a meal Orally twice daily Ondansetron 4 MG Tablet Disintegrating 1 tablet on the tongue and allow to dissolve Orally QID PRN Tylenol Extra Strength(Acetaminophen) 500 MG Tablet 1 tablet as needed Orally every 6 hrs Vitamin C Vitamin D Medication List reviewed and reconciled with the patientTaking Cytomel(Liothyronine Sodium) 5 MCG Tablet 1 tablet on an empty stomach Orally Once a day Taking Gemfibrozil 600 MG Tablet TAKE 1 TABLET BY MOUTH TWICE A DAY 30 MINUTES BEFORE MORNING AND EVENING MEALS Taking Ipratropium Ganado 0.06 % Solution 2 sprays in each nostril Nasally twice daily Taking Isosorbide Mononitrate ER 30 MG Tablet Extended Release 24 Hour 1 tablet Orally Once a day , Notes to Pharmacist: PLEASE PUT EASY OPEN LID ON CONTAINERSTaking Levothyroxine Sodium 75 MCG Tablet TAKE 1 TABLET BY MOUTH EVERY DAY Taking Meclizine HCl 25 MG Tablet TAKE 1 TABLET BY MOUTH EVERY 4 HOURS NEEDED FOR VERTIGO Taking metFORMIN HCl 500 MG Tablet 1 tablet with a meal Orally twice daily Taking Ondansetron 4 MG Tablet Disintegrating 1 tablet on the tongue and allow to dissolve Orally QID PRN Taking Tylenol Extra Strength(Acetaminophen) 500 MG Tablet 1 tablet as needed Orally every 6 hrs Taking Vitamin C Taking Vitamin D Medication List reviewed and reconciled with the patient * Allergies: N .K.D.A.no[Allergies Verified] Objective: * Vitals: W t:131.2lbs, Ht: 60 in, BP:148/80mm Hg, BMI:25.62Index, Ht-cm: 152.4 cm, Wt-k.51 kg. * Examination: P hysical Exam: GENERAL: w ell developed, well nourished, in no acute distress. HEAD: n ormocephalic/atraumatic. EYES: p upils equal, round and reactive to light, conjunctivae and sclerae normal. EARS: n o deformity or lesion of external ear, canals and TM appear normal bilaterally, TM's intact, not inflamed with normal light reflex, hearing grossly normal to conversational speech. NOSE: n o deformity, discharge, inflammation, or lesions.? MOUTH: m ucous membranes moist, normal oropharynx and posterior pharynx without lesions or exudates, tongue normal, dentition normal. NECK: n aki supple, no masses or palpable cervical nodes, trachea midline, thyroid without nodules, masses, tenderness, or enlargement. CHEST: n o chest wall deformity, no chest wall tenderness.? LUNGS: n ormal respiratory effort and clear to auscultation, no wheezes, rales, or rhonchi, good air exchange. CARDIO: r egular rate and rhythm, normal S1 and S2, nor murmur, rub, or gallop. PULSES: n ormal capillary refill. ABDOMEN: s oft, non-distended, non-tender, no masses. MUSCULOSKELETAL: n o deformity or scoliosis noted, normal range of motion, joints normal, no erythema, edema, effusion, or ecchymosis. EXTREMITY: n o clubbing, cyanosis, edema, or deformity with normal ROM in both upper and lower bilateral extremities. NEUROLOGIC: g rossly normal. SKIN: n o rashes, ulcerations, or suspicious lesions. LYMPH NODES: n o cervical adenopathy, nodes normal. MENTAL STATUS: a lert and oriented x3, normal mood and affect. Assessment: * Assessment: 1. E ssential (primary) hypertension - I10 (Primary) 2 . T ype 2 diabetes mellitus without complication - E11.9 3 . 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 G ERD (gastroesophageal reflux disease) - K21.9 ? Plan: * Treatment: 2. T ype 2 diabetes mellitus without complication Notes: sugar 3. I odine-deficiency related diffuse (endemic) goiter Notes: checking labs today 4. G ERD (gastroesophageal reflux disease) Notes: on meds * Procedure Codes: * Preventive Medicine: Screenings/Counseling: B TX ACTION PLAN Above Normal BMI Follow-up D ietary management education, guidance, and counseling * * Sign off status: Completed Visit Status: C HK (Check Out) true * Provider: Swati Ga ([facility])MD Date: 0 12/25/2024 Generated for Brandon miller/Caesar/eTransmitting on: 0 01/28/2025 11:26 AM EDT History and Physical Notes * HPI (History of Present Illness) Category Sub-Category Detail Notes Category Not es General Thyroid - needs labs DM - sugars well controlled some vertigo - not frequent GRD - stable Psoriasis - Stable Examination Category Sub-Category Detail Notes Category Not es Physical Exam GENERAL: well developed, well nourished, in no acute distress HEAD: normocephalic/atraum atic EYES: pupils equal, round and reactive to light, conjunctivae and sclerae normal EARS: no deformity or lesi on of external ear, canals and TM appear normal bilaterally, TM's intact, not inflamed with normal light reflex, hearing grossly normal to conversational speech NOSE: no deformity, discha rge, inflammation, or lesions MOUTH: mucous membranes brenda st, normal oropharynx and posterior pharynx without lesions or exudates, tongue normal, dentition normal NECK: neck supple, no mass es or palpable cervical nodes, trachea midline, thyroid without nodules, masses, tenderness, or enlargement CHEST: no chest wall deform ity, no chest wall tenderness LUNGS: normal respiratory e ffort and clear to auscultation, no wheezes, rales, or rhonchi, good air exchange CARDIO: regular rate and rhy thm, normal S1 and S2, nor murmur, rub, or gallop PULSES: normal capillary ref ill ABDOMEN: soft, non-distended, non-tender, no masses RECTAL: MUSCULOSKELETAL: no deformity or scol iosis noted, normal range of motion, joints normal, no erythema, edema, effusion, or ecchymosis EXTREMITY: no clubbing, cyanosi s, edema, or deformity with normal ROM in both upper and lower bilateral extremities NEUROLOGIC: grossly normal SKIN: no rashes, ulceratio ns, or suspicious lesions LYMPH NODES: no cervical adenopat hy, nodes normal MENTAL STATUS: alert and oriented x 3, normal mood and affect
--- OUTSIDE RECORDS SUMMARY | 2024-12-29 17:15 | XMS_ITS ---
Author Organization [facility] [place] Address [address] [place] [address] Care Team Providers Care Scrum Coach Name Role Phone Juan Ga Primary Care Provider REASON FOR VISIT T3 Medications Medication SIG (Take, Route, Frequency, Duration) Notes Start Date End Date Status Cytomel 5 MCG 2 tablet on an empty stomach Orally Once a day for 30 days 10/17/2024 Active Encounters Encounter Location Date Provider Diagnosis [facility] [address] [place] [address] 12/29/2024 Juan Ga Plan Of Treatment Medication Medication Name Sig Start Date Stop Date Notes Cytomel 5 MCG 2 tablet on an empty stomach Orally Once a day for 30 days 10/17/2024 Next Appt Details Provider Name:Juan Rudi Ga, 11:00:00 AM, [address] [place], [address], Progress Notes * Anay MENDOZADOB:1935 (89 yo F)Acc No.[id number]:12/29/2024 Patient: Anay FONTENOT J :1935 A ge:89 Y S ex:Female Address:[address] [place] [address] * Refills Refill Cytomel Tablet, 5 MCG, Orally, 60 Tablet, 2 tablet on an empty stomach, Once a day, 30 days, Refills=11 * true * Date: Generated for Printi ng/Faxing/eTransmitting on: 0 01/28/2025 11:25 AM EDT
--- OUTSIDE RECORDS SUMMARY | 2025-01-28 07:00 | XMS_ITS ---
Author Organization The [facility] in [place] Address [address] [place] [address] Care Team Providers Care Director Of Instructional Technology Name Role Phone Juan Ga Primary Care Provider Allergies No Known Allergies REASON FOR VISIT Had a fall this [...] OPEN LID ON CONTAINERS 07/24/2024 Active Ipratropium [place] 0.06 % 2 sprays in each nostril [...] Status Risk Notes Problem Sacral back pain (14930199) Sacral back pain (M53.3) Active confirmed Vital Signs Weight 128.0 lbs 01/28/2025 Height 60 in 01/28/2025 Blood pressure systolic 138 mm Hg 01/29/20 25 Blood pressure diastolic 82 mm Hg 025 BMI 25 kg/m2 01/28/2025 Encounters Encounter Location Date Provider Diagnosis [facility] [address] [place] [address] 01/28/2025 Juan Ga Type 2 diabetes bebe itus without complication [...] area. Take NSAIDs for pain as needed Pending Test Test Name Order Date XR sacrum coccyx min 2V 01/28/2025 XR pelvis min 3V 01/28/2025 Next Appt Details Provider Name:Juan Ga, 11:00:00 AM, [address] [place], [address], Progress Notes * Anay MENDOZA JethroDOB:1935 (89 yo F)Acc No.[id number]:01/28/2025 UNLOCKED PROGRESS NOTE Progress Note Patient: Anay FONTENOT Provider: Swati Ga ([facility])MD :1935 A ge:89 Y S ex:Female Date:01/28/2025 Address:[place] [address], [place], [id number] Check In:10:35 AM ESTCheck O ut:11:10 AM EST Subjective: * Chief Complaints: * 1 . Had a fall this past Sunday at 3am- she was getting up to use the restroom, fell in bedroom, fell onto bottom then fell back and hit head. 2. The EMS did come and check her out- she didnt want to go to the hospital. 3. Antonio is bothering her today, head is a little tender to touch on the top, she hit after falling to her bottom, corner of dresser. * HPI: G eneral: Head injruy - [...] heezing d enies. M usculoskeletal: Comments S [facility] for details. N eurologic: Dizziness d enies. F ainting d enies. H eadache?denies. * Medical History: T ype 2 diabetes mellitus without complication, Essential (primary) hypertension, Iodine-deficiency related diffuse (endemic) goiter, Other fatigue, Mixed hyperlipidemia. * Surgical History: P artial Hysterectomy , Knee Replacement- Bilateral , implantable loop recorder placement . * Hospitalization/Major Diagno stic Procedure: H [place], Vertigo, KYLIE 05/2024. * Family History: F ather: 64 yrs, alcoholism. M other: 72 yrs. D aughter(s): alive.?2 daughter(s) . . * Social History: T obacco Use: T obacco Use/Smoking P atient is a n onsmoker * Medications: T aking Cytomel(Liothyronine Sodium) 5 MCG Tablet 2 tablet on an empty stomach Orally Once a day , Taking Gemfibrozil 600 MG Tablet TAKE 1 TABLET BY MOUTH TWICE A DAY 30 MINUTES BEFORE MORNING AND EVENING MEALS , Taking Ipratropium [place] 0.06 % Solution 2 sprays in each nostril Nasally twice daily , Taking Isosorbide Mononitrate ER 30 MG Tablet Extended Release 24 Hour 1 tablet Orally Once a day , Notes to Pharmacist: PLEASE PUT EASY OPEN LID ON CONTAINERS, Taking Levothyroxine Sodium 75 MCG Tablet TAKE 1 TABLET BY MOUTH EVERY DAY , Taking Meclizine HCl 25 MG Tablet TAKE 1 TABLET BY MOUTH EVERY 4 HOURS NEEDED FOR VERTIGO , Taking metFORMIN HCl 500 MG Tablet 1 tablet with a meal Orally twice daily , Taking Ondansetron 4 MG Tablet Disintegrating 1 tablet on the tongue and allow to dissolve Orally QID PRN , Taking Tylenol Extra Strength(Acetaminophen) 500 MG Tablet 1 tablet as needed Orally every 6 hrs , Taking Vitamin C , Taking Vitamin D , Medication List reviewed and reconciled with the patient * Allergies: N .K.D.A. Objective: * Vitals: W t:128.0lbs, Ht: 60 [...] NSAIDs for pain as needed ? * * Electronic signature of Juan Ga MD, [phone] on 01/28/2025 at 11:25 AM EDT Sign off status: Pending Visit Status: Brendon MURPHY (Check Out) * Provider: Swati Ga ([facility])MD Date: 01/28/2025 Generated for Brandon miller/Caesar/Junioritting on: 01/28/2025 11:25 AM EDT History and Physical Notes * HPI (History of Present Illness) Category Sub-Category Detail Notes Category Not es General Head injruy - not bad - low back and sacrum - area iwth pain - pain with layong back no syncope - maybe lighthead with looking up Examination Category Sub-Category Detail Notes Category Not es General Examination GENERAL APPEARANCE: in no ac [place] distress, well developed, well nourished CARDIO: S1, S2 normal, no mu rmurs, rubs, gallops LUNGS: clear to auscultatio n bilaterally NEUROLOGIC: alert, oriented to t [place], place, & person EXTREMITIES: no clubbing, cyanosi s, or edema MUSCULOSKELETAL: Tender over coccyx
--- OUTSIDE RECORDS SUMMARY | 2025-01-28 11:26 | XMS_ITS | Patient Health Record ---
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 Name Role Phone Juan Ga Primary Care Provider Allergies No Known Allergies Results Component Value Reference Range Notes FREE T4 Reviewed date:06/08/2024 02:18:19 PM Interpretation: Performing Lab: Notes/Report: [facility] T4 1.08 0.76-1.46 ng/dL Performing Lab: see note ML - [facility] LB CA echo doppler complete Reviewed date:06/10/2024 08:39:29 PM Interpretation: Performing Lab: Notes/Report: Source Facility: [facility]-[address] [place] [address] Cardiology Report Signed Patient: ANAY BINGHAM MR#: [id number] : 1935 Acct:[id number] Age/Sex: 88 / F ADM Date: 06/10/24 Loc: MS 216-[address]: Zenaida Ga M.D. Ordering Physician: Zenaida Ga M.D. Date of Service: 06/10/24 Procedure(s): CA echo doppler complete Accession Number(s): [id number] cc: Zenaida Ga M.D. Patient Name: ANAY BINGHAM MR#: [id number] : 1935 Exam Date: 06/10/2024 Ordering Doctor: DR Zenaida Ga . ECHOCARDIOGRAM REPORT PROCEDURE: CA ECHO DOPPLER COMPLETE INDICATIONS: elevated trop, diabetes COMPARISON: None. DESCRIPTION: COMPLETE ECHOCARDIOGRAM Real-time transthoracic echocardiography with 2D, M-mode, spectral and color flow Doppler performed. QUALITY: Technical quality was good. LEFT VENTRICLE: Normal chamber size. Proximal septal hypertrophy (sigmoid septum). Mild concentric hypertrophy. The septum is abnormal and motion likely due to bundle branch block. Low normal systolic function. LV EF: Low normal left ventricular ejection fraction, (50%). DIASTOLIC: Grade I diastolic dysfunction. ATRIAL SEPTUM: Visually appears intact. LEFT ATRIUM: Moderate dilatation. RIGHT ATRIUM: Moderate dilatation. RIGHT VENTRICLE: Normal chamber size. Normal right ventricular systolic function. TRICUSPID VALVE: Normal mobility and thickness. No stenosis with mild to moderate regurgitation. Doppler studies reveal moderately (45-60) elevated right sided pressures. RVSP 54 mmHg MITRAL VALVE: Mildly thickened with normal mobility. No evidence of mitral valve stenosis. Mild mitral annular calcification. Mild mitral regurgitation. AORTIC VALVE: Normal trileaflet appearance. Mildly calcified aortic valve. Mildly diminished mobility. No evidence of aortic valve stenosis. Mild aortic regurgitation. AORTIC ROOT: Normal diameter and appearance. PULMONIC VALVE: Normal thickness and mobility. No stenosis. No regurgitation. PERICARDIUM: No evidence of pericardial effusion. IVC: IVC is dilated (2.4 cm) with no collapse. PLEURA: CONCLUSION: 1. Left ventricle exhibits mild concentric hypertrophy with low normal systolic function. Estimated LVEF is 50%. 2. Normal right ventricular size and systolic function. 3. Moderate biatrial dilatation. 4. Mild mitral and aortic regurgitation. 5. Mild to moderate tricuspid regurgitation. 6. Moderately elevated right-sided pressures. RVSP is 54 mmHg. Adult Echocardiography Procedure Report Left Ventricle LVEDD (3.7 - 5.6 cm): 3.82 cm LVESD (2.2 - 4.0 cm): 3.10 cm LVIVS thickness (0.6 - 1.2 cm): 1.73 cm LVPW thickness (0.5 - 1.0 cm): 1.19 cm e': 0.12 m/s E - e': 5.25 LVOT Max Gradient: 6.66 mm[Hg] LVOT Area (cm2): 1.29 m/s Peak Velocity (LVOT): 1.29 m/s Mean Velocity (LVOT): 0.86 m/s LVOT Diameter 2.03 cm Left Atrium LA Volume Index (2D A2C): 34.54 ml/m2 Left Atrium Systolic Dimension: 4.04 cm Mitral Valve MV E to A Ratio: 1.60 Mitral Valve A-Wave Peak Velocity: 0.40 m/s Mitral Valve E-Wave Peak Velocity: 0.64 m/s Right Ventricle Aorta AO Root Diam: 3.43 cm Aortic Valve AoV Area (Peak Sacha): 3.38 cm2, 3.38 cm2 AoV Area (VTI): 3.13 cm2, 3.13 cm2 Peak Velocity(Antegrade Flow): 1.24 m/s Peak Gradient(Antegrade Flow): 6.12 mm[Hg] Mean Velocity(Antegrade Flow): 0.88 m/s Mean Gradient(Antegrade Flow): 3.50 mm[Hg] Velocity Time Integral: 21.39 cm Tricuspid Valve Peak Velocity (Regurgitant Flow): 2.96 m/s, 2.86 m/s, 3.12 m/s Pulmonic Valve Peak Velocity: 0.99 m/s Peak Gradient: 3.95 mm[Hg] Right Atrium Right Atrium Systolic Pressure: 30.49 ml, 30.49 ml Dictated by: Jey Jasso M.D. on 06/10/2024 at 19:38 Approved by: Jey Jasso M.D. on 06/10/2024 at 19:43 Dictated By: JEY JASSO Signed By: 06/10/241944 DD/ 42 TD/TT: [employer]: [place] [address] Cardiology Report Signed Patient: ANAY BINGHAM MR#: [id number] : 1935 Acct:[id number] Age/Sex: 88 / F ADM Date: 06/10/24 Loc: MS 216-[address]: Adam Ga M.D. Ordering Physician: Zenaida Ga M.D. Date of Service: 06/10/24 Procedure(s): CA ech o doppler complete Accession Number(s): [id number] cc: Zenaida Ga M.D. Patient Name: ANAY BINGHAM MR#: [id number] : 1935 Exam Date: 06/10/2024 Ordering Doctor: DR Zenaida Ga . ECHOCARDIOGRAM REPORT PROCEDURE: CA ECHO DOPPLER COMPLETE INDICATIONS: elevate d trop, diabetes COMPARISON: None. DESCRIPTION: COMPLET E ECHOCARDIOGRAM Real-time transthoracic echocardiography wit h 2D, M-mode, spectral and color flow Doppler performed. QUALITY: Technical quality was good. LEFT VENTRICLE: Norm al chamber size. Proximal septal hypertrophy (sigmoid septum). Mild concen tric hypertrophy. The septum is abnormal and motion likely due to bundle branch block. Low normal systolic function. LV EF: Low normal le ft ventricular ejection fraction, (50%). DIASTOLIC: Grade I diastolic dysfunction. ATRIAL SEPTUM: Visua lly appears intact. LEFT ATRIUM: Moderat e dilatation. RIGHT ATRIUM: Modera te dilatation. RIGHT VENTRICLE: Nor mal chamber size. Normal right ventricular systolic function. TRICUSPID VALVE: Nor mal mobility and thickness. No stenosis with mild to moderate regurgitati on. Doppler studies reveal moderately (45-60) elevated right sided pressure s. RVSP 54 mmHg MITRAL VALVE: Mildly thickened with normal mobility. No evidence of mitral valve stenosi s. Mild mitral annular calcification. Mild mitral regurgitation. AORTIC VALVE: Normal trileaflet appearance. Mildly calcified aortic valve. Mildly diminished mobility. No evidence of aortic valve stenosis. Mild aortic regurgitation. AORTIC ROOT: Normal diameter and appearance. PULMONIC VALVE: Norm al thickness and mobility. No stenosis. No regurgitation. PERICARDIUM: No evid ence of pericardial effusion. IVC: IVC is dilated (2.4 cm) with no collapse. PLEURA: CONCLUSION: 1. Left ventricle exhibits mild concentric hypertrophy with low normal systolic function. Estimated LVEF is 50%. 2. Normal right ventricular size and systolic function. 3. Moderate biatrial dilatation. 4. Mild mitral and a ortic regurgitation. 5. Mild to moderate tricuspid regurgitation. 6. Moderately elevat ed right-sided pressures. RVSP is 54 mmHg. Adult Echocardiograp hy Procedure Report Left Ventricle LVEDD (3.7 - 5.6 cm) : 3.82 cm LVESD (2.2 - 4.0 cm) : 3.10 cm LVIVS thickness (0.6 - 1.2 cm): 1.73 cm LVPW thickness (0.5 - 1.0 cm): 1.19 cm e': 0.12 m/s E - e': 5.25 LVOT Max Gradient: 6 .66 mm[Hg] LVOT Area (cm2): 1.29 m/s Peak Velocity (LVOT) : 1.29 m/s Mean Velocity (LVOT) : 0.86 m/s LVOT Diameter 2.03 cm Left Atrium LA Volume Index (2D A2C): 34.54 ml/m2 Left Atrium Systolic Dimension: 4.04 cm Mitral Valve MV E to A Ratio: 1.60 Mitral Valve A-Wave Peak Velocity: 0.40 m/s Mitral Valve E-Wave Peak Velocity: 0.64 m/s Right Ventricle Aorta AO Root Diam: 3.43 cm Aortic Valve AoV Area (Peak Sacha): 3.38 cm2, 3.38 cm2 AoV Area (VTI): 3.13 cm2, 3.13 cm2 Peak Velocity(Antegr naveen Flow): 1.24 m/s Peak Gradient(Antegr naveen Flow): 6.12 mm[Hg] Mean Velocity(Antegr naveen Flow): 0.88 m/s Mean Gradient(Antegr naveen Flow): 3.50 mm[Hg] Velocity Time Integr al: 21.39 cm Tricuspid Valve Peak Velocity (Regurgitant Flow): 2.96 m/s, 2.86 m/s, 3.12 m/s Pulmonic Valve Peak Velocity: 0.99 m/s Peak Gradient: 3.95 mm[Hg] Right Atrium Right Atrium Systoli c Pressure: 30.49 ml, 30.49 ml Dictated by: Jey Jasso M.D. on 06/10/2024 at 19:38 Approved by: Jey Jasso M.D. on 06/10/2024 at 19:43 Dictated By: JEY JASSO Signed By: 06/10/241944 DD/ 42 TD/TT: [employer]: BNP Reviewed date:06/11/2024 12:34:16 PM Interpretation: Performing Lab: Notes/Report: Comment off of blood from this am please and thank you [facility] , NT Pro B Type Natriuretic Pept 1227.0 <=1800.0 pg/mL Performing Lab: see note ML - [facility] LB Troponin I High Sensitivity Reviewed date:06/11/2024 12:34:16 PM Interpretation: Performing Lab: Notes/Report: Comment off of blood from this am please and thank you [facility] , Troponin I High Sensitivity 38.8 4.0-51.3 pg/mL CUT-OFF POINTS HAVE BEEN ESTABLISHED BASED ON THE FOURTH UNIVERSAL DEFINITION OF MYOCARDIAL INFARCTION. THE UPPER REFERENCE LIMIT (URL) OF TROPONIN, DEFINED THE 99TH PERCENTILE OF cTnI DISTRIBUTION IN A REFERENCE POPULATION, HAS BEEN CONFIRMED THE DECISION THRESHOLD FOR AK DIAGNOSIS. 99TH PERCENTILE = 51.4 PG/ML NOTE: HIGH-SENSITIVITY TROPONIN ASSAY IS NOT INTENDED TO BE USED IN ISOLATION BUT SHOULD BE INTERPRETED IN CONJUNCTION WITH OTHER DIAGNOSTIC AND CLINICAL INFORMATION. Performing Lab: see note ML - [facility] LB CBC AUTO DIFF Reviewed date:2024 11:31:32 AM Interpretation: Performing Lab: Notes/Report: [facility] , White Blood Count 5.2 4.0-11.0 10 3/uL Red Blood Count 4.47 4.20-5.40 10 6/uL Hemoglobin 14.1 12.0-16.0 g/dL Hematocrit 43.2 36.0-48.0 % Mean Corpuscular Volume 96.6 81.0-99.0 fL Mean Corpuscular Hemoglobin 31.5 26.7-34.0 pg Mean Corpuscular HGB Conc 32.6 29.9-35.2 g/dL Red Cell Distribution Width 13.2 11.0-15.0 % Platelet Count 258 150-450 10 3/uL Mean Platelet Volume 9.3 9.5-13.5 fL Neutrophils Percent Auto 62.5 43.0-75.0 % Lymphocytes Percent Auto 25.6 20.5-60.0 % Monocytes Percent Auto 7.1 1.7-12.0 % Eosinophils Percent Auto 3.8 0.9-7.0 % Basophils Percent Auto 0.6 0.2-2.0 % Immature Granulocytes Pct Auto 0.4 0.0-0.5 % Neutrophils Absolute Auto 3.3 1.4-6.5 10 3/uL Lymphocytes Absolute Auto 1.3 1.2-3.8 10 3/uL Monocytes Absolute Auto 0.4 0.3-0.8 10 3/uL Eosinophils Absolute Auto 0.2 0.0-0.7 10 3/uL Basophils Absolute Auto 0.0 0.0-0.1 10 3/uL Immature Granulocytes Abs Auto 0.02 0.00-0.03 10 3/uL Performing Lab: see note ML - The [facility] PROF CHEM 8 (BAS METB) Reviewed date:2024 11:31:32 AM Interpretation: Performing Lab: Notes/Report: [facility] , Sodium 140 136-145 mmol/L Potassium 4.6 3.5-5.1 mmol/L Chloride 104 98-107 mmol/L Carbon Dioxide 23.3 21.0-32.0 mmol/L Anion Gap 17.3 Glucose 99 74-106 mg/dL Blood Urea Nitrogen 30.0 7.0-18.0 mg/dL Creatinine 1.40 0.55-1.02 mg/dL Estimated GFR ( Radha 43 >=60 mL/min/1.73m 2 Estimated GFR (Non- Marcella 35 >=60 mL/min/1.73m 2 BUN Creatinine Ratio 21.4 Calcium 9.1 8.5-10.1 mg/dL Performing Lab: see note ML - [facility] Troponin I High Sensitivity Reviewed date:2024 11:31:32 AM Interpretation: Performing Lab: Notes/Report: [facility] , Troponin I High Sensitivity 11.9 4.0-51.3 pg/mL CUT-OFF POINTS HAVE BEEN ESTABLISHED BASED ON THE FOURTH UNIVERSAL DEFINITION OF MYOCARDIAL INFARCTION. THE UPPER REFERENCE LIMIT (URL) OF TROPONIN, DEFINED THE 99TH PERCENTILE OF cTnI DISTRIBUTION IN A REFERENCE POPULATION, HAS BEEN CONFIRMED THE DECISION THRESHOLD FOR AK DIAGNOSIS. 99TH PERCENTILE = 51.4 PG/ML NOTE: HIGH-SENSITIVITY TROPONIN ASSAY IS NOT INTENDED TO BE USED IN ISOLATION BUT SHOULD BE INTERPRETED IN CONJUNCTION WITH OTHER DIAGNOSTIC AND CLINICAL INFORMATION. Performing Lab: see note ML - [facility] LB ECG 12 lead Reviewed date:09/10/2024 07:22:47 PM Interpretation: Performing Lab: Notes/Report: Source Facility: [facility]-[address] [place] [address] [place] [address] Electrocardiograph Report Signed Patient: ANAY BINGHAM MR#: [id number] : 1935 Acct:[id number] Age/Sex: 88 / F ADM Date: 09/06/24 Loc: ICU 275-[address]: Zenaida Ga M.D. Ordering Physician: Mis Meredith M.D. Date of Service: 09/06/24 Procedure(s): ECG 12 lead Accession Number(s): [id number] cc: [facility] Test Date: 2024-09-06 Pat Name: ANAY BINGHAM Department: Room: - Gender: Female [employer]: : 1935 Requested By: ZENAIDA GA Order Number: [id number] Reading MD: ZENAIDA GA Measurements Intervals Dale Rate: 55 P: 16 RI: 224 QRS: 112 QRSD: 146 T: 61 QT: 450 QTc: 438 Interpretive Statements 1100 Sinus rhythm 1102 Sinus arrhythmia 2231 First degree AV block 2550 Left bundle branch block 7100 Abnormal right axis deviation 9150 abnormal ECG Compared to ECG 06/10/2024 01:00:55 Right-axis deviation now present Electronically Signed On 09-10-2024 7:16:42 EST by ZENAIDA GA Dictated By: Zenaida Ga M.D. Signed By: 09/10/24716 DD/ 12 TD/TT: [employer] [place] [address] Electrocardiograph Report Signed Patient: ANAY BINGHAM MR#: [id number] : 1935 Acct:[id number] Age/Sex: 88 / F ADM Date: 09/06/24 Loc: ICU 275-[address]: Adam Ga M.D. Ordering Physician: Mis Meredith M.D. 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 Signed By: 09/10/24716 DD/ 12 TD/TT: [employer]: CT head/brain wo con Reviewed date:2024 11:31:32 AM Interpretation: Performing Lab: Notes/Report: Source Facility: [place] [address] CT Scan Report Signed Patient: ANAY BINGHAM MR#: [id number] : 1935 Acct:[id number] Age/Sex: 88 / F ADM Date: 09/06/24 Loc: ER Attending Dr: Ordering Physician: Mis Meredith M.D. Date of Service: 09/06/24 Procedure(s): CT head/brain wo con Accession Number(s): [id number] cc: Zenaida Ga M.D. [place] [address] Patient Name: ANAY BINGHAM MRN: [id number] date: 1935 Sex: F Assigned Patient Location: ER Current Patient Location: ED.MAIN Accession/Order Number: [id number] Exam Date: 09/06/2024 19:15 Report Date: 09/06/2024 20:23 At the request of: MIS MEREDITH Procedure: CT head/brain wo con CT HEAD WITHOUT CONTRAST. CLINICAL HISTORY: Dizziness COMPARISON: 06/10/2024 TECHNIQUE: Axial CT head images from the skull base to the vertex without IV contrast were acquired. Coronal and sagittal reformats were also obtained. FINDINGS: EXTRA-AXIAL SPACE: Age-appropriate ventricles. No acute extra-axial collection. No extra-axial mass. No midline shift. CEREBRUM: There are areas of periventricular and deep white matter low-attenuation, which is nonspecific but likely reflective of chronic microvascular ischemic disease.. No CT evidence of acute large territorial cortical infarct, hemorrhage or mass effect. CEREBELLUM: No focal abnormality. No CT evidence of acute infarct, hemorrhage or mass effect. BRAINSTEM: No focal abnormality. No CT evidence of acute infarct, hemorrhage or mass effect. EXTRACRANIAL STRUCTURES. There is a left maxillary sinus mucous retention cyst. Mastoid air cells are clear. Orbits are unremarkable. No discrete pituitary mass. Intact calvarium. CT/CT head/brain wo con IMPRESSION: No acute intracranial abnormality. Electronically authenticated by: BUCK SORENSEN Date: 09/06/2024 20:23 Dictated By: Buck Sorensen M.D. Signed By: 09/06/242024 DD/ 22 TD/TT: [employer]: [place] [address] CT Scan Report Signed Patient: ANAY BINGHAM MR#: [id number] : 1935 Acct:[id number] Age/Sex: 88 / F ADM Date: 09/06/24 Loc: ER Attending Dr: Ordering Physician: Mis Meredith M.D. Date of Service: 09/06/24 Procedure(s): CT head/brain wo con Accession Number(s): [id number] cc: Zenaida Ga M.D. [place] [id number] Patient Name: ANAY BINGHAM MRN: [id number] date: 1935 Sex: F Assigned Patient Location: ER Current Patient Loca tion: ED.MAIN Accession/Order Numb er: [id number] Exam Date: 09/06/2024 19:15 Report Date: 09/06/2024 20:23 At the request of: MIS MEREDITH Procedure: CT head/b rain wo con CT HEAD WITHOUT CONTRAST. CLINICAL HISTORY: Dizziness COMPARISON: 06/10/2024 TECHNIQUE: Axial CT head images from the skull base to the vertex without IV contrast were acquir ed. Coronal and sagittal reformats were also obtained. FINDINGS: EXTRA-AXIAL SPACE: Age-appropriate ventricles. No acute extra-axial collection. No extra-axial mass. No midline shift. CEREBRUM: There are areas of periventricular and deep white matter low-attenuation, whi ch is nonspecific but likely reflective of chronic microvascular ischem ic disease.. No CT evidence of acute large territorial cortical infarct, hemorrhage or mass effect. CEREBELLUM: No focal abnormality. No CT evidence of acute infarct, hemorrhage or mass effect. BRAINSTEM: No focal abnormality. No CT evidence of acute infarct, hemorrhage or mass effect. EXTRACRANIAL STRUCTU RES. There is a left maxillary sinus mucous retention cyst. Mastoid air cells ar e clear. Orbits are unremarkable. No discrete pituitary mass. Intact calvarium. C T/CT head/brain wo con IMPRESSION: No acute intracrania l abnormality. Electronically authenticated by: BUCK SORENSEN Date: 09/06/2024 20:23 Dictated By: Jethro Sorensen M.D. Signed By: 09/06/242024 DD/ 22 TD/TT: [employer]: YE T3 Reviewed date:10/16/2024 08:29:47 PM Interpretation: Performing Lab: Notes/Report: [facility] , Free T3 1.37 2.18-3.98 pg/mL Performing Lab: see note ML - [facility] LB LIPID PROFILE Reviewed date:10/16/2024 08:29:47 PM Interpretation: Performing Lab: Notes/Report: [facility] , Triglycerides 66 <=150 mg/dL Cholesterol 145 <=200 mg/dL HDL Cholesterol 47 40-60 mg/dL > or =60 mg/dl - LOW CARDIOVASCULAR RISK <40 mg/dl - HIGH CARDIOVASCULAR RISK LDL Cholesterol Calculated 84.8 <100 mg/dl OPTIMAL 100-129 mg/dl NEAR OR ABOVE OPTIMAL 130-159 mg/dl BORDERLINE HIGH 160-189 mg/dl HIGH >190 mg/dl VERY HIGH VLDL CHOLESTEROL 13.2 Chol HDL Ratio 3.1 3.3 - 4.4 LOW RISK 4.4 - 7.1 AVERAGE RISK 7.1 - 11.0 MODERATE RISK >11.0 HIGH RISK Performing Lab: see note ML - [facility] LB PROF 14(COMP METB) Reviewed date:10/16/2024 08:29:47 PM Interpretation: Performing Lab: Notes/Report: [facility] , Sodium 143 136-145 mmol/L Potassium 4.8 3.5-5.1 mmol/L Chloride 106 98-107 mmol/L Carbon Dioxide 23.3 21.0-32.0 mmol/L Anion Gap 18.5 Glucose 89 74-106 mg/dL Blood Urea Nitrogen 28.0 7.0-18.0 mg/dL Creatinine 1.38 0.55-1.02 mg/dL Estimated GFR ( Radha 44 >=60 mL/min/1.73m 2 Estimated GFR (Non- Marcella 36 >=60 mL/min/1.73m 2 BUN Creatinine Ratio 20.3 Calcium 9.3 8.5-10.1 mg/dL Bilirubin Total 0.4 0.2-1.0 mg/dL Aspartate Amino Transferase 18 15-37 U/L Alanine Aminotransferase 11 14-59 U/L Alkaline Phosphatase 92 46-116 U/L Total Protein 7.5 6.4-8.2 g/dL Albumin Level 3.7 3.4-5.0 g/dL Globulin 3.8 Albumin Globulin Ratio 1.0 Performing Lab: see note ML - [facility] LB T4 Reviewed date:10/16/2024 08:29:47 PM Interpretation: Performing Lab: Notes/Report: [facility] , T4 Thyroxine 7.10 4.80-13.90 ug/dL Performing Lab: see note ML - [facility] LB TSH Reviewed date:10/16/2024 08:29:47 PM Interpretation: Performing Lab: Notes/Report: [facility] , Thyroid Stimulating Hormone 0.227 0.358-3.740 uIU/mL Performing Lab: see note ML - [facility] LB CBC AUTO DIFF Reviewed date:12/29/2024 09:16:23 PM Interpretation: Performing Lab: Notes/Report: [facility] , White Blood Count 4.8 4.0-11.0 10 3/uL Red Blood Count 4.15 4.20-5.40 10 6/uL Hemoglobin 13.3 12.0-16.0 g/dL Hematocrit 39.5 36.0-48.0 % Mean Corpuscular Volume 95.2 81.0-99.0 fL Mean Corpuscular Hemoglobin 32.0 26.7-34.0 pg Mean Corpuscular HGB Conc 33.7 29.9-35.2 g/dL Red Cell Distribution Width 13.3 11.0-15.0 % Platelet Count 251 150-450 10 3/uL Mean Platelet Volume 9.5 9.5-13.5 fL Neutrophils Percent Auto 53.9 43.0-75.0 % Lymphocytes Percent Auto 29.4 20.5-60.0 % Monocytes Percent Auto 11.1 1.7-12.0 % Eosinophils Percent Auto 4.8 0.9-7.0 % Basophils Percent Auto 0.8 0.2-2.0 % Immature Granulocytes Pct Auto 0.0 0.0-0.5 % Neutrophils Absolute Auto 2.6 1.4-6.5 10 3/uL Lymphocytes Absolute Auto 1.4 1.2-3.8 10 3/uL Monocytes Absolute Auto 0.5 0.3-0.8 10 3/uL Eosinophils Absolute Auto 0.2 0.0-0.7 10 3/uL Basophils Absolute Auto 0.0 0.0-0.1 10 3/uL Immature Granulocytes Abs Auto 0.00 0.00-0.03 10 3/uL Performing Lab: see note ML - [facility] VITAMIN D 25 [place] Reviewed date:10/16/2024 08:29:47 PM Interpretation: Performing Lab: Notes/Report: [facility] , Vitamin D 57.3 <20 ng/mL Vit D deficient 20-<30 ng/mL Vit D insufficient 30-100 ng/mL Vit D sufficient >100 ng/mL Potential Toxicity Performing Lab: see note ML - [facility] IRON Reviewed date:10/16/2024 08:29:47 PM Interpretation: Performing Lab: Notes/Report: [facility] , Iron 85.0 50.0-170.0 ug/dL Performing Lab: see note ML - [facility] LB GLYCOHEMOGLOBIN A1C Reviewed date:10/16/2024 08:29:47 PM Interpretation: Performing Lab: Notes/Report: [facility] , Glycohemoglobin A1C 5.5 4.5-6.2 % ADA RECOMMENDED LIMIT 4.0 - 6.0 ADA THERAPEUTIC TARGET < 7.0 ACTION SUGGESTED > 7.0 Estimated Average Glucose 111 Performing Lab: see note [facility] CBC AUTO DIFF Reviewed date:10/16/2024 08:29:47 PM Interpretation: Performing Lab: Notes/Report: [facility] , White Blood Count 5.3 4.0-11.0 10 3/uL Red Blood Count 4.45 4.20-5.40 10 6/uL Hemoglobin 14.3 12.0-16.0 g/dL Hematocrit 41.9 36.0-48.0 % Mean Corpuscular Volume 94.2 81.0-99.0 fL Mean Corpuscular Hemoglobin 32.1 26.7-34.0 pg Mean Corpuscular HGB Conc 34.1 29.9-35.2 g/dL Red Cell Distribution Width 13.3 11.0-15.0 % Platelet Count 269 150-450 10 3/uL Mean Platelet Volume 9.6 9.5-13.5 fL Neutrophils Percent Auto 57.1 43.0-75.0 % Lymphocytes Percent Auto 28.2 20.5-60.0 % Monocytes Percent Auto 9.5 1.7-12.0 % Eosinophils Percent Auto 4.0 0.9-7.0 % Basophils Percent Auto 0.8 0.2-2.0 % Immature Granulocytes Pct Auto 0.4 0.0-0.5 % Neutrophils Absolute Auto 3.0 1.4-6.5 10 3/uL Lymphocytes Absolute Auto 1.5 1.2-3.8 10 3/uL Monocytes Absolute Auto 0.5 0.3-0.8 10 3/uL Eosinophils Absolute Auto 0.2 0.0-0.7 10 3/uL Basophils Absolute Auto 0.0 0.0-0.1 10 3/uL Immature Granulocytes Abs Auto 0.02 0.00-0.03 10 3/uL Performing Lab: see note ML - [facility] LB SARS-CoV-2 Ag* Reviewed date:2024 11:31:32 AM Interpretation: Performing Lab: Notes/Report: [facility] , SARS-CoV-2 Ag NEGATIVE NEGATIVE This test has not been FDA cleared or approved, but has been authorized by the FDA under an Emergency Use Authorization (EUA) for use by authorized laboratories certified under CLIA that meet the requirements to perform moderate or high complexity testing. This test has been authorized only for the detection of proteins from SARS-CoV-2, not for any other viruses or pathogens. The emergency use of this test is authorized for the duration of the declaration that circumstances exist justifying the authorization of emergency use of in vitro diagnostic tests for detection and/or diagnosis of Covid-19 under section 564(b)(1) of the Act, 21 U.S.C. 360bbb-3(b)(1), unless the declaration is terminated or authorization is revoked sooner. Performing Lab: see note ML - [facility] URINE MICROSCOPIC ONLY Reviewed date:2024 11:31:32 AM Interpretation: Performing Lab: Notes/Report: [facility] , WBC Urine 2-5 NONE SEEN #/HPF RBC Urine 0-2 0-2 #/HPF Bacteria Urine TRACE NONE SEEN #/HPF Mucus Urine NONE SEEN NONE SEEN Squamous Epithelial Cell Urine FEW NONE/RARE #/LPF Crystals Seen? None Seen None Seen #/HPF Cast Seen? NONE SEEN NONE SEEN #/LPF Performing Lab: see note ML - [facility] UA (CLEAN or CATCH) MICROSCO PIC IF INDICATE Reviewed date:2024 11:31:32 AM Interpretation: Performing Lab: Notes/Report: [facility] , Color Urine LT. YELLOW YELLOW Clarity Urine CLEAR CLEAR Specific Harper Urine 1.010 1.005-1.025 pH Urine 6.0 5.0-9.0 Protein Urine NEGATIVE NEG/TRACE mg/dL Glucose Urine UA NEGATIVE NEGATIVE mg/dL Bilirubin Urine NEGATIVE NEGATIVE Ketones Urine NEGATIVE NEGATIVE mg/dL Blood Urine NEGATIVE NEGATIVE Nitrite Urine NEGATIVE NEGATIVE Urobilinogen Urine 0.2 0.2-1.0 EU/dL Leukocyte Esterase Urine SMALL NEGATIVE Urine Microscopic Indicated YES Performing Lab: see note ML - [facility] LB PROF CHEM 8 (BAS METB) Reviewed date:2024 11:31:32 AM Interpretation: Performing Lab: Notes/Report: [facility] , Sodium 140 136-145 mmol/L Potassium 4.4 3.5-5.1 mmol/L Chloride 108 98-107 mmol/L Carbon Dioxide 22.1 21.0-32.0 mmol/L Anion Gap 14.3 Glucose 89 74-106 mg/dL Blood Urea Nitrogen 26.0 7.0-18.0 mg/dL Creatinine 1.22 0.55-1.02 mg/dL Estimated GFR ( Radha 50 >=60 mL/min/1.73m 2 Estimated GFR (Non- Marcella 42 >=60 mL/min/1.73m 2 BUN Creatinine Ratio 21.3 Calcium 8.4 8.5-10.1 mg/dL Performing Lab: see note ML - [facility] LB MAGNESIUM Reviewed date:2024 11:31:32 AM Interpretation: Performing Lab: Notes/Report: [facility] , Magnesium 1.8 1.8-2.4 mg/dL Performing Lab: see note ML - [facility] LB INFLUENZA A AND B AG Reviewed date:2024 11:31:32 AM Interpretation: Performing Lab: Notes/Report: [facility] , Influenza Virus A Antigen Negative Negative for Flu A protein antigen. Infection due to Flu A cannot be ruled out. Flu A antigen in the sample may be below the detection limit of the test. Influenza Virus B Antigen Negative Negative for Flu B protein antigen. Infection due to Flu B cannot be ruled out. Flu B antigen in the sample may be below the detection limit of the test. Performing Lab: see note ML - [facility] LB CBC AUTO DIFF Reviewed date:2024 11:31:32 AM Interpretation: Performing Lab: Notes/Report: [facility] , White Blood Count 4.5 4.0-11.0 10 3/uL Red Blood Count 4.01 4.20-5.40 10 6/uL Hemoglobin 12.8 12.0-16.0 g/dL Hematocrit 38.5 36.0-48.0 % Mean Corpuscular Volume 96.0 81.0-99.0 fL Mean Corpuscular Hemoglobin 31.9 26.7-34.0 pg Mean Corpuscular HGB Conc 33.2 29.9-35.2 g/dL Red Cell Distribution Width 13.2 11.0-15.0 % Platelet Count 231 150-450 10 3/uL Mean Platelet Volume 9.3 9.5-13.5 fL Neutrophils Percent Auto 53.7 43.0-75.0 % Lymphocytes Percent Auto 29.4 20.5-60.0 % Monocytes Percent Auto 10.9 1.7-12.0 % Eosinophils Percent Auto 5.1 0.9-7.0 % Basophils Percent Auto 0.7 0.2-2.0 % Immature Granulocytes Pct Auto 0.2 0.0-0.5 % Neutrophils Absolute Auto 2.4 1.4-6.5 10 3/uL Lymphocytes Absolute Auto 1.3 1.2-3.8 10 3/uL Monocytes Absolute Auto 0.5 0.3-0.8 10 3/uL Eosinophils Absolute Auto 0.2 0.0-0.7 10 3/uL Basophils Absolute Auto 0.0 0.0-0.1 10 3/uL Immature Granulocytes Abs Auto 0.01 0.00-0.03 10 3/uL Performing Lab: see note ML - [facility] LB XR chest 1V Reviewed date:2024 11:31:32 AM Interpretation: Performing Lab: Notes/Report: Source Facility: [place] [address] XRay Report Signed Patient: ANAY BINGHAM MR#: [id number] : 1935 Acct:[id number] Age/Sex: 88 / F ADM Date: 09/06/24 Loc: ER Attending Dr: Ordering Physician: Mis Meredith M.D. Date of Service: 09/06/24 Procedure(s): XR chest 1V Accession Number(s): [id number] cc: Zenaida Ga M.D.; Mis Meredith M.D. [facility] [place] [address] Patient Name: ANAY BINGHAM MRN: [id number] date: 1935 Sex: F Assigned Patient Location: ER Current Patient Location: ED.MAIN Accession/Order Number: [id number] Exam Date: 09/06/2024 19:15 Report Date: 09/06/2024 20:57 At the request of: MIS MEREDITH Procedure: XR chest 1V PORTABLE CHEST X-RAY. CLINICAL HISTORY: Dizziness COMPARISON: 06/06/2024 TECHNIQUE: Single AP portable chest radiograph. FINDINGS: TUBES AND LINES: None. LUNGS: Lungs are clear. PLEURA: No effusions or pneumothorax. HEART AND MEDIASTINUM: Within normal limits for portable technique. OSSEOUS STRUCTURES: No acute abnormality. XR/XR chest 1V IMPRESSION: No acute findings. Electronically authenticated by: BUCK SORENSEN Date: 09/06/2024 20:57 Dictated By: Buck Sorensen M.D. Signed By: 09/06/242099 DD/ 56 TD/TT: [employer]: [place] [address] XRay Report Signed Patient: ANAY BINGHAM MR#: [id number] : 1935 Acct:[id number] Age/Sex: 88 / F ADM Date: 09/06/24 Loc: ER Attending Dr: Ordering Physician: Mis Meredith M.D. Date of Service: 09/06/24 Procedure(s): XR chest 1V Accession Number(s): [id number] cc: Zenaida Ga M.D. ; Mis Meredith M.D. [facility] [place] [address] Patient Name: ANAY BINGHAM MRN: [id number] date: 1935 Sex: F Assigned Patient Location: ER Current Patient Loca tion: ED.MAIN Accession/Order Numb er: [id number] Exam Date: 09/06/2024 19:15 Report Date: 09/06/2024 20:57 At the request of: MIS MEREDITH Procedure: XR chest 1V PORTABLE CHEST X-RAY. CLINICAL HISTORY: Dizziness COMPARISON: 06/06/2024 TECHNIQUE: Single AP portable chest radiograph. FINDINGS: TUBES AND LINES: None. LUNGS: Lungs are clear. PLEURA: No effusions or pneumothorax. HEART AND MEDIASTINU M: Within normal limits for portable technique. OSSEOUS STRUCTURES: No acute abnormality. X R/XR chest 1V IMPRESSION: No acute findings. Electronically authenticated by: BUCK SORENSEN Date: 09/06/2024 20:57 Dictated By: Jethro Sorensen M.D. Signed By: 09/06/242099 DD/ 56 TD/TT: [employer]: MALOU holter monitor 7-15 days Reviewed date:06/30/2024 12:46:52 PM Interpretation: Performing Lab: Notes/Report: Source Facility: [place] [address] [place] [address] Cardiology Report Signed Patient: ANAY BINGHAM MR#: [id number] : 1935 Acct:[id number] Age/Sex: 88 / F ADM Date: 06/06/24 Loc: ER Attending Dr: Ordering Physician: Zenaida Ga M.D. Date of Service: 06/06/24 Procedure(s): CA holter monitor 7-15 days Accession Number(s): [id number] cc: Zenaida Ga M.D. [facility] Test Date: 2024-06-27 Pat Name: ANAY BINGHAM Department: Room: - Gender: Female [employer]: : 1935 Requested By: ZENAIDA GA Order Number: [id number] Reading MD: REJI SALAZAR Interpretive Statements Predominant rhyhm is sinus with average rat of 65 bpm Tachycardia - max rate of 122 bpm (sinus tachycardia) Bradycardia - min rate of 26 bpm (Wenckebach) Ventricular ectopy - 3,177 total, < 1% burden - 3,167 PVC - 10 couplets Patient triggered events: 0 Impression: Predominant rhyhm is sinus with average rat of 65 bpm Fastest rate of 122 bpm (sinus tachycardia) and slowest rate of 42 bpm 3,167 PVC and 10 couplets 104,048 SVE, 16% burden Second degree AV block, type I Junctional rhythm recorded: junctional escape Electronically Signed On 06-29-2024 19:13:29 EST by REJI SALAZAR Dictated By: Reji Salazar D.O. Signed By: 06/29/24191206/29/241912 DD/ 7 TD/TT: [employer] [place] [address] Cardiology Report Signed Patient: ANAY BINGHAM MR#: [id number] : 1935 Acct:[id number] Age/Sex: 88 / F ADM Date: 06/06/24 Loc: ER Attending Dr: Ordering Physician: Zenaida Ga M.D. Date of Service: 06/06/24 Procedure(s): CA hol ter monitor 7-15 days Accession Number(s): [id number] cc: Zenaida Ga M.D. 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[employer]: : 1935 Requested By: ZENAIDA GA Order Number: [id number] Reading MD: REJI SALAZAR Interpretive Statements Predominant rhyhm is sinus with average rat of 65 bpm Tachycardia - max rate of 122 bp m (sinus tachycardia) Bradycardia - min rate of 26 bpm (Wenckebach) Ventricular ectopy - 3,177 total, < 1% burden - 3,167 PVC - 10 couplets Patient triggered ev ents: 0 Impression: Predominant rhyhm is sinus with average rat of 65 bpm Fastest rate of 122 bpm (sinus tachycardia) and slowest rate of 42 bpm 3,167 PVC and 10 couplets 104,048 SVE, 16% burden Second degree AV blo ck, type I Junctional rhythm recorded: junctional escape Electronically Rochelle d On 06-29-2024 19:13:29 EST by REJI SALAZAR Dictated By: Reji Salazar D.O. Signed By: 06/29/24191206/29/241912 DD/ 7 TD/TT: [employer]: PROF LIMA 8 (BAS METB) Reviewed date:06/11/2024 12:34:16 PM Interpretation: Performing Lab: Notes/Report: [facility] , Sodium 143 136-145 mmol/L Potassium 4.7 3.5-5.1 mmol/L Chloride 108 98-107 mmol/L Carbon Dioxide 20.8 21.0-32.0 mmol/L Anion Gap 18.9 Glucose 190 74-106 mg/dL Blood Urea Nitrogen 24.0 7.0-18.0 mg/dL Creatinine 1.56 0.55-1.02 mg/dL Estimated GFR ( Radha 38 >=60 mL/min/1.73m 2 Estimated GFR (Non- Marcella 31 >=60 mL/min/1.73m 2 BUN Creatinine Ratio 15.4 Calcium 8.5 8.5-10.1 mg/dL Performing Lab: see note ML - [facility] LB PROF 14(COMP METB) Reviewed date:06/11/2024 07:55:42 AM Interpretation: Performing Lab: Notes/Report: [facility] , Sodium 142 136-145 mmol/L Potassium 5.2 3.5-5.1 mmol/L Chloride 109 98-107 mmol/L Carbon Dioxide 18.9 21.0-32.0 mmol/L Anion Gap 19.3 Glucose 115 74-106 mg/dL Blood Urea Nitrogen 26.0 7.0-18.0 mg/dL Creatinine 1.49 0.55-1.02 mg/dL Estimated GFR ( Radha 40 >=60 mL/min/1.73m 2 Estimated GFR (Non- Marcella 33 >=60 mL/min/1.73m 2 BUN Creatinine Ratio 17.4 Calcium 8.4 8.5-10.1 mg/dL Bilirubin Total 0.4 0.2-1.0 mg/dL Aspartate Amino Transferase 14 15-37 U/L Alanine Aminotransferase 10 14-59 U/L Alkaline Phosphatase 56 46-116 U/L Total Protein 5.8 6.4-8.2 g/dL Albumin Level 2.7 3.4-5.0 g/dL Globulin 3.1 Albumin Globulin Ratio 0.9 Performing Lab: see note ML - [facility] LB MAGNESIUM Reviewed date:06/11/2024 07:55:42 AM Interpretation: Performing Lab: Notes/Report: [facility] , Magnesium 2.1 1.8-2.4 mg/dL Performing Lab: see note ML - [facility] LB CBC AUTO DIFF Reviewed date:06/11/2024 07:55:42 AM Interpretation: Performing Lab: Notes/Report: [facility] , White Blood Count 8.0 4.0-11.0 10 3/uL Red Blood Count 4.03 4.20-5.40 10 6/uL Hemoglobin 13.2 12.0-16.0 g/dL Hematocrit 39.9 36.0-48.0 % Mean Corpuscular Volume 99.0 81.0-99.0 fL Mean Corpuscular Hemoglobin 32.8 26.7-34.0 pg Mean Corpuscular HGB Conc 33.1 29.9-35.2 g/dL Red Cell Distribution Width 13.4 11.0-15.0 % Platelet Count 301 150-450 10 3/uL Mean Platelet Volume 9.5 9.5-13.5 fL Neutrophils Percent Auto 77.5 43.0-75.0 % Lymphocytes Percent Auto 13.1 20.5-60.0 % Monocytes Percent Auto 8.9 1.7-12.0 % Eosinophils Percent Auto 0.1 0.9-7.0 % Basophils Percent Auto 0.1 0.2-2.0 % Immature Granulocytes Pct Auto 0.3 0.0-0.5 % Neutrophils Absolute Auto 6.2 1.4-6.5 10 3/uL Lymphocytes Absolute Auto 1.1 1.2-3.8 10 3/uL Monocytes Absolute Auto 0.7 0.3-0.8 10 3/uL Eosinophils Absolute Auto 0.0 0.0-0.7 10 3/uL Basophils Absolute Auto 0.0 0.0-0.1 10 3/uL Immature Granulocytes Abs Auto 0.02 0.00-0.03 10 3/uL Performing Lab: see note ML - [facility] LB Troponin I High Sensitivity Reviewed date:06/10/2024 08:39:29 PM Interpretation: Performing Lab: Notes/Report: [facility] , Troponin I High Sensitivity 103.1 4.0-51.3 pg/mL RESULTS CALLED TO PARKER CARR RN at 1111 CUT-OFF POINTS HAVE BEEN ESTABLISHED BASED ON THE FOURTH UNIVERSAL DEFINITION OF MYOCARDIAL INFARCTION. THE UPPER REFERENCE LIMIT (URL) OF TROPONIN, DEFINED THE 99TH PERCENTILE OF cTnI DISTRIBUTION IN A REFERENCE POPULATION, HAS BEEN CONFIRMED THE DECISION THRESHOLD FOR AK DIAGNOSIS. 99TH PERCENTILE = 51.4 PG/ML NOTE: HIGH-SENSITIVITY TROPONIN ASSAY IS NOT INTENDED TO BE USED IN ISOLATION BUT SHOULD BE INTERPRETED IN CONJUNCTION WITH OTHER DIAGNOSTIC AND CLINICAL INFORMATION. Performing Lab: see note ML - [facility] LB Troponin I High Sensitivity Reviewed date:06/10/2024 08:39:29 PM Interpretation: Performing Lab: Notes/Report: Comment start 3 hours after last one [facility] , Troponin I High Sensitivity 104.9 4.0-51.3 pg/mL RESULTS CALLED TO ATUL NUNEZ RN at 0831 CUT-OFF POINTS HAVE BEEN ESTABLISHED BASED ON THE FOURTH UNIVERSAL DEFINITION OF MYOCARDIAL INFARCTION. THE UPPER REFERENCE LIMIT (URL) OF TROPONIN, DEFINED THE 99TH PERCENTILE OF cTnI DISTRIBUTION IN A REFERENCE POPULATION, HAS BEEN CONFIRMED THE DECISION THRESHOLD FOR AK DIAGNOSIS. 99TH PERCENTILE = 51.4 PG/ML NOTE: HIGH-SENSITIVITY TROPONIN ASSAY IS NOT INTENDED TO BE USED IN ISOLATION BUT SHOULD BE INTERPRETED IN CONJUNCTION WITH OTHER DIAGNOSTIC AND CLINICAL INFORMATION. Performing Lab: see note ML - [facility] CT head/brain wo con Reviewed date:06/10/2024 08:39:29 PM Interpretation: Performing Lab: Notes/Report: Source Facility: [place] [address] CT Scan Report Signed Patient: ANAY BINGHAM MR#: [id number] : 1935 Acct:[id number] Age/Sex: 88 / F ADM Date: 06/10/24 Loc: ER Attending Dr: Ordering Physician: Rizwan Mercado Date of Service: 06/10/24 Procedure(s): CT head/brain wo con Accession Number(s): [id number] cc: Zenaida Ga M.D. [place] [address] Patient Name: ANAY BINGHAM MRN: [id number] date: 1935 Sex: F Assigned Patient Location: ER Current Patient Location: ER Accession/Order Number: [id number] Exam Date: 06/10/2024 02:00 Report Date: 06/10/2024 03:56 At the request of: RIZWAN MERCADO Procedure: CT head/brain wo con EXAM: CT head/brain wo con INDICATION: 88 years old; Female. Vertigo. TECHNIQUE: CT Head (ax/cor/sag reformats). Ionizing radiation dose reduced via iterative reconstruction/FBP blend and body size kV/mA adjustment. Comparison: Head CT dated 02/19/2024. FINDINGS: POSTOPERATIVE CHANGES: None. BRAIN PARENCHYMA: No intraparenchymal or extra-axial hemorrhage. No mass effect. No midline shift or herniation. Patchy low-density in the white matter without mass effect. VENTRICLES/EXTRA-AXIAL SPACES: Enlarged but within normal limits for patient's age. SINUSES/MASTOIDS: There is opacification of the visualized portion the maxillary sinus on the left. Soft tissue material projects into the nasal cavity. This would be consistent with obstruction of the ostiomeatal unit. The appearance is unchanged as compared to prior study. Remaining visualized sinuses are clear. Nasal septal deviation to the right with spur formation. Mastoids and middle ears are clear. MSK: No displaced or depressed calvarial fracture. OTHER: No hyperdense intraluminal thrombus is seen. Vascular calcifications are noted. CT/CT head/brain wo con IMPRESSION: 1. No acute intracranial abnormality. No hemorrhage or mass effect. 2. Nonspecific white matter changes. 3. Chronic appearing opacification of the visualized portion left maxillary sinus. 4. Vascular calcification. Electronically authenticated by: MILADYS CHILEL Date: 06/10/2024 03:56 Dictated By: Miladys Chilel M.D. Signed By: 06/10/24357 DD/ 5 TD/TT: [employer]: [place] [address] CT Scan Report Signed Patient: ANAY BINGHAM MR#: [id number] : 1935 Acct:[id number] Age/Sex: 88 / F ADM Date: 06/10/24 Loc: ER Attending Dr: Ordering Physician: Rizwan Mercado Date of Service: 06/10/24 Procedure(s): CT head/brain wo con Accession Number(s): [id number] cc: Zenaida Ga M.D. [place] [id number] Patient Name: ANAY BINGHAM MRN: [id number] date: 1935 Sex: F Assigned Patient Location: ER Current Patient Loca tion: ER Accession/Order Numb er: [id number] Exam Date: 02:00 Report Date: 06/10/2024 03:56 At the request of: RIZWAN MERCADO Procedure: CT head/b rain wo con EXAM: CT head/brain wo con INDICATION: 88 years old; Female. Vertigo. TECHNIQUE: CT Head (ax/cor/sag reformats). Ionizing radiation dose reduced via iterative reconstruction/FBP blend and body size kV/mA adjustment. Comparison: Head CT dated 02/19/2024. FINDINGS: POSTOPERATIVE CHANGE S: None. BRAIN PARENCHYMA: No intraparenchymal or extra-axial hemorrhage. No mass effect. No midline s hift or herniation. Patchy low-density in the white matter without mass effect. VENTRICLES/EXTRA-AXI AL SPACES: Enlarged but within normal limits for patient's age. SINUSES/MASTOIDS: Th ere is opacification of the visualized portion the maxillary sinus on t he left. Soft tissue material projects into the nasal cavity. This would b e consistent with obstruction of the ostiomeatal unit. The appearance is unchan ged as compared to prior study. Remaining visualized sinuses are clear. N yolette septal deviation to the right with spur formation. Mastoids and middle ears are clear. MSK: No displaced or depressed calvarial fracture. OTHER: No hyperdense intraluminal thrombus is seen. Vascular calcifications are noted. C T/CT head/brain wo con IMPRESSION: 1. No acute intracra nial abnormality. No hemorrhage or mass effect. 2. Nonspecific white matter changes. 3. Chronic appearing opacification of the visualized portion left maxillary sinus. 4. Vascular calcification. Electronically authenticated by: MILADYS CHILEL Date: 06/10/2024 03:56 Dictated By: Miladys Chilel M.D. Signed By: 06/10/24357 DD/ 5 TD/TT: [employer]: ECG 12 lead Reviewed date:06/12/2024 02:58:07 PM Interpretation: Performing Lab: Notes/Report: Source Facility: [facility] [place] [address] [place] [address] Electrocardiograph Report Signed Patient: ANAY BINGHAM MR#: [id number] : 1935 Acct:[id number] Age/Sex: 88 / F ADM Date: 06/10/24 Loc: [place] 216-[address]: Zenaida Ga M.D. Ordering Physician: Rizwan Mercado Date of Service: 06/10/24 Procedure(s): ECG 12 lead Accession Number(s): [id number] cc: [facility] Test Date: 2024-06-10 Pat Name: ANAY BINGHAM Department: Room: - Gender: Female [employer]: : 1935 Requested By: ZENAIDA GA Order Number: [id number] Reading MD: ZENAIDA GA Measurements Intervals Dale Rate: 62 P: 33 RI: 248 QRS: -5 QRSD: 140 T: 182 QT: 432 QTc: 437 Interpretive Statements 1100 Sinus rhythm 1102 Sinus arrhythmia 2231 First degree AV block 2550 Left bundle branch block 0102 ARTIFACT PRESENT 9150 abnormal ECG Compared to ECG 06/06/2024 06:31:32 No significant changes Electronically Signed On 06-12-2024 7:11:33 EST by ZENAIDA GA Dictated By: Zenaida Ga M.D. Signed By: 06/12/24710 DD/ TD/TT: [employer]: [place] [address] Electrocardiograph Report Signed Patient: ANAY BINGHAM MR#: [id number] : 1935 Acct:[id number] Age/Sex: 88 / F ADM Date: 06/10/24 Loc: [place] 216-[address]: Adam Ga M.D. 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 Signed By: 06/12/24710 DD/ TD/TT: [employer]: XR hip LT 2V w/ pelvis Reviewed date:06/10/2024 08:39:29 PM Interpretation: Performing Lab: Notes/Report: Source Facility: [place] [address] [place] [address] XRay Report Signed Patient: ANAY BINGHAM MR#: [id number] : 1935 Acct:[id number] Age/Sex: 88 / F ADM Date: 06/10/24 Loc: ER Attending Dr: Ordering Physician: Rizwan Mercado Date of Service: 06/10/24 Procedure(s): XR hip LT 2V w/ pelvis Accession Number(s): [id number] cc: Rizwan Mercado; Zenaida Ga M.D. [facility] [place] [address] Patient Name: ANAY BINGHAM MRN: [id number] date: 1935 Sex: F Assigned Patient Location: ER Current Patient Location: ER Accession/Order Number: [id number] Exam Date: 06/10/2024 02:00 Report Date: 06/10/2024 04:23 At the request of: RIZWAN MERCADO Procedure: XR hip LT 2V w/ pelvis PROCEDURE: XR hip LT 2V w/ pelvis HISTORY: fall , left hip pain COMPARISON: None. FINDINGS: BONES:Moderate degenerative changes of the hip joints, left greater than right. Degenerative changes of the lower lumbar spine. No fracture, dislocation, or bone lesion. SOFT TISSUES:No visible soft tissue swelling. EFFUSION:None visible. OTHER: Negative. XR/XR hip LT 2V w/ pelvis IMPRESSION: 1. No acute bone abnormality. 2. Degenerative changes. Electronically authenticated by: JOHANN PICKARD Date: 06/10/2024 04:23 Dictated By: Johann Pickard M.D. Signed By: 06/10/24 0425 DD/ 042 TD/TT: [employer]: [place] [address] XRay Report Signed Patient: ANAY BINGHAM MR#: [id number] : 1935 Acct:[id number] Age/Sex: 88 / F ADM Date: 06/10/24 Loc: ER Attending Dr: Ordering Physician: Rizwan Mercado Date of Service: 06/10/24 Procedure(s): XR hip LT 2V w/ pelvis Accession Number(s): [id number] cc: Rizwan Mercado; Zenaida Ga M.D. [facility] [place] [address] Patient Name: ANAY BINGHAM MRN: [id number] date: 1935 Sex: F Assigned Patient Location: ER Current Patient Loca tion: ER Accession/Order Numb er: [id number] Exam Date: 02:00 Report Date: 06/10/2024 04:23 At the request of: RIZWAN MERCADO Procedure: XR hip LT 2V w/ pelvis PROCEDURE: XR hip LT 2V w/ pelvis HISTORY: fall , left hip pain COMPARISON: None. FINDINGS: BONES:Moderate degenerative changes of the hip joints, left greater than right. Degenerative changes of the lower lumbar spine. No fracture, dislocation, or bone lesion. SOFT TISSUES:No visi ble soft tissue swelling. EFFUSION:None visible. OTHER: Negative. X R/XR hip LT 2V w/ pelvis IMPRESSION: 1. No acute bone abnormality. 2. Degenerative changes. Electronically authenticated by: JOHANN PICKARD Date: 06/10/2024 04:23 Dictated By: Johann Pickard M.D. Signed By: 06/10/24 0425 DD/ 0423 TD/TT: [employer]: Troponin I High Sensitivity Reviewed date:06/10/2024 08:39:29 PM Interpretation: Performing Lab: Notes/Report: [facility] , Troponin I High Sensitivity 28.0 4.0-51.3 pg/mL CUT-OFF POINTS HAVE BEEN ESTABLISHED BASED ON THE FOURTH UNIVERSAL DEFINITION OF MYOCARDIAL INFARCTION. THE UPPER REFERENCE LIMIT (URL) OF TROPONIN, DEFINED THE 99TH PERCENTILE OF cTnI DISTRIBUTION IN A REFERENCE POPULATION, HAS BEEN CONFIRMED THE DECISION THRESHOLD FOR AK DIAGNOSIS. 99TH PERCENTILE = 51.4 PG/ML NOTE: HIGH-SENSITIVITY TROPONIN ASSAY IS NOT INTENDED TO BE USED IN ISOLATION BUT SHOULD BE INTERPRETED IN CONJUNCTION WITH OTHER DIAGNOSTIC AND CLINICAL INFORMATION. Performing Lab: see note - [facility] LB PROF CHEM 8 (BAS METB) Reviewed date:06/10/2024 08:39:29 PM Interpretation: Performing Lab: Notes/Report: [facility] , Sodium 141 136-145 mmol/L Potassium 4.5 3.5-5.1 mmol/L Chloride 107 98-107 mmol/L Carbon Dioxide 18.0 21.0-32.0 mmol/L Anion Gap 20.5 Glucose 153 74-106 mg/dL Blood Urea Nitrogen 23.0 7.0-18.0 mg/dL Creatinine 1.72 0.55-1.02 mg/dL Estimated GFR ( Radha 34 >=60 mL/min/1.73m 2 Estimated GFR (Non- Marcella 28 >=60 mL/min/1.73m 2 BUN Creatinine Ratio 13.4 Calcium 9.4 8.5-10.1 mg/dL Performing Lab: see note ML - [facility] LB CBC AUTO DIFF Reviewed date:06/10/2024 08:39:29 PM Interpretation: Performing Lab: Notes/Report: [facility] , White Blood Count 5.0 4.0-11.0 10 3/uL Red Blood Count 4.22 4.20-5.40 10 6/uL Hemoglobin 13.9 12.0-16.0 g/dL Hematocrit 41.3 36.0-48.0 % Mean Corpuscular Volume 97.9 81.0-99.0 fL Mean Corpuscular Hemoglobin 32.9 26.7-34.0 pg Mean Corpuscular HGB Conc 33.7 29.9-35.2 g/dL Red Cell Distribution Width 13.4 11.0-15.0 % Platelet Count 279 150-450 10 3/uL Mean Platelet Volume 10.0 9.5-13.5 fL Neutrophils Percent Auto 66.3 43.0-75.0 % Lymphocytes Percent Auto 20.2 20.5-60.0 % Monocytes Percent Auto 10.1 1.7-12.0 % Eosinophils Percent Auto 2.8 0.9-7.0 % Basophils Percent Auto 0.4 0.2-2.0 % Immature Granulocytes Pct Auto 0.2 0.0-0.5 % Neutrophils Absolute Auto 3.3 1.4-6.5 10 3/uL Lymphocytes Absolute Auto 1.0 1.2-3.8 10 3/uL Monocytes Absolute Auto 0.5 0.3-0.8 10 3/uL Eosinophils Absolute Auto 0.1 0.0-0.7 10 3/uL Basophils Absolute Auto 0.0 0.0-0.1 10 3/uL Immature Granulocytes Abs Auto 0.01 0.00-0.03 10 3/uL Performing Lab: see note ML - [facility] LB ECG 12 lead Reviewed date:06/09/2024 01:05:43 PM Interpretation: Performing Lab: Notes/Report: Source Facility: [place] [address] [place] [address] Electrocardiograph Report Signed Patient: ANAY BINGHAM MR#: [id number] : 1935 Acct:[id number] Age/Sex: 88 / F ADM Date: 06/06/24 Loc: ER Attending Dr: Ordering Physician: Johnnie Garcia Date of Service: 06/06/24 Procedure(s): ECG 12 lead Accession Number(s): [id number] cc: [facility] Test Date: 2024-06-06 Pat Name: ANAY BINGHAM Department: Room: - Gender: Female [employer]: : 1935 Requested By: ZENAIDA GA Order Number: [id number] Reading MD: ZENAIDA GA Measurements Intervals Dale Rate: 54 P: -60 RI: 296 QRS: 34 QRSD: 140 T: 181 QT: 446 QTc: 431 Interpretive Statements 1200 Atrial rhythm 2231 First degree AV block 2550 Left bundle branch block 9150 abnormal ECG Compared to ECG 06/06/2024 06:27:59 First degree AV block now present Electronically Signed On 06-09-2024 7:25:23 EST by ZENAIDA GA Dictated By: Zenaida Ga M.D. 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 Signed By: 06/09/24 0725 DD/ 0631 TD/TT: [employer]: ECG 12 lead Reviewed date:06/09/2024 01:05:43 PM Interpretation: Performing Lab: Notes/Report: Source Facility: [place] [address] [place] [address] Electrocardiograph Report Signed Patient: ANAY BINGHAM MR#: [id number] : 1935 Acct:[id number] Age/Sex: 88 / F ADM Date: 06/06/24 Loc: ER Attending Dr: Ordering Physician: Johnnie Garcia Date of Service: 06/06/24 Procedure(s): ECG 12 lead Accession Number(s): [id number] cc: [facility] Test Date: 2024-06-06 Pat Name: ANAY BINGHAM Department: Room: - Gender: Female [employer]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 Signed By: 06/09/2425 DD/ 6 TD/TT: [employer]: ECG 12 lead Reviewed date:06/09/2024 01:05:43 PM Interpretation: Performing Lab: Notes/Report: Source Facility: [address] [place] [address] [place] [address] Electrocardiograph Report Signed Patient: ANAY BINGHAM MR#: [id number] : 1935 Acct:[id number] Age/Sex: 88 / F ADM Date: 06/06/24 Loc: ER Attending Dr: Ordering Physician: Johnnie Garcia Date of Service: 06/06/24 Procedure(s): ECG 12 lead Accession Number(s): [id number] cc: [facility] Test Date: 2024-06-06 Pat Name: ANAY BINGHAM Department: Room: - Gender: Female [employer]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 Signed By: 06/09/2425 DD/ 1 TD/TT: [employer]: XR chest 1V Reviewed date:06/08/2024 02:18:19 PM Interpretation: Performing Lab: Notes/Report: Source Facility: [place] [address] XRay Report Signed Patient: ANAY BINGHAM MR#: [id number] : 1935 Acct:[id number] Age/Sex: 88 / F ADM Date: 06/06/24 Loc: ER Attending Dr: Ordering Physician: Johnnie Garcia Date of Service: 06/06/24 Procedure(s): XR chest 1V Accession Number(s): [id number] cc: Zenaida Ga M.D.; Johnnie Garcia [place] [id number] Patient Name: ANAY BINGHAM MRN: [id number] date: 1935 Sex: F Assigned Patient Location: ER Current Patient Location: ER Accession/Order Number: [id number] Exam Date: 06/06/2024 06:40 Report Date: 06/06/2024 07:01 At the request of: JOHNNIE GARCIA Procedure: XR chest 1V EXAMINATION: XR chest 1V HISTORY: SOB COMPARISON: No relevant comparison available. FINDINGS: LUNGS: Hyperexpanded lungs. Trace amount stranding within right lung base. Mild opacity within lingula. Defibrillator paddle overlies the left hemithorax. VASCULATURE: No increased pulmonary vasculature. PLEURA: No pneumothorax, effusion, or pleural thickening. CARDIAC: Mild cardiomegaly. MEDIASTINUM: No visible mass or adenopathy. BONES: No fracture or visible bone lesion. OTHER: Negative. XR/XR chest 1V IMPRESSION: 1. Hyperexpanded lungs suggestive COPD. 2. Trace amount of bibasilar atelectasis versus infiltrates, left greater than right. Electronically authenticated by: JOHANN PICKARD Date: 06/06/2024 07:01 Dictated By: Johann Pickard M.D. Signed By: 06/06/24702 DD/ 0 TD/TT: [employer] [place] [address] XRay Report Signed Patient: ANAY BINGHAM MR#: [id number] : 1935 Acct:[id number] Age/Sex: 88 / F ADM Date: 06/06/24 Loc: ER Attending Dr: Ordering Physician: Johnnie Garcia Date of Service: 06/06/24 Procedure(s): XR chest 1V Accession Number(s): [id number] cc: Zenaida Ga M.D. ; Johnnie Garcia [address] [address] Patient Name: ANAY BINGHAM MRN: [id number] date: 1935 Sex: F Assigned Patient Location: ER Current Patient Loca tion: ER Accession/Order Numb er: [id number] Exam Date: 06:40 Report Date: 06/06/2024 07:01 At the request of: JOHNNIE GARCIA Procedure: XR chest 1V EXAMINATION: XR chest 1V HISTORY: SOB COMPARISON: No relev ant comparison available. FINDINGS: LUNGS: Hyperexpanded lungs. Trace amount stranding within right lung base. Mild opacity within lingu la. Defibrillator paddle overlies the left hemithorax. VASCULATURE: No incr eased pulmonary vasculature. PLEURA: No pneumotho rax, effusion, or pleural thickening. CARDIAC: Mild cardiomegaly. MEDIASTINUM: No visi ble mass or adenopathy. BONES: No fracture o r visible bone lesion. OTHER: Negative. X R/XR chest 1V IMPRESSION: 1. Hyperexpanded miguel gs suggestive COPD. 2. Trace amount of bibasilar atelectasis versus infiltrates, left greater than right. Electronically authenticated by: JOHANN PICKARD Date: 06/06/2024 07:01 Dictated By: Johann Pickard M.D. Signed By: 06/06/24702 DD/ 07 TD/TT: [employer]: ECG 12 lead Reviewed date:06/08/2024 02:18:19 PM Interpretation: Performing Lab: Notes/Report: Source Facility: [place] [address] Electrocardiograph Report Draft Patient: ANAY BINGAHM MR#: [id number] : 1935 Acct:[id number] Age/Sex: 88 / F ADM Date: 06/06/24 Loc: ER Attending Dr: Ordering Physician: Johnnie Garcia Date of Service: 06/06/24 Procedure(s): ECG 12 lead Accession Number(s): [id number] cc: [facility] Test Date: 2024-06-06 Pat Name: ANAY BINGHAM Department: Room: - Gender: Female [employer]: : 1935 Requested By: [id number] Order Number: [id number] Reading MD: Measurements Intervals Dale Rate: 50 P: -36873 RI: -60295 QRS: 54 QRSD: 142 T: 176 QT: 444 QTc: 416 Interpretive Statements 1210 Atrial fibrillation 2550 Left bundle branch block 9150 abnormal ECG No previous ECG available for comparison Dictated By: Judi Bolaños Signed By: DD/ 06 TD/TT: [employer] [place] [address] Electrocardiograph Report Draft Patient: ANAY BINGHAM MR#: [id number] : 1935 Acct:[id number] Age/Sex: 88 / F ADM Date: 06/06/24 Loc: ER Attending Dr: Ordering Physician: Johnnie Garcia Date of Service: 06/06/24 Procedure(s): ECG 12 lead Accession Number(s): [id number] cc: [facility] Test Date: 2024-06-06 Pat Name: ANAY Payton Department: 37 Room: - Gender: Female [employer]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[employer]: : 1935 Requ ested By: 0919 Order Number: [id number] Reading MD: Measurements Intervals Dale Rate: 50 P: -97094 RI: -76842 QRS: 54 QRSD: 142 T: 176 QT: 444 QTc: 416 Interpretive Statements 1210 Atrial fibrillation 2550 Left bundle bra nch block 9150 abnormal ECG No previous ECG avai lable for comparison Dictated By: Judi Bolaños Signed By: DD/ 0600 TD/TT: [employer]: TSH W/ REFLEX FT4 Reviewed date:06/08/2024 02:18:19 PM Interpretation: Performing Lab: Notes/Report: [facility] , TSH W/ REFLEX FT4 0.192 0.358-3.740 uIU/mL Performing Lab: see note ML - [facility] LB Troponin I High Sensitivity Reviewed date:06/08/2024 02:18:19 PM Interpretation: Performing Lab: Notes/Report: [facility] , Troponin I High Sensitivity 15.9 4.0-51.3 pg/mL CUT-OFF POINTS HAVE BEEN ESTABLISHED BASED ON THE FOURTH UNIVERSAL DEFINITION OF MYOCARDIAL INFARCTION. THE UPPER REFERENCE LIMIT (URL) OF TROPONIN, DEFINED THE 99TH PERCENTILE OF cTnI DISTRIBUTION IN A REFERENCE POPULATION, HAS BEEN CONFIRMED THE DECISION THRESHOLD FOR AK DIAGNOSIS. 99TH PERCENTILE = 51.4 PG/ML NOTE: HIGH-SENSITIVITY TROPONIN ASSAY IS NOT INTENDED TO BE USED IN ISOLATION BUT SHOULD BE INTERPRETED IN CONJUNCTION WITH OTHER DIAGNOSTIC AND CLINICAL INFORMATION. Performing Lab: see note ML - [facility] LB Prothrombin Time INR Reviewed date:06/08/2024 02:18:19 PM Interpretation: Performing Lab: Notes/Report: [facility] , Prothrombin Time 11.3 9.0-11.6 sec INR 1.07 DESIRED INR: 2.0-3.0 CONDITIONS NOT LISTED BELOW 2.5-3.5 FOR PROSTHETIC HEART VALVE REPLACEMENT 2.5-3.5 RECURRENT THROMBOSIS Performing Lab: see note ML - [facility] LB PTT Reviewed date:06/08/2024 02:18:19 PM Interpretation: Performing Lab: Notes/Report: [facility] , Partial Thromboplastin Time 29.9 22.3-36.2 sec Performing Lab: see note ML - [facility] LB PROF 14(COMP METB) Reviewed date:06/08/2024 02:18:19 PM Interpretation: Performing Lab: Notes/Report: [facility] , Sodium 144 136-145 mmol/L Potassium 4.4 3.5-5.1 mmol/L Chloride 109 98-107 mmol/L Carbon Dioxide 19.8 21.0-32.0 mmol/L Anion Gap 19.6 Glucose 98 74-106 mg/dL Blood Urea Nitrogen 22.0 7.0-18.0 mg/dL Creatinine 1.31 0.55-1.02 mg/dL Estimated GFR ( Radha 46 >=60 mL/min/1.73m 2 Estimated GFR (Non- Marcella 38 >=60 mL/min/1.73m 2 BUN Creatinine Ratio 16.8 Calcium 9.1 8.5-10.1 mg/dL Bilirubin Total 0.4 0.2-1.0 mg/dL Aspartate Amino Transferase 14 15-37 U/L Alanine Aminotransferase 8 14-59 U/L Alkaline Phosphatase 63 46-116 U/L Total Protein 6.4 6.4-8.2 g/dL Albumin Level 3.0 3.4-5.0 g/dL Globulin 3.4 Albumin Globulin Ratio 0.9 Performing Lab: see note ML - [facility] LB MAGNESIUM Reviewed date:06/08/2024 02:18:19 PM Interpretation: Performing Lab: Notes/Report: [facility] , Magnesium 1.6 1.8-2.4 mg/dL Performing Lab: see note ML - [facility] LB CPK Reviewed date:06/08/2024 02:18:19 PM Interpretation: Performing Lab: Notes/Report: [facility] , Creatine Kinase 24 26-192 U/L Performing Lab: see note ML - [facility] LB CBC AUTO DIFF Reviewed date:06/08/2024 02:18:19 PM Interpretation: Performing Lab: Notes/Report: [facility] , White Blood Count 4.2 4.0-11.0 10 3/uL Red Blood Count 4.16 4.20-5.40 10 6/uL Hemoglobin 13.5 12.0-16.0 g/dL Hematocrit 40.7 36.0-48.0 % Mean Corpuscular Volume 97.8 81.0-99.0 fL Mean Corpuscular Hemoglobin 32.5 26.7-34.0 pg Mean Corpuscular HGB Conc 33.2 29.9-35.2 g/dL Red Cell Distribution Width 13.6 11.0-15.0 % Platelet Count 280 150-450 10 3/uL Mean Platelet Volume 9.6 9.5-13.5 fL Neutrophils Percent Auto 54.0 43.0-75.0 % Lymphocytes Percent Auto 30.4 20.5-60.0 % Monocytes Percent Auto 10.1 1.7-12.0 % Eosinophils Percent Auto 4.6 0.9-7.0 % Basophils Percent Auto 0.7 0.2-2.0 % Immature Granulocytes Pct Auto 0.2 0.0-0.5 % Neutrophils Absolute Auto 2.2 1.4-6.5 10 3/uL Lymphocytes Absolute Auto 1.3 1.2-3.8 10 3/uL Monocytes Absolute Auto 0.4 0.3-0.8 10 3/uL Eosinophils Absolute Auto 0.2 0.0-0.7 10 3/uL Basophils Absolute Auto 0.0 0.0-0.1 10 3/uL Immature Granulocytes Abs Auto 0.01 0.00-0.03 10 3/uL Performing Lab: see note ML - [facility] LB BNP Reviewed date:06/08/2024 02:18:19 PM Interpretation: Performing Lab: Notes/Report: [facility] , NT Pro B Type Natriuretic Pept 142.0 <=1800.0 pg/mL Performing Lab: see note ML - [facility] LB XR HAND LT MIN 3V Reviewed date:02/20/2024 08:32:57 PM Interpretation: Performing Lab: Notes/Report: Source Facility: [facility] [place] [address] [address] XRay Report Signed Patient: ANAY BINGHAM MR#: [id number] : 1935 Acct:[id number] Age/Sex: 88 / F ADM Date: 02/19/24 Loc: RAD Attending Dr: Zenaida Ga M.D. Ordering Physician: Zenaida Ga M.D. Date of Service: 02/19/24 Procedure(s): XR hand LT min 3V Accession Number(s): [id number] cc: Zenaida Ga M.D. [place] [id number] Patient Name: ANAY BINGHAM MRN: [id number] date: 1935 Sex: F Assigned Patient Location: RAD Current Patient Location: Accession/Order Number: [id number] Exam Date: 02/19/2024 11:45 Report Date: 02/20/2024 15:41 At the request of: ZENAIDA GA Procedure: XR hand LT min 3V PROCEDURE: XR hand LT min 3V COMPARISON: None. HISTORY: Left Hand Pain FINDINGS: BONES:No acute fracture or dislocation. Moderate to severe degenerative changes with joint space narrowing marginal osteophyte formation and bony remodeling, most significant at the first carpometacarpal joint SOFT TISSUES:Negative. No visible soft tissue swelling. EFFUSION:None visible. OTHER: Negative. XR/XR hand LT min 3V IMPRESSION: Severe osteoarthritis Electronically authenticated by: BOOGIE HAYS Date: 02/20/2024 15:41 Dictated By: Boogie Hays M.D. Signed By: 02/20/24 1544 DD/ 1541 TD/TT: [employer] [place] [address] XRay Report Signed Patient: ANAY BINGHAM MR#: [id number] : 1935 Acct:[id number] Age/Sex: 88 / F ADM Date: 02/19/24 Loc: RAD Attending Dr: Adam Ga M.D. Ordering Physician: Zenaida Ga M.D. Date of Service: 02/19/24 Procedure(s): XR paige d LT min 3V Accession Number(s): [id number] cc: Zenaida Ga M.D. [place] [id number] Patient Name: ANAY BINGHAM MRN: [id number] date: 1935 Sex: F Assigned Patient Location: RAD Current Patient Location: Accession/Order Numb er: [id number] Exam Date: 02/19/2024 11:45 Report Date: 02/20/2024 15:41 At the request of: ZENAIDA GA Procedure: XR hand L T min 3V PROCEDURE: XR hand L T min 3V COMPARISON: None. HISTORY: Left Hand Pain FINDINGS: BONES:No acute fract ure or dislocation. Moderate to severe degenerative changes with joint space narrowing marginal osteophyte formation and bony remodeling, most significant at the first carpometacarpal joint SOFT TISSUES:Negativ e. No visible soft tissue swelling. EFFUSION:None visible. OTHER: Negative. X R/XR hand LT min 3V IMPRESSION: Severe osteoarthritis Electronically authenticated by: BOOGIE HAYS Date: 02/20/2024 15:41 Dictated By: Angelito Hays M.D. Signed By: 02/20/24 1544 DD/ 1541 TD/TT: [employer]: CT head/brain wo con Reviewed date:02/19/2024 07:35:01 PM Interpretation: Performing Lab: Notes/Report: Source Facility: [place] [address] CT Scan Report Signed Patient: ANAY BINGHAM MR#: [id number] : 1935 Acct:[id number] Age/Sex: 88 / F ADM Date: 02/19/24 Loc: RAD Attending Dr: Zenaida Ga M.D. Ordering Physician: Zenaida Ga M.D. Date of Service: 02/19/24 Procedure(s): CT head/brain wo con Accession Number(s): [id number] cc: Zenaida Ga M.D. [place] [id number] Patient Name: ANAY BINGHAM MRN: [id number] date: 1935 Sex: F Assigned Patient [facility]: [facility] Current Patient Location: RAD Accession/Order Number: [id number] Exam Date: 02/19/2024 11:39 Report Date: 02/19/2024 12:18 At the request of: ZENAIDA SURY Procedure: CT head/brain wo con CT head/brain wo con, CT facial bones wo con, 02/19/2024 11:39 AM EDT INDICATION: Head And Face Pain COMPARISON: There is no appropriate prior study for comparison. TECHNIQUE: Axial CT images of the brain from skull base to vertex, including portions of the face and sinuses, were obtained without contrast . Multiplanar reformatted images were generated and reviewed as needed. Dose reduction techniques were achieved by using automated exposure control and/or adjustment of mA and/or kV according to patient size and/or use of iterative reconstruction technique. FINDINGS: The cerebral sulci as well as ventricular system are appropriate for age. There is no intracranial mass, mass effect, midline shift, intra or extra-axial fluid collection or hemorrhage. Periventricular and centrum semiovale hypodensities are most likely consistent with microvascular ischemic changes. There is mucosal thickening within the right maxillary sinus. There is total opacification of the left maxillary sinus extension to the nasal cavity suggesting of inverted papilloma or polyp. No adjacent bone lysis is noted. The visualized portions of orbits, mastoid air cells as well as remainder of paranasal sinuses are unremarkable. There is no suspicious osteolytic or osteoblastic lesion. There is mildly displaced nasal fracture the adjacent soft tissue swelling. No other fractures noted. CT/CT head/brain wo con IMPRESSION: No acute intracranial process is noted. Mildly displaced fracture of the nasal bones with adjacent soft tissue swelling. Left maxillary opacification with extension to the nasal cavity the differential diagnosis are polyp versus inverted papilloma. ENT correlation is recommended. A stat note was submitted to inform the clinician at 12:18 PM. Electronically authenticated by: JIMMY BELTRE Date: 02/19/2024 12:18 Dictated By: Jimmy Beltre M.D. Signed By: 02/19/24 1221 DD/ 1218 TD/TT: [employer] [place] [address] CT Scan Report Signed Patient: ANAY BINGHAM MR#: [id number] : 1935 Acct:[id number] Age/Sex: 88 / F ADM Date: 02/19/24 Loc: RAD Attending Dr: Adam Ga M.D. Ordering Physician: Zenaida Ga M.D. Date of Service: 02/19/24 Procedure(s): CT head/brain wo con Accession Number(s): [id number] cc: Zenaida Ga M.D. [address] [address] Patient Name: ANAY BINGHAM MRN: [id number] date: 1935 Sex: F Assigned Patient Location: RAD Current Patient Loca tion: RAD Accession/Order Numb er: [id number] Exam Date: 02/19/2024 11:39 Report Date: 02/19/2024 12:18 At the request of: ZENAIDA GA Procedure: CT head/b rain wo con CT head/brain wo con , CT facial bones wo con, 02/19/2024 11:39 AM EDT INDICATION: Head And Face Pain COMPARISON: There is no appropriate prior study for comparison. TECHNIQUE: Axial CT images of the brain from skull base to vertex, including portions of the face and sinuses, were obtained without contrast . Multiplanar reformatted images w ere generated and reviewed as needed. Dose reduction techn iques were achieved by using automated exposure control and/or adjustment of mA and/or kV according to patient size and/or use of iterative reconstruc tion technique. FINDINGS: The cerebral sulci a s well as ventricular system are appropriate for age. There is no intracra nial mass, mass effect, midline shift, intra or extra-axial fluid collection or hemorrhage. Periventricular and centrum semiovale hypodensities are mo st likely consistent with microvascular ischemic changes. There is mucosal thickening within the right maxillary sinus. There is total opacification of the left maxillary sinus extension to the nasal cavity suggesting of invert ed papilloma or polyp. No adjacent bone lysis is noted. The visualized porti ons of orbits, mastoid air cells as well as remainder of paranasal sinuses ar e unremarkable. There is no suspicio us osteolytic or osteoblastic lesion. There is mildly displaced nasal frac ture the adjacent soft tissue swelling. No other fractures noted. C T/CT head/brain wo con IMPRESSION: No acute intracrania l process is noted. Mildly displaced fra cture of the nasal bones with adjacent soft tissue swelling. Left maxillary opacification with extension to the nasal cavity the differential diagnos is are polyp versus inverted papilloma. ENT correlation is recommended. A stat note was subm itted to inform the clinician at 12:18 PM. Electronically authenticated by: JIMMY BELTRE Date: 02/19/2024 12:18 Dictated By: Ness Beltre M.D. Signed By: 02/19/24 1221 DD/ 1218 TD/TT: [employer]: CT FACIAL BONES WO CON Reviewed date:02/19/2024 07:35:01 PM Interpretation: Performing Lab: Notes/Report: Source Facility: [place] [address] CT Scan Report Signed Patient: ANAY BINGHAM MR#: [id number] : 1935 Acct:[id number] Age/Sex: 88 / F ADM Date: 02/19/24 Loc: [facility] Attending Dr: Zenaida Ga M.D. Ordering Physician: Zenaida Ga M.D. Date of Service: 02/19/24 Procedure(s): CT facial bones wo con Accession Number(s): [id number] cc: Zenaida Ga M.D. [place] [address] Patient Name: ANAY BINGHAM MRN: [id number] date: 1935 Sex: F Assigned Patient Location: [facility] Current Patient Location: [facility] Accession/Order Number: [id number] Exam Date: 02/19/2024 11:39 Report Date: 02/19/2024 12:18 At the request of: ZENAIDA GA Procedure: CT facial bones wo con CT head/brain wo con, CT facial bones wo con, 02/19/2024 11:39 AM EDT INDICATION: Head And Face Pain COMPARISON: There is no appropriate prior study for comparison. TECHNIQUE: Axial CT images of the brain from skull base to vertex, including portions of the face and sinuses, were obtained without contrast . Multiplanar reformatted images were generated and reviewed as needed. Dose reduction techniques were achieved by using automated exposure control and/or adjustment of mA and/or kV according to patient size and/or use of iterative reconstruction technique. FINDINGS: The cerebral sulci as well as ventricular system are appropriate for age. There is no intracranial mass, mass effect, midline shift, intra or extra-axial fluid collection or hemorrhage. Periventricular and centrum semiovale hypodensities are most likely consistent with microvascular ischemic changes. There is mucosal thickening within the right maxillary sinus. There is total opacification of the left maxillary sinus extension to the nasal cavity suggesting of inverted papilloma or polyp. No adjacent bone lysis is noted. The visualized portions of orbits, mastoid air cells as well as remainder of paranasal sinuses are unremarkable. There is no suspicious osteolytic or osteoblastic lesion. There is mildly displaced nasal fracture the adjacent soft tissue swelling. No other fractures noted. CT/CT facial bones wo con IMPRESSION: No acute intracranial process is noted. Mildly displaced fracture of the nasal bones with adjacent soft tissue swelling. Left maxillary opacification with extension to the nasal cavity the differential diagnosis are polyp versus inverted papilloma. ENT correlation is recommended. A stat note was submitted to inform the clinician at 12:18 PM. Electronically authenticated by: JIMMY BELTRE Date: 02/19/2024 12:18 Dictated By: Jimmy Beltre M.D. Signed By: 02/19/24 1221 DD/ 1218 TD/TT: [employer]: [place] [address] CT Scan Report Signed Patient: ANAY BINGHAM MR#: [id number] : 1935 Acct:[id number] Age/Sex: 88 / F ADM Date: 02/19/24 Loc: [facility] Attending Dr: Adam Ga M.D. Ordering Physician: Zenaida Ga M.D. Date of Service: 02/19/24 Procedure(s): CT fac ial bones wo con Accession Number(s): [id number] cc: Zenaida Ga M.D. The [address] [address] Patient Name: ANAY BINGHAM MRN: [id number] date: 1935 Sex: F Assigned Patient Location: [facility] Current Patient Loca tion: [facility] Accession/Order Numb er: [id number] Exam Date: 02/19/2024 11:39 Report Date: 02/19/2024 12:18 At the request of: ZENAIDA GA Procedure: CT facial bones wo con CT head/brain wo con , CT facial bones wo con, 02/19/2024 11:39 AM EDT INDICATION: Head And Face Pain COMPARISON: There is no appropriate prior study for comparison. TECHNIQUE: Axial CT images of the brain from skull base to vertex, including portions of the face and sinuses, were obtained without contrast . Multiplanar reformatted images w ere generated and reviewed as needed. Dose reduction techn iques were achieved by using automated exposure control and/or adjustment of mA and/or kV according to patient size and/or use of iterative reconstruc tion technique. FINDINGS: The cerebral sulci a s well as ventricular system are appropriate for age. There is no intracra nial mass, mass effect, midline shift, intra or extra-axial fluid collection or hemorrhage. Periventricular and centrum semiovale hypodensities are mo st likely consistent with microvascular ischemic changes. There is mucosal thickening within the right maxillary sinus. There is total opacification of the left maxillary sinus extension to the nasal cavity suggesting of invert ed papilloma or polyp. No adjacent bone lysis is noted. The visualized porti ons of orbits, mastoid air cells as well as remainder of paranasal sinuses ar e unremarkable. There is no suspicio us osteolytic or osteoblastic lesion. There is mildly displaced nasal frac ture the adjacent soft tissue swelling. No other fractures noted. C T/CT facial bones wo con IMPRESSION: No acute intracrania l process is noted. Mildly displaced fra cture of the nasal bones with adjacent soft tissue swelling. Left maxillary opacification with extension to the nasal cavity the differential diagnos is are polyp versus inverted papilloma. ENT correlation is recommended. A stat note was subm itted to inform the clinician at 12:18 PM. Electronically authenticated by: JIMMY BELTRE Date: 02/19/2024 12:18 Dictated By: Ness Beltre M.D. Signed By: 02/19/24 1221 DD/ 1218 TD/TT: [employer]: BENI19, Flu A+B IH Reviewed date:06/08/2024 02:18:19 PM Interpretation: Performing Lab: Notes/Report: COVID NEG FLU A NEG FLU B NEG Control present TSH Reviewed date:12/29/2024 09:16:23 PM Interpretation: Performing Lab: Notes/Report: [facility] , Thyroid Stimulating Hormone 0.041 0.358-3.740 uIU/mL Performing Lab: see note ML - [facility] LB T4 Reviewed date:12/29/2024 09:16:23 PM Interpretation: Performing Lab: Notes/Report: [facility] , T4 Thyroxine 6.50 4.80-13.90 ug/dL Performing Lab: see note ML - [facility] LB PROF 14(COMP METB) Reviewed date:12/29/2024 09:16:23 PM Interpretation: Performing Lab: Notes/Report: [facility] , Sodium 142 136-145 mmol/L Potassium 4.8 3.5-5.1 mmol/L Chloride 108 98-107 mmol/L Carbon Dioxide 24.8 21.0-32.0 mmol/L Anion Gap 14.0 Glucose 85 74-106 mg/dL Blood Urea Nitrogen 24.0 7.0-18.0 mg/dL Creatinine 1.29 0.55-1.02 mg/dL Estimated GFR ( Radha 47 >=60 mL/min/1.73m 2 Estimated GFR (Non- Marcella 39 >=60 mL/min/1.73m 2 BUN Creatinine Ratio 18.6 Calcium 9.4 8.5-10.1 mg/dL Bilirubin Total 0.4 0.2-1.0 mg/dL Aspartate Amino Transferase 15 15-37 U/L Alanine Aminotransferase 12 14-59 U/L Alkaline Phosphatase 90 46-116 U/L Total Protein 7.0 6.4-8.2 g/dL Albumin Level 3.4 3.4-5.0 g/dL Globulin 3.6 Albumin Globulin Ratio 0.9 Performing Lab: see note ML - [facility] LB FREE T3 Reviewed date:12/29/2024 09:16:23 PM Interpretation: Performing Lab: Notes/Report: [facility] , Free T3 1.58 2.18-3.98 pg/mL Performing Lab: see note ML - [facility] LB Reason For Referral Diagnosis 1 Nasal fracture (S02. 2XXA) Referral Organization [facility] Referring Provider First Name Juan Referring Provider Last Name Sury Referring Provider [facility] Referred Provider Cheryl Mckeon Referred Provider Specialty Otolaryngolo gy Referral Priority Routine Diagnosis 1 Essential (primary) hypertension (I10) Diagnosis 2 Bradycardia (R00.1) Referral Organization [facility] Referring Provider First Name Juan Referring Provider Last Name Sury Referring Provider [facility] Specialty Cardiology Referral Priority Routine Medications Medication SIG (Take, Route, Frequency, Duration) [...] OPEN LID ON CONTAINERS 07/24/2024 Active Ipratropium [place] 0.06 % 2 sprays in each nostril Nasally twice daily 07/24/2024 Active Gemfibrozil 600 MG TAKE 1 TABLET BY MOUTH TWICE A DAY 30 MINUTES BEFORE MORNING AND EVENING MEALS for 90 Active Cytomel 5 MCG 2 tablet on an empty stomach Orally Once a day for 30 days 10/17/2024 Active Immunizations Vaccine Route Administration Date Status Comme nts Flu, Fluad (46664) 65 yrs and older, single-dose syringe IM Intramuscular 05/01/2024 Administered Pneumococcal (Prevnar 13) Unknown 04/26/2017 Administer ed SARS-COV-2 (COVID 19 Pfizer 30mcg/0.3mL) Unknown 08/16/2020 Administered SARS-COV-2 (COVID 19 Pfizer 30mcg/0.3mL) Unknown 05/31/2021 Administered Social History Tobacco Use: Social History Observation Description Date Details (start date - stop date) Never Smoker NA - NA Tobacco Use/Smoking Question Answer Notes Patient is a nonsmoker Alcohol Screen (Audit-C) Question Answer Notes Did you have a drink containing alcohol in the p ast year? No Points 0 Interpretation Negative AUDIT-C (Standard) Question Answer Notes Did you have a drink containing alcohol in the p ast year? 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 Problem 684826395 Mixed hyperlipidemia (E78.2) Active confirmed Problem Hypomagnesemia (782815248) Hypomagnesemia (E83.42) Active confirmed Problem 51092595 Other fatigue (R53.83) Active confirmed Problem Type II diabetes mellitus without complication (750494181) Type 2 diabetes mellitus without complication (E11.9) Active confirmed Problem Gastroesophageal reflux disease (484996638) GERD (gastroesophageal reflux disease) (K21.9) Active confirmed Problem Hypertension (04978459) HTN (hypertension) (I10) Active confirmed Problem Hypothyroid (33508969) Hypothyroid (E03.9) Active confirmed Problem DM - Diabetes mellitus (55019097) DM (diabetes mellitus) (E11.9) Active confirmed Problem Bradycardia (99090771) Bradycardia (R00.1) Active confirmed Problem Essential hypertension (80861506) Essential (primary) hypertension (I10) Active confirmed Problem Arthralgia (16679154) Arthralgia (M25.50) Active confirmed Problem Osteoporosis (02784369) Osteoporosis (M81.0) Active confirmed Problem Acquired hypothyroidism (928460213) Acquired hypothyroidism (E03.9) Active confirmed Problem Pain of left hand (701426771069912) Left hand pain (M79.642) Active confirmed Problem Sacral back pain (04518110) Sacral back pain (M53.3) Active confirmed Problem Diabetes mellitus (48524315) Diabetes mellitus (E11.9) Active confirmed Problem Head and face pain (R51.9) Active confirmed Vital Signs Heart Rate 65 /min 05/08/2024 Temperature 99.1 degrees Fahrenheit 05/08/2024 Oximetry 95 % 05/08/2024 Blood pressure diastolic 82 mm Hg 01/28/2025 Height 60 in 01/28/2025 Blood pressure systolic 138 mm Hg 01/28/2025 Weight 128.0 lbs 01/28/2025 BMI 25 kg/m2 01/28/2025 Encounters Encounter Location Date Provider Diagnosis [facility] [address] [place] [address] 02/19/2024 Juan Ga Nasal fracture S02.2 XXA [facility] [address] [place] [address] 10/01/2024 Juan Hoy Type 2 diabetes bebe itus without complication E11.9 ; Essential (primary) hypertension I10 ; Mixed hyperlipidemia E78.2 ; Other fatigue R53.83 ; Hypomagnesemia E83.42 ; Hypothyroid E03.9 and Osteoporosis M81.0 [facility] [address] [place] [address] 10/16/2024 Juan Ga Hypothyroid E03.9 [facility] [address] [facility] [address] 10/20/2024 Juan alae [facility] [address] [place] [address] 12/29/2024 Juan alea [facility] [address] [place] [address] 07/01/2024 Juan Hadleyy [facility] [address] [facility] [address] 07/21/2024 Juan alea [facility] [address] [place] [address] 08/05/2024 Juan alea [facility] [address] [place] [address] 08/29/2024 Juan Hadleyalea [facility] [address] [place] [address] 09/15/2024 Juan Jomary Type 2 diabetes bebe itus without complication E11.9 and Acquired hypothyroidism E03.9 [facility] [address] [place] [address] 09/16/2024 Juan Ga [facility] [address] [place] [address] 02/20/2024 Juan Ga [facility] [address] [place] [address] 05/13/2024 Juan Ga [facility] [address] [place] [address] 05/19/2024 Juan alea [facility] [address] [place] [address] 06/02/2024 Juan Ga [facility] [address] [place] [address] 06/09/2024 Juan Ga [facility] [address] [place] [address] 06/30/2024 Juan Ga Essential (primary) hypertension I10 and Bradycardia R00.1 [facility] [address] [place] [address] 01/30/2024 Juan Ga Type 2 diabetes bebe itus without complication E11.9 ; Essential (primary) hypertension I10 and 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 [facility] [address] [place] [address] 10/23/2024 Juan Ga Essential (primary) hypertension I10 ; Hypothyroid E03.9 ; Type 2 diabetes mellitus without complication E11.9 and HTN (hypertension) I10 [facility] [address] [place] [address] 05/01/2024 Juan Ga Type 2 diabetes bebe itus without complication E11.9 ; Essential (primary) hypertension I10 ; Arthralgia M25.50 ; Encounter for immunization Z23 and Encounter for other specified prophylactic measures Z29.89 [facility] [address] [place] [address] 06/09/2024 Juan Ga Bradycardia R00.[address] [address] 07/24/2024 Juan Hoy Type 2 diabetes bebe itus without complication E11.9 and Essential (primary) hypertension I10 [address] [address] 09/24/2024 Juan Hoy Type 2 diabetes bebe itus without complication E11.9 ; Essential (primary) hypertension I10 ; Arthralgia M25.50 and Acquired hypothyroidism E03.[address] [address] 12/25/2024 Juan Hoy Essential (primary) hypertension I10 ; Type 2 diabetes mellitus without complication E11.9 ; 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 and GERD (gastroesophageal reflux disease) K21.[address] [address] 05/08/2024 Juan Hoy Cough R05.9 ; Body a ches R52 ; Fever R50.9 and Acute bronchitis, unspecified organism J20.[address] [address] 02/19/2024 Juan Hoy Head and face pain R 51.9 and Left hand pain M79.[address] [address] 06/02/2024 Juan Hoy Trapezius muscle str ain S46.819A [address] [address] 01/28/2025 Juan Hoy Type 2 diabetes bebe itus without complication E11.9 and Sacral back pain M53.[address] [address] 10/01/2024 Juan Ga Encounter for Medica re annual wellness exam Z00.00 Assessments Encounter Date Diagnosis (ICD Code) Assessment Notes Treatment Notes Treatment Clinical Notes Section Notes 05/01/2024 Type 2 diabetes mellitus without complication (ICD-10 - E11.9) 05/01/2024 Essential (primary) hypertension (ICD-10 - I10) 02/19/2024 Head and face pain (ICD-10 - R51.9) 02/19/2024 Left hand pain (ICD-10 - M79.642) 05/08/2024 Cough (ICD-10 - R05.9) 05/08/2024 Body aches (ICD-10 - R52) 06/02/2024 Trapezius muscle strain (ICD-10 - S46.819A) 06/09/2024 Bradycardia (ICD-10 - R00.1) 07/24/2024 Type 2 diabetes mellitus without complication (ICD-10 - E11.9) 07/24/2024 Essential (primary) hypertension (ICD-10 - I10) 09/24/2024 Type 2 diabetes mellitus without complication (ICD-10 - E11.9) 80-90's 09/24/2024 Essential (primary) hypertension (ICD-10 - I10) great here 10/01/2024 Encounter for Medicare annual wellness exam (ICD-10 - Z00.00) patient presents to office for a subsequent medicare wellness appointment patient completed all paperwork, depression screening, home safety screening, no issues noted, SLUMS test completed and the patient only missed one question. patient is due for yearly labs and could not remember her last bone density dexa study. all medications reviewed and updated 30 minitues total was spent with the patient 10/23/2024 Essential (primary) hypertension (ICD-10 - I10) 10/23/2024 Hypothyroid (ICD-10 - E03.9) 10/23/2024 Type 2 diabetes mellitus without complication (ICD-10 - E11.9) 10/23/2024 HTN (hypertension) (ICD-10 - I10) 01/28/2025 Type 2 diabetes mellitus without complication (ICD-10 - E11.9) 01/28/2025 Sacral back pain (ICD-10 - M53.3) 02/19/2024 Nasal fracture (ICD-10 - S02.2XXA) 06/30/2024 Essential (primary) hypertension (ICD-10 - I10) 06/30/2024 Bradycardia (ICD-10 - R00.1) 09/15/2024 Type 2 diabetes mellitus without complication (ICD-10 - E11.9) 09/15/2024 Acquired hypothyroidism (ICD-10 - E03.9) 10/01/2024 Type 2 diabetes mellitus without complication (ICD-10 - E11.9) 10/01/2024 Essential (primary) hypertension (ICD-10 - I10) 12/25/2024 Essential (primary) hypertension (ICD-10 - I10) stabel here 12/25/2024 Type 2 diabetes mellitus without complication (ICD-10 - E11.9) sugar 01/30/2024 Type 2 diabetes mellitus without complication (ICD-10 - E11.9) 01/30/2024 Essential (primary) hypertension (ICD-10 - I10) 10/16/2024 Hypothyroid (ICD-10 - E03.9) 01/30/2024 Iodine-deficiency related diffuse (endemic) goiter (ICD-10 - E01.0) 12/25/2024 Iodine-deficiency related diffuse (endemic) goiter (ICD-10 - E01.0) checking labs today 10/01/2024 Mixed hyperlipidemia (ICD-10 - E78.2) 09/24/2024 Arthralgia (ICD-10 - M25.50) 05/08/2024 Fever (ICD-10 - R50.9) 05/01/2024 Arthralgia (ICD-10 - M25.50) 05/01/2024 Encounter for immunization (ICD-10 - Z23) 09/24/2024 Acquired hypothyroidism (ICD-10 - E03.9) folow up on labs 10/01/2024 Other fatigue (ICD-10 - R53.83) 12/25/2024 GERD (gastroesophageal reflux disease) (ICD-10 - K21.9) on meds 10/01/2024 Hypomagnesemia (ICD-10 - E83.42) 05/01/2024 Encounter for other specified prophylactic measures (ICD-10 - Z29.89) 05/08/2024 Acute bronchitis, unspecified organism (ICD-10 - J20.9) Rest and drink more liquids, especially water. You may use a humidifier or vaporizer to help keep the drainage moist. Czio-jlj-sntwcnk Nasal Saline may help the stuffy and runny nose. Use Ibuprofen and or Tylenol as needed for fever, chills, body aches or pain. Children 5 years old should not be given pkup-mib-pwnmvwy cough and cold medications such as guaifenesin and dextromethorphan. If you're over age 5, you may try csgb-ber-xmkjbgj cold medications such as guaifenesin and dextromethorphan, or multi-symptom cold reliever such as Dayquil to help reduce the symptoms. Antibiotics have been prescribed. You should take these until completed and follow the directions. Antibiotics can sometimes cause upset stomach, and in rare cases, serious allergic reactions or serious gastrointestinal problems. If you start having severe abdominal pain, severe vomiting, or bloody diarrhea, you should be reevaluated by your physician or urgent care immediately. Follow up with your Primary Care Provider or return to clinic if symptoms do not improve within 3-5 days. If you develop severe symptoms such as shortness of breath, repeated vomiting, coughing up blood, or chest pain you should go to the emergency room or call 911 10/01/2024 Hypothyroid (ICD-10 - E03.9) 10/01/2024 Osteoporosis (ICD-10 - M81.0) 01/28/2025 Other Recommended to rest and use a heating pad on the area. Take NSAIDs for pain as needed Plan Of Treatment Pending Test Test Name Order Date HEMOGLOBIN A1C (GLYCO) 09/24/2024 IRON, TOTAL 09/24/2024 LIPID PANEL (CHOL/TRIG/HDL/LDL) 09/25/19 25 CBC WITH DIFF 09/24/2024 XR Chest PA and Lateral (Routine CXR) * 01/03/2023 CMP - Comprehensive Metabolic Panel 09/20 CBC W/AUTO DIFF 10/01/2024 STOOL OCCULT BLOOD 10/01/2024 CT Brain w/o Contrast 02/19/2024 XR Hand 3 Views Left 02/19/2024 CBC AUTO DIFF 01/30/2024 CBC AUTO DIFF 01/03/2023 CBC AUTO DIFF 03/12/2023 GLYCOHEMOGLOBIN A1C 03/12/2023 GLYCOHEMOGLOBIN A1C 09/15/2024 GLYCOHEMOGLOBIN A1C 01/03/2023 GLYCOHEMOGLOBIN A1C 01/30/2024 GLYCOHEMOGLOBIN A1C 10/01/2024 IRON 10/01/2024 LIPID PROFILE 03/12/2023 LIPID PROFILE 01/30/2024 PROF 14(COMP METB) 01/30/2024 PROF 14(COMP METB) 01/03/2023 PROF 14(COMP METB) 03/12/2023 THYROID PROFILE WITH TSH 03/12/2023 THYROID PROFILE WITH TSH 01/30/2024 XR DEXA BONE DENSITY 09/28/2023 XR DEXA BONE DENSITY 10/01/2024 THYROID PANEL (T4/TSH/FREE T3) 5 THYROID PANEL (T4/TSH/FREE T3) 5 THYROID PANEL (T4/TSH/FREE T3) 5 THYROID PANEL (T4/TSH/FREE T3) 5 THYROID PANEL (T4/TSH/FREE T3) 5 Vitamin D 10/01/2024 XR sacrum coccyx min 2V 01/28/2025 XR facial bones min 3V 02/19/2024 XR pelvis min 3V 01/28/2025 CMP (COMP MET MINA) w/eGFR CKD-EPI 2024 CMP (COMP MET MINA) w/eGFR CKD-EPI 2024 CBC WITH DIFF 10/23/2024 Next Appt Details Provider Name:Juan Grijalva Jomaralea, 11:00:00 AM, [address] [place], [address], Insurance Providers Payer Name Payer Address Payer Phone Subscriber Number Group Number Insured Name Patient Relationship to Insured Coverage Start Date Coverage End Date [employer] [place] [address] [place] [place] [address] [id number] Anay Bingham Self - patient is the insured 3 [facility] [address] [place] [address] [id number] Anay Bingham Self - patient is the insured 3 Medical (General) History Medical History History ICD Code Type 2 diabetes mellitus without complic ation E11.9 Essential (primary) hypertension I10 Iodine-deficiency related diffuse (endem ic) goiter E01.0 Other fatigue R53.83 Mixed hyperlipidemia E78.2 Surgical History Surgery Date(Month/Year) Knee Replacement- Bilateral Partial Hysterectomy implantable loop recorder placement Hospitalization History Reason Date(Month/Year) HTN, Vertigo, KYLIE 05/2024
--- OUTSIDE RECORDS SUMMARY | 2025-01-28 11:26 | XMS_ITS | Encounter Summary ---
Author Organization [facility] Address [address] [facility] [place] [address] Care Team Providers Care Mri Assistant Name Role Phone Morgan Ga MD Primary Care Provider [phone] Encounter Details Date Type Department Care Team (Late st Contact Info) Description 11/10/2024 Orders Only [facility] [address] [place] [address] Lesly Mcdonald MD [address] [place] [address] Social History Tobacco Use Types Packs/Day Years Used Date Smoking Tobacco: Never Smokeless Tobacco: Never Alcohol Use Standard Drinks/Week Comments Yes 7 (1 standard drink = 0.6 oz pur e alcohol) [place] Safety & Environment Answer Date Rec orded Fear of Current or Ex-Partner Not on file Emotionally Abused Not on file 09/13/2023 Physically Abused Not on file 09/13/2023 Sexually Abused Not on file 09/13/2023 Physically or Sexually Abused Not on file Comments Unknown Sex and Gender Information Value Date Recorded Sex Assigned at Not on file Legal Sex Female 12:42 AM EDT Gender Identity Not on file Sexual Orientation Not on file documented as of this encounter Plan of Treatment Not on file documented as of this encounter Procedures Procedure Name Priority Date/Time Associated Diagnosis Comments CARDIAC DEVICE CHECK - REMOTE - LOOP RECORDER (ILR) Routine 11/10/2024 12:00 AM EDT documented in this encounter Results * Cardiac device check - Remote loop recorder (ILR) (11/10/2024 12:00 AM EDT) Anatomical Region Laterality Modality Other 11/10/2024 Lesly Mcdonald MD CV IMPLANTABLE CARDIAC DEVICE PROCEDURES Final Result documented in this encounter Visit Diagnoses Not on filedocumented in this encounter Care Teams Mri Assistant Relationship Specialty Start Date End Date Morgan Ga MD [address] [facility] [place] [phone] PCP - General Family Medicine 12/25/24 documented as of this encounter
--- OUTSIDE RECORDS SUMMARY | 2025-01-28 11:26 | XMS_ITS | Clinical Summary ---
Author Organization [facility] Address [address] [facility] [place] [address] Care Team Providers Care Network Program Manager Name Role Phone Morgan Ga MD Primary Care Provider [phone] Allergies No known active allergies Medications gemfibrozil (Lopid) 600 MG tablet Take 600 mg by mouth in the morning and 600 mg in the evening. Take before meals. Active levothyroxine (Synthroid, Levoxyl) 75 MCG tablet Take 75 mcg by mouth in the morning. Take before meals. Active lisinopril 10 MG tablet Take 10 mg by mouth Daily Active metFORMIN (Glucophage) 500 MG tablet Take 500 mg by mouth in the morning and 500 mg in the evening. Take with meals. Active ipratropium (Atrovent) 0.06 % nasal sprayIndications:V asomotor rhinitis Administer 2 sprays into each nostril in the morning and 2 sprays in the evening and 2 sprays before bedtime. 45 mL 3 4 025 Active meclizine (Antivert) 25 MG tablet TAKE 1 TABLET BY MOUTH EVERY 4 HOURS NEEDED FOR VERTIGO 4 Active isosorbide mononitrate ER (Imdur) 30 MG 24 hr tablet TAKE 1 TABLET BY MOUTH EVERY DAY IN THE MORNING FOR 30 DAYS Active Cytomel 5 MCG tablet 1 (one) time each day at the same time 5 Active ondansetron ODT (Zofran-ODT) 4 MG disintegrating tablet 1 tablet on the tongue and allow to dissolve Orally QID PRN 5 Active Prednisolon-Moxifl ox-Bromfenac 1-0.5-0.075 % solutionIndication s:Age-related nuclear cataract of both eyes Administer 1 drop into affected eye(s) in the morning and 1 drop at noon and 1 drop in the evening and 1 drop before bedtime. 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 12/02/2024 Pseudophakia 11/11/2024 Open fracture of nasal bones 02/25/2024 Vasomotor rhinitis 02/25/2024 Iodine-deficiency related (endemic) goiter, unsp ecified 02/22/2024 HTN (hypertension) 02/22/2024 Mixed hyperlipidemia 02/22/2024 Other fatigue 02/22/2024 Osteoporosis 02/22/2024 Arthralgia 02/22/2024 Resolved Problems Problem Noted Date Diagnosed Date Resolved Date Age-related nuclear cataract of right eye 11/18/2024 11/25/2024 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 type 2 diabetes mellitus 09/19/2024 12/02/2024 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 type 2 diabetes mellitus 09/15/2024 12/02/2024 Age-related nuclear cataract of both eyes 09/02/2024 11/18/2024 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 type 2 diabetes mellitus 09/02/2024 12/02/2024 Type 2 diabetes mellitus without complication 02/22/2012/02/2024 Encounters Date Type Department Care Team Description 01/01/2025 11:00 AM EDT Clinical Support [facility] [address] [place] [address] Ian Flores, DO Follow-up; Macular Degeneration; Retinal Injection 01/01/2025 Bamboo flowsheet [facility] [address] [place] [address] Ian Flores, DO 01/01/2025 Travel 12/02/2024 11:00 AM EDT Clinical Support [facility] [address] [place] [address] Ian Flores, Post-op Follow-up; Follow-up 12/02/2024 Bamboo flowsheet [facility] [address] [place] [address] Ian Flores, 12/02/2024 Travel 11/25/2024 11:00 AM EDT Office Visit [facility] [address] [place] [address] Ian Flores, DO Pseudophakia (Primary Dx) 11/25/2024 Bamboo flowsheet [facility] [address] [place] [address] Ian Flores, 11/25/2024 Travel 11/18/2024 2:30 PM EDT Office Visit [facility] [address] [place] [address] Ian Flores, DO Pseudophakia (Primary Dx); Age-related nuclear cataract of right eye 11/18/2024 Bamboo flowsheet [facility] [address] [place] [address] Ian Flores, DO 11/18/2024 Travel 11/11/2024 11:00 AM EDT Office Visit [facility] [address] [place] [address] Ian Flores, DO Pseudophakia (Primary Dx) 11/11/2024 Bamboo flowsheet [facility] [address] [place] [address] Ian Flores, DO 11/11/2024 Travel from Last 3 Months Family History Medical History Relation Name Comments Alcohol abuse Father Relation Name Status Comments Father Mother Social History Tobacco Use Types Packs/Day Years Used Date Smoking Tobacco: Never Smokeless Tobacco: Never Tobacco Cessation:Counseling Given: Not Answered Alcohol Use Standard Drinks/Week Comments Yes 0 (1 standard drink = 0.6 oz pur e alcohol) glass of wine a day Comments Unknown Sex and Gender Information Value Date Recorded Sex Assigned at Not on file Legal Sex Female 6:41 PM EDT Gender Identity Not on file Sexual Orientation Not on file Last Filed Vital Signs Vital Sign Reading Time Taken Comments Blood Pressure 160/84 02/25/2024 11:03 AM EDT Pulse - - Temperature - - Respiratory Rate - - Oxygen Saturation - - Inhaled Oxygen Concentration - - Weight 59 kg (130 lb) 02/25/2024 11:03 AM EDT Height 152.4 cm (5') 02/25/2024 11:03 AM EDT Body Mass Index 25.39 02/25/2024 11:03 AM EDT Plan of Treatment Upcoming Encounters Date Type Department Care Team (Late st Contact Info) Description 04/03/2025 11:00 AM EDT Office Visit [facility] [address] [place] [address] Ian Flores, [address] [place] [address] Health Maintenance Due Date Last Done Comments Pneumococcal Vaccine: 65+ Ye ars (2 of 2 - PPSV23) 04/26/2018 04/26/2017 Influenza Vaccine (#1) 2025 2, 05/31/2021, 04/16/2020, Additional history exists Procedures Procedure Name Priority Date/Time Associated Diagnosis Comments OCT, RETINA - OU - BOTH EYES Routine 01/01/2025 1:12 PM EDT 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 OCT, RETINA - OU - BOTH EYES Routine 12/02/2024 11:29 AM EDT 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 Scan locations included subfoveal. Progression has been stable. Findings include abnormal foveal contour, subretinal scarring. Left Eye Quality was good. Scan locations included subfoveal. Progression has been stable. Findings include abnormal foveal contour. Notes Macular volume loss left eye (OS) Ian Flores DO OPHTH TOMOGRAPHY Edited Res ult - Final * OCT, Retina - OU - Both Eyes (12/02/2024 11:29 AM EDT) Anatomical Region Laterality Modality Head Optical Coherenc e Tomography Narrative 12/02/2024 11:29 AM EDT Right Eye Quality was borderline. Scan locations included subfoveal. Progression has been stable. Findings include abnormal foveal contour, subretinal scarring. Left Eye Quality was good. Scan locations included subfoveal. Progression has been stable. Findings include abnormal foveal contour, subretinal scarring. Ian Flores DO OPHTH TOMOGRAPHY Edited Res ult - Final from Last 3 Months Insurance MEDICARE [facility] Care Teams Network Program Manager Relationship Specialty Start Date End Date Morgan Ga MD [address] [place] [address] PCP - General Family Medicine 02/20/24
--- NOTE | 2025-01-28 11:31 | XR_ITS ---
The [address] [address] Patient Name: BUZZ BINGHAM MRN: [id number] date: 1935 Sex: F Assigned Patient Location: [facility] Current Patient Location: [facility] Accession/Order Number: [id number] Exam Date: 01/28/2025 15:32 Report Date: 01/28/2025 15:34 At the request of: ZENAIDA WHITNEY MD Procedure: XR sacrum coccyx min 2V Plain film 3 views pelvis and HISTORY: Abdominal pain. Fell. COMPARISON: 06/10/2024 No acute displaced fracture. No SI joint diastases. Moderate degeneration. Unremarkable soft tissues. XR/XR sacrum coccyx min 2V IMPRESSION: No acute displaced fracture 2 views sacrum and coccyx No acute displaced sacral fracture. Adequate SI joints. Displacement of coccygeal segments. Age indeterminate injury. May be remote. Correlate with site of pain. IMPRESSION: No sacral fracture. Coccygeal displacement. Age-indeterminate injury. Correlate with site of pain. Impression dictated by: Roshan Singh M.D. 01/28/2025 3:34 PM Dictation Location: [place] [address] Electronically authenticated by: [id number] Y Date: 01/28/2025 15:34
--- NOTE | 2025-01-28 11:31 | XR_ITS ---
[address] [address] Patient Name: BUZZ BINGHAM MRN: [id number] date: 1935 Sex: F Assigned Patient Location: [facility] Current Patient Location: [facility] Accession/Order Number: [id number] Exam Date: 01/28/2025 15:32 Report Date: 01/28/2025 15:34 At the request of: ZENAIDA WHITNEY MD Procedure: XR sacrum coccyx min 2V Plain film 3 views pelvis and HISTORY: Abdominal pain. Fell. COMPARISON: 06/10/2024 No acute displaced fracture. No SI joint diastases. Moderate degeneration. Unremarkable soft tissues. XR/XR pelvis min 3V IMPRESSION: No acute displaced fracture 2 views sacrum and coccyx No acute displaced sacral fracture. Adequate SI joints. Displacement of coccygeal segments. Age indeterminate injury. May be remote. Correlate with site of pain. IMPRESSION: No sacral fracture. Coccygeal displacement. Age-indeterminate injury. Correlate with site of pain. Impression dictated by: Roshan Singh M.D. 01/28/2025 3:34 PM Dictation Location: [place] [address] Electronically authenticated by: [id number] Y Date: 01/28/2025 15:34
== END 2025-01-28 11:21 | disposition home or self-care (01) ==
LOC: RAD 11:24
PROVIDERS: PCP Family Medicine; Visit Provider Family Medicine
DX: M53.3 Sacrococcygeal disorders, not elsewhere classified (principal); E11.9 Type 2 diabetes mellitus without complications
CPT/HCPCS: 72190; 72220

== ENCOUNTER 2025-02-10 13:37 | Outpatient (OUT) | payer MEDICARE, SELFPAY ==
--- OUTSIDE RECORDS SUMMARY | 2025-01-28 07:00 | XMS_ITS ---
Author Organization The [facility] in [place] Address [address] [place] [address] Care Team Providers Care Patient Carrier Name Role Phone Juan Whitney Primary Care Provider Allergies No Known Allergies Results Component Value Reference Range Notes XR sacrum coccyx min 2V Reviewed date:01/28/2025 07:05:54 PM Interpretation: Performing Lab: Notes/Report: Source Facility: [place] [address] XRay Report Signed Patient: BUZZ MENDOZA MR#: [id number] : 1935 Acct:[id number] Age/Sex: 89 / F ADM Date: 01/28/25 Loc: RAD Attending Dr: Zenaida Whitney M.D. Ordering Physician: Zenaida Whitney M.D. Date of Service: 01/28/25 Procedure(s): XR sacrum coccyx min 2V Accession Number(s): [id number] cc: Zenaida Whitney M.D. The [address] [address] Patient Name: BUZZ MENDOZA MRN: [id number] date: 1935 Sex: F Assigned Patient Location: [facility] Current Patient Location: [facility] Accession/Order Number: [id number] Exam Date: 01/28/2025 15:32 Report Date: 01/28/2025 15:34 At the request of: ZENAIDA WHITNEY MD Procedure: XR sacrum coccyx min 2V Plain film 3 views pelvis and HISTORY: Abdominal pain. Fell. COMPARISON: 06/10/2024 No acute displaced fracture. No SI joint diastases. Moderate degeneration. Unremarkable soft tissues. XR/XR sacrum coccyx min 2V IMPRESSION: No acute displaced fracture 2 views sacrum and coccyx No acute displaced sacral fracture. Adequate SI joints. Displacement of coccygeal segments. Age indeterminate injury. May be remote. Correlate with site of pain. IMPRESSION: No sacral fracture. Coccygeal displacement. Age-indeterminate injury. Correlate with site of pain. Impression dictated by: Roshan Singh M.D. 01/28/2025 3:34 PM Dictation Location: [place] [address] Electronically authenticated by: [id number] Y Date: 01/28/2025 15:34 Dictated By: Roshan Singh D.O. Signed By: 01/28/25 1537 DD/ 1534 TD/TT: Assistant Director Of Public Works: [place] [address] XRay Report Signed Patient: BUZZ MENDOZA MR#: [id number] : 1935 Acct:[id number] Age/Sex: 89 / F ADM Date: 01/28/25 Loc: [facility] Attending Dr: Zenaida Whitney M.D. Ordering Physician: Zenaida Whitney M.D. Date of Service: 01/28/25 Procedure(s): XR sac rum coccyx min 2V Accession Number(s): [id number] cc: Zenaida Whitney M.D. [place] [id number] Patient Name: BUZZ MENDOZA MRN: [id number] date: 1935 Sex: F Assigned Patient Location: [facility] Current Patient Location: [facility] Accession/Order Numb er: [id number] Exam Date: 01/28/2025 15:32 Report Date: 01/28/2025 15:34 At the request of: ZENAIDA WHITNEY MD Procedure: XR sacrum coccyx min 2V Plain film 3 views pelvis and HISTORY: Abdominal pain. Fell. COMPARISON: 06/10/2024 No acute displaced f racture. No SI joint diastases. Moderate degeneration. Unremarkable soft tissues. X R/XR sacrum coccyx min 2V IMPRESSION: No acute displaced fracture 2 views sacrum and coccyx No acute displaced s acral fracture. Adequate SI joints. Displacement of coccygeal segments. Age indeterminate injury. May be remote. Correlate with site of pain. IMPRESSION: No sacra l fracture. Coccygeal displacement. Age-indeterminate injury. Correlate wi th site of pain. Impression dictated by: Roshan Singh M.D. 01/28/2025 3:34 PM Dictation Location: [place] [address] Electronically authe nticated by: [id number] Y Date: 01/28/2025 15:34 Dictated By: Roshan Singh D.O. Signed By: 01/28/25 1537 DD/ 1534 TD/TT: Assistant Director Of Public Works: XR pelvis min 3V Reviewed date:01/28/2025 07:05:54 PM Interpretation: Performing Lab: Notes/Report: Source Facility: [place] [address] XRay Report Signed Patient: BUZZ MENDOZA MR#: [id number] : 1935 Acct:[id number] Age/Sex: 89 / F ADM Date: 01/28/25 Loc: [facility] Attending Dr: Zenaida Whitney M.D. Ordering Physician: Zenaida Whitney M.D. Date of Service: 01/28/25 Procedure(s): XR pelvis min 3V Accession Number(s): [id number] cc: Zenaida Whitney M.D. [place] [address] Patient Name: BUZZ MENDOZA MRN: [id number] date: 1935 Sex: F Assigned Patient Location: [facility] Current Patient Location: [facility] Accession/Order Number: [id number] Exam Date: 01/28/2025 15:32 Report Date: 01/28/2025 15:34 At the request of: ZENAIDA WHITNEY MD Procedure: XR sacrum coccyx min 2V Plain film 3 views pelvis and HISTORY: Abdominal pain. Fell. COMPARISON: 06/10/2024 No acute displaced fracture. No SI joint diastases. Moderate degeneration. Unremarkable soft tissues. XR/XR pelvis min 3V IMPRESSION: No acute displaced fracture 2 views sacrum and coccyx No acute displaced sacral fracture. Adequate SI joints. Displacement of coccygeal segments. Age indeterminate injury. May be remote. Correlate with site of pain. IMPRESSION: No sacral fracture. Coccygeal displacement. Age-indeterminate injury. Correlate with site of pain. Impression dictated by: Roshan Singh M.D. 01/28/2025 3:34 PM Dictation Location: [place] [address] Electronically authenticated by: [id number] Y Date: 01/28/2025 15:34 Dictated By: Roshan Singh D.O. Signed By: 01/28/25 1537 DD/ 1534 TD/TT: Assistant Director Of Public Works: [place] [address] XRay Report Signed Patient: BUZZ MENDOZA MR#: [id number] : 1935 Acct:[id number] Age/Sex: 89 / F ADM Date: 01/28/25 Loc: [facility] Attending Dr: Zenaida Whitney M.D. Ordering Physician: Zenaida Whitney M.D. Date of Service: 01/28/25 Procedure(s): XR pelvis min 3V Accession Number(s): [id number] cc: Zenaida Whitney M.D. [place] [id number] Patient Name: BUZZ MENDOZA MRN: [id number] date: 1935 Sex: F Assigned Patient Location: [facility] Current Patient Location: [facility] Accession/Order Numb er: [id number] Exam Date: 01/28/2025 15:32 Report Date: 01/28/2025 15:34 At the request of: ZENAIDA WHITNEY MD Procedure: XR sacrum coccyx min 2V Plain film 3 views pelvis and HISTORY: Abdominal pain. Fell. COMPARISON: 06/10/2024 No acute displaced f racture. No SI joint diastases. Moderate degeneration. Unremarkable soft tissues. X R/XR pelvis min 3V IMPRESSION: No acute displaced fracture 2 views sacrum and coccyx No acute displaced s acral fracture. Adequate SI joints. Displacement of coccygeal segments. Age indeterminate injury. May be remote. Correlate with site of pain. IMPRESSION: No sacra l fracture. Coccygeal displacement. Age-indeterminate injury. Correlate wi th site of pain. Impression dictated by: Roshan Singh M.D. 01/28/2025 3:34 PM Dictation Location: [facility] Electronically authe nticated by: [id number] Y Date: 01/28/2025 15:34 Dictated By: Roshan Singh D.O. Signed By: 01/28/25 1537 DD/ 1534 TD/TT: Assistant Director Of Public Works: REASON FOR VISIT Had a fall this past Sunday at 3am- she was getting up to use the restroom, fell in bedroom, fellonto bottom then fell back and hit head, The EMS did come and check her out- she didnt want to go to the hospital, Tailbone is bothering her today, head is a little tender to touch on the top, she hit after falling to her bottom, corner of dresser Medications Medication SIG (Take, Route, Frequency, Duration) Notes Start Date End Date Status Vitamin D Active Vitamin C Active Tylenol Extra Strength 500 MG 1 tablet as needed Orally every 6 hrs 07/24/2024 Active Ondansetron 4 MG 1 tablet on the tongue and allow to dissolve Orally QID PRN 07/24/2024 Active metFORMIN HCl 500 MG 1 tablet with a meal Orally twice daily for 90 days Active Meclizine HCl 25 MG TAKE 1 TABLET BY MOUTH EVERY 4 HOURS NEEDED FOR VERTIGO for 15 Active Levothyroxine Sodium 75 MCG TAKE 1 TABLET BY MOUTH EVERY DAY for 90 Active Isosorbide Mononitrate ER 30 MG 1 tablet Orally Once a day for 90 days PLEASE PUT EASY OPEN LID ON CONTAINERS 07/24/2024 Active Ipratropium [place] 0.06 % 2 sprays in each nostril Nasally twice daily 07/24/2024 Active Gemfibrozil 600 MG TAKE 1 TABLET BY MOUTH TWICE A DAY 30 MINUTES BEFORE MORNING AND EVENING MEALS for 90 Active Cytomel 5 MCG 2 tablet on an empty stomach Orally Once a day for 30 days 10/17/2024 Active Social History Tobacco Use: Social History Observation Description Date Details (start date - stop date) Never Smoker NA - NA Tobacco Use/Smoking Question Answer Notes Patient is a nonsmoker Problems Problem Type SNOMED Code ICD Code Onset Dates Problem Status W/U Status Risk Notes Problem Sacral back pain (06956098) Sacral back pain (M53.3) Active confirmed Vital Signs Weight 128.0 lbs 01/28/2025 Height 60 in 01/28/2025 Blood pressure systolic 138 mm Hg 01/29/20 25 Blood pressure diastolic 82 mm Hg 025 BMI 25 kg/m2 01/28/2025 Encounters Encounter Location Date Provider Diagnosis [facility] [address] [place] [address] 01/28/2025 Juan Whitney Type 2 diabetes bebe itus without complication E11.9 and Sacral back pain M53.3 Assessments Encounter Date Diagnosis (ICD Code) Assessment Notes Treatment Notes Treatment Clinical Notes Section Notes 01/28/2025 Type 2 diabetes mellitus without complication (ICD-10 - E11.9) 01/28/2025 Sacral back pain (ICD-10 - M53.3) 01/28/2025 Other Recommended to rest and use a heating pad on the area. Take NSAIDs for pain as needed Plan Of Treatment Treatment Notes Assessment Notes Other Recommended to rest and use a heating pad on the area. Take NSAIDs for pain as needed Next Appt Details Provider Name:Juan Whitney, 11:00:00 AM, [address] [place], [address], Progress Notes * Buzz MENDOZADOB:1935 (89 yo F)Acc No.[id number]:01/28/2025 Progress Note Patient: Buzz FONTENOT Provider: Swati Whitney ([facility])MD :1935 A ge:89 Y S ex:Female Date:01/28/2025 Address[id number] Check In:10:35 AM ESTCheck O ut:11:10 AM EST Subjective: * Chief Complaints: * H ad a fall this past Sunday at 3am- she was getting up to use the restroom, fell in bedroom, fell onto bottom then fell back and hit headThe EMS did come and check her out- she didnt want to go to the hospitalTailbone is bothering her today, head is a little tender to touch on the top, she hit after falling to her bottom, corner of dresser * HPI: G eneral: Head injruy - not bad - low back and sacrum - area iwth pain - pain with layong back no syncope - maybe lighthead with looking up. B ack Pain: The patient complains of -. The symptoms have been present for 1-2 days. The patient believes symptoms are injury related No. The symptoms are mild. Symptomatic treatment has included heating pad, stretching. Associated symptoms include None. * ROS: G eneral/Constitutional: Lightheadedness d enies. C hange in appetite d enies. W eight Change d enies. C ardiovascular: Irregular heartbeat d enies. S welling in hands/feet?denies. R espiratory: Shortness of breath d enies. S hortness of breath with exertion d enies. W heezing d enies. M usculoskeletal: Comments S [facility] for details. N eurologic: Dizziness d enies. F ainting d enies. H eadache?denies. 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 Modified On:04/11/2023 Status:confirmed E11.9 Type 2 diabetes bebe itus without complication Modified On:10/31/2023 Status:confirmed I10 Essential (primary) hypertension Modified On:10/31/2023 Status:confirmed E78.2 Mixed hyperlipidemia Modified On:04/11/2023 Status:confirmed R53.83 Other fatigue Modified On:04/11/2023 Status:confirmed M81.0 Osteoporosis Modified On:10/01/2023U Status:confirmed M25.50 Arthralgia Modified On:10/31/2023 Status:confirmed R51.9 Head and face pain Modified On:02/19/2024 Status:confirmed M79.642 Left hand pain Modified On:02/19/2024 Status:confirmed R00.1 Bradycardia Modified On:06/09/2024 Status:confirmed E03.9 Acquired hypothyroid ism Modified On:06/24/2024 Status:confirmed E11.9 Diabetes mellitus Modified On:06/24/2024 Status:confirmed E83.42 Hypomagnesemia Modified On:06/24/2024 Status:confirmed E11.9 DM (diabetes mellitu s) Modified On:08/18/2024 Status:confirmed E03.9 Hypothyroid Modified On:08/18/2024 Status:confirmed I10 HTN (hypertension) Modified On:08/18/2024 Status:confirmed K21.9 GERD (gastroesophage al reflux disease) Modified On:12/25/2024 Status:confirmed M53.3 Sacral back pain Modified On:01/28/2025 Status:confirmed * Medical History: * Surgical History: [...] Medications: T akingCytomel(Liothyronine Sodium) 5 MCG Tablet 2 tablet on an empty stomach Orally Once a day Gemfibrozil 600 MG Tablet TAKE 1 TABLET BY MOUTH TWICE A DAY 30 MINUTES BEFORE MORNING AND EVENING MEALS Ipratropium [place] 0.06 % Solution 2 sprays in each [...] the patientTaking Cytomel(Liothyronine Sodium) 5 MCG Tablet 2 tablet on an empty stomach Orally Once a day Taking Gemfibrozil 600 MG Tablet TAKE 1 TABLET BY MOUTH TWICE A DAY 30 MINUTES BEFORE MORNING AND EVENING MEALS Taking Ipratropium [place] 0.06 % Solution 2 sprays in each [...] N .K.D.A.no[Allergies Verified] Objective: * Vitals: W t:128.0lbs, Ht: 60 in, BP:138/82mm Hg, BMI:25Index, Ht-cm: 152.4 cm, Wt-k.06 kg. * Examination: G eneral Examination: GENERAL APPEARANCE: i n no acute distress, well developed, well nourished. LUNGS: clear to auscultation bilaterally. CARDIO: S1, S2 normal, no murmurs, rubs, gallops. MUSCULOSKELETAL: T mell over coccyx. EXTREMITIES: no clubbing, cyanosis, or edema. NEUROLOGIC: alert, oriented to time, place, & person.? Assessment: * Assessment: 1. T ype 2 diabetes mellitus without complication - E11.9 (Primary) 2 . S acral back pain - M53.3 Plan: * Treatment: 2. O thers Notes: Recommended to rest and use a heating pad on the area. Take NSAIDs for pain as needed ? * Procedure Codes: * * Sign off status: Completed Visit Status: C HK (Check Out) true * Provider: Swati Whitney ([facility])MD Date: 01/28/2025 Generated for Printi ng/Fadedrickg/eTransmitting on: 02/10/2025 01:44 PM EDT History and Physical Notes * HPI (History of Present Illness) Category Sub-Category Detail Notes Category Not es General Head injruy - not bad - low back and sacrum - area iwth pain - pain with layong back no syncope - maybe lighthead with looking up Examination Category Sub-Category Detail Notes Category Not es General Examination GENERAL APPEARANCE: in no ac [place] distress, well developed, well nourished CARDIO: S1, S2 normal, no mu rmurs, rubs, gallops LUNGS: clear to auscultatio n bilaterally NEUROLOGIC: alert, oriented to t louisa, place, & person EXTREMITIES: no clubbing, cyanosi s, or edema MUSCULOSKELETAL: Tender over coccyx
--- OUTSIDE RECORDS SUMMARY | 2025-01-28 15:04 | XMS_ITS ---
Author Organization [facility] in [place] Address [address] [place] [address] Care Team Providers Care Contact Finger Assembler Name Role Phone Juan Ga Primary Care Provider REASON FOR VISIT xr results Encounters Encounter Location Date Provider Diagnosis [facility] [address] [place] [address] [address] 01/28/2025 Juan Ga Plan Of Treatment Next Appt Details Provider Name:Juan Ga, 11:00:00 AM, [address] [facility] [place], [address], Progress Notes * Anay MENDOZADOB:1935 (89 yo F)Acc No.[id number]:01/28/2025 Patient: Anay FONTENOT :1935 A ge:89 Y S ex:Female Address:[address] [place] [address] * true * Date: Generated for Printi ng/Faxing/eTransmitting on: 0 02/10/2025 01:44 PM EDT
--- OUTSIDE RECORDS SUMMARY | 2025-02-03 04:24 | XMS_ITS ---
Author Organization [facility] in [place] Address [address] [place] [address] Care Team Providers Care Health Claims Examiner Name Role Phone Juan Ga Primary Care Provider [phone] REASON FOR VISIT thyroid labs Encounters Encounter Location Date Provider Diagnosis [facility] [address] [facility] [place] [address] 02/03/2025 Juan Ga Hypothyroid E03. 9 Assessments Encounter Date Diagnosis (ICD Code) Assessment Notes Treatment Notes Treatment Clinical Notes Section Notes 02/03/2025 Hypothyroid (ICD-10 - E03.9) Plan Of Treatment Pending Test Test Name Order Date THYROID PANEL (T4/TSH/FREE T3) Next Appt Details Provider Name:Juan Ga, 11:00:00 AM, [address] [facility] [place], [address], Progress Notes * Anay MENDOZADOB:1935 (89 yo F)Acc No.[id number]:02/03/2025 Patient: Anay FONTENOT :1935 A ge:89 Y S ex:Female Address:[address] [address] Subjective: * Chief Complaints: * T hyroid labs * Medical History: * Surgical History: * Hospitalization/Major Diagno stic Procedure: * Medications: Objective: * Vitals: * Physical Examination: Assessment: * Assessment: 1. H ypothyroid - E03.9 (Primary) Plan: * Treatment: * Procedure Codes: * true * Date: Generated for Brandon miller/Caesar/Bertha on: 02/10/2025 01:44 PM EDT
--- OUTSIDE RECORDS SUMMARY | 2025-02-10 13:44 | XMS_ITS | Clinical Summary ---
Author Organization [facility] Address [address] [facility] [place] [address] Care Team Providers Care Basic Acoustic Analyst Name Role Phone Morgan Ga MD Primary Care Provider [phone] Allergies No known active allergies Medications gemfibrozil [...] [facility] [address] [place] [address] Ian Flores, DO Follow-up; Macular Degeneration; Retinal Injection 01/01/2025 Bamboo flowsheet [facility] [address] [place] [address] Ian Flores, DO 01/01/2025 Travel 12/02/2024 11:00 AM EDT Clinical Support [facility] [address] [place] [address] Ian Flores, Post-op Follow-up; Follow-up 12/02/2024 Bamboo flowsheet [facility] [address] [place] [address] Ian Flores, 12/02/2024 Travel 11/25/2024 11:00 AM EDT Office Visit [facility] [address] [place] [address] Ian Flores, DO Pseudophakia (Primary Dx) 11/25/2024 Bamboo flowsheet [facility] [address] [place] [address] Ian Flores, 11/25/2024 Travel 11/18/2024 2:30 PM EDT Office Visit [facility] [address] [place] [address] Ian Flores, DO Pseudophakia (Primary Dx); Age-related nuclear cataract of right eye 11/18/2024 Bamboo flowsheet [facility] [address] [place] [address] Ian Flores, DO 11/18/2024 Travel 11/11/2024 11:00 AM EDT Office Visit [facility] [address] [place] [address] Ian Flores, DO Pseudophakia (Primary Dx) 11/11/2024 Bamboo flowsheet [facility] [address] [place] [address] Ian Flores, DO 11/11/2024 Travel from Last [...] [facility] [address] [place] [address] Ian Flores, [address] [place] [address] Health Maintenance Due Date Last Done Comments [...] Final from Last 3 Months Insurance MEDICARE [facility] Care Teams Basic Acoustic Analyst Relationship Specialty Start Date End Date Morgan Ga MD [address] [place] [address] PCP - General Family Medicine 02/20/24
--- OUTSIDE RECORDS SUMMARY | 2025-02-10 13:44 | XMS_ITS | Encounter Summary ---
Author Organization The [facility] Address [address] [facility] [place] [address] Care Team Providers Care Technical Engineer Name Role Phone Morgan Ga MD Primary Care Provider [phone] Encounter Details Date Type Department Care Team (Late st Contact Info) Description 11/10/2024 Orders Only [facility] [address] [place] [address] Lesly Mcdonald MD [address] [place] [address] Social History Tobacco Use Types [...] on filedocumented in this encounter Care Teams Technical Engineer Relationship Specialty Start Date End Date Morgan Ga MD [address] [facility] [place] [phone] PCP - General Family Medicine 12/25/24 documented as of this encounter
--- OUTSIDE RECORDS SUMMARY | 2025-02-10 13:45 | XMS_ITS | Patient Health Record ---
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 Ordering Physician: Zenaida Ga M.D. Date of Service: 01/28/25 Procedure(s): XR sacrum coccyx min 2V Accession Number(s): [id number] cc: Zenaida Ga M.D. [place] [id number] Patient Name: ANAY BINGHAM MRN: [id number] date: 1935 Sex: F Assigned Patient Location: RAD Current Patient Location: RAD Accession/Order Number: [id number] Exam Date: 01/28/2025 15:32 Report Date: 01/28/2025 15:34 At the request of: ZENAIDA GA MD Procedure: XR sacrum coccyx min 2V [...] with site of pain. Impression dictated by: Johnnie Singh M.D. 01/28/2025 3:34 PM Dictation Location: [place] [address] Electronically authenticated by: [id number] Y Date: 01/28/2025 15:34 Dictated By: Johnnie Singh D.O. Signed By: 01/28/25 1537 DD/ 1534 TD/TT: Thermal Molder: [place] [address] XRay Report Signed Patient: ANAY BINGHAM MR#: [id number] : 1935 Acct:[id number] Age/Sex: 89 / F ADM Date: 01/28/25 Loc: RAD Attending Dr: Adam Ga M.D. Ordering Physician: Zenaida Ga M.D. Date of Service: 01/28/25 Procedure(s): XR sac rum coccyx min 2V Accession Number(s): [id number] cc: Zenaida Ga M.D. [address] [address] Patient Name: ANAY BINGHAM MRN: [id number] date: 1935 Sex: F Assigned Patient Location: RAD Current Patient Loca tion: RAD Accession/Order Numb er: [id number] Exam Date: 01/28/2025 15:32 Report Date: 01/28/2025 15:34 At the request of: ZENAIDA GA MD Procedure: XR sacrum coccyx min 2V Plain film 3 views p charlee and HISTORY: Abdominal p ain. Fell. COMPARISON: 06/10/2024 No acute displaced fracture. [...] th site of pain. Impression dictated by: Johnnie Singh M.D. 01/28/2025 3:34 PM Dictation Location: [place] [address] Electronically authenticated by: [id number] Y Date: 01/28/2025 15:34 Dictated By: Shivam Singh D.O. Signed By: 01/28/25 1537 DD/ 1534 TD/TT: [employer] M[employer]: XR pelvis min 3V Reviewed date:01/28/2025 07:05:54 PM Interpretation: Performing Lab: Notes/Report: Source Facility: [place] [address] XRay Report Signed Patient: ANAY BINGHAM MR#: [id number] : 1935 Acct:[id number] Age/Sex: 89 / F ADM Date: 01/28/25 Loc: RAD Attending Dr: Zenaida Ga M.D. Ordering Physician: Zenaida Ga M.D. Date of Service: 01/28/25 Procedure(s): XR pelvis min 3V Accession Number(s): [id number] cc: Zenaida Ga M.D. [place] [address] Patient Name: ANAY BINGHAM MRN: [id number] date: 1935 Sex: F Assigned Patient Location: RAD Current Patient Location: RAD Accession/Order Number: [id number] Exam Date: 01/28/2025 15:32 Report Date: 01/28/2025 15:34 At the request of: ZENAIDA GA MD Procedure: XR sacrum coccyx min 2V [...] with site of pain. Impression dictated by: Johnnie Singh M.D. 01/28/2025 3:34 PM Dictation Location: [place] [address] Electronically authenticated by: [id number] Y Date: 01/28/2025 15:34 Dictated By: Johnnie Singh D.O. Signed By: 01/28/25 1537 DD/ 1534 TD/TT: Thermal Molder: [address] [address] XRay Report Signed Patient: ANAY BINGHAM MR#: [id number] : 1935 Acct:[id number] Age/Sex: 89 / F ADM Date: 01/28/25 Loc: RAD Attending Dr: Adam Ga M.D. Ordering Physician: Zenaida Ga M.D. Date of Service: 01/28/25 Procedure(s): XR pel vis min 3V Accession Number(s): [id number] cc: Zenaida Ga M.D. [address] [address] Patient Name: ANAY BINGHAM MRN: [id number] date: 1935 Sex: F Assigned Patient Location: RAD Current Patient Loca tion: RAD Accession/Order Numb er: [id number] Exam Date: 01/28/2025 15:32 Report Date: 01/28/2025 15:34 At the request of: ZENAIDA GA MD Procedure: XR sacrum coccyx min 2V Plain film 3 views p charlee and HISTORY: Abdominal p ain. Fell. COMPARISON: 06/10/2024 No acute displaced fracture. [...] th site of pain. Impression dictated by: Johnnie Singh M.D. 01/28/2025 3:34 PM Dictation Location: [place] [address] Electronically authenticated by: [id number] Y Date: 01/28/2025 15:34 Dictated By: Shivam Singh D.O. Signed By: 01/28/25 1537 DD/ 1534 TD/TT: [employer] M[employer]: XR HAND LT MIN 3V Reviewed date:02/20/2024 08:32:57 PM Interpretation: Performing Lab: Notes/Report: Source Facility: [place] [address] XRay Report Signed Patient: ANAY BINGHAM MR#: [id number] : 1935 Acct:[id number] Age/Sex: 88 / F ADM Date: 02/19/24 Loc: RAD Attending Dr: Zenaida Ga M.D. Ordering Physician: Zenaida Ga M.D. Date of Service: 02/19/24 Procedure(s): XR hand LT min 3V Accession Number(s): [id number] cc: Zenaida Ga M.D. [place] [address] Patient Name: ANAY BINGHAM MRN: [id number] date: 1935 Sex: F Assigned Patient Location: RAD Current Patient Location: Accession/Order Number: [id number] Exam Date: 02/19/2024 11:45 Report Date: 02/20/2024 [...] Signed By: 02/20/24 1544 DD/ 1541 TD/TT: [facility] Molder: [place] [address] XRay Report Signed Patient: ANAY BINGHAM MR#: [id number] : 1935 Acct:[id number] Age/Sex: 88 / F ADM Date: 02/19/24 Loc: RAD Attending Dr: Adam Ga M.D. Ordering Physician: Zenaida Ga M.D. Date of Service: 02/19/24 Procedure(s): XR paige d LT min 3V Accession Number(s): [id number] cc: Zenaida Ga M.D. The [place] [id number] Patient Name: ANAY BINGHAM MRN: [id number] date: 1935 Sex: F Assigned Patient Location: [facility] Current Patient Location: Accession/Order Numb er: [id number] Exam Date: 02/19/2024 11:45 Report Date: 02/20/2024 [...] Signed By: 02/20/24 1544 DD/ 1541 TD/TT: [employer]older: FREE T4 Reviewed date:06/08/2024 02:18:19 PM Interpretation: Performing Lab: Notes/Report: The , Free T4 1.08 0.76-1.46 ng/dL Performing Lab: see note ML - The [facility] LB CBC AUTO DIFF Reviewed date:06/10/2024 08:39:29 PM Interpretation: Performing Lab: Notes/Report: The , White Blood Count 5.0 4.0-11.0 10 [...] Performing Lab: see note ML - The [facility] LB PROF CHEM 8 (BAS METB) Reviewed date:06/10/2024 08:39:29 PM Interpretation: Performing Lab: Notes/Report: The , Sodium 141 136-145 mmol/L Potassium 4.5 [...] Performing Lab: see note ML - [facility] LB Troponin I High Sensitivity Reviewed date:06/10/2024 08:39:29 PM Interpretation: Performing Lab: Notes/Report: The , Troponin I High Sensitivity 28.0 4.0-51.3 pg/mL CUT-OFF POINTS HAVE BEEN ESTABLISHED BASED ON THE FOURTH UNIVERSAL DEFINITION OF MYOCARDIAL INFARCTION. THE UPPER REFERENCE LIMIT (URL) OF TROPONIN, DEFINED THE 99TH PERCENTILE OF cTnI DISTRIBUTION IN A REFERENCE POPULATION, HAS BEEN CONFIRMED THE DECISION THRESHOLD FOR [place] DIAGNOSIS. 99TH PERCENTILE = 51.4 PG/ML NOTE: HIGH-SENSITIVITY TROPONIN ASSAY IS NOT INTENDED TO BE USED IN ISOLATION BUT SHOULD BE INTERPRETED IN CONJUNCTION WITH OTHER DIAGNOSTIC AND CLINICAL INFORMATION. Performing Lab: see note ML - [facility] LB XR hip LT 2V w/ pelvis Reviewed date:06/10/2024 08:39:29 PM Interpretation: Performing Lab: Notes/Report: Source Facility: -[address] [place] [address] [address] XRay Report Signed Patient: ANAY BINGHAM MR#: [id number] : 1935 Acct:[id number] Age/Sex: 88 / F ADM Date: 06/10/24 Loc: ER Attending Dr: Ordering Physician: Rizwan Mercado Date of Service: 06/10/24 Procedure(s): XR hip LT 2V w/ pelvis Accession Number(s): [id number] cc: Rizwan Mercado; Zenaida Ga M.D. The [place] [id number] Patient Name: ANAY BINGHAM MRN: [id number] date: 1935 Sex: F Assigned Patient Location: ER Current Patient Location: ER Accession/Order Number: [id number] Exam Date: 06/10/2024 02:00 Report Date: 06/10/2024 [...] Dictated By: Johann Pickard M.D. Signed By: 06/10/245 DD/ 2 TD/TT: [facility] [facility]older: [place] [address] XRay Report Signed Patient: ANAY BINGHAM MR#: [id number] : 1935 Acct:[id number] Age/Sex: 88 / F ADM Date: 06/10/24 Loc: ER Attending Dr: Ordering Physician: Rizwan Mercado Date of Service: 06/10/24 Procedure(s): XR hip LT 2V w/ pelvis Accession Number(s): [id number] cc: Rizwan Mercado; Zenaida Ga M.D. [place] [address] Patient Name: ANAY BINGHAM MRN: [id number] date: 1935 Sex: F Assigned Patient Location: ER Current Patient Loca tion: ER Accession/Order Numb er: [id number] Exam Date: 02:00 Report Date: 06/10/2024 04:23 [...] Dictated By: Johann Pickard M.D. Signed By: 06/10/24424 DD/ 2 TD/TT: [employer] Molder: ECG 12 lead Reviewed date:06/12/2024 02:58:07 PM Interpretation: Performing Lab: Notes/Report: Source Facility: [place] [address] [place] [address] Electrocardiograph Report Signed Patient: ANAY BINGHAM MR#: [id number] : 1935 Acct:[id number] Age/Sex: 88 / F ADM Date: 06/10/24 Loc: MS 216-[address]: Zenaida Ga M.D. 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 Signed By: 06/12/24710 DD/ 010 TD/TT: [employer] Molder: [place] [address] Electrocardiograph Report Signed Patient: ANAY BINGHAM MR#: [id number] : 1935 Acct:[id number] Age/Sex: 88 / F ADM Date: 06/10/24 Loc: MS 216-[address]: Adam Ga M.D. 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 Signed By: 06/12/24710 DD/ 010 TD/TT: Thermal Molder: CT head/brain wo con Reviewed date:06/10/2024 08:39:29 PM Interpretation: Performing Lab: Notes/Report: Source Facility: [place] [address] CT Scan Report Signed Patient: ANAY BINGHAM MR#: [id number] : 1935 Acct:[id number] Age/Sex: 88 / F ADM Date: 06/10/24 Loc: ER Attending Dr: Ordering Physician: Rizwan Mercado Date of Service: 06/10/24 Procedure(s): CT head/brain wo con Accession Number(s): [id number] cc: Zenaida Ga M.D. [place] [address] Patient Name: ANAY BINGHAM MRN: [id number] date: 1935 Sex: F Assigned Patient Location: ER Current Patient Location: ER Accession/Order Number: [id number] Exam Date: 06/10/2024 02:00 Report Date: 06/10/2024 [...] M.D. Signed By: 06/10/24357 DD/ 5 TD/TT: Thermal Molder: [place] [address] CT Scan Report Signed Patient: ANAY BINGHAM MR#: [id number] : 1935 Acct:[id number] Age/Sex: 88 / F ADM Date: 06/10/24 Loc: ER Attending Dr: Ordering Physician: Rizwan Mercado Date of Service: 06/10/24 Procedure(s): CT head/brain wo con Accession Number(s): [id number] cc: Zenaida Ga M.D. [place] [id number] Patient Name: ANAY BINGHAM MRN: [id number] date: 1935 Sex: F Assigned Patient Location: ER Current Patient Loca tion: ER Accession/Order Numb er: [id number] Exam Date: 02:00 Report Date: 06/10/2024 03:56 [...] Dictated By: Miladys Chilel M.D. Signed By: 06/10/24 0358 DD/ 0356 TD/TT: [employer] Molder: Troponin I High Sensitivity Reviewed date:06/10/2024 08:39:29 PM Interpretation: Performing Lab: Notes/Report: The , Troponin I High Sensitivity 103.1 4.0-51.3 pg/mL RESULTS CALLED TO PARKER CARR RN at 1111 CUT-OFF POINTS HAVE BEEN ESTABLISHED BASED ON THE FOURTH UNIVERSAL DEFINITION OF MYOCARDIAL INFARCTION. THE UPPER REFERENCE LIMIT (URL) OF TROPONIN, DEFINED THE 99TH PERCENTILE OF cTnI DISTRIBUTION IN A REFERENCE POPULATION, HAS BEEN CONFIRMED THE DECISION THRESHOLD FOR NH DIAGNOSIS. 99TH PERCENTILE = 51.4 PG/ML NOTE: HIGH-SENSITIVITY TROPONIN ASSAY IS NOT INTENDED TO BE USED IN ISOLATION BUT SHOULD BE INTERPRETED IN CONJUNCTION WITH OTHER DIAGNOSTIC AND CLINICAL INFORMATION. Performing Lab: see note ML - The [facility] LB CBC AUTO DIFF Reviewed date:06/11/2024 07:55:42 AM Interpretation: Performing Lab: Notes/Report: The , White Blood Count 8.0 4.0-11.0 10 [...] 3/uL Performing Lab: see note ML - [facility] LB MAGNESIUM Reviewed date:06/11/2024 07:55:42 AM Interpretation: Performing Lab: Notes/Report: The , Magnesium 2.1 1.8-2.4 mg/dL Performing Lab: see note ML - [facility] LB PROF 14(COMP METB) Reviewed date:06/11/2024 07:55:42 AM Interpretation: Performing Lab: Notes/Report: The , Sodium 142 136-145 mmol/L Potassium 5.2 [...] Globulin Ratio 0.9 Performing Lab: see note - [facility] PROF CHEM 8 (BAS METB) Reviewed date:06/11/2024 12:34:16 PM Interpretation: Performing Lab: Notes/Report: The , Sodium 143 136-145 mmol/L Potassium 4.7 3.5-5.1 mmol/L Chloride 108 98-107 mmol/L Carbon Dioxide 20.8 21.0-32.0 mmol/L Anion Gap 18.9 Glucose 190 74-106 mg/dL Blood Urea Nitrogen 24.0 7.0-18.0 mg/dL Creatinine 1.56 0.55-1.02 mg/dL Estimated GFR ( Radha 38 >=60 mL/min/1.73m 2 Estimated GFR (Non- Marcella 31 >=60 mL/min/1.73m 2 BUN Creatinine Ratio 15.4 Calcium 8.5 8.5-10.1 mg/dL Performing Lab: see note - [facility] CA holter monitor 7-15 days Reviewed date:06/30/2024 12:46:52 PM Interpretation: Performing Lab: Notes/Report: Source Facility: [place] [address] [place] [address] Cardiology Report Signed Patient: ANAY BINGHAM MR#: [id number] : 1935 Acct:[id number] Age/Sex: 88 / F ADM Date: 06/06/24 Loc: ER Attending Dr: Ordering Physician: Zenaida Ga M.D. Date of Service: 06/06/24 Procedure(s): CA holter monitor 7-15 days Accession Number(s): [id number] cc: Zenaida Ga M.D. 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 Signed By: 06/29/24191206/29/241912 DD/ 7 TD/TT: Ther[employer] Molder: [place] [address] Cardiology Report Signed Patient: ANAY BINGHAM MR#: [id number] : 1935 Acct:[id number] Age/Sex: 88 / F ADM Date: 06/06/24 Loc: ER Attending Dr: Ordering Physician: Zenaida Ga M.D. Date of Service: 06/06/24 Procedure(s): CA hol ter monitor 7-15 days Accession Number(s): [id number] cc: Zenaida Ga M.D. 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 Signed By: 06/29/24191206/29/241912 DD/ 7 TD/TT: Ther[employer] Molder: CBC AUTO DIFF Reviewed date:2024 11:31:32 AM Interpretation: Performing Lab: Notes/Report: [facility] , White Blood Count 5.2 4.0-11.0 10 [...] Performing Lab: see note ML - The [facility] PROF CHEM 8 (BAS METB) Reviewed date:2024 11:31:32 AM Interpretation: Performing Lab: Notes/Report: The , Sodium 140 136-145 mmol/L Potassium 4.6 [...] mg/dL Performing Lab: see note ML - [facility] Troponin I High Sensitivity Reviewed date:2024 11:31:32 AM Interpretation: Performing Lab: Notes/Report: The , Troponin I High Sensitivity 11.9 4.0-51.3 pg/mL CUT-OFF POINTS HAVE BEEN ESTABLISHED BASED ON THE FOURTH UNIVERSAL DEFINITION OF MYOCARDIAL INFARCTION. THE UPPER REFERENCE LIMIT (URL) OF TROPONIN, DEFINED THE 99TH PERCENTILE OF cTnI DISTRIBUTION IN A REFERENCE POPULATION, HAS BEEN CONFIRMED THE DECISION THRESHOLD FOR NH DIAGNOSIS. 99TH PERCENTILE = 51.4 PG/ML NOTE: HIGH-SENSITIVITY TROPONIN ASSAY IS NOT INTENDED TO BE USED IN ISOLATION BUT SHOULD BE INTERPRETED IN CONJUNCTION WITH OTHER DIAGNOSTIC AND CLINICAL INFORMATION. Performing Lab: see note ML - The [facility] LB ECG 12 lead Reviewed date:09/10/2024 07:22:47 PM Interpretation: Performing Lab: Notes/Report: Source Facility: -[address] [place] [address] [place] [address] Electrocardiograph Report Signed Patient: ANAY BINGHAM MR#: [id number] : 1935 Acct:[id number] Age/Sex: 88 / F ADM Date: 09/06/24 Loc: ICU 275-[address]: Zenaida Ga M.D. Ordering Physician: Mis Meredith M.D. 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 Signed By: 09/10/24 0717 DD/ 12 TD/TT: Thermal Molder: [place] [address] Electrocardiograph Report Signed Patient: ANAY BINGHAM MR#: [id number] : 1935 Acct:[id number] Age/Sex: 88 / F ADM Date: 09/06/24 Loc: ICU 275-[address]: Adam Ga M.D. Ordering Physician: Mis Meredith M.D. 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 Signed By: 09/10/24716 DD/ 12 TD/TT: Thermal Molder: CT head/brain wo con Reviewed date:2024 11:31:32 AM Interpretation: Performing Lab: Notes/Report: Source Facility: [place] [address] CT Scan Report Signed Patient: ANAY BINGHAM MR#: [id number] : 1935 Acct:[id number] Age/Sex: 88 / F ADM Date: 09/06/24 Loc: ER Attending Dr: Ordering Physician: Mis Meredith M.D. Date of Service: 09/06/24 Procedure(s): CT head/brain wo con Accession Number(s): [id number] cc: Zenaida Ga M.D. [place] [address] Patient Name: ANAY BINGHAM MRN: [id number] date: 1935 Sex: F Assigned Patient Location: ER Current Patient Location: ED.MAIN Accession/Order Number: [id number] Exam Date: 09/06/2024 19:15 Report Date: 09/06/2024 [...] M.D. Signed By: 09/06/242024 DD/ 22 TD/TT: Ther[facility] Molder: [place] [address] CT Scan Report Signed Patient: ANAY BINGHAM MR#: [id number] : 1935 Acct:[id number] Age/Sex: 88 / F ADM Date: 09/06/24 Loc: ER Attending Dr: Ordering Physician: Mis Meredith M.D. Date of Service: 09/06/24 Procedure(s): CT head/brain wo con Accession Number(s): [id number] cc: Zenaida Ga M.D. [place] [id number] Patient Name: ANAY BINGHAM MRN: [id number] date: 1935 Sex: F Assigned Patient Location: ER Current Patient Loca tion: ED.MAIN Accession/Order Numb er: [id number] Exam Date: 09/06/2024 19:15 Report Date: 09/06/2024 [...] M.D. Signed By: 09/06/242024 DD/ 22 TD/TT: [employer] Molder: CBC AUTO DIFF Reviewed date:10/16/2024 08:29:47 PM Interpretation: Performing Lab: Notes/Report: The , White Blood Count 5.3 4.0-11.0 10 [...] 3/uL Performing Lab: see note ML - [facility] FREE T3 Reviewed date:10/16/2024 08:29:47 PM Interpretation: Performing Lab: Notes/Report: The , Free T3 1.37 2.18-3.98 pg/mL Performing Lab: see note ML - [facility] LB GLYCOHEMOGLOBIN A1C Reviewed date:10/16/2024 08:29:47 PM Interpretation: Performing Lab: Notes/Report: The , Glycohemoglobin A1C 5.5 4.5-6.2 % ADA RECOMMENDED LIMIT 4.0 - 6.0 ADA THERAPEUTIC TARGET < 7.0 ACTION SUGGESTED > 7.0 Estimated Average Glucose 111 Performing Lab: see note ML - [facility] IRON Reviewed date:10/16/2024 08:29:47 PM Interpretation: Performing Lab: Notes/Report: The , Iron 85.0 50.0-170.0 ug/dL Performing Lab: see note ML - [facility] LB LIPID PROFILE Reviewed date:10/16/2024 08:29:47 PM Interpretation: Performing Lab: Notes/Report: The , Triglycerides 66 <=150 mg/dL Cholesterol 145 [...] RISK Performing Lab: see note ML - [facility] LB PROF 14(COMP METB) Reviewed date:10/16/2024 08:29:47 PM Interpretation: Performing Lab: Notes/Report: The , Sodium 143 136-145 mmol/L Potassium 4.8 [...] 1.0 Performing Lab: see note ML - [facility] LB T4 Reviewed date:10/16/2024 08:29:47 PM Interpretation: Performing Lab: Notes/Report: The , T4 Thyroxine 7.10 4.80-13.90 ug/dL Performing Lab: see note ML - [facility] LB TSH Reviewed date:10/16/2024 08:29:47 PM Interpretation: Performing Lab: Notes/Report: The , Thyroid Stimulating Hormone 0.227 0.358-3.740 uIU/mL Performing Lab: see note ML - [facility] LB CBC AUTO DIFF Reviewed date:12/29/2024 09:16:23 PM Interpretation: Performing Lab: Notes/Report: The , White Blood Count 4.8 4.0-11.0 10 [...] Performing Lab: see note ML - The [facility] LB SARS-CoV-2 Ag* Reviewed date:2024 11:31:32 AM Interpretation: Performing Lab: Notes/Report: The , SARS-CoV-2 Ag NEGATIVE NEGATIVE This test [...] sooner. Performing Lab: see note ML - [facility] LB URINE MICROSCOPIC ONLY Reviewed date:2024 11:31:32 AM Interpretation: Performing Lab: Notes/Report: The , WBC Urine 2-5 NONE SEEN #/HPF RBC Urine 0-2 0-2 #/HPF Bacteria Urine TRACE NONE SEEN #/HPF Mucus Urine NONE SEEN NONE SEEN Squamous Epithelial Cell Urine FEW NONE/RARE #/LPF Crystals Seen? None Seen None Seen #/HPF Cast Seen? NONE SEEN NONE SEEN #/LPF Performing Lab: see note ML - [facility] LB UA (CLEAN or CATCH) MICROSCO PIC IF INDICATE Reviewed date:2024 11:31:32 AM Interpretation: Performing Lab: Notes/Report: The , Color Urine LT. YELLOW YELLOW Clarity Urine CLEAR CLEAR Specific Rousseau Urine 1.010 1.005-1.025 pH Urine 6.0 5.0-9.0 Protein Urine NEGATIVE NEG/TRACE mg/dL Glucose Urine UA NEGATIVE NEGATIVE mg/dL Bilirubin Urine NEGATIVE NEGATIVE Ketones Urine NEGATIVE NEGATIVE mg/dL Blood Urine NEGATIVE NEGATIVE Nitrite Urine NEGATIVE NEGATIVE Urobilinogen Urine 0.2 0.2-1.0 EU/dL Leukocyte Esterase Urine SMALL NEGATIVE Urine Microscopic Indicated YES Performing Lab: see note - [facility] LB PROF CHEM 8 (BAS METB) Reviewed date:2024 11:31:32 AM Interpretation: Performing Lab: Notes/Report: The , Sodium 140 136-145 mmol/L Potassium 4.4 [...] mg/dL Performing Lab: see note ML - [facility] LB MAGNESIUM Reviewed date:2024 11:31:32 AM Interpretation: Performing Lab: Notes/Report: The , Magnesium 1.8 1.8-2.4 mg/dL Performing Lab: see note ML - The [facility] LB INFLUENZA A AND B AG Reviewed date:2024 11:31:32 AM Interpretation: Performing Lab: Notes/Report: The , Influenza Virus A Antigen Negative Negative [...] Performing Lab: see note ML - The [facility] LB CBC AUTO DIFF Reviewed date:2024 11:31:32 AM Interpretation: Performing Lab: Notes/Report: The , White Blood Count 4.5 4.0-11.0 10 [...] Performing Lab: see note ML - [facility] LB XR chest 1V Reviewed date:2024 11:31:32 AM Interpretation: Performing Lab: Notes/Report: Source Facility: [place] [address] [place] [address] XRay Report Signed Patient: ANAY BINGHAM MR#: [id number] : 1935 Acct:[id number] Age/Sex: 88 / F ADM Date: 09/06/24 Loc: ER Attending Dr: Ordering Physician: Mis Meredith M.D. Date of Service: 09/06/24 Procedure(s): XR chest 1V Accession Number(s): [id number] cc: Zenaida Ga M.D.; Mis Meredith M.D. [place] [address] Patient Name: ANAY BINGHAM MRN: [id number] date: 1935 Sex: F Assigned Patient Location: ER Current Patient Location: ED.MAIN Accession/Order Number: [id number] Exam Date: 09/06/2024 19:15 Report Date: 09/06/2024 [...] M.D. Signed By: 09/06/242099 DD/ 56 TD/TT: Thermal Molder: The [address] [address] XRay Report Signed Patient: ANAY BINGHAM MR#: [id number] : 1935 Acct:[id number] Age/Sex: 88 / F ADM Date: 09/06/24 Loc: ER Attending Dr: Ordering Physician: Mis Meredith M.D. Date of Service: 09/06/24 Procedure(s): XR chest 1V Accession Number(s): [id number] cc: Zenaida Ga M.D. ; Mis Meredith M.D. The [address] [address] Patient Name: ANAY BINGHAM MRN: [id number] date: 1935 Sex: F Assigned Patient Location: ER Current Patient Loca tion: ED.MAIN Accession/Order Numb er: [id number] Exam Date: 09/06/2024 19:15 Report Date: 09/06/2024 [...] M.D. Signed By: 09/06/242099 DD/ 56 TD/TT: Thermal Molder: Troponin I High Sensitivity Reviewed date:06/11/2024 12:34:16 PM Interpretation: Performing Lab: Notes/Report: Comment off of blood from this am please and thank you The , Troponin I High Sensitivity 38.8 4.0-51.3 pg/mL CUT-OFF POINTS HAVE BEEN ESTABLISHED BASED ON THE FOURTH UNIVERSAL DEFINITION OF MYOCARDIAL INFARCTION. THE UPPER REFERENCE LIMIT (URL) OF TROPONIN, DEFINED THE 99TH PERCENTILE OF cTnI DISTRIBUTION IN A REFERENCE POPULATION, HAS BEEN CONFIRMED THE DECISION THRESHOLD FOR NH DIAGNOSIS. 99TH PERCENTILE = 51.4 PG/ML NOTE: HIGH-SENSITIVITY TROPONIN ASSAY IS NOT INTENDED TO BE USED IN ISOLATION BUT SHOULD BE INTERPRETED IN CONJUNCTION WITH OTHER DIAGNOSTIC AND CLINICAL INFORMATION. Performing Lab: see note ML - [facility] LB BNP Reviewed date:06/11/2024 12:34:16 PM Interpretation: Performing Lab: Notes/Report: Comment off of blood from this am please and thank you The , NT Pro B Type Natriuretic Pept 1227.0 <=1800.0 pg/mL Performing Lab: see note ML - [facility] LB Troponin I High Sensitivity Reviewed date:06/10/2024 08:39:29 PM Interpretation: Performing Lab: Notes/Report: Comment start 3 hours after last one The , Troponin I High Sensitivity 104.9 4.0-51.3 pg/mL RESULTS CALLED TO ATUL NUNEZ RN at 0831 CUT-OFF POINTS HAVE BEEN ESTABLISHED BASED ON THE FOURTH UNIVERSAL DEFINITION OF MYOCARDIAL INFARCTION. THE UPPER REFERENCE LIMIT (URL) OF TROPONIN, DEFINED THE 99TH PERCENTILE OF cTnI DISTRIBUTION IN A REFERENCE POPULATION, HAS BEEN CONFIRMED THE DECISION THRESHOLD FOR NH DIAGNOSIS. 99TH PERCENTILE = 51.4 PG/ML NOTE: HIGH-SENSITIVITY TROPONIN ASSAY IS NOT INTENDED TO BE USED IN ISOLATION BUT SHOULD BE INTERPRETED IN CONJUNCTION WITH OTHER DIAGNOSTIC AND CLINICAL INFORMATION. Performing Lab: see note ML - [facility] LB CA echo doppler complete Reviewed date:06/10/2024 08:39:29 PM Interpretation: Performing Lab: Notes/Report: Source Facility: [place] [address] [place] [address] Cardiology Report Signed Patient: ANAY BINGHAM MR#: [id number] : 1935 Acct:[id number] Age/Sex: 88 / F ADM Date: 06/10/24 Loc: [place] 216-[address]: Zenaida Ga M.D. Ordering Physician: Zenaida Ga M.D. Date of Service: 06/10/24 Procedure(s): CA echo doppler complete Accession Number(s): [id number] cc: Zenaida Ga M.D. Patient Name: ANAY BINGHAM MR#: [id number] : 1935 Exam Date: 06/10/2024 Ordering Doctor: [...] Pressure: 30.49 ml, 30.49 ml Dictated by: eJy Jasso M.D. on 06/10/2024 at 19:38 Approved by: Jey Jasso M.D. on 06/10/2024 at 19:43 Dictated By: JEY JASSO Signed By: 06/10/241944 DD/ 42 TD/TT: Thermal Molder: [place] [address] Cardiology Report Signed Patient: ANAY BINGHAM MR#: [id number] : 1935 Acct:[id number] Age/Sex: 88 / F ADM Date: 06/10/24 Loc: MS 216-[address]: Adam Ga M.D. Ordering Physician: Zenaida Ga M.D. Date of Service: 06/10/24 Procedure(s): CA ech o doppler complete Accession Number(s): [id number] cc: Zenaida Ga M.D. Patient Name: ANAY BINGHAM MR#: [id number] : 1935 Exam Date: 06/10/2024 Ordering Doctor: [...] RIGHT ATRIUM: Modera te dilatation. RIGHT VENTRICLE: No rmal chamber size. Normal right ventricular systolic function. 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 Signed By: 06/09/24724 DD/ 1 TD/TT: Thermal Molder: BETTY chest 1V Reviewed date:06/08/2024 02:18:19 PM Interpretation: Performing Lab: Notes/Report: Source Facility: [place] [address] [place] [address] XRay Report Signed Patient: ANAY BINGHAM MR#: [id number] : 1935 Acct:[id number] Age/Sex: 88 / F ADM Date: 06/06/24 Loc: ER Attending Dr: Ordering Physician: Johnnie Garcia Date of Service: 06/06/24 Procedure(s): XR chest 1V Accession Number(s): [id number] cc: Zenaida Ga M.D.; Johnnie Garcia [place] [address] Patient Name: ANAY BINGHAM MRN: [id number] date: 1935 Sex: F Assigned Patient Location: ER Current Patient Location: ER Accession/Order Number: [id number] Exam Date: 06/06/2024 06:40 Report Date: 06/06/2024 [...] M.D. Signed By: 06/06/24702 DD/ 0 TD/TT: Thermal Molder: [place] [address] XRay Report Signed Patient: ANAY BINGHAM MR#: [id number] : 1935 Acct:[id number] Age/Sex: 88 / F ADM Date: 06/06/24 Loc: ER Attending Dr: Ordering Physician: Johnnie Garcia Date of Service: 06/06/24 Procedure(s): XR chest 1V Accession Number(s): [id number] cc: Zenaida Ga M.D. ; Johnnie Garcia [place] [address] Patient Name: ANAY BINGHAM MRN: [id number] date: 1935 Sex: F Assigned Patient Location: ER Current Patient Loca tion: ER Accession/Order Numb er: [id number] Exam Date: 06:40 Report Date: 06/06/2024 07:01 [...] M.D. 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1935 Requested By: 0919 Order Number: [id number] Reading MD: Measurements Intervals [place] Rate: 50 P: -85902 NC: -78980 QRS: 54 QRSD: 142 T: 176 QT: 444 QTc: 416 Interpretive Statements 1210 Atrial fibrillation 2550 Left bundle branch block 9150 abnormal ECG No previous ECG available for comparison Dictated By: Judi Bolaños Signed By: DD/ 0600 TD/TT: Thermal Molder: [place] [address] Electrocardiograph Report Draft Patient: ANAY BINGHAM MR#: [id number] : 1935 Acct:[id number] Age/Sex: 88 / F ADM Date: 06/06/24 Loc: ER Attending Dr: Ordering Physician: Johnnie Garcia Date of Service: 06/06/24 Procedure(s): ECG 12 lead Accession Number(s): [id number] cc: [facility] Test Date: 2024-06-06 Pat Name: ANAY Payton Department: 37 Room: - 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1935 Requ ested By: 0919 Order Number: [id number] Reading MD: Measurements Intervals [place] Rate: 50 P: -21380 NC: -52617 QRS: 54 QRSD: 142 T: 176 QT: 444 QTc: 416 Interpretive Statements 1210 Atrial fibrillation 2550 Left bundle bra nch block 9150 abnormal ECG No previous ECG avai lable for comparison Dictated By: Judi Bolaños Signed By: DD/ 0600 TD/TT: Thermal Molder: TSH W/ REFLEX FT4 Reviewed date:06/08/2024 02:18:19 PM Interpretation: Performing Lab: Notes/Report: The , TSH W/ REFLEX FT4 0.192 0.358-3.740 uIU/mL Performing Lab: see note ML - [facility] LB Troponin I High Sensitivity Reviewed date:06/08/2024 02:18:19 PM Interpretation: Performing Lab: Notes/Report: The , Troponin I High Sensitivity 15.9 4.0-51.3 pg/mL CUT-OFF POINTS HAVE BEEN ESTABLISHED BASED ON THE FOURTH UNIVERSAL DEFINITION OF MYOCARDIAL INFARCTION. THE UPPER REFERENCE LIMIT (URL) OF TROPONIN, DEFINED THE 99TH PERCENTILE OF cTnI DISTRIBUTION IN A REFERENCE POPULATION, HAS BEEN CONFIRMED THE DECISION THRESHOLD FOR NH DIAGNOSIS. 99TH PERCENTILE = 51.4 PG/ML NOTE: HIGH-SENSITIVITY TROPONIN ASSAY IS NOT INTENDED TO BE USED IN ISOLATION BUT SHOULD BE INTERPRETED IN CONJUNCTION WITH OTHER DIAGNOSTIC AND CLINICAL INFORMATION. Performing Lab: see note ML - [facility] LB Prothrombin Time INR Reviewed date:06/08/2024 02:18:19 PM Interpretation: Performing Lab: Notes/Report: The , Prothrombin Time 11.3 9.0-11.6 sec INR 1.07 DESIRED INR: 2.0-3.0 CONDITIONS NOT LISTED BELOW 2.5-3.5 FOR PROSTHETIC HEART VALVE REPLACEMENT 2.5-3.5 RECURRENT THROMBOSIS Performing Lab: see note ML - [facility] LB PTT Reviewed date:06/08/2024 02:18:19 PM Interpretation: Performing Lab: Notes/Report: The , Partial Thromboplastin Time 29.9 22.3-36.2 sec Performing Lab: see note - [facility] LB PROF 14(COMP METB) Reviewed date:06/08/2024 02:18:19 PM Interpretation: Performing Lab: Notes/Report: The , Sodium 144 136-145 mmol/L Potassium 4.4 [...] 0.9 Performing Lab: see note ML - [facility] LB MAGNESIUM Reviewed date:06/08/2024 02:18:19 PM Interpretation: Performing Lab: Notes/Report: The , Magnesium 1.6 1.8-2.4 mg/dL Performing Lab: see note - [facility] LB CPK Reviewed date:06/08/2024 02:18:19 PM Interpretation: Performing Lab: Notes/Report: [facility] , Creatine Kinase 24 26-192 U/L Performing Lab: see note - [facility] LB CBC AUTO DIFF Reviewed date:06/08/2024 02:18:19 PM Interpretation: Performing Lab: Notes/Report: The , White Blood Count 4.2 4.0-11.0 10 [...] 3/uL Performing Lab: see note ML - [facility] LB BNP Reviewed date:06/08/2024 02:18:19 PM Interpretation: Performing Lab: Notes/Report: The , NT Pro B Type Natriuretic Pept 142.0 <=1800.0 pg/mL Performing Lab: see note ML - [facility] LB CT head/brain wo con Reviewed date:02/19/2024 07:35:01 PM Interpretation: Performing Lab: Notes/Report: Source Facility: [place] [address] CT Scan Report Signed Patient: ANAY BINGHAM MR#: [id number] : 1935 Acct:[id number] Age/Sex: 88 / F ADM Date: 02/19/24 Loc: RAD Attending Dr: Zenaida Ga M.D. Ordering Physician: Zenaida Ga M.D. Date of Service: 02/19/24 Procedure(s): CT head/brain wo con Accession Number(s): [id number] cc: Zenaida Ga M.D. [place] [address] Patient Name: ANAY BINGHAM MRN: [id number] date: 1935 Sex: F Assigned Patient Location: RAD Current Patient Location: RAD Accession/Order Number: [id number] Exam Date: 02/19/2024 11:39 Report Date: 02/19/2024 12:18 At the request of: ZENAIDA GA Procedure: CT head/brain wo con CT head/brain [...] Signed By: 02/19/24 1221 DD/ 1218 TD/TT: Thermal Molder: [place] [address] CT Scan Report Signed Patient: ANAY BINGHAM MR#: [id number] : 1935 Acct:[id number] Age/Sex: 88 / F ADM Date: 02/19/24 Loc: RAD Attending Dr: Adam Ga M.D. Ordering Physician: Zenaida Ga M.D. Date of Service: 02/19/24 Procedure(s): CT head/brain wo con Accession Number(s): [id number] cc: Zenaida Ga M.D. [place] [id number] Patient Name: ANAY BINGHAM MRN: [id number] date: 1935 Sex: F Assigned Patient Location: RAD Current Patient Loca tion: RAD Accession/Order Numb er: [id number] Exam Date: 02/19/2024 11:39 Report Date: 02/19/2024 [...] Signed By: 02/19/24 1221 DD/ 1218 TD/TT: Thermal Molder: CT FACIAL BONES WO CON Reviewed date:02/19/2024 07:35:01 PM Interpretation: Performing Lab: Notes/Report: Source Facility: [place] [address] CT Scan Report Signed Patient: ANAY BINGHAM MR#: [id number] : 1935 Acct:[id number] Age/Sex: 88 / F ADM Date: 02/19/24 Loc: RAD Attending Dr: Zenaida Ga M.D. Ordering Physician: Zenaida Ga M.D. Date of Service: 02/19/24 Procedure(s): CT facial bones wo con Accession Number(s): [id number] cc: Zenaida Ga M.D. [place] [address] Patient Name: ANAY BINGHAM MRN: [id number] date: 1935 Sex: F Assigned Patient Location: [facility] Current Patient Location: [facility] Accession/Order Number: [id number] Exam Date: 02/19/2024 11:39 Report Date: 02/19/2024 [...] Signed By: 02/19/24 1221 DD/ 1218 TD/TT: Thermal Molder: [place] [address] CT Scan Report Signed Patient: ANAY BINGHAM MR#: [id number] : 1935 Acct:[id number] Age/Sex: 88 / F ADM Date: 02/19/24 Loc: RAD Attending Dr: Adam Ga M.D. Ordering Physician: Zenaida Ga M.D. Date of Service: 02/19/24 Procedure(s): CT fac ial bones wo con Accession Number(s): [id number] cc: Zenaida Ga M.D. The [address] [address] Patient Name: ANAY VARGASN: [id number] date: 1935 Sex: F Assigned Patient Location: RAD Current Patient Loca tion: RAD Accession/Order Mo er: [id number] Exam Date: 02/19/2024 11:39 Report Date: 02/19/2024 [...] Signed By: 02/19/24 1221 DD/ 1218 TD/TT: Thermal Molder: TSH Reviewed date:12/29/2024 09:16:23 PM Interpretation: Performing Lab: Notes/Report: The , Thyroid Stimulating Hormone 0.041 0.358-3.740 uIU/mL Performing Lab: see note ML - [facility] LB T4 Reviewed date:12/29/2024 09:16:23 PM Interpretation: Performing Lab: Notes/Report: The , T4 Thyroxine 6.50 4.80-13.90 ug/dL Performing Lab: see note ML - [facility] LB PROF 14(COMP METB) Reviewed date:12/29/2024 09:16:23 PM Interpretation: Performing Lab: Notes/Report: The , Sodium 142 136-145 mmol/L Potassium 4.8 [...] Performing Lab: see note ML - [facility] LB FREE T3 Reviewed date:12/29/2024 09:16:23 PM Interpretation: Performing Lab: Notes/Report: The , Free T3 1.58 2.18-3.98 pg/mL Performing Lab: see note ML - [facility] LB VITAMIN D 25 [place] Reviewed date:10/16/2024 08:29:47 PM Interpretation: Performing Lab: Notes/Report: The , Vitamin D 57.3 <20 ng/mL Vit D deficient 20-<30 ng/mL Vit D insufficient 30-100 ng/mL Vit D sufficient >100 ng/mL Potential Toxicity Performing Lab: see note ML - [facility] LB Reason For Referral Diagnosis 1 Nasal fracture (S02. 2XXA) Referral Organization [facility] Referring Provider First Name Juan Referring Provider Last Name Sury Referring Provider [facility] Referred Provider Cheryl Mckeon Referred Provider Specialty Otolaryngolo gy Referral Priority Routine Diagnosis 1 Essential (primary) hypertension (I10) Diagnosis 2 Bradycardia (R00.1) Referral Organization [facility] Referring Provider First Name Juan Referring Provider Last Name Sury Referring Provider [facility] Referred Provider [facility] Cardiology, [facility] Referred Provider Specialty Cardiology Referral Priority Routine [...] OPEN LID ON CONTAINERS 07/24/2024 Active Ipratropium [place] 0.06 % 2 sprays in each nostril Nasally twice daily 07/24/2024 Active Gemfibrozil 600 MG TAKE 1 TABLET BY MOUTH TWICE A DAY 30 MINUTES BEFORE MORNING AND EVENING MEALS for 90 Active Cytomel 5 MCG 2 tablet on an empty stomach Orally Once a day for 30 days 10/17/2024 Active Immunizations Vaccine Route Administration Date Status Comme nts Flu, Fluad (03533) 65 yrs and older, single-dose syringe IM [...] Status W/U Status Risk Notes Problem Goiter (0133819) 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 Problem 836942372 Mixed hyperlipidemia (E78.2) Active confirmed Problem Hypomagnesemia (801282521) Hypomagnesemia (E83.42) Active confirmed Problem 58486484 Other fatigue (R53.83) Active confirmed Problem Type II diabetes mellitus without complication (050452452) Type 2 diabetes mellitus without complication (E11.9) Active confirmed Problem Gastroesophageal reflux disease (661067139) GERD (gastroesophageal reflux disease) (K21.9) Active confirmed Problem Hypertension (60819275) HTN (hypertension) (I10) Active confirmed Problem Hypothyroid (09299511) Hypothyroid (E03.9) Active confirmed Problem DM - Diabetes mellitus (45098187) DM (diabetes mellitus) (E11.9) Active confirmed Problem Bradycardia (73432446) Bradycardia (R00.1) Active confirmed Problem Essential hypertension (17696322) Essential (primary) hypertension (I10) Active confirmed Problem Arthralgia (33663614) Arthralgia (M25.50) Active confirmed Problem Osteoporosis (26516375) Osteoporosis (M81.0) Active confirmed Problem Acquired hypothyroidism (435789665) Acquired hypothyroidism (E03.9) Active confirmed Problem Pain of left hand (563525814629804) Left hand pain (M79.642) Active confirmed Problem Sacral back pain (37236673) Sacral back pain (M53.3) Active confirmed Problem Diabetes mellitus (61111405) Diabetes mellitus (E11.9) Active confirmed Problem Head and face pain (R51.9) Active confirmed Vital Signs Heart Rate 65 /min 05/08/2024 Temperature 99.1 degrees Fahrenheit 05/08/2024 Oximetry 95 % 05/08/2024 Blood pressure diastolic 82 mm Hg 01/28/2025 Height 60 in 01/28/2025 Blood pressure systolic 138 mm Hg 01/28/2025 Weight 128.0 lbs 01/28/2025 BMI 25 kg/m2 01/28/2025 Encounters Encounter Location Date Provider Diagnosis [address] [address] 02/19/2024 Juan Hoy Head and face pain R 51.9 and Left hand pain M79.[address] [address] 06/02/2024 Juan Hoy Trapezius muscle str ain S46.819A [address] [address] 01/28/2025 Juan Hoy Type 2 diabetes bebe itus without complication E11.9 and Sacral back pain M53.[address] [address] 10/01/2024 Juan Hadleyy Encounter for Medica re annual wellness exam Z00.[address] [address] 10/23/2024 Juan Hoy Essential (primary) hypertension I10 ; Hypothyroid E03.9 ; Type 2 diabetes mellitus without complication E11.9 and HTN (hypertension) I10 [address] [address] 05/01/2024 Juan Hoy Type 2 diabetes bebe itus without complication E11.9 ; Essential (primary) hypertension I10 ; Arthralgia M25.50 ; Encounter for immunization Z23 and Encounter for other specified prophylactic measures Z29.[address] [address] 06/09/2024 Juan Hoy Bradycardia R00.[address] [address] 07/24/2024 Juan Hoy Type 2 diabetes bebe itus without complication E11.9 and Essential (primary) hypertension I10 [facility] [address] [place] [address] 09/24/2024 Juan Hoy Type 2 diabetes bebe itus without complication E11.9 ; Essential (primary) hypertension I10 ; Arthralgia M25.50 and Acquired hypothyroidism E03.9 [facility] [address] [place] [address] 12/25/2024 Juan Hoy Essential (primary) hypertension I10 ; Type 2 diabetes mellitus without complication E11.9 ; 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 and GERD (gastroesophageal reflux disease) K21.9 [facility] [address] [place] [address] 05/08/2024 Juan Hoy Cough R05.9 ; Body a ches R52 ; Fever R50.9 and Acute bronchitis, unspecified organism J20.9 [facility] [address] [place] [address] 02/19/2024 Juan Hoy Nasal fracture S02.2 XXA [facility] [address] [place] [address] 10/01/2024 Juan Hoy Type 2 diabetes bebe itus without complication E11.9 ; Essential (primary) hypertension I10 ; Mixed hyperlipidemia E78.2 ; Other fatigue R53.83 ; Hypomagnesemia E83.42 ; Hypothyroid E03.[address] [facility] [address] [place] [address] 10/16/2024 Juan Hoy Hypothyroid E03.9 [facility] [address] [place] [address] 10/20/[address] [facility] [address] [place] [address] 12/29/[address] [facility] [address] [place] [address] 01/28/[address] [facility] [address] [facility] [place] [address] 02/03/2025 Juan Ga Hypothyroid E03.9 [facility] [address] [facility] [place] [address] 07/01/2024 Juan Ga [facility] [address] [facility] [place] [address] 07/21/[address] [facility] [address] [facility] [place] [address] 08/05/[address] [facility] [address] [facility] [place] [address] 08/29/2024 Juan [facility] [address] [facility] [place] [address] 09/15/2024 Juan Ga Type 2 diabetes bebe itus without complication E11.9 and Acquired hypothyroidism E03.9 [facility] [address] [facility] [place] [address] 09/16/[address] [facility] [address] [facility] [place] [address] 02/20/2024 Juan [facility] [address] [facility] [place] [address] 05/13/2024 Juan [facility] [address] [facility] [place] [address] 05/19/[address] [facility] [address] [facility] [place] [address] 06/02/[address] [facility] [address] [facility] [place] [address] 06/09/[address] [facility] [address] [facility] [place] [address] 06/30/2024 Juan Ga Essential (primary) hypertension I10 and Bradycardia R00.1 Assessments Encounter Date Diagnosis (ICD Code) Assessment Notes Treatment Notes Treatment Clinical Notes Section Notes 05/01/2024 Type 2 diabetes mellitus without complication (ICD-10 - E11.9) 05/01/2024 Essential (primary) hypertension (ICD-10 - I10) 05/08/2024 Body aches (ICD-10 - R52) 05/08/2024 Cough (ICD-10 - R05.9) 06/02/2024 Trapezius muscle strain (ICD-10 - S46.819A) 06/09/2024 Bradycardia (ICD-10 - R00.1) 07/24/2024 Type 2 diabetes mellitus without complication (ICD-10 - E11.9) 07/24/2024 Essential (primary) hypertension (ICD-10 - I10) 09/24/2024 Type 2 diabetes mellitus without complication (ICD-10 - E11.9) 80-90's 09/24/2024 Essential (primary) hypertension (ICD-10 - I10) great here 02/19/2024 Left hand pain (ICD-10 - M79.642) 02/19/2024 Head and face pain (ICD-10 - R51.9) 12/25/2024 Type 2 diabetes mellitus without complication (ICD-10 - E11.9) sugar 12/25/2024 Essential (primary) hypertension (ICD-10 - I10) stabel here 10/01/2024 Encounter for Medicare annual wellness [...] total was spent with the patient 10/23/2024 Type 2 diabetes mellitus without complication (ICD-10 - E11.9) 10/23/2024 HTN (hypertension) (ICD-10 - I10) 10/23/2024 Hypothyroid (ICD-10 - E03.9) 10/23/2024 Essential (primary) hypertension (ICD-10 - I10) 01/28/2025 Type 2 diabetes mellitus without complication (ICD-10 - E11.9) 01/28/2025 Sacral back pain (ICD-10 - M53.3) 02/19/2024 Nasal fracture (ICD-10 - S02.2XXA) 06/30/2024 Bradycardia (ICD-10 - R00.1) 06/30/2024 Essential (primary) hypertension (ICD-10 - I10) 09/15/2024 Type 2 diabetes mellitus without complication (ICD-10 - E11.9) 09/15/2024 Acquired hypothyroidism (ICD-10 - E03.9) 10/01/2024 Type 2 diabetes mellitus without complication (ICD-10 - E11.9) 10/01/2024 Essential (primary) hypertension (ICD-10 - I10) 10/16/2024 Hypothyroid (ICD-10 - E03.9) 02/03/2025 Hypothyroid (ICD-10 - E03.9) 10/01/2024 Mixed hyperlipidemia (ICD-10 - E78.2) 12/25/2024 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 You may use a humidifier or vaporizer to help keep the drainage moist. Zvbe-hrg-aisaszg Nasal Saline may help the stuffy and runny nose. Use Ibuprofen and or Tylenol as needed for fever, chills, body aches or pain. Children 5 years old should not be given ddwb-aah-vcpcsqf cough and cold medications such as guaifenesin and dextromethorphan. If you're over age 5, you may try fucr-msx-gdktjib cold medications such as guaifenesin and dextromethorphan, [...] to the emergency room or call 911 05/01/2024 Encounter for other specified prophylactic measures (ICD-10 - Z29.89) 10/01/2024 Hypothyroid (ICD-10 - E03.9) 10/01/2024 Osteoporosis [...] 3 Views Left 02/19/2024 CBC AUTO DIFF 01/03/2023 CBC AUTO DIFF 01/30/2024 CBC AUTO DIFF 03/12/2023 GLYCOHEMOGLOBIN A1C 03/12/2023 GLYCOHEMOGLOBIN A1C 09/15/2024 GLYCOHEMOGLOBIN A1C 10/01/2024 GLYCOHEMOGLOBIN A1C 01/30/2024 GLYCOHEMOGLOBIN A1C 01/03/2023 IRON 10/01/2024 LIPID PROFILE 03/12/2023 LIPID PROFILE 01/30/2024 PROF 14(COMP METB) 01/03/2023 PROF 14(COMP METB) 01/30/2024 PROF 14(COMP METB) 03/12/2023 THYROID PROFILE WITH TSH 03/12/2023 THYROID PROFILE WITH TSH 01/30/2024 XR DEXA BONE DENSITY 10/01/2024 XR DEXA BONE DENSITY 09/28/2023 THYROID PANEL (T4/TSH/FREE T3) 5 THYROID PANEL (T4/TSH/FREE T3) 5 THYROID PANEL (T4/TSH/FREE T3) 5 THYROID PANEL (T4/TSH/FREE T3) 5 THYROID PANEL (T4/TSH/FREE T3) 5 THYROID PANEL (T4/TSH/FREE T3) 5 Vitamin D 10/01/2024 XR facial bones min 3V 02/19/2024 CMP (COMP MET MINA) w/eGFR CKD-EPI 2024 CMP (COMP MET MINA) w/eGFR CKD-EPI 2024 CBC WITH DIFF 10/23/2024 Next Appt Details Provider Name:Juan Ga, 11:00:00 AM, [address] [place], [address], Insurance Providers Payer Name Payer Address Payer Phone Subscriber Number Group Number Insured Name Patient Relationship to Insured Coverage Start Date Coverage End Date [place] [address] [place] [address] [phone] [id number] Anay Bingham Self - patient is the insured 3 [facility] [address] [place] [address] [id number] Anay Bingham Self - patient is the insured 3 Medical (General) History Medical History History ICD Code Type 2 diabetes mellitus without complic ation E11.9 Essential (primary) hypertension I10 Iodine-deficiency related diffuse (endem ic) goiter E01.0 Other fatigue R53.83 Mixed hyperlipidemia E78.2 Surgical History Surgery Date(Month/Year) implantable loop recorder placement Partial Hysterectomy Knee Replacement- Bilateral Hospitalization History Reason Date(Month/Year) HTN, Vertigo, KYLIE 05/2024
[2025-02-10 14:32] LABS: Free T3 2.65 pg/mL (2.18-3.98); Thyroid Stimulating Hormone 0.009 uIU/mL (0.358-3.740)
== END 2025-02-10 13:38 | disposition home or self-care (01) ==
LOC: LAB 13:42
PROVIDERS: PCP Family Medicine; Visit Provider Family Medicine
DX: E03.9 Hypothyroidism, unspecified (principal)
CPT/HCPCS: 36415; 84436; 84443; 84481